=== PATIENT | female | born 1940 | race Caucasian/White ===

== ENCOUNTER → 2019-06-12 11:42 | Outpatient (BNVA) | payer MEDICARE, OTHER, SELFPAY | PROVIDERS: Family Provider Family Medicine; PCP Family Medicine; Visit Provider Nurse Practitioner Family | DX: E11.42 Type 2 diabetes mellitus with diabetic polyneuropathy (principal); R53.83 Other fatigue; I48.91 Unspecified atrial fibrillation; Z76.89 Persons encountering health services in other specified circumstances | CPT/HCPCS: 80053; 83036; 84443 ==

== ENCOUNTER 2019-10-26 10:53 | Emergency (ER) | payer MEDICARE, OTHER, SELFPAY ==
--- NOTE | 2019-10-26 11:20 | CT_ITS ---
WS: [id number] CT HEAD TECHNIQUE: Noncontrast CT of the head obtained from the skullbase to the vertex. CLINICAL INFORMATION: POSS CVA. DIZZINESS AND SLURRED SPEECH COMPARISON: None. DLP: [id number] scans at [facility] use at least one of these dose optimization techniques: automat ed exposure control; mA and/or kV adjustment per patient size (includes targeted exams where dose is matched to clinical indication); or iterative reconstruction. FINDINGS: No evidence of intracranial hemorrhage or mass effect. Ventricular system and basal cisterns are ahmadi nt. Mild small vessel changes with moderate parenchymal volume loss. Chronic lacunar infarct left master lamus. No extra-axial fluid collections. No evidence of mass or mass effect. Normal wesley-white differ entiation. Intracranial vascular calcification. Paranasal sinuses and mastoid air cells are well aerated. .Normal visualized soft tissues. CT/CT head wo con* [id number] IMPRESSION: 1. No evidence of intracranial hemorrhage or mass effect. 2. Mild small vessel changes. Moderate parenchymal volume loss. 3. Chronic lacunar infarct left thalamus. 4. No acute intracranial findings.
[2019-10-26 11:23] VITALS: BP 202/86; PULSE 74; RESP 18; TEMP 36.6; O2SAT 98; BMI 27.0
--- NOTE | 2019-10-26 11:28 | CT_ITS ---
WS: [id number] CTA HEAD AND NECK TECHNIQUE: Contrast enhanced CTA of the head and neck with coronal and sagittal reformatted images an d maximum intensity projection (MIP) images. NASCET criteria utilized. CLINICAL INFORMATION: POSS CVA. DIZZINESS AND SLURRED SPEECH COMPARISON: None. DLP: [id number] scans at [facility] use at least one of these dose optimization techniques: automat ed exposure control; mA and/or kV adjustment per patient size (includes targeted exams where dose is matched to clinical indication); or iterative reconstruction. FINDINGS: RIGHT: Right common carotid artery is patent. Calcified atheromatous disease right proximal ICA with stenosis measuring 70% LEFT: Left common carotid artery is patent. Calcified atheromatous disease left carotid bulb extendin g into the ICA with ICA stenosis measuring 39% INTRACRANIAL CTA: Left dominant vertebral artery. Hypoplastic right vertebral artery. Proximal basilar artery is patent . Normal vascularity to the [employer] TUM[employer]PER[employer] territory bilaterally. Both ICAs are patent at the skull base. Dense cavernous carotid calcification with mild to moderate s egmental cavernous carotid narrowing bilaterally. Cavernous carotid arteries remain patent. Hypoplast ic left A1. Normal vascularity to the PITER and MCA territories bilaterally. No evidence of high-grade proximal stenosis or aneurysm. Mastoid air cells are well aerated. Paranasal sinuses are well aerated. Lung apices are well aerated. Normal visualized soft tissues. CT/CT angio headneck* [id number] IMPRESSION: 1. Intracranial w[place] of Francis is unremarkable 2. Left dominant vertebral artery. Basilar artery is patent. 3. Normal vascularity to the PITER and MCA territories bilaterally. 4. Dense cavernous carotid calcification with no flow-limiting stenosis 5. Right ICA stenosis measures 70% 6. Left ICA stenosis measures 39%
[2019-10-26] MEDS: iodixanol 320 mg/mL 100mL Btl IV (11:33)
--- NOTE | 2019-10-26 11:40 | PC.NURSE ---
EKG done at 1130 and shown to ER doctor
--- NOTE | 2019-10-26 11:42 | W.ED.NEUROSD ---
HPI - Neuro Symptoms/Deficit General: Chief Complaint: Neuro Symptoms/Deficit Stated Complaint: STROKE SYMPTOMS Time Seen by Provider: 10/26/19 11:00 History of Present Illness: HPI Narrative: 79-year-old female with a history of hypertension and stroke presents to the emergency department with concerns of ataxia and dizziness and feeling off balance. The patient did initially have some concerns of some diplopia as well. The patient reports this is all unusual for her. She denies any motor or sensory weakness. The patient has any facial droop or dysphagia. The symptoms onset around 07 100 this morning. She was well when she went to bed she has been taking her medications as directed. Associated symptoms: Reports headache(s) and vertigo; Deny chest pain Review of Systems General: Reports: 10 or more systems reviewed and unremarkable except in HPI and below Const: Denies: fever(s) or chills Eyes: Reports: change in vision and blurry vision; Denies: blind spots, eye discomfort or eye redness ENMT: Denies: throat pain, bleeding gums or change in hearing Card: Denies: chest pain or palpitations Resp: Denies: dyspnea Musc: Denies: neck pain, back pain or muscle weakness Neuro: Reports: headache(s), lack of coordination, difficulty walking, dizziness and vertigo; Denies: numbness in extremities, weakness in extremities, sensory changes, frequent falls, confusion, behavioral changes, Slurred speech present, difficulty communicating thoughts, seizure-like activity, involuntary movements or restless legs [facility] ED PFSH: Medical History (Updated 10/26/19 @ 14:07 by Sonu Johnson DO) Atrial fibrillation Breast cancer Encapsulated in milk duct, excised by Dr. Montilla CAD (coronary artery disease) CVA (cerebral vascular accident) 2018 Diabetes mellitus, type II Diabetic peripheral neuropathy associated with type 2 diabetes mellitus Peripheral Vascular Disease Status post left heart catheterization Urinary, incontinence, stress female Surgical History H/O bladder repair surgery S/P dilatation and curettage S/P hysterectomy S/P lumpectomy of breast S/P right heart catheterization S/P wrist surgery Stented coronary artery Social History Smoking and tobacco status: former smoker Second hand smoke exposure: No Smoking risk assessment/counseling performed?: No Alcohol intake: never Desire information about alcohol rehabilitation?: No Counseling given: No Desire information about substance/drug rehabilitation?: No Counseling given: No NIH stroke score NIHSS: Level Of Consciousness - 1a: 0 Level Of Consciousness Questions - 1b: Both Correct Level Of Consciousness Commands - 1c: Both Correct Best Gaze - 2: Normal Visual Garcia - 3: No Visual Loss Facial Palsy - 4: Normal Motor Arm Right - 5: No Drift Motor Arm Left - 5: No Drift Motor Leg Right - 6: No Drift Motor Leg Left - 6: No Drift Limb Ataxia - 7: Absent Sensory - 8: Normal Best Language - 9: No Aphasia Dysarthia - 10: Normal Extinction And Inattention - 11: 0 Score: Total Score: 0 Physical Exam Const: COMMON NORMALS: no acute distress, patient oriented x3, alert and well nourished HENMT: COMMON NORMALS: normocephalic HEAD & SCALP: normocephalic Eye: COMMON NORMALS: Equal, round and reactive pupils present, EOMs intact bilaterally and conjunctivae normal CONJUNCTIVA: Yes conjunctivae normal PUPIL: Yes Equal, round and reactive pupils present Neck/C-Spine: COMMON NORMALS: full ROM, no lymphadenopathy, supple, no meningeal signs, no JVD and Thyroid normal THYROID: Thyroid normal Chest: COMMONS NORMALS: normal inspection of the chest and normal palpation of entire chest wall Resp: COMMON NORMALS: normal respiratory effort, No retractions, No use of accessory muscles, clear to auscultation bilaterally and percussion normal AUSCULTATION: clear to auscultation bilaterally PERCUSSION: percussion normal Cardio: COMMON NORMALS: no JVD GI: COMMON NORMALS: Normal to inspection, nondistended, normoactive bowel sounds present, Soft to palpation, non-tender, No hepatosplenomegaly present, no masses and no bruits PALPATION: Yes Soft to palpation and Yes No hepatosplenomegaly present : COMMON NORMALS: Yes no CVA tenderness BLADDER/KIDNEY EXAM: Yes no CVA tenderness Back/Pelvis: COMMON NORMALS: no CVA tenderness Extremity: COMMON NORMALS: normal to inspection, full ROM, capillary refill normal, no joint enlargement, no clubbing, cyanosis or edema, no calf tenderness and no pedal edema Neuro: COMMON NORMALS: patient oriented x3 SENSORIUM/ORIENTATION: Yes alert MENINGEAL SIGNS: Yes no meningeal signs Skin: COMMON NORMALS: no rashes or lesions noted, turgor normal and no jaundice GENERAL SKIN EXAM: no rashes or lesions noted and turgor normal Course ED course: 79-year-old female with a history of stroke and hypertension as well as atrial fibrillation presents with strokelike symptoms. Stroke alert was called Dr. Michelle presented to the emergency department and evaluated the patient found to have low NIH sent for CT and CTA. Ultimately due to her mild symptoms as well as the fact that she is on Eliquis as she is not a TPA candidate. 13:45 Patient reports all symptoms have resolved. Her CT and CTA were unremarkable. Blood pressures a little bit elevated her blood sugars been a little bit elevated as well. Will talk with Dr. Michelle neurology about disposition. This patient symptoms resolved and I think it's reasonable to discharge her Dr. Michelle concurs the patient really like to go home and not be admitted to the hospital. We discussed return precautions initiation of aspirin she hasn't tolerated statins in the past and so these will be contraindicated based on her past history. Vital Signs: Vital signs: Vital Signs Temperature 97.9 F 10/26/19 11:23 Pulse Rate 70 10/26/19 13:00 Respiratory Rate 16 10/26/19 13:00 Blood Pressure 171/83 10/26/19 13:00 Pulse Oximetry 96 10/26/19 13:00 MDM - Neuro Symptoms/Deficit Lab Data: Labs: Lab Results 10/26/19 10/26/19 10/26/19 Range/Units 11:09 11:09 11:09 WBC 5.2 (4.0-10.0) 10^3/ uL RBC 4.66 (4.1-5.3) 10^6/u L Hgb 13.9 (11.5-15.3) g/dL Hct 42.7 (37.0-47.0) % MCV 91.6 (81-99) fL MCH 29.8 (28.0-34.0) pg MCHC 32.6 (30.0-36.0) g/dL RDW 12.8 (12.1-15.1) % Plt Count 317 (130-400) 10^3/c mm MPV 10.0 (7.4-10.4) fL Neut % (Auto) 70.0 % Lymph % (Auto) 22.9 % Gladwin % (Auto) 5.3 % Eos % (Auto) 1.0 % Baso % (Auto) 0.4 % Neut # (Auto) 3.67 (1.8-7.7) 10^3/u L Lymph # (Auto) 1.2 (0.8-4.8) 10^3/u L Gladwin # (Auto) 0.3 (0.2-0.9) 10^3/u L Eos # (Auto) 0.1 (0.0-0.8) 10^3/u L Baso # (Auto) 0.0 (0.0-0.1) 10^3/u L Nucleated RBC % (a uto) 0 % Nucleated RBCs # 0.0 /100WBC PT 13.60 H (10.5-13.3) SECO NDS INR 1.00 (0.8-1.2) APTT 27.3 (23.9-36.7) SECO NDS Sodium 128 L (136-145) mmol/L Potassium 4.4 (3.5-5.1) mmol/L Chloride 90 L (98-107) mmol/L Carbon Dioxide 23 (22-29) mmol/L Anion Gap 19.4 H (5-19) BUN 12 (8-23) mg/dL Creatinine 0.8 (0.5-0.9) mg/dL Glucose 313 H (65-115) mg/dL Calculated Osmolal ity 274 L (285-295) mOsm/k g Calcium 11.7 H (8.5-10.5) mg/dL Total Bilirubin 0.4 (0.15-1.2) mg/dL AST 17 (0-32) U/L ALT 17 (0-33) U/L Alkaline Phosphata se 71 (35-105) IU/L Total Protein 8.6 (6.6-8.7) g/dL Albumin 4.8 (3.5-5.2) g/dL Globulin 3.8 (1.3-4.6) g/dL Urine Color (Yellow) Urine Appearance (CLEAR) Urine pH (5-7) Ur Specific Gravit y (1.005-1.030) Urine Protein (Negative) Urine Glucose (UA) (Normal) Urine Ketones (Negative) Urine Blood (Negative) Urine Nitrate (Negative) Urine Bilirubin (NEGATIVE) Urine Urobilinogen (Negative) mg/dL Ur Leukocyte Josephine ase (Negative) Urine RBC (0-2) /hpf Urine WBC (0-5) /hpf Ur Squamous Epith Cells (0-5) Amorphous Sediment Urine Bacteria (NONE) 10/26/19 Range/Units 12:56 WBC (4.0-10.0) 10^3/ uL RBC (4.1-5.3) 10^6/u L Hgb (11.5-15.3) g/dL Hct (37.0-47.0) % MCV (81-99) fL MCH (28.0-34.0) pg MCHC (30.0-36.0) g/dL RDW (12.1-15.1) % Plt Count (130-400) 10^3/c mm MPV (7.4-10.4) fL Neut % (Auto) % Lymph % (Auto) % Gladwin % (Auto) % Eos % (Auto) % Baso % (Auto) % Neut # (Auto) (1.8-7.7) 10^3/u L Lymph # (Auto) (0.8-4.8) 10^3/u L Gladwin # (Auto) (0.2-0.9) 10^3/u L Eos # (Auto) (0.0-0.8) 10^3/u L Baso # (Auto) (0.0-0.1) 10^3/u L Nucleated RBC % (a uto) % Nucleated RBCs # /100WBC PT (10.5-13.3) SECO NDS INR (0.8-1.2) APTT (23.9-36.7) SECO NDS Sodium (136-145) mmol/L Potassium (3.5-5.1) mmol/L Chloride (98-107) mmol/L Carbon Dioxide (22-29) mmol/L Anion Gap (5-19) BUN (8-23) mg/dL Creatinine (0.5-0.9) mg/dL Glucose (65-115) mg/dL Calculated Osmolal ity (285-295) mOsm/k g Calcium (8.5-10.5) mg/dL Total Bilirubin (0.15-1.2) mg/dL AST (0-32) U/L ALT (0-33) U/L Alkaline Phosphata se (35-105) IU/L Total Protein (6.6-8.7) g/dL Albumin (3.5-5.2) g/dL Globulin (1.3-4.6) g/dL Urine Color Yellow (Yellow) Urine Appearance Sl hazy (CLEAR) Urine pH 5.0 (5-7) Ur Specific Gravit y 1.015 (1.005-1.030) Urine Protein Neg (Negative) Urine Glucose (UA) 2+ (Normal) Urine Ketones Negative (Negative) Urine Blood Neg (Negative) Urine Nitrate Negative (Negative) Urine Bilirubin Neg (NEGATIVE) Urine Urobilinogen Norm (Negative) mg/dL Ur Leukocyte Josephine ase 1+ H (Negative) Urine RBC 5-10 H (0-2) /hpf Urine WBC 15-25 H (0-5) /hpf Ur Squamous Epith Cells 0-4 H (0-5) Amorphous Sediment Not Reportable Urine Bacteria 2+ H (NONE) Discharge Plan Discharge Patient Disposition: Home, Self-Care Clinical Impression: Transient cerebral ischemia Condition: Stable Prescriptions: No Action docusate sodium [Dulcolax Stool Softener (dss)] 100 mg capsule 100 mg PO DAILY RF: 0 cholecalciferol (vitamin D3) 25,000 unit capsule 2,000 unit PO DAILY RF: 0 Complete Multivitamin Tablet 1 tab PO DAILY RF: 0 oxybutynin chloride 5 mg tablet 5 mg PO BID 90 Days Qty: 180 RF: 3 pioglitazone 45 mg tablet 45 mg PO DAILY 90 Days Qty: 90 RF: 3 apixaban 5 mg tablet 5 mg PO BID 90 Days Qty: 180 RF: 3 carvedilol 6.25 mg tablet 6.25 mg PO BID RF: 0 gabapentin 100 mg capsule See Rx Instructions .ROUTE .COMPLEX RF: 0 lisinopril 20 mg tablet 10 mg PO DAILY RF: 0 methenamine hippurate 1 gram tablet 1 gm PO DAILY PRN (Reason: PRN) RF: 0 polyethylene glycol 3350 [Miralax] 17 gram powder in packet 17 gm PO DAILY PRN (Reason: Constipation) RF: 0 ranolazine 500 mg tablet extended release 12 hr 500 mg PO BID 90 Days Qty: 180 RF: 3 cetirizine 10 mg Tablet 10 mg PO BID RF: 0 Trulicity 1.5 mg/0.5 mL pen injector 1.5 mg SUBCUT Q7D RF: 0 Discharge Orders: Discharge Order (Routine); Ordered 10/26/19 Ordered By: Sonu Johnson Referrals: JUANA Booth FNP [Primary Care Provider] - Caterina Mccauley DO [Family Provider] - Discharge Diet: Low Salt and Low Cholesterol Discharge Activity: Limit activity as instructed Coding Level of Care Code ED Toe Former Stitchdowns for Chg Fwd Exam Comprehensive
--- NOTE | 2019-10-26 11:59 | PC.NURSE ---
Patient stated that she was still having light dizziness , nurse has been informed.
--- NOTE | 2019-10-26 12:00 | PC.NURSE ---
Patient is stating that she is still feeling light dizziness
[2019-10-26 12:04] VITALS: BP 169/74; PULSE 70; RESP 18; O2SAT 96
--- NOTE | 2019-10-26 12:42 | ECG_ITS ---
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 Measurements Intervals [place] Rate: 74 P: 62 WV: 190 QRS: 80 QRSD: 151 T: 46 QT: 414 QTc: 460 Interpretive Statements SINUS RHYTHM WITH SINUS ARRHYTHMIA RIGHT BUNDLE BRANCH BLOCK [120+ ms QRS DURATION, UPRIGHT V1, 40+ ms S IN I/aVL/V4/V5/V6] Compared to ECG 03/19/2017 01:32:44 Right bundle-branch block now present Electronically Signed On 10-27-2019 1:21:11 CDT by Nick Vogel M.D. [email or web address]
[2019-10-26 13:00] VITALS: BP 171/83; PULSE 70; RESP 16; O2SAT 96; O2SAT 98
[2019-10-26 13:02] LABS: Basophils % 0.4 %; Eosinophils # 0.1 10^3/uL (0.0-0.8); Hematocrit 42.7 % (37.0-47.0); Hemoglobin 13.9 g/dL (11.5-15.3); Lymphocytes # 1.2 10^3/uL (0.8-4.8); Lymphocytes % 22.9 %; Mean Corpuscular HGB Conc 32.6 g/dL (30.0-36.0); Mean Corpuscular Hemoglobin 29.8 pg (28.0-34.0); Mean Corpuscular Volume 91.6 fL (81-99); Monocytes # 0.3 10^3/uL (0.2-0.9); Monocytes % 5.3 %; Neutrophils # 3.67 10^3/uL (1.8-7.7); Nucleated Red Blood Cells % 0 %; Platelet Count 317 10^3/cmm (130-400); Red Blood Count 4.66 10^6/uL (4.1-5.3); Red Cell Distribution Width 12.8 % (12.1-15.1); White Blood Count 5.2 10^3/uL (4.0-10.0)
[2019-10-26 13:10] LABS: Partial Thromboplastin Time 27.3 SECONDS (23.9-36.7)
[2019-10-26 13:41] LABS: Alanine Aminotransferase 17 U/L (0-33); Albumin Level 4.8 g/dL (3.5-5.2); Alkaline Phosphatase 71 IU/L (35-105); Aspartate Amino Transferase 17 U/L (0-32); Blood Urea Nitrogen 12 mg/dL (8-23); Calcium 11.7 mg/dL (8.5-10.5); Carbon Dioxide 23 mmol/L (22-29); Chloride 90 mmol/L (98-107); Globulin 3.8 g/dL (1.3-4.6); Glucose 313 mg/dL (65-115); Osmolality Calculated 274 mOsm/kg (285-295); Sodium 128 mmol/L (136-145); Total Bilirubin 0.4 mg/dL (0.15-1.2); Total Protein 8.6 g/dL (6.6-8.7)
[2019-10-26 14:00] VITALS: BP 188/75; PULSE 62; RESP 19; O2SAT 98
[2019-10-26 14:00] LABS: Anion Gap 19.4 (5-19); Potassium 4.4 mmol/L (3.5-5.1)
[2019-10-26 14:02] LABS: Urine Appearance SL Hazy (CLEAR); Urine Color Yellow (Yellow)
[2019-10-26 14:03] LABS: Add Urine Culture? Yes; Add Urine Microscopic? YES; Bacteria Urine 2+; Bilirubin Urine Neg (NEGATIVE); Blood Urine Neg (Negative); Glucose Urine UA 2+ (Normal); Ketones Urine Negative (Negative); Leukocyte Esterase Urine 1+ (Negative); Nitrate Urine Negative (Negative); Protein Urine Neg (Negative); Specific Gravity, Urine 1.015 (1.005-1.030); Squamous Epithelial Cell Urine 0-4 (0-5); Urobilinogen Urine Norm (Negative); WBC Urine 15-25 /hpf (0-5)
[2019-10-26 14:33] VITALS: BP 177/87; PULSE 63; RESP 18; O2SAT 97
--- NOTE | 2019-10-26 15:24 | PM.SAN ---
Stroke Alert Activation ED Arrival Date: 10/26/19 ED Arrival Time: 11:00 ED Physican at Bedside: 11:30 Last Known Normal/at Baseline: 3-4 hours ago Other Last Known Well Infomation: I was called stat for stroke team at 11 AM. I called and spoke with the administrative support clerk, who informed me that the patient had arrived in triage and was staggering to the left. She had been referred from a clinic. I came directly to CAT scan where I managed to examine the patient just as she was transferring to the CAT scan table and I determined that she did not have nystagmus and she was moving all 4 extremities but her speech was slurred. She was wide awake and alert. CT scan of the head showed an old left thalamic infarct. I returned to the CAT scan suite and performed an NIH stroke scale. The time by then was 1107. On completion of the stroke scale I took more time to piece together her history. She reported that she got out of bed at 730 this morning and she was fine. She walked to the kitchen and started getting her breakfast ready and at around 8:00 she suddenly developed dizziness to the point that she could not stand up from her chair. Her daughter assisted her back down and she was experiencing spinning vertigo and her speech was slurred. She called the [place] [facility] a where she believes that she spoke with the nurse practitioner and was advised to come on to the clinic. When she got there, they examined her and send her on to [facility] where she arrived by private vehicle. I then discovered that she is on Eliquis and therefore not a candidate for TPA. Because she had vertigo at the start and gait dysfunction I asked the electronic lab technician to go ahead with CT angiogram. That did not show signs of vertebrobasilar stenosis or any significant disease. I looked at the images on the monitor and follow the patient back to the emergency department and confirmed her exam. I spoke with Dr. Short, who was planning to see the patient in the ER and I asked him to check the radiology report on her CTA. That physician later called me and reviewed all findings and reported that the patient had return to baseline. I agreed to work her into the neurology clinic within a few weeks. She should stay on Eliquis. Stroke Alert Activated by: Triage Stroke Alert Activation Time: 11:00 Stroke MD @ Bedside Time: 11:05 NIH Stroke Scale Time: 11:07 NIH stroke score NIHSS: Level Of Consciousness - 1a: 0 Level Of Consciousness Questions - 1b: Both Correct Level Of Consciousness Commands - 1c: Both Correct Best Gaze - 2: Normal Visual Garcia - 3: No Visual Loss Facial Palsy - 4: Minor Paralysis Motor Arm Right - 5: No Drift Motor Arm Left - 5: No Drift Motor Leg Right - 6: No Drift Motor Leg Left - 6: No Drift Limb Ataxia - 7: Absent Sensory - 8: Normal Best Language - 9: No Aphasia Dysarthia - 10: Mild/Moderate Dysarthia Extinction And Inattention - 11: 0 Score: Total Score: 2 Stroke Alert Data/Treatment Time to CT of Head: 11:00 CT Results Time: 11:07 CT Impression: Old left thalamic infarct Stroke Risk Factors: atrial fibrillation and hypertension tPA Contraindication: tPA Contraindication: Treatment not indcated tPA Admin Prior to Arrival: No Patient & Family Educated on: Cause of Stroke, Treament Plan and tPA Risks/Benefits Other Information: CT angiogram performed immediately on completion of CT because the patient was not a candidate for peripheral TPA and her symptoms suggested posterior circulation ischemia. Critical Care Time Critical Care Time: 30 - 74 mins Coding Level of Care Code Acute Printing Bindery Assistant 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
== END 2019-10-26 14:40 | disposition home or self-care (01) ==
PROVIDERS: Emergency Provider Family Medicine; Family Provider Family Medicine; PCP Nurse Practitioner Family
DX: G45.9 Transient cerebral ischemic attack, unspecified (principal); I48.91 Unspecified atrial fibrillation; Z85.3 Personal history of malignant neoplasm of breast; I25.10 Atherosclerotic heart disease of native coronary artery without angina pectoris; Z86.73 Personal history of transient ischemic attack (TIA), and cerebral infarction without residual deficits; E11.42 Type 2 diabetes mellitus with diabetic polyneuropathy; Z87.891 Personal history of nicotine dependence; Z79.899 Other long term (current) drug therapy
CPT/HCPCS: 12345; 70450; 70496; 70498; 80053; 81001; 81003; 85025; 85610; 85730; 87077; 87086; 87186; 93005; 99284; Q9967

== ENCOUNTER → 2019-12-11 10:02 | Outpatient (BNVA) | payer MEDICARE, OTHER, SELFPAY | PROVIDERS: Family Provider Family Medicine; PCP Nurse Practitioner Family; Referring Provider Nurse Practitioner Family; Visit Provider Nurse Practitioner | DX: Z86.73 Personal history of transient ischemic attack (TIA), and cerebral infarction without residual deficits (principal); Z87.891 Personal history of nicotine dependence | CPT/HCPCS: 99204 ==

== ENCOUNTER → 2019-12-13 10:29 | Outpatient (BNVA) | payer MEDICARE, OTHER, SELFPAY | PROVIDERS: Family Provider Family Medicine; PCP Nurse Practitioner Family; Visit Provider Nurse Practitioner Family | DX: M51.36 Other intervertebral disc degeneration, lumbar region (principal); E11.42 Type 2 diabetes mellitus with diabetic polyneuropathy; E78.2 Mixed hyperlipidemia; I10 Essential (primary) hypertension; F41.8 Other specified anxiety disorders; N39.0 Urinary tract infection, site not specified | CPT/HCPCS: 80053; 80061; 81003; 83036; 84443; 87077; 87086; 87186 ==

== ENCOUNTER 2019-12-26 12:55 | Outpatient (CLI) | payer MEDICARE, OTHER, SELFPAY ==
--- NOTE | 2019-12-26 13:33 | MM_ITS ---
WS: [id number] DIAGNOSTIC BILATERAL DIGITAL MAMMOGRAM WITH CAD HISTORY: HX OF BREAST CANCER COMPARISON: 11/14/2018, 10/12/2017 TECHNIQUE: Bilateral craniocaudad, mediolateral oblique, and mediolateral views are submitted. Comput er aided detection utilized. Breast composition: The breasts are heterogeneously dense, which may obscure small masses. Benign dys trophic calcification at 12:00 LEFT breast. Postsurgical changes and distortion in the posterior LEFT breast. MM/[place] [id number] IMPRESSION: BI-RADS: 2-Benign FOLLOW UP: 1 Year Follow-up
--- NOTE | 2019-12-26 14:20 | XR_ITS ---
WS: [id number] LUMBAR SPINE TECHNIQUE: 7 views of the lumbar spine CLINICAL INFORMATION: Lumbar back pain COMPARISON: None. FINDINGS: Five [id number] lumbar vertebral bodies. The lumbar curve convex left. Osteopenia. Vascular calc ification. Mild disc space narrowing L4-L5 and L5-S1. Slight retrolisthesis L4 on L5. No instability on flexion-extension. No acute appearing compression fractures. Mild chronic appearing compression superior endplate T11. A ortic calcification. XR/XR lumbar spine 6V w f/e [id number] IMPRESSION: 1. Mild lumbar curve convex left. Osteopenia. 2. Disc space narrowing worse at L4-L5 and L5-S1. 3. No instability on flexion-extension 4. Moderate facet arthropathy L4-L5 and L5-S1. 5. No acute appearing compression fractures.
--- NOTE | 2019-12-26 14:20 | MR_ITS ---
WS: [id number] MRI LUMBAR SPINE NONCONTRAST TECHNIQUE: Sagittal T1, T2 and STIR imaging. Axial T1 and T2 imaging. CLINICAL INFORMATION: M51.36 Other intervertebral disc degeneration, lumbar region COMPARISON: MRI FINDINGS: Mild lumbar curve. No acute compression. No high-grade central canal stenosis. Disc osteophyte comple x L4-5. L1-L2: Normal L2-L3: Mild annular bulging with slight narrowing of the subarticular recess bilaterally left greater than right. Spinal canal is patent. Mild facet arthropathy. L3-L4: Mild annular bulging. Slight narrowing of the left subarticular recess. Spinal canal and page en are patent. Mild facet arthropathy. L4-L5: Disc osteophyte complex with endplate ridging. Moderate central stenosis with impingement nara ersing L5 nerve roots bilaterally. Mild right and no significant left foraminal narrowing. Moderate f acet arthropathy. Ligamentum flavum hypertrophy. Disc protrusion L4-5 has ossified and involuted compared to the prior examination 2009. L5-S1: Mild disc bulging with osteophytic ridging. Mild right and no significant left foraminal narro wing. Slight effacement of ventral thecal sac. Slight encroachment traversing right S1 nerve root. Mi ld facet arthropathy. Normal caliber visualized lower abdominal aorta. Small renal cysts. MR/MR lumbar spine wo con* [id number] IMPRESSION: 1. Mild lumbar curve. No acute compression. 2. Disc osteophyte complex L4-5 with central disc osteophyte protrusion. Impin gement traversing L5 nerve roots bilaterally. Moderate central canal stenosis. Mild right L4-5 foraminal narrowing. Disc protrusion at this level has ossified and involuted compared to the prior examination 2009 3. Mild disc osteophyte ridging L5-S1 with mild right foraminal narrowing. Sli ght narrowing of the right subarticular recess. 4. Mild bulging L2-3 with slight narrowing of the subarticular recess. 5. Mild facet arthropathy L3-L5.
== END 2019-12-26 12:56 | disposition home or self-care (01) ==
LOC: RADSHAW 12:59
PROVIDERS: PCP Nurse Practitioner Family; Visit Provider Nurse Practitioner Family
DX: C50.919 Malignant neoplasm of unspecified site of unspecified female breast (principal); M51.36 Other intervertebral disc degeneration, lumbar region; M54.5 Low back pain; Z85.3 Personal history of malignant neoplasm of breast; M25.78 Osteophyte, vertebrae; M48.061 Spinal stenosis, lumbar region without neurogenic claudication; M51.86 Other intervertebral disc disorders, lumbar region; M47.896 Other spondylosis, lumbar region
CPT/HCPCS: 72114; 72148; 77066

== ENCOUNTER 2020-01-04 13:36 | Outpatient (CLI) | payer MEDICARE, OTHER, SELFPAY ==
--- NOTE | 2020-01-04 13:45 | MR_ITS ---
WS: [id number] MRI HEAD WITH CONTRAST TECHNIQUE: Sagittal T1, T2 axial, T2 axial FLAIR, axial susceptibility weighted imaging, axial diffus ion weighted images, and coronal T2 images were obtained. Pre and post-T1 axial and post T1 coronal i mages. ADC and FSPGR images. CLINICAL INFORMATION: SEE DX COMPARISON: MRI . CT October 26, 2019 FINDINGS: No evidence of restricted diffusion to suggest acute ischemia. Ventricular system and basal cisterns are patent. Moderate small vessel changes. Moderate parenchymal volume loss. Incidental cavum septum pellucidum. Chronic lacunar infarct left thalamus. Small vessel changes in the yuliana. Chronic lacunar infarcts in the left cerebellum. Mild mucosal thickening in the mastoid air cells. Normal vascular fl ow voids at the skull base. Mild mucosal thickening in the ethmoid air cells. No hemosiderin and on the susceptibly weighted images. Normal optic chiasm and pituitary infundibulum . Moderate symmetric atrophy involving the temporal lobes and hippocampal formations. No abnormal marco a olinium enhancement. Normal visualized dural venous sinuses. MR/MR head wo/w con [id number] IMPRESSION: 1. No evidence of restricted diffusion to suggest acute ischemia. 2. Moderate small vessel changes with moderate parenchymal volume loss. Small vessel changes in the yuliana. 3. Chronic lacunar infarct in the left thalamus. 4. No abnormal gadolinium enhancement. Moderate symmetric atrophy involving th e temporal lobes and hippocampal formations. 5. Mild mucosal thickening in the mastoid air cells bilaterally.
== END 2020-01-04 13:37 | disposition home or self-care (01) ==
LOC: RADSHAW 13:41
PROVIDERS: PCP Nurse Practitioner Family; Visit Provider Nurse Practitioner
DX: I63.9 Cerebral infarction, unspecified (principal); G31.9 Degenerative disease of nervous system, unspecified
CPT/HCPCS: 70553; A9579

== ENCOUNTER 2020-07-19 14:00 | Outpatient (CLI) | payer MEDICARE, OTHER, SELFPAY ==
--- NOTE | 2020-07-19 15:00 | USCV_ITS ---
Rosado Danitza Age: 79 Gender: F : 1940 Exam Date: 07/19/2020 14:54 Ordering Phys: Martinez Retana MD (Andy) ([email or web address] [place]) Technologist: Trini Perez Exam Location: [facility] [place] Indication: STENOSIS Risk Factors: Previous Vascular Surgery: Right Brachial BP: / Left Brachial BP: / Right Left Velocity (cm/s) Spectral Plaque Velocity (cm/s) Spectral Plaque Syst/Diast Broadening Syst/Diast Broadening 73.90/ 7.70 Prox CCA 73.50 / 7.70 56.20/ 14.30 Mid CCA 83.70 / 15.40 94.80/ 14.30 Distal CCA 72.60 / 10.30 108.10/22.10 Prox ICA 44.40 / 12.90 79.40/ 27.60 Mid ICA 65.40 / 25.70 144.50/32.60 Distal ICA 73.70 / 22.20 83.80 ECA 66.00 2.57 ICA/CCA 0.88 Antegrade Vertebral Antegrade 40.10/ 6.40 cm/s 25.60/ 4.90 cm/s Tri Subclavian Tri 312.5 95.00 0 FINDINGS Moderate heterogeneous plaque to the right bifurcation and proximal internal carotid artery Mild to moderate plaques of the left bifurcation Antegrade flow in the vertebral arteries bilaterally Normal flow velocities in the external carotid arteries bilaterally Elevated velocity in the right subclavian artery-312 cm/s CONCLUSIONS Moderate heterogeneous plaque to the right bifurcation and proximal internal carotid artery with velocity elevation, consistent with less than 50% stenosis Mild to moderate plaques of the left bifurcation, consistent with a less than 50% stenosis Elevated velocity in subclavian artery on the right side, may suggest hemodynamically significant stenosis Compared to the study from 10/14/2018, the Doppler velocity and plaque burden at the bifurcations are much less Elevated velocity in the right subclavian artery also appears to be new Dr Nick Vogel MD FAC (Electronically Signed) Final Date: 19 July 2020 15:46 S
== END 2020-07-19 14:01 | disposition home or self-care (01) ==
LOC: RAD 14:05
PROVIDERS: PCP Nurse Practitioner Family; Visit Provider Thoracic Surgery (Cardiothoracic Vascular Surgery)
DX: I65.23 Occlusion and stenosis of bilateral carotid arteries (principal)
CPT/HCPCS: 93880

== ENCOUNTER → 2020-08-13 09:26 | Outpatient (BNVA) | payer MEDICARE, OTHER, SELFPAY | PROVIDERS: PCP Nurse Practitioner Family; Visit Provider Nurse Practitioner Family | DX: E11.42 Type 2 diabetes mellitus with diabetic polyneuropathy (principal); E78.2 Mixed hyperlipidemia; D64.9 Anemia, unspecified; I10 Essential (primary) hypertension; E55.9 Vitamin D deficiency, unspecified; M51.36 Other intervertebral disc degeneration, lumbar region | CPT/HCPCS: 80053; 80061; 81003; 82306; 82607; 83036; 83550; 83735; 83921; 84443; 85025 ==

== ENCOUNTER 2020-08-14 11:40 | Outpatient (CLI) | payer MEDICARE, OTHER, SELFPAY ==
--- NOTE | 2020-08-14 11:54 | XR_ITS ---
WS: [id number] Lumbar spine, AP, L5-S1 spot, both obliques, lateral with flexion, extension and neutral position, 08/14/2020 Clinical Data: M51.36 - Other intervertebral disc degeneration, lumbar r... Comparison: Lumbar spine, 12/26/2019. Findings: No compression fractures or subluxation is seen. There is disc space narrowing at L4-L5 and L5-S1.. T he transverse processes and SI joints are normal. The oblique films show no spondylolysis or spondylo listhesis. There is degenerative spurring at L4 and L5. No subluxation or limitation of motion on flexion or extension occurs. There is diffuse osteoporosis. There is calcification in the wall of the abdominal aorta but no aneurysm is seen. XR/XR lumbar spine 6V w f/e [id number] Impression: 1. Osteoporosis and osteoarthritis. 2. Degenerative disc narrowing at L4-L5 and L5-S1. 3. Negative for spondylolysis. 4. Negative for limitation of motion or subluxation on flexion or extension.
== END 2020-08-14 11:41 | disposition home or self-care (01) ==
LOC: RAD 11:48
PROVIDERS: PCP Nurse Practitioner Family; Visit Provider Nurse Practitioner Family
DX: M51.36 Other intervertebral disc degeneration, lumbar region (principal); M81.0 Age-related osteoporosis without current pathological fracture; M47.816 Spondylosis without myelopathy or radiculopathy, lumbar region
CPT/HCPCS: 72114

== ENCOUNTER 2020-10-01 06:00 | Outpatient (RCR) | payer MEDICARE, OTHER, SELFPAY | END 2020-10-09 23:59 | disposition home or self-care (01) | LOC: WPT 06:00 | PROVIDERS: PCP Nurse Practitioner Family; Referring Provider Nurse Practitioner Family; Visit Provider Nurse Practitioner Family | DX: M54.9 Dorsalgia, unspecified (principal) | CPT/HCPCS: 97110; 97163 ==

== ENCOUNTER 2020-10-10 06:00 | Outpatient (RCR) | payer MEDICARE, OTHER, SELFPAY | END 2020-11-09 23:59 | disposition home or self-care (01) | LOC: WPT 06:00 | PROVIDERS: PCP Nurse Practitioner Family; Referring Provider Nurse Practitioner Family; Visit Provider Nurse Practitioner Family | DX: M54.5 Low back pain (principal) | CPT/HCPCS: 97110; 97112; 97530 ==

== ENCOUNTER 2020-11-10 06:00 | Outpatient (RCR) | payer MEDICARE, OTHER, SELFPAY | END 2020-12-10 23:59 | disposition home or self-care (01) | LOC: WPT 06:00 | PROVIDERS: PCP Nurse Practitioner Family; Referring Provider Nurse Practitioner Family; Visit Provider Nurse Practitioner Family | DX: M54.9 Dorsalgia, unspecified (principal) | CPT/HCPCS: 97110; 97112; 97530 ==

== ENCOUNTER → 2020-11-28 14:49 | Outpatient (BNVA) | payer MEDICARE, OTHER, SELFPAY | PROVIDERS: PCP Nurse Practitioner Family; Visit Provider Internal Medicine | DX: E11.42 Type 2 diabetes mellitus with diabetic polyneuropathy (principal); R31.0 Gross hematuria | CPT/HCPCS: 81003; 82607; 83036; 87077; 87086; 87184 ==

== ENCOUNTER 2021-01-08 10:01 | Outpatient (CLI) | payer MEDICARE, OTHER, SELFPAY ==
--- NOTE | 2021-01-08 10:00 | MM_ITS ---
WS: [id number] BILATERAL DIGITAL DIAGNOSTIC MAMMOGRAM MAMMOGRAPHY WITH CAD CLINICAL INFORMATION: C50.919 - Malignant neoplasm of unspecified site of unspe... COMPARISON: December 26, 2019 TECHNIQUE: Bilateral CC, MLO, and ML views. FINDINGS: The breasts are composed of heterogeneous fibroglandular density, which can limit the detection of sm all underlying mass lesions. Postoperative changes with parenchymal fibrosis and distortion in the po sterior left breast. Stable dystrophic calcifications 12:00 left breast. Stable dystrophic calcificat ions upper outer right breast. Biopsy clip right breast. Stable clustered calcifications left breast. No suspicious focal mass, asymmetry, calcifications, or architectural distortion. No evidence of jackie gnancy. MM/[place] [id number] IMPRESSION: BI-RADS: 2-Benign FOLLOW UP: 1 Year Follow-up Recommend return to annual diagnostic mammography.
== END 2021-01-08 10:02 | disposition home or self-care (01) ==
LOC: RADSHAW 10:05
PROVIDERS: PCP Nurse Practitioner Family; Visit Provider Nurse Practitioner Family
DX: C50.919 Malignant neoplasm of unspecified site of unspecified female breast (principal)
CPT/HCPCS: 77066

== ENCOUNTER → 2021-02-18 10:24 | Outpatient (BNVA) | payer MEDICARE, OTHER, SELFPAY | PROVIDERS: PCP Nurse Practitioner Family; Visit Provider Internal Medicine | DX: E11.42 Type 2 diabetes mellitus with diabetic polyneuropathy (principal); I25.10 Atherosclerotic heart disease of native coronary artery without angina pectoris; G45.9 Transient cerebral ischemic attack, unspecified; Z79.84 Long term (current) use of oral hypoglycemic drugs; I10 Essential (primary) hypertension | CPT/HCPCS: 99214 ==

== ENCOUNTER 2021-02-26 07:43 | Outpatient (CLI) | payer MEDICARE, OTHER, SELFPAY ==
--- NOTE | 2021-02-26 09:30 | USCV_ITS ---
Danitza Rosado Age: 80 Gender: F : 1940 Exam Date: 02/26/2021 07:59 Ordering Phys: Martinez Retana MD (Andy) [email or web address] [place] Technologist: MARTI Exam Location: [facility] [place] Indication: OCCLUSION AND STENOSIS OF CAROTIDS Risk Factors: Previous Vascular Surgery: Right Brachial BP: / Left Brachial BP: / Right Left Velocity (cm/s) Spectral Plaque Velocity (cm/s) Spectral Plaque Syst/Diast Broadening Syst/Diast Broadening 95.90/ 13.20 Prox CCA 86.20 / 10.10 66.70/ 13.70 Mid CCA 73.80 / 10.10 56.40/ 12.80 Distal CCA 64.50 / 17.10 126.80/29.80 Prox ICA 102.50/ 27.20 161.00/39.70 Mid ICA 84.70 / 24.80 140.00/34.20 Distal ICA 75.30 / 26.30 104.20 ECA 84.70 2.42 ICA/CCA 1.15 Antegrade Vertebral Antegrade 42.70/ 7.20 cm/s 81.50/ 19.30 cm/s Tri Subclavian Bi 220.6 219.5 0 0 CONCLUSIONS Right ICA stenosis 50-69%. Moderate atheromatous plaque right carotid bulb/ICA. Left ICA stenosis <50%. Mild atheromatous plaque left carotid bulb/ICA. Normal antegrade Doppler flow noted in the right vertebral artery. Normal antegrade Doppler flow noted in the left vertebral artery. Erickson Muir MD (Electronically Signed) Final Date: 26 February 2021 08:59 S
== END 2021-02-26 07:44 | disposition home or self-care (01) ==
LOC: US 07:45
PROVIDERS: PCP Nurse Practitioner Family; Visit Provider Thoracic Surgery (Cardiothoracic Vascular Surgery)
DX: I65.23 Occlusion and stenosis of bilateral carotid arteries (principal)
CPT/HCPCS: 93880

== ENCOUNTER → 2021-06-02 09:20 | Outpatient (BNVA) | payer MEDICARE, OTHER, SELFPAY | PROVIDERS: PCP Nurse Practitioner Family; Visit Provider Internal Medicine | DX: E11.42 Type 2 diabetes mellitus with diabetic polyneuropathy (principal) | CPT/HCPCS: 83036 ==

== ENCOUNTER → 2021-07-23 10:15 | Outpatient (BNVA) | payer MEDICARE, OTHER, SELFPAY | PROVIDERS: PCP Nurse Practitioner Family; Visit Provider Family Medicine | DX: N39.0 Urinary tract infection, site not specified (principal); A49.9 Bacterial infection, unspecified; E11.21 Type 2 diabetes mellitus with diabetic nephropathy; M20.42 Other hammer toe(s) (acquired), left foot; M20.41 Other hammer toe(s) (acquired), right foot; M21.621 Bunionette of right foot; M21.622 Bunionette of left foot; E11.8 Type 2 diabetes mellitus with unspecified complications | CPT/HCPCS: 81000 ==

== ENCOUNTER 2021-08-25 10:27 | Outpatient (CLI) | payer MEDICARE, OTHER, SELFPAY ==
--- NOTE | 2021-08-25 11:00 | USCV_ITS ---
Rosado Danitza Age: 80 Gender: F : 1940 Exam Date: 08/25/2021 10:39 Ordering Phys: Martinez Retana MD (Andy) [email or web address] [place] Technologist: Exam Location: [facility] [place] Indication: cca disease Risk Factors: None Previous Vascular Surgery: Right Brachial BP: / Left Brachial BP: / Right Left Velocity (cm/s) Spectral Plaque Velocity (cm/s) Spectral Plaque Syst/Diast Broadening Syst/Diast Broadening 63.90/ 11.00 Prox CCA 60.70 / 10.30 57.30/ 7.70 Mid CCA 55.50 / 12.80 73.50/ 12.00 Hetro Distal CCA 59.80 / 12.00 Hetro 145.90/31.60 Hetro Prox ICA 76.00 / 17.10 Hetro 149.90/43.40 Hetro Mid ICA 117.00/ 25.00 Hetro 106.50/21.00 Distal ICA 94.70 / 17.10 69.20 ECA 76.90 2.04 ICA/CCA 1.93 Antegrade Vertebral Antegrade 60.00/ 10.00 cm/s 113.1/ 26.30 cm/s 0 Tri Subclavian Tri 194.2 163.7 0 0 CONCLUSIONS Right ICA stenosis 50-69%. Moderate atheromatous plaque right carotid bulb/ICA. Left ICA stenosis <50%. Mild atheromatous plaque left carotid bulb/ICA. Normal antegrade Doppler flow noted in the right vertebral artery. Normal antegrade Doppler flow noted in the left vertebral artery. Erickson Muir MD (Electronically Signed) Final Date: 25 Aug 2021 12:45 S
== END 2021-08-25 10:28 | disposition home or self-care (01) ==
PROVIDERS: PCP Nurse Practitioner Family; Visit Provider Thoracic Surgery (Cardiothoracic Vascular Surgery)
DX: I65.23 Occlusion and stenosis of bilateral carotid arteries (principal)
CPT/HCPCS: 93880

== ENCOUNTER 2021-10-11 15:59 | Inpatient (IN) | payer MEDICARE, OTHER, SELFPAY ==
--- NOTE | 2021-10-11 16:03 | ED_ITS ---
HPI - Extremity Injury (Lower) General: Chief Complaint: Fall Stated Complaint: RIGHT ANKLE PAIN S/P FALL Time Seen by Provider: 10/11/21 16:03 History of Present Illness: Ms. Rosado is an 81-year-old lady on [facility] who presents to the emergency department due to fall with leg injury. Fall occurred yesterday afternoon. She reports that there is a elevation change between her concrete driveway and the gravel road and she fell near the. Denies preceding lightheadedness, dizziness, shortness of breath, chest pain. She landed primarily landing on her right side and immediately had pain in her right lower extremity. She required significant assistance to get up. She expected improvement in symptoms however pain is worsened. Intensity is severe and worse with any palpation. Symptoms improved with EMS administered analgesia however still significant with palpation. Additionally she has scattered abrasions. Unsure of last Tdap. Denies other recent changes in health. No other specific changes in health, exacerbating, or alleviating factors identified. Onset (ago): hour(s) Place: home Exacerbating factors: weight bearing, movement and palpation Treatments prior to arrival: other Review of Systems General: Reports: 10 or more systems reviewed and unremarkable except in HPI and below PFSH ED PFSH: Medical History Anemia Atrial fibrillation Back pain with radiation Bacterial UTI Breast cancer Encapsulated in milk duct, excised by Dr. Montilla CAD (coronary artery disease) Chronic idiopathic constipation Chronic idiopathic constipation CVA (cerebral vascular accident) 2018 DDD (degenerative disc disease), lumbar DDD (degenerative disc disease), lumbar Diabetes mellitus, type II Diabetic peripheral neuropathy associated with type 2 diabetes mellitus Essential hypertension Gross hematuria Mixed hyperlipidemia Peripheral Vascular Disease Recurrent UTI Sinusitis Status post left heart catheterization Test anxiety Urinary tract infection Urinary, incontinence, stress female Vitamin D deficiency Surgical History H/O bladder repair surgery S/P dilatation and curettage S/P hysterectomy S/P lumpectomy of breast S/P right heart catheterization S/P wrist surgery Stented coronary artery Family History Other Cancer Diabetes Social History Smoking and tobacco status: former smoker Alcohol intake: unknown Adopted: No Caregiver/support person: No Lives independently: Yes Marital status: / Current occupational status: retired History of recent travel: No Physical Exam Const: COMMON NORMALS: alert GENERAL APPEARANCE: cooperative and well developed HENMT: COMMON NORMALS: normocephalic and atraumatic HEAD & SCALP: no rmocephalic and atraumatic OTHER: No carter signs or raccoon eyes. No hemotympanum. No otorrhea or rhinorrhea. Jaw alignment normal. Dentition baseline. No obvious bony step-offs. No septal hematoma. No evidence of ocular entrapment. Eye: COMMON NORMALS: conjunctivae normal CONJUNCTIVA: Yes conjunctivae normal SCLERA: sclerae normal Neck/C-Spine: COMMON NORMALS: supple GENERAL: Yes trachea midline Resp: COMMON NORMALS: normal respiratory effort EFFORT & INSPECTION: Yes able to speak in complete sentences Cardio: COMMON NORMALS: regular rate and regular rhythm RATE: regular rate RHYTHM: regular rhythm GI: COMMON NORMALS: Soft to palpation PALPATION: Yes Soft to palpation and No Tenderness to palpation present (GI) PERCUSSION: normal to percussion Extremity: NARRATIVE EXTREMITY EXAM: Right ankle lateral aspect soft tissue swelling. Distal CMS intact. Pain with range of motion and palpation. GENERAL: Yes normal exam except as noted and No edema Neuro: COMMON NORMALS: moves all extremities SENSORIUM/ORIENTATION: Yes alert and No Orientation impaired Psych: COMMON NORMALS: mental status grossly normal and Normal thought process present THOUGHT PROCESS: Normal thought process present Course ED course: - Patient was seen and evaluated by me at bedside - Patient placed on cardiac monitors, IV access obtained - Initial evaluation notable for exam as above.. EKG notable for sinus rhythm with nonspecific ST segment abnormalities. No STEMI. - Given history of fall with anticoagulation use imaging felt to be warranted. Head and neck CT negative for acute traumatic injury however noted on CT neck is the lung apices which appears abnormal and further imaging is recommended. Ankle x-ray notable for fractures of the distal fibula/lateral malleolus. CT chest notable for moderate right pleural effusion and small left pleural effusion with compressive atelectasis or pneumonia. Somewhat unexpected findings however patient had persistent oxygen requirement which I initially believed was secondary to analgesia administration however persisted outside of expected time range concerning for additional medical problem in addition to fall - Labs notable for no significant hematologic abnormality. Metabolic panel with hyponatremia and hypochloremia. Troponin elevated with negative delta and BNP is elevated. - Upon serial reexamination after treatment the patient was improved with evita atment however still requiring oxygen with evidence of NSTEMI of uncertain etiology and volume overload - Based on patient history, evaluation, and testing as interpreted the most likely cause of the patient's condition is acute on chronic heart failure, hypoxia, NSTEMI, follow-up with distal fibula fracture - The results of ED evaluation were discussed with the patient including plan for admission due to requirement for level of care not available if discharged to prevent significant worsening/deterioration. - Admitting service was contacted and Dr Armstrong with the hospitalist service agreed to admit the patient - Patient was admitted without further deterioration or significant events. Note: Click bubbles or prepopulated peck in note writing are used for assistance with data collection and billing and are inherently more limited than narrative and other text portions of this note. Please use narrative for additional clinical history and defer to narrative/free test for any case of contradictory information. If information appears in only free text or click bubble it shoul d be considered present or absent as reported. Please contact note policy writer typist for clarifications of clinical information or contradictory information. MDM is a brief summary, contradictory or erroneous seeming information should be clarified and full note should be reviewed. Vital Signs: Vital signs: Vital Signs Temperature 98.1 F 10/16/21 15:31 Pulse Rate 68 10/16/21 15:31 Respiratory Rate 15 10/16/21 15:31 Blood Pressure 105/63 10/16/21 15:31 Pulse Oximetry 92 10/16/21 15:31 MDM - Extremity Injury (Lower) Medical Decision Making 81-year-old lady which prompted further evaluation. Patient admitted for CHF exacerbation, NSTEMI, new oxygen requirement. Medical Records I reviewed the patient's medical records. Lab Data I reviewed the patient's lab results. : 10/16/21 04:08 10/16/21 04:08 Radiology Impressions Ankle X-Ray 10/11/21 16:15 IMPRESSION: There are ill-defined nondisplaced fractures of the distal fibula/lateral malleolus. Cervical Spine CT 10/11/21 16:15 IMPRESSION: 1. Patchy consolidation at the lung apices and partially visualized right pleural effusion. Recommend CT scan of the thorax for further evaluation. 2. There are degenerative changes as described above. No evidence for acute fracture. Head CT 10/11/21 16:15 IMPRESSION: There are senescent changes of the brain as described above. No evidence for large acute ischemic infarction or acute intracranial injury. Knee X-Ray 10/11/21 16:15 IMPRESSION: There is edema and/or hematoma in the subcutaneous soft tissues along the lateral aspect of the knee. Tibia/Fibula X-Ray 10/11/21 16:15 IMPRESSION: There is contour abnormality at the lateral aspect of the distal fibula consistent with nondisplaced fracture. Chest CT 10/11/21 17:17 IMPRESSION: 1. Moderate right pleural effusion and small left pleural effusion with adjacent compressive atelectasis or pneumonia. 2. There are patchy infiltrates at the lung apices. 3. Multifocal bilateral pulmonary ground-glass opacities. This can be seen with pulmonary edema, pneumonia, and/or pneumonitis. 4. Multivessel atherosclerotic disease which involves the coronary arteries. Chest X-Ray 10/14/21 06:00 IMPRESSION: 1. Low lung volumes are present, accentuating cardiac size and pulmonary markings. 2. Stable bilateral pleuroparenchymal disease. Laboratory Results WBC 8.8 10^3/uL (4.0-10.0) 10/11/21 19:53 RBC 4.31 10^6/uL (4.1-5.3) 10/11/21 19:53 Hgb 13.5 g/dL (11.5-15.3) 10/11/21 19:53 Hct 40.0 % (37.0-47.0) 10/11/21 19:53 MCV 92.8 fl (81-99) 10/11/21 19:53 MCH 31.3 pg (28.0-34.0) 10/11/21 19:53 MCHC 33.8 g/dL (30.0-36.0) 10/11/21 19:53 RDW 12.6 % (12.1-15.1) 10/11/21 19:53 Plt Count 280 10^3/cmm (130-400) 10/11/21 19:53 MPV 9.1 fL (7.4-10.4) 10/11/21 19:53 Neut % (Auto) 78.3 % 10/11/21 19:53 Lymph % (Auto) 15.2 % 10/11/21 19:53 [place] % (Auto) 5.5 % 10/11/21 19:53 Eos % (Auto) 0.5 % 10/11/21 19:53 Baso % (Auto) 0.2 % 10/11/21 19:53 Neut # (Auto) 6.88 10^3/uL (1.8-7.7) 10/11/21 19:53 Lymph # (Auto) 1.3 10^3/uL (0.8-4.8) 10/11/21 19:53 [place] # (Auto) 0.5 10^3/uL (0.2-0.9) 10/11/21 19:53 Eos # (Auto) 0.0 10^3/uL (0.0-0.8) 10/11/21 19:53 Baso # (Auto) 0.0 10^3/uL (0.0-0.1) 10/11/21 19:53 Nucleated RBC % (auto) 0 % 10/11/21 19:53 Nucleated RBCs # 0.0 /100WBC 10/11/21 19:53 Sodium 130 mmol/L (136-145) L 10/11/21 19:53 Potassium 4.2 mmol/L (3.5-5.1) 10/11/21 19:53 Chloride 94 mmol/L (98-107) L 10/11/21 19:53 Carbon Dioxide 24 mmol/L (22-29) 10/11/21 19:53 Anion Gap 16.2 (5-19) 10/11/21 19:53 BUN 14 mg/dL (8-23) 10/11/21 19:53 Creatinine 0.7 mg/dL (0.5-0.9) 10/11/21 19:53 GFR Calculation Not Reportable 10/11/21 19:53 Glucose 164 mg/dL (65-115) H 10/11/21 19:53 Calculated Osmolality 274 mOsm/kg (285-295) L 10/11/21 19:53 Calcium 10.5 mg/dL (8.5-10.5) 10/11/21 19:53 Total Bilirubin 0.5 mg/dL (0.15-1.2) 10/11/21 19:53 AST 56 U/L (0-32) H 10/11/21 19:53 ALT 19 U/L (0-33) 10/11/21 19:53 Alkaline Phosphatase 70 IU/L (35-105) 10/11/21 19:53 Troponin T Baseline 548 ng/L (0-10) H* 10/11/21 19:53 NT-Pro-B Natriuret Pep 6933 pg/mL (0-450) H 10/11/21 19:53 Total Protein 7.3 g/dL (6.6-8.7) 10/11/21 19:53 Albumin 4.1 g/dL (3.5-5.2) 10/11/21 19:53 Globulin 3.2 g/dL (1.3-4.6) 10/11/21 19:53 Discharge Plan Discharge Patient Disposition: Admitted As Inpatient Admit Provider: Sandra Armstrong Clinical Impression: Acute exacerbation of CHF (congestive heart failure), Hypoxia, Non-ST elevation PA (NSTEMI) Condition: Stable Discharge Diet: Cardiac Discharge Activity: Resume usual activity Coding Level of Care Code ED Target Setter for Sarahyg Jenniffer
[2021-10-11 16:07] VITALS: BP 120/103; PULSE 80; RESP 18; TEMP 36.7; O2SAT 93
--- NOTE | 2021-10-11 16:15 | CTR_ITS ---
PROCEDURE INFORMATION: Exam: CT Head Without Contrast Exam date and time: 10/11/2021 4:47 PM Age: 81 years old Clinical indication: Injury or trauma; Fall; Blunt trauma (contusions or hematomas); Additional info: Fall on eliquis TECHNIQUE: Imaging protocol: Computed tomography of the head without contrast. Radiation optimization: All CT scans at this facility use at least one of these dose optimization techniques: automated exposure control; mA and/or kV adjustment per patient size (includes targeted exams where dose is matched to clinical indication); or iterative reconstruction. COMPARISON: MR head wo/w con [id number] 01/04/2020 2:15 PM RADIATION DOSE METRICS: Total DLP (mGy-cm): 793.23 FINDINGS: Brain: Calcified plaque is present within the intracranial vasculature. There is diffuse cerebral atrophy present, consistent with this patient's age. Periventricular and subcortical white matter low densities are present which at this age likely represent microvascular ischemic change. There is a chronic lacunar infarct in the left thalamus. No evidence for large acute ischemic infarction. Please note acute ischemia can be occult by head CT. Benign globus pallidus calcifications are present. Cerebral ventricles: No ventriculomegaly. Paranasal sinuses: Visualized sinuses are unremarkable. No fluid levels. Mastoid air cells: Visualized mastoid air cells are well aerated. Bones/joints: Unremarkable. No acute fracture. Soft tissues: Unremarkable. CT/CT head wo con* [id number] IMPRESSION: There are senescent changes of the brain as described above. No evidence for large acute ischemic infarction or acute intracranial injury.
--- NOTE | 2021-10-11 16:15 | CTR_ITS ---
PROCEDURE INFORMATION: Exam: CT Cervical Spine Without Contrast Exam date and time: 10/11/2021 4:50 PM Age: 81 years old Clinical indication: Injury or trauma; Fall; Blunt trauma; Additional info: Fall on eliquis TECHNIQUE: Imaging protocol: Computed tomography of the cervical spine without contrast. Radiation optimization: All CT scans at this facility use at least one of these dose optimization techniques: automated exposure control; mA and/or kV adjustment per patient size (includes targeted exams where dose is matched to clinical indication); or iterative reconstruction. COMPARISON: CT angio headneck* [id number] 10/26/2019 11:12 AM RADIATION DOSE METRICS: Total DLP (mGy-cm): 642.6 FINDINGS: Bones/joints: There are degenerative changes across the temporomandibular joints, right greater than left. Discs/Spinal canal/Neural foramina: There are degenerative changes throughout the visualized spine including marginal osteophyte formations, endplate degenerative changes, and facet arthropathy. Multilevel disc space narrowing. There are multilevel broad-based disc osteophyte complexes which indent the anterior thecal sac and result in varying degrees of bilateral neuroforamina narrowing. Lungs: There is patchy consolidation at the lung apices. Right pleural effusion partially visualized. Soft tissues: There are benign-appearing soft tissue calcifications. CT/CT cervical spin wo con* [id number] IMPRESSION: 1. Patchy consolidation at the lung apices and partially visualized right pleural effusion. Recommend CT scan of the thorax for further evaluation. 2. There are degenerative changes as described above. No evidence for acute fracture.
--- NOTE | 2021-10-11 16:15 | XRR_ITS ---
PROCEDURE INFORMATION: Exam: XR Right Ankle Exam date and time: 10/11/2021 4:29 PM Age: 81 years old Clinical indication: Injury or trauma; Fall; Blunt trauma; Ankle; Right; Additional info: Fall, ankle pain lateral TECHNIQUE: Imaging protocol: Radiologic exam of the Right ankle. Views: 3 or more views. COMPARISON: CR (LOW EXM, ) 10/11/2021 4:28 PM FINDINGS: Bones/joints: There are ill-defined nondisplaced fractures of the distal fibula/lateral malleolus. Soft tissues: There is edema in the soft tissues. XR/XR ankle RT min 3V* [id number] IMPRESSION: There are ill-defined nondisplaced fractures of the distal fibula/lateral malleolus.
--- NOTE | 2021-10-11 16:15 | XRR_ITS ---
PROCEDURE INFORMATION: Exam: XR Right Knee Exam date and time: 10/11/2021 4:22 PM Age: 81 years old Clinical indication: Injury or trauma; Fall; Blunt trauma; Knee; Right; Additional info: Fall, pain lateral TECHNIQUE: Imaging protocol: Radiologic exam of the Right knee. Views: 3 views. COMPARISON: No relevant prior studies available. FINDINGS: Bones/joints: There is an enthesophyte off the superior pole of the patella. Soft tissues: There is edema and/or hematoma in the subcutaneous soft tissues along the lateral aspect of the knee. Vasculature: There are peripheral vascular calcifications. XR/XR knee RT 3V* [id number] IMPRESSION: There is edema and/or hematoma in the subcutaneous soft tissues along the lateral aspect of the knee.
--- NOTE | 2021-10-11 16:15 | XRR_ITS ---
PROCEDURE INFORMATION: Exam: XR Right Tibia and Fibula Exam date and time: 10/11/2021 4:28 PM Age: 81 years old Clinical indication: Injury or trauma; Fall; Blunt trauma; Lower leg; Right; Additional info: Fall, pain lateral upper and lower TECHNIQUE: Imaging protocol: Radiologic exam of the Right tibia and fibula. Views: 2 views. COMPARISON: CR (LOW EXM, ) 10/11/2021 4:22 PM FINDINGS: Bones/joints: There is contour abnormality at the lateral aspect of the distal fibula consistent with nondisplaced fracture. Soft tissues: There is edema in the soft tissues. XR/XR tibia fibula RT 2V [id number] IMPRESSION: There is contour abnormality at the lateral aspect of the distal fibula consistent with nondisplaced fracture.
--- NOTE | 2021-10-11 17:17 | CTR_ITS ---
PROCEDURE INFORMATION: Exam: CT Chest Without Contrast; Diagnostic Exam date and time: 10/11/2021 6:16 PM Age: 81 years old Clinical indication: Dyspnea; Additional info: Abnormal CT cervical spine TECHNIQUE: Imaging protocol: Diagnostic computed tomography of the chest without contrast. Radiation optimization: All CT scans at this facility use at least one of these dose optimization techniques: automated exposure control; mA and/or kV adjustment per patient size (includes targeted exams where dose is matched to clinical indication); or iterative reconstruction. COMPARISON: CTA Chest w Abd/Pel w* 03/18/2017 10:14 PM RADIATION DOSE METRICS: Total DLP (mGy-cm): 678.25 FINDINGS: Lungs: See Pleural spaces finding. Pleural spaces: Moderate right pleural effusion and small left pleural effusion with adjacent compressive atelectasis or pneumonia. There are patchy infiltrates at the lung apices. Multifocal bilateral pulmonary ground-glass opacities. Heart: Multivessel atherosclerotic disease which involves the coronary arteries. Lymph nodes: Unremarkable. No enlarged lymph nodes. Vasculature: Unremarkable. No aortic aneurysm. Bones/joints: There are moderate degenerative changes in the visualized spine. Soft tissues: Unremarkable. CT/CT chest wo con [id number] IMPRESSION: 1. Moderate right pleural effusion and small left pleural effusion with adjacent compressive atelectasis or pneumonia. 2. There are patchy infiltrates at the lung apices. 3. Multifocal bilateral pulmonary ground-glass opacities. This can be seen with pulmonary edema, pneumonia, and/or pneumonitis. 4. Multivessel atherosclerotic disease which involves the coronary arteries.
[2021-10-11] MEDS: tetanus-dipt-pertussis 0.5 mL SDV IM (18:33)
[2021-10-11 18:35] VITALS: RESP 16
[2021-10-11] MEDS: morphine 4 mg/mL SDV 1 mL IVP ×2 (18:35→20:17)
--- NOTE | 2021-10-11 18:53 | ECG_ITS ---
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 Measurements Intervals [place] Rate: 70 P: 49 [place]: 173 QRS: 60 QRSD: 93 T: 253 QT: 446 QTc: 481 Interpretive Statements SINUS RHYTHM WITH MARKED SINUS ARRHYTHMIA MODERATE T-WAVE ABNORMALITY, CONSIDER LATERAL ISCHEMIA [-0.1+ mV T-WAVE IN I/aVL/V5/V6] MODERATE T-WAVE ABNORMALITY, CONSIDER INFERIOR ISCHEMIA [-0.1+ mV T-WAVE IN II/aVF] Compared to ECG 10/26/2019 11:40:12 T-wave abnormality now present Possible ischemia now present Right bundle-branch block no longer present Electronically Signed On 10-12-2021 8:37:13 CDT by Angel Hammer M.D. [id number]
[2021-10-11 20:04] LABS: Basophils % 0.2 %; Eosinophils % 0.5 %; Hemoglobin 13.5 g/dL (11.5-15.3); Lymphocytes # 1.3 10^3/uL (0.8-4.8); Lymphocytes % 15.2 %; Mean Corpuscular HGB Conc 33.8 g/dL (30.0-36.0); Mean Corpuscular Hemoglobin 31.3 pg (28.0-34.0); Mean Corpuscular Volume 92.8 fl (81-99); Mean Platelet Volume 9.1 fL (7.4-10.4); Monocytes # 0.5 10^3/uL (0.2-0.9); Monocytes % 5.5 %; Neutrophils # 6.88 10^3/uL (1.8-7.7); Neutrophils % 78.3 %; Nucleated Red Blood Cells % 0 %; Platelet Count 280 10^3/cmm (130-400); Red Blood Count 4.31 10^6/uL (4.1-5.3); Red Cell Distribution Width 12.6 % (12.1-15.1); White Blood Count 8.8 10^3/uL (4.0-10.0)
[2021-10-11 20:11] VITALS: BP 141/80; PULSE 64; RESP 97; O2SAT 97
[2021-10-11 20:17] VITALS: RESP 18; O2SAT 95
[2021-10-11 20:36] LABS: Alanine Aminotransferase 19 U/L (0-33); Albumin Level 4.1 g/dL (3.5-5.2); Alkaline Phosphatase 70 IU/L (35-105); Anion Gap 16.2 (5-19); Aspartate Amino Transferase 56 U/L (0-32); Blood Urea Nitrogen 14 mg/dL (8-23); Calcium 10.5 mg/dL (8.5-10.5); Carbon Dioxide 24 mmol/L (22-29); Chloride 94 mmol/L (98-107); Globulin 3.2 g/dL (1.3-4.6); Glucose 164 mg/dL (65-115); NT Pro B Type Natriuretic Pept 6933 pg/mL (0-450); Osmolality Calculated 274 mOsm/kg (285-295); Potassium 4.2 mmol/L (3.5-5.1); Sodium 130 mmol/L (136-145); Total Bilirubin 0.5 mg/dL (0.15-1.2); Total Protein 7.3 g/dL (6.6-8.7)
[2021-10-11 20:38] LABS: Troponin(5th) Baseline 548 ng/L (0-10)
--- NOTE | 2021-10-11 20:53 | ECG_ITS ---
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 Measurements Intervals [place] Rate: 69 P: 55 [place]: 172 QRS: 55 QRSD: 88 T: 251 QT: 423 QTc: 454 Interpretive Statements SINUS RHYTHM WITH MARKED SINUS ARRHYTHMIA MODERATE T-WAVE ABNORMALITY, CONSIDER ANTEROLATERAL ISCHEMIA [-0.1+ mV T-WAVE IN V3-V6] MODERATE T-WAVE ABNORMALITY, CONSIDER INFERIOR ISCHEMIA [-0.1+ mV T-WAVE IN II/aVF] Compared to ECG 10/11/2021 19:17:14 No significant changes Electronically Signed On 10-12-2021 8:38:56 CDT by Angel Hammer M.D. [id number]
[2021-10-11] MEDS: FUROsemide 10 mg/mL SDV 4mL 40 MG IVP (21:19)
[2021-10-11 21:52] VITALS: BP 162/73; RESP 18; O2SAT 95
[2021-10-11 22:40] LABS: Influenza A by IFA Negative (Negative); Influenza B by IFA Negative (Negative); SARS Covid-2 Antigen Negative (Negative)
[2021-10-11 22:42] LABS: Troponin 5 2HR 505.1 ng/L (0-10)
[2021-10-11 23:00] VITALS: BP 119/52; PULSE 93; RESP 18; TEMP 36.4; O2SAT 92
[2021-10-12] VITALS (20 sets, daily range): BP systolic 118–166; BP diastolic 55–109; PULSE 73–105; RESP 14–23; TEMP 36.4–37.5; O2SAT 90–100
--- NOTE | 2021-10-12 00:53 | ECG_ITS ---
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 Measurements Intervals [place] Rate: 106 P: [place]: QRS: 94 QRSD: 93 T: 263 QT: 353 QTc: 470 Interpretive Statements ATRIAL FIBRILLATION WITH RAPID VENTRICULAR RESPONSE WITH ABERRANT CONDUCTION BORDERLINE RIGHT AXIS DEVIATION [QRS AXIS > 90] ST DEVIATION AND MODERATE T-WAVE ABNORMALITY, CONSIDER ANTEROLATERAL ISCHEMIA [-0.1+ mV T WAVE IN V3-V6] ST DEVIATION AND MODERATE T-WAVE ABNORMALITY, CONSIDER INFERIOR ISCHEMIA [-0.1+ mV T WAVE IN II/aVF] Compared to ECG 10/11/2021 21:06:45 Aberrant conduction of supraventricular beat(s) now present Sinus rhythm no longer present Sinus arrhythmia no longer present T-wave abnormality still present Possible ischemia still present Electronically Signed On 10-12-2021 8:39:53 CDT by Angel Hammer M.D. [id number]
[2021-10-12 01:11] LABS: Troponin 5 6HR 431.3 ng/L (0-10)
--- NOTE | 2021-10-12 01:36 | PM.HP ---
Providers/Chief Complaint Admitting Physician: Sandra Armstrong MD Primary Care Provider: Cruz Guy Chief Complaint: RIGHT ANKLE PAIN S/P FALL History of Present Illness Danitza Rosado is a 81 year old female with PmH a fib, CAD, CVA, DM, HTN, peripheral vascular disease presented with c/o mechanical fall at home yesterday. Initially thought she has sprained her ankle but then presented to ER when pain continued to get worse. Denies any syncope or loss of consciousness, denies chest pain, dyspnea, palpitation preceding the events. X ray showed non displaced fracture of fibula which has been splinted in the ER. She was noted to have a new oxygen requirement of 3lpm, CT chest showed B/L infiltrates concerning for pulmonary edema, B/L pleural effusions, and elevated troponins. She denies any chest pain at this time. Denies any fever or URI symptoms. Review of Systems General: Reports: 10 or more systems reviewed and unremarkable except in HPI and below Const: Denies: fever(s), chills or body aches Eyes: Denies: change in vision, blurry vision or photophobia ENMT: Reports: hoarseness; Denies: throat pain, enlarged tonsils, odynophagia or nasal congestion Card: Denies: chest pain, palpitations, irregular heart rhythm, edema, swelling of feet/ankles, lightheadedness, pre-syncope, dyspnea on exertion or orthopnea Resp: Denies: dyspnea, productive cough, non-productive cough, wheezing, stridor, pain on inspiration, change in phlegm color, hemoptysis or chest congestion GI: Denies: abdominal pain, nausea, vomiting, hematemesis, coffee ground emesis, dysphagia, heartburn, diarrhea, constipation, GI cramping, change in stool character, hematochezia or melena : Denies: flank pain, difficulty voiding, dysuria, urinary frequency, urinary urgency, urinary hesitancy or hematuria Musc: Denies: neck pain, back pain, extremity pain, joint swelling, joint warmth or deformity Neuro: Denies: headache(s), numbness in extremities, weakness in extremities, sensory changes, difficulty walking, frequent falls, dizziness, vertigo, behavioral changes, Slurred speech present or seizure-like activity Psych: Denies: anxiety, depression, suicidal ideation or homicidal ideation Endo: Denies: polyuria, polydipsia, tired all the time, cold intolerance or hot flashes Aftab/Lymph: Denies: easy bruising or easy bleeding Medications/Allergies Home Medications Medication Instructions Recorded Confirmed Last Taken Type multivitamin,py-vnfs-vrtckmbv 1 tab PO DAILY 06/12/19 10/11/21 10/11/21 09:00 History (Complete Multivitamin) aspirin 81 mg tablet,delayed 81 mg PO DAILY 04/25/20 10/11/21 10/11/21 09:00 History release (Adult Low Dose Aspirin) dulaglutide 1.5 mg/0.5 mL 1.5 mg (0.5 mL) SUBCUT .q7days 11/27/20 10/11/21 10/10/21 09:00 Rx subcutaneous pen injector #7.5 ml (Trulicity) carvedilol 12.5 mg tablet 12.5 mg PO BID #180 tab 05/20/21 10/11/21 10/11/21 09:00 Rx ezetimibe 10 mg tablet (Zetia) 10 mg PO DAILY #90 tab 05/20/21 10/11/21 10/11/21 09:00 Rx ranolazine 1,000 mg 1,000 mg PO BID #180 tab 05/20/21 10/12/21 10/11/21 09:00 Rx tablet,extended release,12 hr (Ranexa) ergocalciferol (vitamin D2) 1,250 See Rx Instructions .ROUTE 06/10/21 10/11/21 10/10/21 09:00 Rx mcg (50,000 unit) capsule .COMPLEX #13 cap Diabetic shoes with 3 pairs of #1 ea 07/23/21 10/12/21 Unknown Rx inserts apixaban 5 mg tablet 5 mg PO BID #60 tab 09/22/21 10/12/21 10/11/21 09:00 Rx docusate sodium 100 mg capsule 100 mg PO DAILY PRN 09/25/21 10/11/21 Unknown History (Dulcolax Stool Softener (docusate)) gabapentin 100 mg capsule 300 mg PO BEDTIME cap 09/25/21 10/11/21 10/10/21 21:00 History lisinopril 10 mg tablet 25 mg PO DIRECTED tab 09/25/21 10/11/21 10/11/21 09:00 History glipizide 5 mg tablet 5 mg PO DAILY 10/11/21 10/11/21 10/11/21 09:00 History linaclotide 145 mcg capsule 145 mcg PO BEDTIME 10/11/21 10/11/21 10/10/21 21:00 History (Linzess) oxybutynin chloride 5 mg tablet 5 mg PO BID 10/11/21 10/11/21 10/11/21 09:00 History pioglitazone 45 mg tablet 45 mg PO DAILY 10/11/21 10/11/21 10/11/21 09:00 History Allergies Allergy/AdvReac Type Severity Reaction Status Date / Time cimetidine [From [facility]] Allergy Intermediate rash Verified 10/11/21 16:11 pravastatin Allergy Unknown Unknown Verified 10/11/21 16:11 PFSH Acute PFSH: Medical History Anemia Atrial fibrillation Back pain with radiation Bacterial UTI Breast cancer Encapsulated in milk duct, excised by Dr. Montilla CAD (coronary artery disease) Chronic idiopathic constipation Chronic idiopathic constipation CVA (cerebral vascular accident) 2018 DDD (degenerative disc disease), lumbar DDD (degenerative disc disease), lumbar Diabetes mellitus, type II Diabetic peripheral neuropathy associated with type 2 diabetes mellitus Essential hypertension Gross hematuria Mixed hyperlipidemia Peripheral Vascular Disease Recurrent UTI Sinusitis Status post left heart catheterization Test anxiety Urinary tract infection Urinary, incontinence, stress female Vitamin D deficiency Surgical History H/O bladder repair surgery S/P dilatation and curettage S/P hysterectomy S/P lumpectomy of breast S/P right heart catheterization S/P wrist surgery Stented coronary artery Family History Other Cancer Diabetes Social History Smoking and tobacco status: former smoker Alcohol intake: unknown Adopted: No Caregiver/support person: No Lives independently: Yes Marital status: / Current occupational status: retired History of recent travel: No Vitals/I&O/Wt Last Vital Signs Temp 98.6 F 10/12/21 00:00 Pulse 76 10/12/21 00:00 Resp 18 10/12/21 00:00 BP 147/80 10/12/21 00:00 Pulse Ox 94 10/12/21 00:00 Weight last 48 hrs Weight 83.915 kg Physical Exam Narrative: GEN: Awake, alert and oriented, no acute distress CVS: S1S2 N RS: B/L scattered crackles all areas Abd: Soft, nt/nd , bs+ 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 Cervical Spine CT 10/11/21 16:15 IMPRESSION: 1. Patchy consolidation at the lung apices and partially visualized right pleural effusion. Recommend CT scan of the thorax for further evaluation. 2. There are degenerative changes as described above. No evidence for acute fracture. Head CT 10/11/21 16:15 IMPRESSION: There are senescent changes of the brain as described above. No evidence for large acute ischemic infarction or acute intracranial injury. Knee X-Ray 10/11/21 16:15 IMPRESSION: There is edema and/or hematoma in the subcutaneous soft tissues along the lateral aspect of the knee. Tibia/Fibula X-Ray 10/11/21 16:15 IMPRESSION: There is contour abnormality at the lateral aspect of the distal fibula consistent with nondisplaced fracture. Chest CT 10/11/21 17:17 IMPRESSION: 1. Moderate right pleural effusion and small left pleural effusion with adjacent compressive atelectasis or pneumonia. 2. There are patchy infiltrates at the lung apices. 3. Multifocal bilateral pulmonary ground-glass opacities. This can be seen with pulmonary edema, pneumonia, and/or pneumonitis. 4. Multivessel atherosclerotic disease which involves the coronary arteries. Laboratory Results WBC 8.8 10^3/uL (4.0-10.0) 10/11/21 19:53 RBC 4.31 10^6/uL (4.1-5.3) 10/11/21 19:53 Hgb 13.5 g/dL (11.5-15.3) 10/11/21 19:53 Hct 40.0 % (37.0-47.0) 10/11/21 19:53 MCV 92.8 fl (81-99) 10/11/21 19:53 MCH 31.3 pg (28.0-34.0) 10/11/21 19:53 MCHC 33.8 g/dL (30.0-36.0) 10/11/21 19:53 RDW 12.6 % (12.1-15.1) 10/11/21 19:53 Plt Count 280 10^3/cmm (130-400) 10/11/21 19:53 MPV 9.1 fL (7.4-10.4) 10/11/21 19:53 Neut % (Auto) 78.3 % 10/11/21 19:53 Lymph % (Auto) 15.2 % 10/11/21 19:53 [place] % (Auto) 5.5 % 10/11/21 19:53 Eos % (Auto) 0.5 % 10/11/21 19:53 Baso % (Auto) 0.2 % 10/11/21 19:53 Neut # (Auto) 6.88 10^3/uL (1.8-7.7) 10/11/21 19:53 Lymph # (Auto) 1.3 10^3/uL (0.8-4.8) 10/11/21 19:53 [place] # (Auto) 0.5 10^3/uL (0.2-0.9) 10/11/21 19:53 Eos # (Auto) 0.0 10^3/uL (0.0-0.8) 10/11/21 19:53 Baso # (Auto) 0.0 10^3/uL (0.0-0.1) 10/11/21 19:53 Nucleated RBC % (auto) 0 % 10/11/21 19:53 Nucleated RBCs # 0.0 /100WBC 10/11/21 19:53 Sodium 130 mmol/L (136-145) L 10/11/21 19:53 Potassium 4.2 mmol/L (3.5-5.1) 10/11/21 19:53 Chloride 94 mmol/L (98-107) L 10/11/21 19:53 Carbon Dioxide 24 mmol/L (22-29) 10/11/21 19:53 Anion Gap 16.2 (5-19) 10/11/21 19:53 BUN 14 mg/dL (8-23) 10/11/21 19:53 Creatinine 0.7 mg/dL (0.5-0.9) 10/11/21 19:53 GFR Calculation Not Reportable 10/11/21 19:53 Glucose 164 mg/dL (65-115) H 10/11/21 19:53 Calculated Osmolality 274 mOsm/kg (285-295) L 10/11/21 19:53 Calcium 10.5 mg/dL (8.5-10.5) 10/11/21 19:53 Total Bilirubin 0.5 mg/dL (0.15-1.2) 10/11/21 19:53 AST 56 U/L (0-32) H 10/11/21 19:53 ALT 19 U/L (0-33) 10/11/21 19:53 Alkaline Phosphatase 70 IU/L (35-105) 10/11/21 19:53 Troponin T Baseline 548 ng/L (0-10) H* 10/11/21 19:53 Troponin T 120 Minute 505.1 ng/L (0-10) H 10/11/21 22:00 Delta Troponin T -42.9 ABS# (0-10) L 10/11/21 22:00 Troponin T Hi Sens 6Hr 431.3 ng/L (0-10) H 10/12/21 00:30 Troponin T Hi Sens 6Hr Delta -116.7 ng/L (0-12) L 10/12/21 00:30 NT-Pro-B Natriuret Pep 6933 pg/mL (0-450) H 10/11/21 19:53 Total Protein 7.3 g/dL (6.6-8.7) 10/11/21 19:53 Albumin 4.1 g/dL (3.5-5.2) 10/11/21 19:53 Globulin 3.2 g/dL (1.3-4.6) 10/11/21 19:53 Influenza Type A Ag Negative (Negative) 10/11/21 22:00 Influenza Type B Ag Negative (Negative) 10/11/21 22:00 SARS-CoV-2 Ag (Rapid) Negative (Negative) 10/11/21 22:00 A&P Assessment and plan (1) Acute exacerbation of CHF (congestive heart failure): As evidenced by B/L infiltrates on CT chest suggestive of pulmonary edema, elevated BNP, new 02 requirement Lasix 40mg iv q12h monitor I/O closely, daily weight Echocardiogram dates back to 2014 which showed LVEF 65%, gr 1 diastolic dysfunction, will check today to monitor for any serial worsening. Status: Acute (2) Hypoxia: related to CHF exacerbation Unlikely PE given patient is on Eliquis Less likely pneumonia given lack of fever, cough, expectoration supplemental l02 to keep sat >92% Negative Flu and Covid Ag Status: Acute (3) Elevated troponin: likely related to CHF excaerbation Elevated trop ~500 but trending down at 2 hrs and [address]- T wave changes on EKG and lack of chest pain make ACS less likely Check Echo Status: Acute (4) Fibula fracture: Limb Spinted in [facility] ER Pain control with OXycocdone/APAP 5/325 q6h prn Status: Acute Attestations Medical Necessity Statement*: >2midnight admission for management of CHF exacerbation with iv diuretics, close monitoring I/O Coding Level of Care Code Acute Supervisor Wall Mirror Department for g 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
[2021-10-12] MEDS: oxyCODONE-APAP 5-325 mg Tablet 1 TAB PO ×5 (02:19→21:14)
[2021-10-12] MEDS: FUROsemide 10 mg/mL SDV 4mL 40 MG IVP ×2 (02:21→12:46)
[2021-10-12] MEDS: morphine 4 mg/mL SDV 1 mL 2 MG IVP ×2 (03:38→07:46)
[2021-10-12 07:42] LABS: Glucose Point of Care 200 mg/dL (70-110)
[2021-10-12] MEDS: insulin lispro 100 unit/1 mL SUBCUT ×4 (08:31→21:14)
[2021-10-12 08:33] LABS: Glucose Point of Care 202 mg/dL (70-110)
[2021-10-12] MEDS: oxybutynin 5 mg Tablet PO ×2 (08:34→18:27)
[2021-10-12] MEDS: ezetimibe 10 mg Tablet PO (08:34)
[2021-10-12] MEDS: ranolazine (12HR) 500 mg Tablet 1000 MG PO ×2 (08:34→18:27)
[2021-10-12] MEDS: lisinopril 10 mg Tablet 15 MG PO (08:34)
[2021-10-12] MEDS: carvedilol 12.5 mg Tablet PO ×2 (08:35→18:27)
[2021-10-12] MEDS: apixaban 5 mg Tablet PO ×2 (08:35→18:27)
[2021-10-12] MEDS: pantoprazole DR 40 mg Tablet PO (08:35)
--- NOTE | 2021-10-12 08:41 | USCV_ITS ---
Alonzo Danitza Age: 81 Gender: F : 1940 Exam Date: 10/12/2021 09:56 Ordering Phys: Osei Perkins MD Technologist: Shai Peterson Exam Location: [facility] [place] Indication: syncope BP: 148 / 65 HR: 79 Rhythm: Sinus Technical Quality: Suboptimal MEASUREMENTS (Male / Female) Normal Values 2D ECHO LV Diastolic Diameter PLAX 4.5 cm 4.2 - 5.9 / 3.9 - 5.3 cm LV Systolic Diameter PLAX 3.2 cm IVS Diastolic Thickness 0.9 cm 0.6 - 1.0 / 0.6 - 0.9 cm IVS Systolic Thickness 1.4 cm LVPW Diastolic Thickness 1.0 cm 0.6 - 1.0 / 0.6 - 0.9 cm LVPW Systolic Thickness 1.6 cm LVOT Diameter 2.0 cm LV Ejection Fraction 2D Teich 55.4 % LV Ejection Fraction MOD 2C 65.8 % LV Ejection Fraction 2C AL 65.8 % LA Diameter 3.5 cm Aorta at Sinotubular Diameter 2.2 cm IVC Diameter 1.8 cm M-MODE Aortic Annulus Diameter 3.5 cm LA Ao Ratio MM 1.2 MV E Point Septal Separation 1.2 cm DOPPLER AV Peak Velocity 158.0 cm/s LVOT Peak Velocity 78.0 cm/s AV Area Cont Eq vti 1.6 cm squared AV Area Cont Eq pk 1.6 cm squared MV Area PHT 5.0 cm squared Mitral E to A Ratio 0.7 MV E' Velocity 43.5 cm/s Mitral E to MV E' Ratio 11.9 Mitral E to LV E' Lateral Ratio 9.9 Mitral E to LV E' Septal Ratio 15.1 TR Peak Velocity 241.0 cm/s TR Peak Gradient 23.2 mmHg TV Peak E Velocity 111.0 cm/s Right Atrial Pressure 3.0 mmHg Pulmonary Artery Systolic Pressu 26.2 mmHg PV Peak Velocity 108.0 cm/s FINDINGS Left Ventricle Normal left ventricular cavity size. Normal left ventricular wall thickness. Mildly decreased left ventricular systolic function. The apex is akinetic. Otherwise, the left ventricular function is normal. The overall ejection fraction is 55%. Grade 1 diastolic dysfunction. Right Ventricle Normal right ventricular size and systolic function. Normal right ventricular systolic pressure. Right Atrium The right atrium is normal in size. Left Atrium The left atrium is normal in size. Mitral Valve Structurally normal mitral valve without significant stenosis or prolapse. There is no mitral regurgitation. Aortic Valve Structurally normal aortic valve without significant sclerosis or stenosis. There is no aortic regurgitation. Tricuspid Valve Structurally normal tricuspid valve. Trace tricuspid valve regurgitation. Pulmonic Valve Pulmonic valve not well visualized. Pericardium Normal pericardium without effusion. Aorta Normal ascending aorta dimension. IVC Inferior vena cava not visualized. CONCLUSIONS Normal left ventricular cavity size. Normal left ventricular wall thickness. Mildly decreased left ventricular systolic function. The apex is akinetic. Otherwise, the left ventricular function is normal. The overall ejection fraction is 55%. Grade [address] Angel Hammer MD (Electronically Signed) Final Date: 13 October 2021 08:15 S
[2021-10-12 09:27] LABS: C Reactive Protein 21.6 mg/L (0.0-4.9)
[2021-10-12 09:34] LABS: Procalcitonin 0.06 ng/mL (0-0.5)
[2021-10-12] MEDS: metOLazone 5 MG Tablet PO (09:36)
[2021-10-12 11:19] LABS: Glucose Point of Care 160 mg/dL (70-110)
--- NOTE | 2021-10-12 14:42 | P.PN_ITS ---
Subjective Subjective: Patient was seen this morning, currently on 2 L, pain, but well controlled, does report she twisted her leg at the end of the driveway, resulting in fall, no chest pain, no palpitations does report some degree of shortness of breath recently Vitals/I&O/Wt Last Vital Signs Temp 98.5 F 10/12/21 07:55 Pulse 98 10/12/21 14:00 Resp 18 10/12/21 12:45 BP 166/109 10/12/21 11:21 Pulse Ox 90 10/12/21 11:21 10/11/21 10/12/21 10/12/21 22:59 06:59 14:59 Intake Total 500 / 500 540 / 540 Output Total 2450 / 2450 350 / 350 Balance -1950 / -1950 190 / 190 Weight last 48 hrs Weight 83.915 kg Physical Exam Const: COMMON NORMALS: no acute distress and patient oriented x3 Resp: COMMON NORMALS: normal respiratory effort, No retractions, No use of accessory muscles and clear to auscultation bilaterally AUSCULTATION: clear to auscultation bilaterally Cardio: COMMON NORMALS: regular rate, regular rhythm, S1 normal heart sound present and S2 normal heart sound present RATE: regular rate RHYTHM: regular rhythm HEART SOUNDS: S1 normal heart sound present and S2 normal heart sound present GI: COMMON NORMALS: Normal to inspection, nondistended, normoactive bowel sounds present, Soft to palpation and non-tender PALPATION: Yes Soft to palpation Extremity: COMMON NORMALS: no pedal edema Neuro: COMMON NORMALS: patient oriented x3 Psych: COMMON NORMALS: mental status grossly normal Urinary Catheter Management: Healy: Cath Placed During This Visit: yes Reason for Continuing Indwelling Catheter: Required Immobilization for Trauma or Surgery or Anesthesia Urinary Catheter Date of Insertion: 10/11/21 Urinary Catheter Time of Insertion: 21:49 Data : 10/11/21 19:53 10/11/21 19:53 A&P Assessment and plan (1) Acute exacerbation of CHF (congestive heart failure): As evidenced by B/L infiltrates on CT chest suggestive of pulmonary edema, elevated BNP, new 02 requirement Lasix 40mg iv q12h monitor I/O closely, daily weight Echocardiogram dates back to 2014 which showed LVEF 65%, gr 1 diastolic dysfunction, will check today to monitor for any serial worsening. Status: Acute (2) Hypoxia: related to CHF exacerbation Unlikely PE given patient is on Eliquis Less likely pneumonia given lack of fever, cough, expectoration supplemental l02 to keep sat >92% Negative Flu and Covid Ag Status: Acute (3) Elevated troponin: likely related to CHF excaerbation Elevated trop ~500 but trending down at 2 hrs and [address]- T wave changes on EKG and lack of chest pain make ACS less likely Check Echo Continue aspirin, Coreg, Eliquis Serial EKGs, serial troponin Telemetry monitoring Status: Acute (4) Fibula fracture: Limb Spinted in the emergency room Pain control with OXycocdone/APAP 5/325 q6h prn Status: Acute Attestations Medical Necessity Statement*: Patient requires hospitalization for fluid overload, NSTEMI, inpatient, greater than 2 midnights Coding Level of Care Code Acute Hearing Aid Consultant for [facility] 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
[2021-10-12 17:35] LABS: Glucose Point of Care 169 mg/dL (70-110)
[2021-10-12] MEDS: aspirin 81 mg EC Tablet PO (18:27)
[2021-10-12] MEDS: lisinopril 10 mg Tablet PO (18:27)
[2021-10-12] MEDS: gabapentin 300 mg Capsule PO (20:39)
[2021-10-12 21:16] LABS: Glucose Point of Care 185 mg/dL (70-110)
[2021-10-13] VITALS (12 sets, daily range): BP systolic 80–135; BP diastolic 41–72; PULSE 73–97; RESP 13–18; TEMP 36.6–37.2; O2SAT 83–99
[2021-10-13] MEDS: oxyCODONE-APAP 5-325 mg Tablet 1 TAB PO ×2 (01:21→05:58)
[2021-10-13] MEDS: FUROsemide 10 mg/mL SDV 4mL 40 MG IVP (01:22)
[2021-10-13 04:46] LABS: Basophils % 0.1 %; Eosinophils # 0.1 10^3/uL (0.0-0.8); Hematocrit 33.1 % (37.0-47.0); Hemoglobin 11.4 g/dL (11.5-15.3); Lymphocytes # 1.6 10^3/uL (0.8-4.8); Lymphocytes % 21.9 %; Mean Corpuscular HGB Conc 34.4 g/dL (30.0-36.0); Mean Corpuscular Hemoglobin 31.3 pg (28.0-34.0); Mean Corpuscular Volume 90.9 fl (81-99); Mean Platelet Volume 9.7 fL (7.4-10.4); Monocytes # 0.7 10^3/uL (0.2-0.9); Monocytes % 9.1 %; Neutrophils # 4.86 10^3/uL (1.8-7.7); Neutrophils % 67.6 %; Nucleated Red Blood Cells % 0 %; Platelet Count 243 10^3/cmm (130-400); Red Blood Count 3.64 10^6/uL (4.1-5.3); Red Cell Distribution Width 12.3 % (12.1-15.1); White Blood Count 7.2 10^3/uL (4.0-10.0)
[2021-10-13 05:29] LABS: Alanine Aminotransferase 13 U/L (0-33); Albumin Level 3.3 g/dL (3.5-5.2); Alkaline Phosphatase 56 IU/L (35-105); Anion Gap 15.3 (5-19); Aspartate Amino Transferase 30 U/L (0-32); Blood Urea Nitrogen 18 mg/dL (8-23); Calcium 9.8 mg/dL (8.5-10.5); Carbon Dioxide 26 mmol/L (22-29); Chloride 86 mmol/L (98-107); Globulin 2.9 g/dL (1.3-4.6); Glucose 177 mg/dL (65-115); Magnesium 1.4 mg/dL (1.7-2.3); NT Pro B Type Natriuretic Pept 9520 pg/mL (0-450); Osmolality Calculated 264 mOsm/kg (285-295); Phosphorus 3.2 mg/dL (2.5-4.5); Potassium 3.3 mmol/L (3.5-5.1); Sodium 124 mmol/L (136-145); Total Bilirubin 0.6 mg/dL (0.15-1.2); Total Protein 6.2 g/dL (6.6-8.7)
[2021-10-13 05:33] LABS: Troponin T (5th) Once 429 ng/L (0-10)
[2021-10-13] MEDS: potassium chloride ER 20 mEq Tablet 40 MEQ PO (06:26)
[2021-10-13 06:34] LABS: Glucose Point of Care 150 mg/dL (70-110)
[2021-10-13] MEDS: insulin lispro 100 unit/1 mL SUBCUT ×4 (08:38→21:35)
[2021-10-13] MEDS: pantoprazole DR 40 mg Tablet PO (08:39)
[2021-10-13] MEDS: carvedilol 12.5 mg Tablet PO (08:40)
[2021-10-13] MEDS: lisinopril 10 mg Tablet 15 MG PO (08:40)
[2021-10-13] MEDS: aspirin 81 mg EC Tablet PO (08:41)
[2021-10-13] MEDS: oxybutynin 5 mg Tablet PO (08:41)
[2021-10-13] MEDS: ezetimibe 10 mg Tablet PO (08:41)
[2021-10-13] MEDS: apixaban 5 mg Tablet PO ×2 (08:41→17:31)
[2021-10-13] MEDS: ranolazine (12HR) 500 mg Tablet 1000 MG PO (08:41)
[2021-10-13 11:03] LABS: Glucose Point of Care 406 mg/dL (70-110)
--- NOTE | 2021-10-13 11:10 | PM.PN ---
Subjective Subjective: Patient was seen this morning, she worked with physical therapy, received oxycodone, she is a bit drowsy, denies any chest pain, no shortness of breath, is on 2 L, no nausea, no vomiting, headache, blurry vision Vitals/I&O/Wt Last Vital Signs Temp 97.8 F 10/13/21 07:37 Pulse 88 10/13/21 09:10 Resp 16 10/13/21 07:37 BP 115/41 10/13/21 07:37 Pulse Ox 97 10/13/21 09:10 10/12/21 10/13/21 10/13/21 22:59 06:59 14:59 Intake Total 490 / 1030 200 / 1230 292 / 292 Output Total 1250 / 1600 400 / 2000 Balance -760 / -570 -200 / -770 292 / 292 Weight last 48 hrs Weight 83.915 kg Physical Exam Const: COMMON NORMALS: no acute distress and patient oriented x3 Resp: COMMON NORMALS: normal respiratory effort, No retractions, No use of accessory muscles and clear to auscultation bilaterally AUSCULTATION: clear to auscultation bilaterally Cardio: COMMON NORMALS: regular rate, regular rhythm, S1 normal heart sound present and S2 normal heart sound present RATE: regular rate RHYTHM: regular rhythm HEART SOUNDS: S1 normal heart sound present and S2 normal heart sound present GI: COMMON NORMALS: Normal to inspection, nondistended, normoactive bowel sounds present, Soft to palpation and non-tender PALPATION: Yes Soft to palpation Extremity: COMMON NORMALS: no pedal edema Neuro: COMMON NORMALS: patient oriented x3 Psych: COMMON NORMALS: mental status grossly normal Urinary Catheter Management: Healy: Cath Placed During This Visit: yes Reason for Continuing Indwelling Catheter: Required Immobilization for Trauma or Surgery or Anesthesia Urinary Catheter Date of Insertion: 10/11/21 Urinary Catheter Time of Insertion: 21:49 Data : 10/13/21 03:32 10/13/21 03:32 A&P Assessment and plan (1) Acute exacerbation of CHF (congestive heart failure): As evidenced by B/L infiltrates on CT chest suggestive of pulmonary edema, elevated BNP, new 02 requirement Serum sodium 124, BNP over 9000, on exam no crackles, on 2 L Hold Lasix 40mg iv q12h monitor I/O closely, daily weight Status: Acute (2) Hypoxia: related to CHF exacerbation Unlikely PE given patient is on Eliquis Less likely pneumonia given lack of fever, cough, expectoration supplemental l02 to keep sat >92% Negative Flu and Covid Ag Status: Acute (3) Elevated troponin: likely related to CHF excaerbation Elevated trop ~500 but trending down at 2 hrs and [address]- T wave changes on EKG and lack of chest pain make ACS less likely Cardiac echo shows Normal left ventricular cavity size. Normal left ventricular ?wall thickness. Mildly decreased left ventricular systolic ?function.? The apex is akinetic.? Otherwise, the left ?ventricular function is normal.? The overall ejection fraction ?is 55%.? Grade 1 diastolic dysfunction. Continue aspirin, Coreg, Eliquis Telemetry monitoring N.p.o. 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
[2021-10-13 13:54] LABS: Alanine Aminotransferase 13 U/L (0-33); Albumin Level 3.3 g/dL (3.5-5.2); Alkaline Phosphatase 53 IU/L (35-105); Aspartate Amino Transferase 25 U/L (0-32); Blood Urea Nitrogen 22 mg/dL (8-23); Calcium 9.9 mg/dL (8.5-10.5); Carbon Dioxide 25 mmol/L (22-29); Chloride 85 mmol/L (98-107); Globulin 2.9 g/dL (1.3-4.6); Glucose 227 mg/dL (65-115); Osmolality Calculated 266 mOsm/kg (285-295); Sodium 123 mmol/L (136-145); Total Bilirubin 0.5 mg/dL (0.15-1.2); Total Protein 6.2 g/dL (6.6-8.7)
--- NOTE | 2021-10-13 14:58 | PC.NURSE ---
PHI Asked the pt that his son Rigo is calling and would like an update but his son is not in the chart or PHI. Pt stated, he should be the first person on the list of contact. verified to pt if it is okay to give him an update and pt agreed. Son Rigo is updated on his hospital course and treatment plans and orders and discharge disposition. He wants us to call his cell# in case of emergency : [phone].
--- NOTE | 2021-10-13 15:00 | PC.NURSE ---
Physician notified 1500 she's still lethargic, falls back to sleep when talk. checked BP now it is 75/51(59-map) automatic, I check it manually it is 80/45, blood sugar is 161. spo2 is 95% on 2 L. she just complains of sleepy and tired. she had received Ranexa 1000 mg, coreg 12.5 mg and Lisinopril 15 mg all this morning. she will have these meds again at [address] what he wants me to do if we give fluids or hold meds? received order via Vo[employer] messaging to hold Ranexa, Lisinopril and Coreg, give 500 fluid bolus once and get an ABG. RT Kuo notified of the ABG stat.
[2021-10-13 15:31] LABS: Glucose Point of Care 161 mg/dL (70-110)
[2021-10-13] MEDS: sodium chloride 0.9% 500 ML 999 ML IV ×2 (15:43→16:33)
[2021-10-13 15:49] LABS: ABG PCO2 42.9 mmHg (35-45); ABG PH Result 7.45 (7.35-7.45); Alveolar-Arterial Oxygen Gradi 9.2 mmHg (5-10); Base Excess ABG 4.9 mmol/L (-2.0-2.0); Blood Gas Allen Test Pos; Blood Gas Operator Identificat glc; Blood Gas Sample Site Radial, right; Blood Gas Sample Type Arterial; Carboxyhemoglobin 0.3 %THgb (0.4-20.1); HCO3 ABG 29.5 mmol/L (22-26); HGB O2 Sat 94.1 % (95-100); Ionized Calcium Level - ABG 1.4 mmol/L (1.1-1.4); Methemoglobin 0.8 % (0.4-1.5); Oxygen Device NC; Oxygen Saturation ABG 95.2; PO2 ABG 75.5 mmHg (80.0-100.0); Total Hemoglobin 12.1 g/dL (12-16)
--- NOTE | 2021-10-13 16:27 | PC.NURSE ---
Physician notified Post one time 500 cc fluid bolus BP is 89/48 (map-61). pt is laying in bed, easliy arousable when woken up. Received telephone order to give another 500 cc fluid bolus now.
[2021-10-13 17:06] LABS: Glucose Point of Care 184 mg/dL (70-110)
[2021-10-13] MEDS: sodium chloride 1 gm Tablet PO (17:31)
--- NOTE | 2021-10-13 17:35 | PC.NURSE ---
post ivf bolus total 1000 cc, BP increased to 100/51 (68). Dr Perkins notified of pt's better BP after 2nd 500 cc ivf bolus.
[2021-10-13] MEDS: gabapentin 300 mg Capsule PO (20:55)
[2021-10-14] VITALS (14 sets, daily range): BP systolic 105–151; BP diastolic 56–91; PULSE 72–96; RESP 16–22; TEMP 36.4–36.8; O2SAT 95–98
[2021-10-14] MEDS: oxyCODONE-APAP 5-325 mg Tablet 1 TAB PO ×3 (00:52→14:01)
[2021-10-14 02:57] LABS: Basophils % 0.3 %; Eosinophils % 0.6 %; Hematocrit 30.2 % (37.0-47.0); Hemoglobin 10.8 g/dL (11.5-15.3); Lymphocytes % 14.2 %; Mean Corpuscular HGB Conc 35.8 g/dL (30.0-36.0); Mean Corpuscular Volume 89.3 fl (81-99); Mean Platelet Volume 9.5 fL (7.4-10.4); Monocytes # 0.7 10^3/uL (0.2-0.9); Monocytes % 10.2 %; Neutrophils # 5.34 10^3/uL (1.8-7.7); Neutrophils % 74.3 %; Nucleated Red Blood Cells % 0 %; Platelet Count 216 10^3/cmm (130-400); Red Blood Count 3.38 10^6/uL (4.1-5.3); Red Cell Distribution Width 12.1 % (12.1-15.1); White Blood Count 7.2 10^3/uL (4.0-10.0)
[2021-10-14 03:32] LABS: Alanine Aminotransferase 12 U/L (0-33); Albumin Level 3.2 g/dL (3.5-5.2); Alkaline Phosphatase 49 IU/L (35-105); Anion Gap 16.5 (5-19); Aspartate Amino Transferase 24 U/L (0-32); Blood Urea Nitrogen 27 mg/dL (8-23); Calcium 10.3 mg/dL (8.5-10.5); Carbon Dioxide 23 mmol/L (22-29); Chloride 90 mmol/L (98-107); Globulin 2.9 g/dL (1.3-4.6); Glucose 173 mg/dL (65-115); Magnesium 1.8 mg/dL (1.7-2.3); NT Pro B Type Natriuretic Pept 4269 pg/mL (0-450); Osmolality Calculated 269 mOsm/kg (285-295); Phosphorus 2.9 mg/dL (2.5-4.5); Potassium 4.5 mmol/L (3.5-5.1); Sodium 125 mmol/L (136-145); Total Bilirubin 0.5 mg/dL (0.15-1.2); Total Protein 6.1 g/dL (6.6-8.7)
[2021-10-14] MEDS: sodium chloride 1 gm Tablet PO ×2 (04:42→17:39)
[2021-10-14] MEDS: ondansetron 2 mg/ML SDV 2 mL 4 MG IVP (05:04)
--- NOTE | 2021-10-14 06:00 | XRR_ITS ---
PROCEDURE INFORMATION: Exam: XR Chest Exam date and time: 10/14/2021 5:31 AM Age: 81 years old Clinical indication: Condition or disease; Lung condition and disease; Pleural effusion; Other: Not specified; Additional info: Pleural effusions TECHNIQUE: Imaging protocol: Radiologic exam of the chest. Views: 1 view. Total images: 1420 COMPARISON: CT chest wo con [id number] 10/11/2021 6:16 PM FINDINGS: Lungs: Stable bilateral pleuroparenchymal disease. Pleural spaces: No pneumothorax. Heart/Mediastinum: Low lung volumes are present, accentuating cardiac size and pulmonary markings. Upper normal heart size noted. Bones/joints: Osseous structures are unchanged from the prior exam. XR/XR chest 1V portable [id number] IMPRESSION: 1. Low lung volumes are present, accentuating cardiac size and pulmonary markings. 2. Stable bilateral pleuroparenchymal disease.
--- NOTE | 2021-10-14 07:33 | PC.NURSE ---
reviewed poc, pt resting comfortably in bed. assumed care of patient
[2021-10-14] MEDS: aspirin 81 mg EC Tablet PO (08:06)
[2021-10-14] MEDS: apixaban 5 mg Tablet PO ×2 (08:06→17:39)
[2021-10-14] MEDS: ezetimibe 10 mg Tablet PO (08:06)
[2021-10-14] MEDS: pantoprazole DR 40 mg Tablet PO (08:06)
[2021-10-14 08:18] LABS: Glucose Point of Care 183 mg/dL (70-110)
--- NOTE | 2021-10-14 08:44 | ECG_ITS ---
[facility] Test Date: 2021-10-14 Pat Name: Danitza Rosado Department: Room: 276 Gender: Female Pleating Supervisor: Gabriela Elias : 1940 Requested By: Osei Perkins Order Number: [id number] Kenisha MD: Jona Negro M.D. Interpretive Statements NAME OF STUDY: LEXISCAN SESTAMIBI STRESS TEST INDICATION: [nstemi, ] Procedure: At the baseline, the blood pressure was 122/60 mmHg with a heart rate of 75 bpm. The electrocardiogram showed atrial fibrillation, frequent PVCs the Lexiscan was infused over a period of 20 seconds. A total of 0.4 mg of Lexiscan was infused. The stress phase was continued for a total of 5 minutes. Heart rate was at the end of stress phase was 84 bpm and a blood pressure of 104/57 mmHg. The EKG at the peak infusion revealed atrial fibrillation with no significant ST-T wave changes. Sestamibi was injected 20 seconds after the Lexiscan infusion. Blood pressure at the end of recovery phase was 110/57 mmHg with a heart rate of 74 bpm. Conclusion: 1. Normal EKG response to Lexiscan infusion 2. No Lexiscan induced chest pain or cardiac arrhythmia. 3. Normal blood pressure and heart rate response. 4. Sestamibi/sestamibi perfusion scan pending; see separate report. Electronically Signed On 11-01-2021 12:05:53 CDT by Jona Negro M.D. [id number]
--- NOTE | 2021-10-14 08:51 | NMCV_ITS ---
NM travis perf SPECT r/s* [id number] Danitza Rosado Age: 81 Gender: F : 1940 Exam Date: 10/14/2021 11:57 Ordering Phys: Osei Perkins MD Technologist: ALAN Wall Exam Location: [facility] Indications: CHEST PAIN STRESS TEST Please [facility] for [facility] IMAGE PROTOCOL Rest/Stress 1 Lexiscan Day Radiopharmaceutical Dose (mCi) Administration Site Administered by Rest: Tc-99m 10.5 IV ALAN Wall Sestamibi Stress:Tc-99m 32.4 IV ALAN Dickinson Sestamibi Rest: 14-Oct-2021 60 Discovery 630 Stress: 14-Oct-2021 30 Discovery 630 0.4mg Lexiscan. Supine position only as patient was unable to lay prone. SPECT RESULTS Technical Quality: Excellent Raw Data Analysis: Normal Image Corrections: No attenuation or motion correction applied Summed Stress Score: 21 Summed Rest Score: 23 Summed Difference Score: 1 PERFUSION FINDINGS There is a large sized, fixed perfusion defect in the apical, apical anterior, inferolateral and inferior canchola. This is consistent with large sized, fixed perfusion defect in the LAD, LCx and RCA. No evidence of ischemia is seen FUNCTIONAL RESULTS (calculated via Gated SPECT) Stress Image LV EF (%): 39 Stress EDV (mL):140 TID: 1.09 Stress ESV (mL):86 FUNCTIONAL FINDINGS: LV systolic fucntion is moderately reduced with EF of 39%. Moderate global hypokinesis is seen IMPRESSIONS 1. Abnormal myocardial perfusion imaging with large sized infarct seen in multivessel territory including LAD, LCx and RCA. No evidence of ischemia is seen 2. LV systolic fucntion is moderately reduced with EF of 39%. Moderate global hypokinesis is seen Jona Negro MD (Electronically Signed) Final Date: 14 October 2021 16:54 S
[2021-10-14 11:29] LABS: Glucose Point of Care 160 mg/dL (70-110)
[2021-10-14] MEDS: morphine 4 mg/mL SDV 1 mL 2 MG IVP (11:50)
--- NOTE | 2021-10-14 11:54 | PC.SOCIAL ---
IMM Update pg 2 of IMM updated and reviewed w/ patient. Copy provided and copy placed in chart.
[2021-10-14] MEDS: regadenoson 0.4 Mg/5 ml Syringe IVP (12:28)
--- NOTE | 2021-10-14 12:54 | PM.PN ---
Subjective Subjective: Patient was seen this morning, she denies any chest pain, no shortness of breath, yesterday afternoon, she had low blood pressures, she had received her blood pressure medications, and her pain medications, and according to nursing staff she was lethargic, she is on 2 L, she was given fluid boluses with her blood pressure medications held and her blood pressure is improved -This morning she is alert oriented x3, answers all questions appropriate, follows all commands, is normotensive -She denies any chest pain -Her serum sodium levels are improving -Her friend is at bedside -She continues to complain of pain, distal fibula Vitals/I&O/Wt Last Vital Signs Temp 98.2 F 10/14/21 11:05 Pulse 85 10/14/21 12:47 Resp 16 10/14/21 11:05 BP 110/57 10/14/21 12:47 Pulse Ox 97 10/14/21 11:05 10/13/21 10/14/21 10/14/21 22:59 06:59 14:59 Intake Total 1360 / 1892 Output Total 650 / 650 400 / 1050 Balance 710 / 1242 -400 / 842 Physical Exam Const: COMMON NORMALS: no acute distress and patient oriented x3 Resp: COMMON NORMALS: normal respiratory effort, No retractions, No use of accessory muscles and clear to auscultation bilaterally AUSCULTATION: clear to auscultation bilaterally Cardio: COMMON NORMALS: regular rate, regular rhythm, S1 normal heart sound present and S2 normal heart sound present RATE: regular rate RHYTHM: regular rhythm HEART SOUNDS: S1 normal heart sound present and S2 normal heart sound present GI: COMMON NORMALS: Normal to inspection, nondistended, normoactive bowel sounds present, Soft to palpation and non-tender PALPATION: Yes Soft to palpation Extremity: COMMON NORMALS: no pedal edema Neuro: COMMON NORMALS: patient oriented x3 Psych: COMMON NORMALS: mental status grossly normal Urinary Catheter Management: Healy: Cath Placed During This Visit: yes Reason for Continuing Indwelling Catheter: Other Urinary Catheter Date of Insertion: 10/11/21 Urinary Catheter Time of Insertion: 21:49 Data : 10/14/21 02:37 10/14/21 02:37 A&P Assessment and plan (1) Acute exacerbation of CHF (congestive heart failure): As evidenced by B/L infiltrates on CT chest suggestive of pulmonary edema, elevated BNP, new 02 requirement Serum sodium 125, serum BNP over 4000, on 2 L, no crackles on exam Hold Lasix 40mg iv q12h monitor I/O closely, daily weight Status: Acute (2) Hypoxia: related to CHF exacerbation Unlikely PE given patient is on Eliquis Less likely pneumonia given lack of fever, cough, expectoration supplemental l02 to keep sat >92% Negative Flu and Covid Ag Status: Acute (3) Elevated troponin: likely related to CHF excaerbation Elevated trop ~500 but trending down at 2 hrs and [address]- T wave changes on EKG and lack of chest pain make ACS less likely Cardiac echo shows Normal left ventricular cavity size. Normal left ventricular ?wall thickness. Mildly decreased left ventricular systolic ?function.? The apex is akinetic.? Otherwise, the left ?ventricular function is normal.? The overall ejection fraction ?is 55%.? Grade 1 diastolic dysfunction. Continue aspirin, Coreg, Eliquis Telemetry monitoring Undergoing cardiac stress testing Status: Acute (4) Fibula fracture: Limb Spinted in the emergency room Pain control with OXycocdone/APAP 5/325 q6h prn Will discuss with orthopedic service Status: Acute Plan Hyponatremia, likely secondary to diuresis, hold Lasix Ankle fracture, nondisplaced fracture, will likely require placement Acute encephalopathy, likely secondary to polypharmacy, pain medications, blood pressure medications Hypotension, likely secondary to pain medications, blood pressure medications, diuresis, diuresis has been held, has received fluid boluses Attestations Medical Necessity Statement*: Patient requires hospitalization for elevated troponins, fibular fracture, hypoxia, CHF exacerbation, Coding Level of Care Code 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
--- NOTE | 2021-10-14 12:55 | PC.CHAP ---
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 [] Patient/Family/Request visit [] Outpatient visit [] Follow-up visit [] Physician referral [] Code/Alert [x] Routine visit [] Staff referral [] Actively dying [] Patient sleeping [] Family support [] [] Out of room [] Palliative care [] [] Receiving care in room [] Pre-surgical visit [] Trauma [] Long length of stay [] ICU visit [] Other: Relational/Emotional Strength [x] Patient feels connected with others/family/visitors/staff [] Distress [] Loneliness/isolation [] Abandonment Spirituality of Patient [x] Person of Noelle [] Attends Uatsdin of their Noelle [x] Believes in Prayer [] Reads Bible or Yazidi materials [] There are Spiritual issues to be addressed Patternator Interventions [x] Prayer [x] Active listening [x] Non-anxious presence [] Spiritual/emotional support [] Crisis/trauma care [x] Spiritual counseling [] Bereavement support [] Provided bereavement packet [] Provided Bible/devotional materials [] Provided toy/stuffed animal, coloring book to patient or family member [] Provided Communion [] Anointing/Harrah [] Salvation [x] Completed spiritual assessment [] Other: Impact on Illness or Injury [] Angry [] Fearful [] Anxious [] Often cries [] Exhaustion [] Unable to work [] Unable to attend tenriism [] Unable to walk/stand [] Unable to read [] Unable to drive [] Unable to eat/drink [] Unable to sleep [] Unable to be with family [] Patient intubated [] Other: Summary Time spent with patient 10 min
--- NOTE | 2021-10-14 16:01 | P.CONIM_ITS ---
Providers/Reason For Consult Consulting Physician/Specialty*: Brain Newell MD; orthopedic Reason for Consult*: Right lateral malleolar fracture Attending Physician: Osei Perkins MD Primary Care Provider: rCuz Guy History of Present Illness History of Present Illness Danitza Rosado is a 81 year old female who fell when she lost her footing on the cement sidewalk in front of her house the evening of 10/10/2021. She apparently went to [facility] to the medicine service for an exacerbation of congestive heart failure. I have been asked to see the patient today to make recommendations regarding initiating treatment of the lateral mall fracture and perhaps beginning mobilization Medications/Allergies Home Medications Medication Instructions Recorded Confirmed Last Taken Type multivitamin,cq-cars-tuvycvwo 1 tab PO DAILY 06/12/19 10/11/21 10/11/21 09:00 History (Complete Multivitamin) aspirin 81 mg tablet,delayed 81 mg PO DAILY 04/25/20 10/11/21 10/11/21 09:00 History release (Adult Low Dose Aspirin) dulaglutide 1.5 mg/0.5 mL 1.5 mg (0.5 mL) SUBCUT .q7days 11/27/20 10/11/21 09:00 Rx subcutaneous pen injector #7.5 ml (Trulicity) carvedilol 12.5 mg tablet 12.5 mg PO BID #180 tab 05/20/21 10/11/21 10/11/21 09:00 Rx ezetimibe 10 mg tablet (Zetia) 10 mg PO DAILY #90 tab 05/20/21 10/11/21 10/11/21 09:00 Rx ranolazine 1,000 mg 1,000 mg PO BID #180 tab 05/20/21 10/12/21 10/11/21 09:00 Rx tablet,extended release,12 hr (Ranexa) ergocalciferol (vitamin D2) 1,250 See Rx Instructions .ROUTE 06/10/21 10/11/21 10/10/21 09:00 Rx mcg (50,000 unit) capsule .COMPLEX #13 cap Diabetic shoes with 3 pairs of #1 ea 07/23/21 10/12/21 Unknown Rx inserts apixaban 5 mg tablet 5 mg PO BID #60 tab 09/22/21 10/12/21 10/11/21 09:00 Rx docusate sodium 100 mg capsule 100 mg PO DAILY PRN 09/25/21 10/11/21 Unknown History (Dulcolax Stool Softener (docusate)) gabapentin 100 mg capsule 300 mg PO BEDTIME cap 09/25/21 10/11/21 10/10/21 21:00 History lisinopril 10 mg tablet 25 mg PO DIRECTED tab 09/25/21 10/11/21 10/11/21 09:00 History glipizide 5 mg tablet 5 mg PO DAILY 10/11/21 10/11/21 10/11/21 09:00 History linaclotide 145 mcg capsule 145 mcg PO BEDTIME 10/11/21 10/11/21 10/10/21 21:00 History (Linzess) oxybutynin chloride 5 mg tablet 5 mg PO BID 10/11/21 10/11/21 10/11/21 09:00 History pioglitazone 45 mg tablet 45 mg PO DAILY 10/11/21 10/11/21 10/11/21 09:00 History Allergies Allergy/AdvReac Type Severity Reaction Status Date / Time cimetidine [From [facility]] Allergy Intermediate rash Verified 10/11/21 16:11 pravastatin Allergy Unknown Unknown Verified 10/11/21 16:11 Current Medications Generic Name Dose Route Start Last Admin Trade Name Mert PRN Reason Stop Dose Admin Apixaban 5 mg 10/12/21 09:00 10/14/21 08:06 Apixaban 5 Mg Tablet PO 5 mg BID IVAN Administration Aspirin 81 mg 10/12/21 09:00 10/14/21 08:06 Aspirin 81 Mg Ec Tablet PO 81 mg DAILY IVAN Administration Carvedilol 12.5 mg 10/12/21 09:00 10/13/21 08:40 Carvedilol 12.5 Mg Tablet PO 12.5 mg BID IVAN Administration Ezetimibe 10 mg 10/12/21 09:00 10/14/21 08:06 Ezetimibe 10 Mg Tablet PO 10 mg DAILY IVAN Administration Gabapentin 300 mg 10/12/21 21:00 10/13/21 20:55 Gabapentin 300 Mg Capsule PO 300 mg BEDTIME IVAN Administration Insulin Human Lispro 0 unit 10/12/21 08:00 10/14/21 11:37 Insulin Lispro 100 Unit/1 Ml SUBCUT Not Given WM&BEDTIME IVAN Protocol Lisinopril 15 mg 10/12/21 09:00 10/13/21 08:40 Lisinopril 10 Mg Tablet PO 15 mg DAILY IVAN Administration Lisinopril 10 mg 10/12/21 18:00 10/12/21 18:27 Lisinopril 10 Mg Tablet PO 10 mg QPM IVAN Administration Morphine Sulfate 2 mg 10/12/21 01:06 10/14/21 11:50 Morphine 4 Mg/Ml Sdv 1 Ml IVP 2 mg Q4H PRN Administration SEVERE PAIN Ondansetron HCl 4 mg 10/12/21 01:06 10/14/21 05:04 Ondansetron 2 Mg/Ml Sdv 2 Ml IVP 4 mg Q8H PRN Administration vomiting, or N/V if npo Oxybutynin Chloride 5 mg 10/12/21 09:00 10/13/21 16:10 Oxybutynin 5 Mg Tablet PO Not Given BID IVAN Oxycodone/Acetaminophen 1 tab 10/12/21 11:04 10/14/21 14:01 Oxycodone-Apap 5-325 Mg Tablet PO 1 tab Q4H PRN Administration MODERATE PAIN Pantoprazole Sodium 40 mg 10/12/21 09:00 10/14/21 08:[address] 40 Mg Tablet PO 40 mg DAILY IVAN Administration Ranolazine 1,000 mg 10/12/21 09:00 10/13/21 08:41 Ranolazine (12hr) 500 Mg Tablet PO 1,000 mg BID IVAN Administration Sodium Chloride 1 gm 10/13/21 17:00 10/14/21 04:42 Sodium Chloride 1 Gm Tablet PO 1 gm Q12H IVAN Administration PFSH Acute PFSH: Medical History Anemia Atrial fibrillation Back pain with radiation Bacterial UTI Breast cancer Encapsulated in milk duct, excised by Dr. Montilla CAD (coronary artery disease) Chronic idiopathic constipation Chronic idiopathic constipation CVA (cerebral vascular accident) 2018 DDD (degenerative disc disease), lumbar DDD (degenerative disc disease), lumbar Diabetes mellitus, type II Diabetic peripheral neuropathy associated with type 2 diabetes mellitus Essential hypertension Gross hematuria Mixed hyperlipidemia Peripheral Vascular Disease Recurrent UTI Sinusitis Status post left heart catheterization Test anxiety Urinary tract infection Urinary, incontinence, stress female Vitamin D deficiency Surgical History H/O bladder repair surgery S/P dilatation and curettage S/P hysterectomy S/P lumpectomy of breast S/P right heart catheterization S/P wrist surgery Stented coronary artery Family History Other Cancer Diabetes Social History Smoking and tobacco status: former smoker Alcohol intake: unknown Adopted: No Caregiver/support person: No Lives independently: Yes Marital status: / Current occupational status: retired History of recent travel: No Vitals/I&O/Wt Last Vital Signs Temp 97.5 F L 10/14/21 15:14 Pulse 75 10/14/21 15:48 Resp 16 10/14/21 15:14 BP 105/64 10/14/21 15:14 Pulse Ox 95 10/14/21 15:48 10/14/21 10/14/21 10/14/21 06:59 14:59 22:59 Output Total 400 / 1050 Balance -400 / 842 Physical Exam Narrative: Danitza's right lower extremity splint has been removed. She has mild swelling over the lateral malleolus and really none over the medial ankle. She has tenderness over the lateral malleolus but none medially. She can dorsiflex ankle neutral and plantar flex 20 degrees. She can flex extend her toes without obvious motor deficits She has diminished sensation in the right foot consistent with neuropathy She has a palpable dorsalis pedis pulse Urinary Catheter Management: Healy: Cath Placed During This Visit: yes Reason for Continuing Indwelling Catheter: Other Urinary Catheter Date of Insertion: 10/11/21 Urinary Catheter Time of Insertion: 21:49 Data : 10/14/21 02:37 10/14/21 02:37 Other Xray: My impression: 3 views of the right ankle are personally interpreted from 10/11/2021. The patient has a a nondisplaced fracture of the lateral malleolus medial fractures are identified. The talus appears to be congruent with in the tibial plafond A&P Assessment and plan (1) Fracture of right ankle, lateral malleolus: Danitza has a nondisplaced lateral malleolus fracture. There is no evidence of medial injury and this would appear to be a stable injury. I will have her placed in a postop boot. She can bear weight as tolerated. She can begin to be mobilized with therapy. I need to see her back in clinic in 1 week with repeat radiographs. 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
[2021-10-14 16:47] LABS: Glucose Point of Care 242 mg/dL (70-110)
[2021-10-14] MEDS: insulin lispro 100 unit/1 mL SUBCUT (17:39)
[2021-10-14] MEDS: gabapentin 300 mg Capsule PO (21:41)
[2021-10-15] VITALS (15 sets, daily range): BP systolic 97–168; BP diastolic 49–95; PULSE 72–113; RESP 10–23; TEMP 36.3–36.8; O2SAT 91–98
[2021-10-15 03:07] LABS: Basophils % 0.4 %; Eosinophils # 0.1 10^3/uL (0.0-0.8); Eosinophils % 0.8 %; Hematocrit 32.2 % (37.0-47.0); Hemoglobin 11.4 g/dL (11.5-15.3); Lymphocytes # 0.9 10^3/uL (0.8-4.8); Lymphocytes % 11.3 %; Mean Corpuscular HGB Conc 35.4 g/dL (30.0-36.0); Mean Corpuscular Hemoglobin 31.8 pg (28.0-34.0); Mean Corpuscular Volume 89.7 fl (81-99); Mean Platelet Volume 9.5 fL (7.4-10.4); Monocytes # 0.6 10^3/uL (0.2-0.9); Monocytes % 7.3 %; Neutrophils # 6.21 10^3/uL (1.8-7.7); Neutrophils % 79.8 %; Nucleated Red Blood Cells % 0 %; Platelet Count 261 10^3/cmm (130-400); Red Blood Count 3.59 10^6/uL (4.1-5.3); White Blood Count 7.8 10^3/uL (4.0-10.0)
[2021-10-15 03:43] LABS: Alanine Aminotransferase 16 U/L (0-33); Albumin Level 3.4 g/dL (3.5-5.2); Alkaline Phosphatase 54 IU/L (35-105); Anion Gap 18.8 (5-19); Aspartate Amino Transferase 30 U/L (0-32); Blood Urea Nitrogen 25 mg/dL (8-23); Calcium 10.4 mg/dL (8.5-10.5); Carbon Dioxide 22 mmol/L (22-29); Chloride 87 mmol/L (98-107); Glucose 223 mg/dL (65-115); Magnesium 1.6 mg/dL (1.7-2.3); NT Pro B Type Natriuretic Pept 6233 pg/mL (0-450); Osmolality Calculated 267 mOsm/kg (285-295); Phosphorus 2.4 mg/dL (2.5-4.5); Potassium 4.8 mmol/L (3.5-5.1); Sodium 123 mmol/L (136-145); Total Bilirubin 0.5 mg/dL (0.15-1.2); Total Protein 6.4 g/dL (6.6-8.7)
[2021-10-15] MEDS: oxyCODONE-APAP 5-325 mg Tablet 1 TAB PO (04:58)
[2021-10-15] MEDS: sodium chloride 1 gm Tablet PO (04:59)
[2021-10-15 07:14] LABS: Glucose Point of Care 243 mg/dL (70-110)
[2021-10-15 07:14] LABS: Glucose Point of Care 158 mg/dL (70-110)
[2021-10-15] MEDS: apixaban 5 mg Tablet PO ×2 (09:05→17:28)
[2021-10-15] MEDS: carvedilol 12.5 mg Tablet PO ×2 (09:05→17:28)
[2021-10-15] MEDS: ranolazine (12HR) 500 mg Tablet 1000 MG PO ×2 (09:05→17:28)
[2021-10-15] MEDS: ezetimibe 10 mg Tablet PO (09:05)
[2021-10-15] MEDS: docusate sodium 100 mg Capsule PO (09:05)
[2021-10-15] MEDS: aspirin 81 mg EC Tablet PO (09:05)
[2021-10-15] MEDS: pantoprazole DR 40 mg Tablet PO (09:05)
[2021-10-15] MEDS: insulin lispro 100 unit/1 mL SUBCUT ×4 (09:06→21:47)
--- NOTE | 2021-10-15 09:31 | P.CONIM_ITS ---
Providers/Reason For Consult Consulting Physician/Specialty*: JOSUE Vogel MD/cardiology Reason for Consult*: Patient is admitted to the hospital with some features of congestive heart failure. Elevated troponin T. Abnormal Myocardial perfusion imaging. Requesting Physician: Dr. Perkins Attending Physician: Osei Perkins MD Primary Care Provider: Crzu Guy History of Present Illness History of Present Illness Danitza Rosado is a 81 year old female, is admitted to the hospital with diagnosis of nondisplaced fracture of the distal fibula, hypoxia, congestive heart failure and possible lung infiltrate. He was treated with diuretics and other symptomatic measures. She had a Myocardial perfusion imaging today which was found to be abnormal. Cardiology consult is requested for further cardiac evaluation recommendations. This patient is known to have atherosclerotic heart disease and had a PCI many years ago. She also is known to have peripheral artery disease, chronic atrial fibrillation, high blood pressure, dyslipidemia and type 2 diabetes. She generally has been doing okay up until the fall that she had 2 days prior to the hospital admission. She was having some progressive shortness of breath. Her troponin I was in the 500 range, at the time of admission. The troponin levels are trending downwards at this time. She never had any chest pain. No palpitation, dizziness or syncopal episodes. Her shortness of breath is improving. Denies any fever or chills. No cough. She had an echocardiogram which revealed akinetic LV apex. The overall ejection fraction was 55%. The Myocardial perfusion imaging revealed areas of fixed defects with no significant reversible defects. Medications/Allergies Home Medications Medication Instructions Recorded Confirmed Last Taken Type multivitamin,[id number] 1 tab PO DAILY 06/12/19 10/11/21 10/11/21 09:00 History (Complete Multivitamin) aspirin 81 mg tablet,delayed 81 mg PO DAILY 04/25/20 10/11/21 10/11/21 09:00 History release (Adult Low Dose Aspirin) dulaglutide 1.5 mg/0.5 mL 1.5 mg (0.5 mL) SUBCUT .q7days 11/27/20 10/11/21 10/10/21 09:00 Rx subcutaneous pen injector #7.5 ml (Trulicity) carvedilol 12.5 mg tablet 12.5 mg PO BID #180 tab 05/20/21 10/11/21 10/11/21 09:00 Rx ezetimibe 10 mg tablet (Zetia) 10 mg PO DAILY #90 tab 05/20/21 10/11/21 10/11/21 09:00 Rx ranolazine 1,000 mg 1,000 mg PO BID #180 tab 05/20/21 10/12/21 10/11/21 09:00 Rx tablet,extended release,12 hr (Ranexa) ergocalciferol (vitamin D2) 1,250 See Rx Instructions .ROUTE 06/10/21 10/11/21 10/10/21 09:00 Rx mcg (50,000 unit) capsule .COMPLEX #13 cap Diabetic shoes with 3 pairs of #1 ea 07/23/21 10/12/21 Unknown Rx inserts apixaban 5 mg tablet 5 mg PO BID #60 tab 09/22/21 10/12/21 10/11/21 09:00 Rx docusate sodium 100 mg capsule 100 mg PO DAILY PRN 09/25/21 10/11/21 Unknown History (Dulcolax Stool Softener (docusate)) gabapentin 100 mg capsule 300 mg PO BEDTIME cap 09/25/21 10/11/21 10/10/21 21:00 History lisinopril 10 mg tablet 25 mg PO DIRECTED tab 09/25/21 10/11/21 10/11/21 09:00 History glipizide 5 mg tablet 5 mg PO DAILY 10/11/21 10/11/21 10/11/21 09:00 History linaclotide 145 mcg capsule 145 mcg PO BEDTIME 10/11/21 10/11/21 10/10/21 21:00 History (Linzess) oxybutynin chloride 5 mg tablet 5 mg PO BID 10/11/21 10/11/21 10/11/21 09:00 History pioglitazone 45 mg tablet 45 mg PO DAILY 10/11/21 10/11/21 10/11/21 09:00 History Allergies Allergy/AdvReac Type Severity Reaction Status Date / Time [facility] Allergy Intermediate rash Verified 10/11/21 16:11 pravastatin Allergy Unknown Unknown Verified 10/11/21 16:11 Current Medications Generic Name Dose Route Start Last Admin Trade Name Freq PRN Reason Stop Dose Admin Apixaban 5 mg 10/12/21 09:00 10/15/21 09:05 Apixaban 5 Mg Tablet PO 5 mg BID IVAN Administration Aspirin 81 mg 10/12/21 09:00 10/15/21 09:05 Aspirin 81 Mg Ec Tablet PO 81 mg DAILY IVAN Administration Carvedilol 12.5 mg 10/12/21 09:00 10/15/21 09:05 Carvedilol 12.5 Mg Tablet PO 12.5 mg BID IVAN Administration Docusate Sodium 100 mg 10/12/21 01:09 10/15/21 09:05 Docusate Sodium 100 Mg Capsule PO 100 mg DAILY PRN Administration Constipation Ezetimibe 10 mg 10/12/21 09:00 10/15/21 09:05 Ezetimibe 10 Mg Tablet PO 10 mg DAILY IVAN Administration Gabapentin 300 mg 10/12/21 21:00 10/14/21 21:41 Gabapentin 300 Mg Capsule PO 300 mg BEDTIME IVAN Administration Insulin Human Lispro 0 unit 10/12/21 08:00 10/15/21 09:06 Insulin Lispro 100 Unit/1 Ml SUBCUT 6 unit WM&BEDTIME IVAN Administration Protocol Lisinopril 15 mg 10/12/21 09:00 10/13/21 08:40 Lisinopril 10 Mg Tablet PO 15 mg DAILY IVAN Administration Lisinopril 10 mg 10/12/21 18:00 10/12/21 18:27 Lisinopril 10 Mg Tablet PO 10 mg QPM IVAN Administration Morphine Sulfate 2 mg 10/12/21 01:06 10/14/21 11:50 Morphine 4 Mg/Ml Sdv 1 Ml IVP 2 mg Q4H PRN Administration SEVERE PAIN Ondansetron HCl 4 mg 10/12/21 01:06 10/14/21 05:04 Ondansetron 2 Mg/Ml Sdv 2 Ml IVP 4 mg Q8H PRN Administration vomiting, or N/V if npo Oxybutynin Chloride 5 mg 10/12/21 09:00 10/13/21 16:10 Oxybutynin 5 Mg Tablet PO Not Given BID IAVN Oxycodone/Acetaminophen 1 tab 10/12/21 11:04 10/15/21 04:58 Oxycodone-Apap 5-325 Mg Tablet PO 1 tab Q4H PRN Administration MODERATE PAIN Pantoprazole Sodium 40 mg 10/12/21 09:00 10/15/21 09:[address] 40 Mg Tablet PO 40 mg DAILY IVAN Administration Ranolazine 1,000 mg 10/12/21 09:00 10/15/21 09:05 Ranolazine (12hr) 500 Mg Tablet PO 1,000 mg BID IVAN Administration Sodium Chloride 1 gm 10/13/21 17:00 10/15/21 04:59 Sodium Chloride 1 Gm Tablet PO 1 gm Q12H IVAN Administration PFSH Acute PFSH: Medical History Anemia Atrial fibrillation Back pain with radiation Bacterial UTI Breast cancer Encapsulated in milk duct, excised by Dr. Montilla CAD (coronary artery disease) Chronic idiopathic constipation Chronic idiopathic constipation CVA (cerebral vascular accident) 2018 DDD (degenerative disc disease), lumbar DDD (degenerative disc disease), lumbar Diabetes mellitus, type II Diabetic peripheral neuropathy associated with type 2 diabetes mellitus Essential hypertension Gross hematuria Mixed hyperlipidemia Peripheral Vascular Disease Recurrent UTI Sinusitis Status post left heart catheterization Test anxiety Urinary tract infection Urinary, incontinence, stress female Vitamin D deficiency Surgical History H/O bladder repair surgery S/P dilatation and curettage S/P hysterectomy S/P lumpectomy of breast S/P right heart catheterization S/P wrist surgery Stented coronary artery Family History Other Cancer Diabetes Social History Smoking and tobacco status: former smoker Alcohol intake: unknown Adopted: No Caregiver/support person: No Lives independently: Yes Marital status: / Current occupational status: retired History of recent travel: No Vitals/I&O/Wt Last Vital Signs Temp 97.5 F L 10/15/21 07:34 Pulse 92 10/15/21 07:34 Resp 23 H 10/15/21 07:34 BP 141/79 10/15/21 07:34 Pulse Ox 93 10/15/21 07:34 10/14/21 10/15/21 10/15/21 22:59 06:59 14:59 Intake Total 165 / 165 50 / 215 Output Total 700 / 700 Balance -535 / -535 50 / -485 Physical Exam Narrative: GENERAL: The patient is alert and oriented times three. Not in any acute distress. HEENT: No significant pallor, icterus or lymphadenopathy. The pupils are reactant to light. Oral cavity: There are no mucous membrane lesions. Funduscopic examination: The fundus is not visualized NECK: Trachea appears to be central. No masses noted. No JVD or thyromegaly appreciated. No carotid bruit. RESPIRATORY: Chest is symmetrical. No intercostals muscle retraction or any accessory muscle activation. There is no chest wall tenderness. Breath sounds ar e heard bilaterally. No rales or rhonchi heard. No evidence of any consolidation. BREASTS: Deferred. HEART: The PMI could not be palpated. No other palpable precordial events. The first heart sound is variable. Second heart sound is normal.. No S3 or S4 heard. No pericardial rub or any click heard. ABDOMEN: No vessel pulsations or distention. No tenderness. No organomegaly appreciated. No abdominal bruit. Bowel sounds are normally heard. : Deferred. RECTAL: Deferred. LYMPHATIC: No lymphadenopathy noted in the neck or groin. EXTREMITIES: No severe edema or cyanosis. The right leg has a brace. MUSCULOSKELETAL: Right leg has a brace SKIN: There are no significant scars or skin rash noted. NEUROPSYCHIATRIC: The patient is alert and oriented x3. Appears to be in a good mood. The higher functions are grossly within normal limits. No tremors or rigidity noted. Urinary Catheter Management: Healy: Cath Placed During This Visit: yes Reason for Continuing Indwelling Catheter: Accurate Measurement of Urinary Output in Critically Ill Patients Urinary Catheter Date of Insertion: 10/11/21 Urinary Catheter Time of Insertion: 21:49 Data : 10/15/21 02:47 10/15/21 13:13 Other Labs: Laboratory Last Values WBC 7.8 10^3/uL (4.0-10.0) 10/15/21 02:47 RBC 3.59 10^6/uL (4.1-5.3) L 10/15/21 02:47 Hgb 11.4 g/dL (11.5-15.3) L 10/15/21 02:47 Hct 32.2 % (37.0-47.0) L 10/15/21 02:47 MCV 89.7 fl (81-99) 10/15/21 02:47 MCH 31.8 pg (28.0-34.0) 10/15/21 02:47 MCHC 35.4 g/dL (30.0-36.0) 10/15/21 02:47 RDW 12.0 % (12.1-15.1) L 10/15/21 02:47 Plt Count 261 10^3/cmm (130-400) 10/15/21 02:47 MPV 9.5 fL (7.4-10.4) 10/15/21 02:47 Neut % (Auto) 79.8 % 10/15/21 02:47 Lymph % (Auto) 11.3 % 10/15/21 02:47 [place] % (Auto) 7.3 % 10/15/21 02:47 Eos % (Auto) 0.8 % 10/15/21 02:47 Baso % (Auto) 0.4 % 10/15/21 02:47 Neut # (Auto) 6.21 10^3/uL (1.8-7.7) 10/15/21 02:47 Lymph # (Auto) 0.9 10^3/uL (0.8-4.8) 10/15/21 02:47 [place] # (Auto) 0.6 10^3/uL (0.2-0.9) 10/15/21 02:47 Eos # (Auto) 0.1 10^3/uL (0.0-0.8) 10/15/21 02:47 Baso # (Auto) 0.0 10^3/uL (0.0-0.1) 10/15/21 02:47 Nucleated RBC % (auto) 0 % 10/15/21 02:47 Nucleated RBCs # 0.0 /100WBC 10/15/21 02:47 Specimen Type Arterial 10/13/21 15:40 Sample Site Radial, right 10/13/21 15:40 ABG pH 7.45 (7.35-7.45) 10/13/21 15:40 ABG pCO2 42.9 mmHg (35-45) 10/13/21 15:40 ABG pO2 75.5 mmHg (80.0-100.0) L 10/13/21 15:40 ABG HCO3 29.5 mmol/L (22-26) H 10/13/21 15:40 ABG O2 Saturation 95.2 10/13/21 15:40 ABG Base Excess 4.9 mmol/L (-2.0-2.0) H 10/13/21 15:40 Dhaval Test Pos 10/13/21 15:40 A-a O2 Gradient 9.2 mmHg (5-10) 10/13/21 15:40 Hematocrit 37.0 % (37-47) 10/13/21 15:40 Hgb O2 Saturation 94.1 % (95-100) L 10/13/21 15:40 Carboxyhemoglobin 0.3 %THgb (0.4-20.1) L 10/13/21 15:40 Methemoglobin 0.8 % (0.4-1.5) 10/13/21 15:40 Total Hemoglobin 12.1 g/dL (12-16) 10/13/21 15:40 Sodium 125.0 mmol/L (131-143) L 10/13/21 15:40 Potassium 4.0 mmol/L (3.5-5.0) 10/13/21 15:40 Glucose 151.0 mg/dL (70-115) H 10/13/21 15:40 Ionized Calcium 1.4 mmol/L (1.1-1.4) 10/13/21 15:40 O2 Delivery Device Nc 10/13/21 15:40 O2 Liters/Min 2.0 % 10/13/21 15:40 FiO2 28.0 % 10/13/21 15:40 Pediatric Licensed Practical Nurse ID glc 10/13/21 15:40 Sodium 123 mmol/L (136-145) L 10/15/21 02:47 Potassium 4.8 mmol/L (3.5-5.1) 10/15/21 02:47 Chloride 87 mmol/L (98-107) L 10/15/21 02:47 Carbon Dioxide 22 mmol/L (22-29) 10/15/21 02:47 Anion Gap 18.8 (5-19) 10/15/21 02:47 BUN 25 mg/dL (8-23) H 10/15/21 02:47 Creatinine 0.8 mg/dL (0.5-0.9) 10/15/21 02:47 GFR Calculation Not Reportable 10/15/21 02:47 Glucose 223 mg/dL (65-115) H 10/15/21 02:47 POC Glucose 243 mg/dL (70-110) H 10/15/21 06:40 Calculated Osmolality 267 mOsm/kg (285-295) L 10/15/21 02:47 Calcium 10.4 mg/dL (8.5-10.5) 10/15/21 02:47 Phosphorus 2.4 mg/dL (2.5-4.5) L 10/15/21 02:47 Magnesium 1.6 mg/dL (1.7-2.3) L 10/15/21 02:47 Total Bilirubin 0.5 mg/dL (0.15-1.2) 10/15/21 02:47 AST 30 U/L (0-32) 10/15/21 02:47 ALT 16 U/L (0-33) 10/15/21 02:47 Alkaline Phosphatase 54 IU/L (35-105) 10/15/21 02:47 Troponin T Gen 5 ng/L 429 ng/L (0-10) H* 10/13/21 03:32 Troponin T Baseline 548 ng/L (0-10) H* 10/11/21 19:53 Troponin T 120 Minute 505.1 ng/L (0-10) H 10/11/21 22:00 Delta Troponin T -42.9 ABS# (0-10) L 10/11/21 22:00 Troponin T Hi Sens 6Hr 431.3 ng/L (0-10) H 10/12/21 00:30 Troponin T Hi Sens 6Hr Delta -116.7 ng/L (0-12) L 10/12/21 00:30 C-Reactive Protein 21.6 mg/L (0.0-4.9) H 10/12/21 00:40 NT-Pro-B Natriuret Pep 6233 pg/mL (0-450) H 10/15/21 02:47 Total Protein 6.4 g/dL (6.6-8.7) L 10/15/21 02:47 Albumin 3.4 g/dL (3.5-5.2) L 10/15/21 02:47 Globulin 3.0 g/dL (1.3-4.6) 10/15/21 02:47 Procalcitonin 0.06 ng/mL (0-0.5) 10/12/21 00:40 Influenza Type A Ag Negative (Negative) 10/11/21 22:00 Influenza Type B Ag Negative (Negative) 10/11/21 22:00 SARS-CoV-2 Ag (Rapid) Negative (Negative) 10/11/21 22:00 EKG 1: My Interpretation: Atrial fibrillation with rapid ventricular rate of [address]-T changes. EKG computer-generated impression: The Myocardial perfusion imaging revealed ?1. Abnormal myocardial perfusion imaging with large sized infarct seen in ?multivessel territory including LAD, LCx and RCA. No evidence of ischemia is ?seen ?2. LV systolic fucntion is moderately reduced with EF of 39%. Moderate global ?hypokinesis is seen Chest CT 10/11/21 17:17 IMPRESSION: 1. Moderate right pleural effusion and small left pleural effusion with adjacent compressive atelectasis or pneumonia. 2. There are patchy infiltrates at the lung apices. 3. Multifocal bilateral pulmonary ground-glass opacities. This can be seen with pulmonary edema, pneumonia, and/or pneumonitis. 4. Multivessel atherosclerotic disease which involves the coronary arteries. Chest X-Ray 10/14/21 06:00 IMPRESSION: 1. Low lung volumes are present, accentuating cardiac size and pulmonary markings. 2. Stable bilateral pleuroparenchymal disease. Echocardiogram done on 10/12/2021 revealed Normal left ventricular cavity size. Normal left ventricular ?wall thickness. Mildly decreased left ventricular systolic ?function.? The apex is akinetic.? Otherwise, the left ?ventricular function is normal.? The overall ejection fraction ?is 55%.? Grade 1 diastolic dysfunction. The EKG done on 10/12/2021 revealed Atrial fibrillation with rapid ventricular rate of 106 bpm. Diffuse nonspecific T wave changes. Date of Service: 07/19/20 Procedure(s): CV carotid duplex BI* [id number] ?CONCLUSIONS ?Moderate heterogeneous plaque to the right bifurcation and ?proximal internal carotid artery with velocity elevation, ?consistent with less than 50% stenosis ?Mild to moderate plaques of the left bifurcation, consistent with a less than 50% stenosis ?Elevated velocity in subclavian artery on the right side, may ?suggest hemodynamically significant stenosis ?Compared to the study from 10/14/2018, the Doppler velocity and ?plaque burden at the bifurcations are much less ?Elevated velocity in the right subclavian artery also appears to be new ?Dr Nick Vogel MD [facility] ? (Electronically Signed) CTA ?10/2019 1.? Intracranial craig of Francis is unremarkable 2.? Left dominant vertebral artery. Basilar artery is patent. 3.? Normal vascularity to the PITER and MCA territories bilaterally. 4.? Dense cavernous carotid calcification with no flow-limiting stenosis 5.? Right ICA stenosis measures 70% 6.? Left ICA stenosis measures 39% 10/03/18 Request for Service [facility] Conclusions ? Peripheral Procedure DescriptionSevere claudication of both legs and feetmore in right than left? foot? despite of optimization of medicaltherapySevere claudication ( [place] grade II, category 4:[place] stage III. )Procedure SummaryLeft Profunda femoral artery was used to performedperipheral angiogram, Abdominal aortic angiogram was performed which showedluminal irregularity.? Right renal artery was not visualized. Left renalartery has luminal irregularity. Left and right common iliac artery hasluminal irregularity, right and left internal and external? iliac artery hasluminal irregularities. Left and right profunda femoral artery has luminal irregularities. Right SFA has mild tandem stenosis , left SFA has luminalirregularities. Left and right popliteal arteries have luminal irregularities.Right and left tibioperoneal trunk has luminal irregularities. Right anterior tibial artery is occluded in the distal segment which reconstitute throughcollaterals from peroneal. Right peroneal artery has luminal irregularities.Right posterior tibial artery is chronically occluded.? Left anterior tibial, peroneal? and posterior tibial artery is chronically occluded. Faintcollaterals have seen in the distal leg. Ankle X-Ray 10/11/21 16:15 IMPRESSION: There are ill-defined nondisplaced fractures of the distal fibula/lateral malleolus. Cervical Spine CT 10/11/21 16:15 IMPRESSION: 1. Patchy consolidation at the lung apices and partially visualized right pleural effusion. Recommend CT scan of the thorax for further evaluation. 2. There are degenerative changes as described above. No evidence for acute fracture. Head CT 10/11/21 16:15 IMPRESSION: There are senescent changes of the brain as described above. No evidence for large acute ischemic infarction or acute intracranial injury. Knee X-Ray 10/11/21 16:15 IMPRESSION: There is edema and/or hematoma in the subcutaneous soft tissues along the lateral aspect of the knee. Tibia/Fibula X-Ray 10/11/21 16:15 IMPRESSION: There is contour abnormality at the lateral aspect of the distal fibula consistent with nondisplaced fracture. A&P Assessment and plan (1) Abnormal nuclear cardiac imaging test: Patient seems to have a fixed defect with no significant reversible defect. Since the patient has no chest pain or significant objective evidence of ischemia, based on the perfusion scan, it may be appropriate to hold off on any further investigation at this time. May continue on the medical treatment. Status: Acute (2) Acute exacerbation of CHF (congestive heart failure): Optimizing medical treatment would be appropriate at this time. I may do a limited 2D echocardiogram to reevaluate LV ejection fraction Status: Acute (3) Non-ST elevation CO (NSTEMI): It may be started on Plavix and discontinue the aspirin, in view of the recent myocardial infarction. May continue on the current medications as these Status: Acute (4) Carotid artery disease: Make continue on the current management. Status: Acute (5) Chronic atrial fibrillation: Continue on the oral anticoagulant. Status: Acute (6) Peripheral Vascular Disease: Since the patient has no specific symptoms, may continue on the current management. Status: Acute Plan Based on the clinical progress, further recommendations will be made. Thank you for the opportunity to evaluate this patient make these recommendations Consult Attestations Medical Necessity Statement: Disposition as per the primary Coding Level of Care Code Acute Document Controller 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 History Detailed Exam Detailed Medical Decision Making Moderate Complexity Diagnoses Abnormal nuclear cardiac imaging test R93.1 Acute exacerbation of CHF (congestive heart failure) I50.9 Non-ST elevation CO (NSTEMI) I21.4 Carotid artery disease I77.9 Chronic atrial fibrillation I48.20 Peripheral Vascular Disease I73.9
--- NOTE | 2021-10-15 09:40 | P.CONIM_ITS ---
Providers/Reason For Consult Consulting Physician/Specialty*: Nephro Reason for Consult*: hypoNA Attending Physician: Osei Perkins MD Primary Care Provider: Cruz Guy History of Present Illness History of Present Illness Thank for consultation, today had the pleasure reviewing Ms. Rosado in the presence of her brother who is at bedside. She presented to our facility on 10/12/2021 after sustaining a fall. She describes a mechanical fall, she was on some loose gravel, her ankle rolled and she subsequently fell to the floor. On arrival she was found to have a nondisplaced lateral malleolus fracture, is now seen by orthopedics, who has recommended a postop boot. On admission she was also found to have evidence of pulmonary edema, with a admission chest CT with moderate right pleural effusion and small left pleural effusion with multifocal bilateral pulmonary groundglass opacities. It was also noted that she had multivessel atherosclerotic disease involving the coronary arteries. She has now undergone a myocardial perfusion scan which is demonstrated a moderately reduced ejection fraction with global hypokinesis, of note there is a large sized, fixed perfusion defect in the apical, apical anterior and inferolateral and inferior canchola, consistent with a large sized fixed perfusion defect in the distribution of LAD, LCx and RCA. She does have a history of atrial fibrillation and had a stent placed roughly 10 years ago, however, has not had any issues with her heart that she knows about since. She does take chronic anticoagulation therapy. On arrival she was also found to have a low sodium of 130, drifting down to 123 today, although this is closer to 125 after correction for low glucose. She denies any knowledge of prior low sodium, however, I do see a slightly low sodium back in October and December 2019. She does drink a robust amount, roughly 4-5 bottles of water per day, a few cups of coffee. She denies any beer, wine or other alcohol intake. She eats a reasonable amount for lunch although it does not sound like she eats much at oth er times during the day. No exposure to thiazide diuretics or antidepressant medication. No known history of thyroid disease, no recent exposure to steroids. Following hospitalization vital signs have been relatively robust but fluctuant with a low of 80/45 but high of 166/109. Medications/Allergies Home Medications Medication Instructions Recorded Confirmed Last Taken Type multivitamin,cv-[id number] 1 tab PO DAILY 06/12/19 10/11/21 10/11/21 09:00 History (Complete Multivitamin) aspirin 81 mg tablet,delayed 81 mg PO DAILY 04/25/20 10/11/21 10/11/21 09:00 History release (Adult Low Dose Aspirin) dulaglutide 1.5 mg/0.5 mL 1.5 mg (0.5 mL) SUBCUT .q7days 11/27/20 10/11/21 10/10/21 09:00 Rx subcutaneous pen injector #7.5 ml (Trulicity) carvedilol 12.5 mg tablet 12.5 mg PO BID #180 tab 05/20/21 10/11/21 10/11/21 09:00 Rx ezetimibe 10 mg tablet (Zetia) 10 mg PO DAILY #90 tab 05/20/21 10/11/21 10/11/21 09:00 Rx ranolazine 1,000 mg 1,000 mg PO BID #180 tab 05/20/21 10/12/21 10/11/21 09:00 Rx tablet,extended release,12 hr (Ranexa) ergocalciferol (vitamin D2) 1,250 See Rx Instructions .ROUTE 06/10/21 10/11/21 10/10/21 09:00 Rx mcg (50,000 unit) capsule .COMPLEX #13 cap Diabetic shoes with 3 pairs of #1 ea 07/23/21 10/12/21 Unknown Rx inserts apixaban 5 mg tablet 5 mg PO BID #60 tab 09/22/21 10/12/21 10/11/21 09:00 Rx docusate sodium 100 mg capsule 100 mg PO DAILY PRN 09/25/21 10/11/21 Unknown History (Dulcolax Stool Softener (docusate)) gabapentin 100 mg capsule 300 mg PO BEDTIME cap 09/25/21 10/11/21 10/10/21 21:00 History lisinopril 10 mg tablet 25 mg PO DIRECTED tab 09/25/21 10/11/21 10/11/21 09:00 History glipizide 5 mg tablet 5 mg PO DAILY 10/11/21 10/11/21 10/11/21 09:00 History linaclotide 145 mcg capsule 145 mcg PO BEDTIME 10/11/21 10/11/21 10/10/21 21:00 History (Linzess) oxybutynin chloride 5 mg tablet 5 mg PO BID 10/11/21 10/11/21 10/11/21 09:00 History pioglitazone 45 mg tablet 45 mg PO DAILY 10/11/21 10/11/21 10/11/21 09:00 History Allergies Allergy/AdvReac Type Severity Reaction Status Date / Time cimetidine [From [facility]] Allergy Intermediate rash Verified 10/11/21 16:11 pravastatin Allergy Unknown Unknown Verified 10/11/21 16:11 Current Medications Generic Name Dose Route Start Last Admin Trade Name Freq PRN Reason Stop Dose Admin Apixaban 5 mg 10/12/21 09:00 10/15/21 09:05 Apixaban 5 Mg Tablet PO 5 mg BID IVAN Administration Aspirin 81 mg 10/12/21 09:00 10/15/21 09:05 Aspirin 81 Mg Ec Tablet PO 81 mg DAILY IVAN Administration Carvedilol 12.5 mg 10/12/21 09:00 10/15/21 09:05 Carvedilol 12.5 Mg Tablet PO 12.5 mg BID IVAN Administration Docusate Sodium 100 mg 10/12/21 01:09 10/15/21 09:05 Docusate Sodium 100 Mg Capsule PO 100 mg DAILY PRN Administration Constipation Ezetimibe 10 mg 10/12/21 09:00 10/15/21 09:05 Ezetimibe 10 Mg Tablet PO 10 mg DAILY IVAN Administration Gabapentin 300 mg 10/12/21 21:00 10/14/21 21:41 Gabapentin 300 Mg Capsule PO 300 mg BEDTIME IVAN Administration Insulin Human Lispro 0 unit 10/12/21 08:00 10/15/21 09:06 Insulin Lispro 100 Unit/1 Ml SUBCUT 6 unit WM&BEDTIME IVAN Administration Protocol Lisinopril 15 mg 10/12/21 09:00 10/13/21 08:40 Lisinopril 10 Mg Tablet PO 15 mg DAILY IVAN Administration Lisinopril 10 mg 10/12/21 18:00 10/12/21 18:27 Lisinopril 10 Mg Tablet PO 10 mg QPM IVAN Administration Morphine Sulfate 2 mg 10/12/21 01:06 10/14/21 11:50 Morphine 4 Mg/Ml Sdv 1 Ml IVP 2 mg Q4H PRN Administration SEVERE PAIN Ondansetron HCl 4 mg 10/12/21 01:06 10/14/21 05:04 Ondansetron 2 Mg/Ml Sdv 2 Ml IVP 4 mg Q8H PRN Administration vomiting, or N/V if npo Oxybutynin Chloride 5 mg 10/12/21 09:00 10/13/21 16:10 Oxybutynin 5 Mg Tablet PO Not Given BID IVAN Oxycodone/Acetaminophen 1 tab 10/12/21 11:04 10/15/21 04:58 Oxycodone-Apap 5-325 Mg Tablet PO 1 tab Q4H PRN Administration MODERATE PAIN Pantoprazole Sodium 40 mg 10/12/21 09:00 10/15/21 09:[address] 40 Mg Tablet PO 40 mg DAILY IVAN Administration Ranolazine 1,000 mg 10/12/21 09:00 10/15/21 09:05 Ranolazine (12hr) 500 Mg Tablet PO 1,000 mg BID IVAN Administration Sodium Chloride 1 gm 10/13/21 17:00 10/15/21 04:59 Sodium Chloride 1 Gm Tablet PO 1 gm Q12H IVAN Administration PFSH Acute PFSH: Medical History Anemia Atrial fibrillation Back pain with radiation Bacterial UTI Breast cancer Encapsulated in milk duct, excised by Dr. Montilla CAD (coronary artery disease) Chronic idiopathic constipation Chronic idiopathic constipation CVA (cerebral vascular accident) 2018 DDD (degenerative disc disease), lumbar DDD (degenerative disc disease), lumbar Diabetes mellitus, type II Diabetic peripheral neuropathy associated with type 2 diabetes mellitus Essential hypertension Gross hematuria Mixed hyperlipidemia Peripheral Vascular Disease Recurrent UTI Sinusitis Status post left heart catheterization Test anxiety Urinary tract infection Urinary, incontinence, stress female Vitamin D deficiency Surgical History H/O bladder repair surgery S/P dilatation and curettage S/P hysterectomy S/P lumpectomy of breast S/P right heart catheterization S/P wrist surgery Stented coronary artery Family History Other Cancer Diabetes Social History Smoking and tobacco status: former smoker Alcohol intake: unknown Adopted: No Caregiver/support person: No Lives independently: Yes Marital status: / Current occupational status: retired History of recent travel: No Vitals/I&O/Wt Last Vital Signs Temp 97.5 F L 10/15/21 07:34 Pulse 92 10/15/21 07:34 Resp 23 H 10/15/21 07:34 BP 141/79 10/15/21 07:34 Pulse Ox 93 10/15/21 07:34 10/14/21 10/15/21 10/15/21 22:59 06:59 14:59 Intake Total 165 / 165 50 / 215 Output Total 700 / 700 Balance -535 / -535 50 / -485 Physical Exam Narrative: Constitutional: Awake, comfortable HEENT: Wet mucosa, no jvp, non icteric Lungs: Bilaterally clear without discernible wheeze or rales in all lung zones CVS: S1 S2, no murmurs Abdo: Soft, BS ok Ext 4: Minimal edema, peripheral perfusion with no cyanosis Neurological: Grossly non-focal Urinary Catheter Management: Healy: Cath Placed During This Visit: yes Reason for Continuing Indwelling Catheter: Accurate Measurement of Urinary Output in Critically Ill Patients Urinary Catheter Date of Insertion: 10/11/21 Urinary Catheter Time of Insertion: 21:49 Data : 10/15/21 02:47 10/15/21 02:47 A&P Assessment and plan (1) Hyponatremia: Status: Acute Plan 1. Euvolemic/hypervolemic hyponatremia Most obvious etiology in the setting is a reduced ejection fraction as seen on the nuclear stress test, with evidence of hypervolemia on chest CT of the chest with evidence of bilateral pleural effusion and pulmonary edema. She also has a BNP of 6233. No other neoplastic pathology was identified on the CT of the chest. Would recommend reducing salt intake i.e. will DC salt tablets, fluid restrict to less than 1500 mL, give Lasix 40 mg p.o. twice daily. Complete work-up to include urinalysis, urine sodium, creatinine, will get formal urine protein quantification with UPCR, TSH. No reason to suspect adrenal insufficiency. Will check sodium levels every 8 hours. Goal increase will be 6-8/day Optimize cardiac output Will need periodic following of her sodium levels on discharge. 2. Bilateral pleural effusions She is relatively asymptomatic from this, will give diuretics initially, consider thoracentesis 3. Heart disease Management per Dr Perkins. Decreased ejection fraction seen on stress test but no evidence of reversibility. 4. Diabetes Would consider switching Actos for SGLT2 inhibitor long-term. mgmt per Dr Perkins 5. Non-displaced lat malleolus fracture Ortho input appreciate. PT/OT Analgesics. Postop boot Thank you for consultation, it is a pleasure to follow these cases with you Exam and interview performed with aid of bedside RN using telemedicine Time spent 20 min inc > 50% of time in face to face counseling Marcel Conklin MD [facility] [phone] Coding Level of Care Code Acute Whip Operator for Chg Fwd Diagnoses Hyponatremia E87.1
[2021-10-15 10:23] LABS: Thyroid Stimulating Hormone 2.35 uIU/mL (0.27-4.20)
[2021-10-15] MEDS: FUROsemide 40 mg Tablet PO ×2 (11:07→17:28)
[2021-10-15 11:43] LABS: Blood Urine 2+ (Negative); Glucose Urine UA Norm (Normal); Ketones Urine 1+ (Negative); Protein Urine Trace (Negative); Urine Appearance Clear (CLEAR); Urine Color Yellow (Yellow); pH Urine 5 (5-7)
[2021-10-15 11:44] LABS: Add Urine Microscopic? YES; Bacteria Urine 2+ /hpf; Bilirubin Urine Neg (Negative); Leukocyte Esterase Urine Negative (Negative); Nitrate Urine Negative (Negative); Squamous Epithelial Cell Urine 0-4 /hpf (0-5); Urobilinogen Urine Norm (Negative)
[2021-10-15 11:45] LABS: Add Urine Culture? Yes; Hyaline Casts Urine 15-25 /lpf
[2021-10-15 11:52] LABS: Urine Random Sodium 21 mmol/L
--- NOTE | 2021-10-15 13:13 | P.PN_ITS ---
Subjective Subjective: Patient was seen this morning, she sitting up beside her bed, she is on 2 L, denies any chest pain, no shortness of breath, no wheezing, no lightheadedness, dizziness, she is a bit frustrated about being here in the hospital she is now in a boot, she tells me she feels a lot better with the boot, she feels that the oxycodone is a bit too strong and she would like to try something that makes her less drowsy Vitals/I&O/Wt Last Vital Signs Temp 97.5 F L 10/15/21 07:34 Pulse 92 10/15/21 07:34 Resp 23 H 10/15/21 07:34 BP 141/79 10/15/21 07:34 Pulse Ox 93 10/15/21 07:34 10/14/21 10/15/21 10/15/21 22:59 06:59 14:59 Intake Total 165 / 165 50 / 215 Output Total 700 / 700 Balance -535 / -535 50 / -485 Physical Exam Const: COMMON NORMALS: no acute distress and patient oriented x3 Resp: COMMON NORMALS: normal respiratory effort, No retractions, No use of accessory muscles and clear to auscultation bilaterally AUSCULTATION: clear to auscultation bilaterally Cardio: COMMON NORMALS: regular rate, regular rhythm, S1 normal heart sound present and S2 normal heart sound present RATE: regular rate RHYTHM: regular rhythm HEART SOUNDS: S1 normal heart sound present and S2 normal heart sound present GI: COMMON NORMALS: Normal to inspection, nondistended, normoactive bowel s ounds present, Soft to palpation and non-tender PALPATION: Yes Soft to pa lpation Extremity: COMMON NORMALS: no pedal edema Neuro: COMMON NORMALS: patient oriented x3 Psych: COMMON NORMALS: mental status grossly normal Urinary Catheter Management: Healy: Cath Placed During This Visit: yes Reason for Continuing Indwelling Catheter: Accurate Measurement of Urinary Output in Critically Ill Patients Urinary Catheter Date of Insertion: 10/11/21 Urinary Catheter Time of Insertion: 21:49 Data : 10/15/21 02:47 10/15/21 02:47 A&P Assessment and plan (1) Acute exacerbation of CHF (congestive heart failure): As evidenced by B/L infiltrates on CT chest suggestive of pulmonary edema, elevated BNP, new 02 requirement Serum sodium 123, elevated BNP, Lasix has been restarted 40 twice daily Can be discharged once serum sodium is greater than 128 monitor I/O closely, daily weight Status: Acute (2) Hypoxia: related to CHF exacerbation Unlikely PE given patient is on Eliquis Less likely pneumonia given lack of fever, cough, expectoration supplemental l02 to keep sat >92% Negative Flu and Covid Ag Status: Acute (3) Elevated troponin: likely related to CHF excaerbation Elevated trop ~500 but trending down at 2 hrs and [address]- T wave changes on EKG and lack of chest pain make ACS less likely Cardiac echo shows Normal left ventricular cavity size. Normal left ventricular ?wall thickness. Mildly decreased left ventricular systolic ?function.? The apex is akinetic.? Otherwise, the left ?ventricular function is normal.? The overall ejection fraction ?is 55%.? Grade 1 diastolic dysfunction. Continue aspirin, Coreg, Eliquis Telemetry monitoring Stress test shows ?1. Abnormal myocardial perfusion imaging with large sized infarct seen in ?multivessel territory including LAD, LCx and RCA. No evidence of ischemia is ?seen ?2. LV systolic fucntion is moderately reduced with EF of 39%. Moderate global ?hypokinesis is seen Consult cardiology Status: Acute (4) Fibula fracture: Limb Spinted in the emergency room Pain control with OXycocdone/APAP 5/325 q6h prn Will discuss with orthopedic service Status: Acute Plan Hyponatremia, likely secondary to CHF, nephrology consulted, receiving diuresis Ankle fracture, changed to a boot Acute encephalopathy, pain medications, stop oxycodone switch to hydrocodone Hypotension, resolved Attestations Medical Necessity Statement*: Patient requires hospitalization for hyponatremia Coding Level of Care Code Acute Hardware Designer for [facility] 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
[2021-10-15 13:39] LABS: Sodium 122 mmol/L (136-145)
[2021-10-15 17:31] LABS: Glucose Point of Care 228 mg/dL (70-110)
[2021-10-15 21:29] LABS: Glucose Point of Care 244 mg/dL (70-110)
[2021-10-15] MEDS: gabapentin 300 mg Capsule PO (21:46)
[2021-10-15] MEDS: insulin glargine 100 units/1 mL 5 UNIT SUBCUT (21:47)
[2021-10-16] VITALS (8 sets, daily range): BP systolic 105–138; BP diastolic 52–80; PULSE 64–78; RESP 15–19; TEMP 36.4–36.7; O2SAT 91–99
[2021-10-16 04:26] LABS: Basophils % 0.4 %; Eosinophils # 0.1 10^3/uL (0.0-0.8); Eosinophils % 1.4 %; Hematocrit 29.7 % (37.0-47.0); Hemoglobin 10.4 g/dL (11.5-15.3); Lymphocytes # 0.9 10^3/uL (0.8-4.8); Lymphocytes % 16.3 %; Mean Corpuscular Hemoglobin 31.2 pg (28.0-34.0); Mean Corpuscular Volume 89.2 fl (81-99); Mean Platelet Volume 9.6 fL (7.4-10.4); Monocytes # 0.6 10^3/uL (0.2-0.9); Monocytes % 10.4 %; Neutrophils # 3.97 10^3/uL (1.8-7.7); Neutrophils % 71.3 %; Nucleated Red Blood Cells % 0 %; Platelet Count 250 10^3/cmm (130-400); Red Blood Count 3.33 10^6/uL (4.1-5.3); Red Cell Distribution Width 11.8 % (12.1-15.1); White Blood Count 5.6 10^3/uL (4.0-10.0)
[2021-10-16 04:47] LABS: Alanine Aminotransferase 17 U/L (0-33); Albumin Level 3.1 g/dL (3.5-5.2); Alkaline Phosphatase 53 IU/L (35-105); Anion Gap 14.6 (5-19); Aspartate Amino Transferase 31 U/L (0-32); Blood Urea Nitrogen 34 mg/dL (8-23); Calcium 10.2 mg/dL (8.5-10.5); Carbon Dioxide 27 mmol/L (22-29); Chloride 91 mmol/L (98-107); Glucose 181 mg/dL (65-115); Osmolality Calculated 280 mOsm/kg (285-295); Potassium 3.6 mmol/L (3.5-5.1); Sodium 129 mmol/L (136-145); Total Bilirubin 0.5 mg/dL (0.15-1.2); Total Protein 6.1 g/dL (6.6-8.7)
[2021-10-16 06:30] LABS: Glucose Point of Care 167 mg/dL (70-110)
--- NOTE | 2021-10-16 09:03 | P.PN_ITS ---
Subjective Subjective: Ms. Rosado is doing well today with no specific complaints. She remains on nasal cannula oxygen, typically she is not on home oxygen. Polyuric from Lasix. Minimal extremity edema. No other acute issues at this time. Like feels comfortable as well. Input from cardiology is appreciated. Vitals/I&O/Wt Last Vital Signs Temp 97.6 F 10/16/21 04:00 Pulse 78 10/16/21 06:00 Resp 17 10/16/21 04:00 BP 120/52 10/16/21 04:00 Pulse Ox 93 10/16/21 04:00 10/15/21 10/16/21 10/16/21 22:59 06:59 14:59 Intake Total 480 / 720 Output Total 120 / 120 Balance 360 / 600 Physical Exam Narrative: Constitutional: Awake, comfortable HEENT: Wet mucosa, no jvp, non icteric Lungs: Bilaterally clear without discernible wheeze or rales in all lung zones CVS: S1 S2, no murmurs Abdo: Soft, BS ok Ext 4: Minimal edema, peripheral perfusion with no cyanosis Neurological: Grossly non-focal Urinary Catheter Management: Healy: Cath Placed During This Visit: yes, but has since been removed by the nurse Reason for Continuing Indwelling Catheter: Decision to DC Catheter Urinary Catheter Date of Insertion: 10/11/21 Urinary Catheter Time of Insertion: 21:49 Date Urinary Catheter Removed: 10/15/21 Time Urinary Catheter Discontinued: 12:00 Data : 10/16/21 04:08 10/16/21 04:08 Micro: Microbiology 10/15/21 11:10 Urine Culture - Preliminary Urine,Clean Catch A&P Assessment and plan (1) Hyponatremia: Status: Acute Plan 1. Euvolemic/hypervolemic hyponatremia Sodium levels increasing nicely Most obvious etiology in the setting is a reduced ejection fraction as seen on the nuclear stress test, with evidence of hypervolemia on chest CT of the chest with evidence of bilateral pleural effusion and pulmonary edema. She also has a BNP of 6233. No other neoplastic pathology was identified on the CT of the chest. Cont fluid restrict to less than 1500 mL, give Lasix 40 mg p.o. twice daily. increase protein intake Optimize cardiac output Will need periodic following of her sodium levels on discharge. 2. Bilateral pleural effusions She is relatively asymptomatic from this, will give diuretics initially, consider thoracentesis if she is unable to come off nasal cannula O2 3. Heart disease Management per Dr Perkins and Dr Vogel is appreciated. Decreased ejection fraction seen on stress test but no evidence of reversibility. B-alicia, ARB, ok for SGLT2-inhib 4. Diabetes Would consider switching Actos for SGLT2 inhibitor long-term. mgmt per Dr Perkins 5. Non-displaced lat malleolus fracture Ortho input appreciate. PT/OT Analgesics. Postop boot - ok for DC from my perspective. Thank you for consultation, it is a pleasure to follow these cases with you Exam and interview performed with aid of bedside RN using telemedicine Time spent 20 min inc > 50% of time in face to face counseling Marcel Conklin MD [facility] [phone] Attestations Medical Necessity Statement*: Eval for ESRD Coding Level of Care Code Acute Physician Support Coordinator for [facility] Fwd Diagnoses Hyponatremia E87.1
[2021-10-16] MEDS: clopidogrel 75 mg Tablet PO (09:20)
[2021-10-16] MEDS: insulin lispro 100 unit/1 mL SUBCUT ×2 (09:20→12:29)
[2021-10-16] MEDS: carvedilol 12.5 mg Tablet PO (09:21)
[2021-10-16] MEDS: FUROsemide 40 mg Tablet PO (09:21)
[2021-10-16] MEDS: aspirin 81 mg EC Tablet PO (09:21)
[2021-10-16] MEDS: pantoprazole DR 40 mg Tablet PO (09:21)
[2021-10-16] MEDS: ranolazine (12HR) 500 mg Tablet 1000 MG PO (09:21)
[2021-10-16] MEDS: ezetimibe 10 mg Tablet PO (09:21)
--- NOTE | 2021-10-16 11:22 | PM.DCS ---
Discharge Providers Date of Admission: 10/11/21 20:41 Date of Discharge: October 16, 2021 Attending Provider at Admission: Sandra Armstrong MD Attending Provider at Discharge: Osei Perkins MD Primary Care Provider: Cruz Guy Diagnoses at Discharge Discharge Diagnosis (1) Hyponatremia: Status: Acute Reason for Visit Reason for Visit: RIGHT ANKLE PAIN S/P FALL Hospital Course Hospital Course Danitza Rosado is a 81 year old female with PmH a fib, CAD, CVA, DM, HTN, peripheral vascular disease presented with c/o mechanical fall at home yesterday. On admission patient was found to have fibula fracture, initially splinted in the emergency room, transitioned to a boot, discharged to local [facility], with close follow-up with Dr. Newell, adryanodone for pain control On admission patient was found to have acute exacerbation of CHF (congestive heart failure): As evidenced by B/L infiltrates on CT chest suggestive of pulmonary edema, elevated BNP, new 02 requirement Received Lasix therapy, overall clinically improved, on 1 to 2 L, discharged on Lasix therapy with potassium replacement close follow-up with cardiology as outpatient On admission she was found to have elevated troponin Elevated trop ~500 but trending down at 2 hrs and [address]- T wave changes on EKG and lack of chest pain make ACS less likely Cardiac echo shows Normal left ventricular cavity size. Normal left ventricular ?wall thickness. Mildly decreased left ventricular systolic ?function.? The apex is akinetic.? Otherwise, the left ?ventricular function is normal.? The overall ejection fraction ?is 55%.? Grade 1 diastolic dysfunction. Continue aspirin, Coreg, Eliquis Telemetry monitoring Stress test shows ?1. Abnormal myocardial perfusion imaging with large sized infarct seen in ?multivessel territory including LAD, LCx and RCA. No evidence of ischemia is ?seen ?2. LV systolic fucntion is moderately reduced with EF of 39%. Moderate global ?hypokinesis is seen Cardiology consulted, recommended continue medical management, Coreg, Eliquis, switch to Plavix, follow-up with cardiology outpatient Patient's hospitalization was prolonged due to persistent hyponatremia, likely secondary to heart failure, improved with diuresis,'s serum sodium on discharge was 129, recheck serum sodium in 1 week Ankle fracture, changed to a boot Acute encephalopathy, pain medications, doing well on hydrocodone Hypotension, resolved Physical Exam Const: COMMON NORMALS: no acute distress and patient oriented x3 Resp: COMMON NORMALS: normal respiratory effort, No retractions, No use of accessory muscles and clear to auscultation bilaterally AUSCULTATION: clear to auscultation bilaterally Cardio: COMMON NORMALS: regular rate, regular rhythm, S1 normal heart sound present and S2 normal heart sound present RATE: regular rate RHYTHM: regular rhythm HEART SOUNDS: S1 normal heart sound present and S2 normal heart sound present GI: COMMON NORMALS: Normal to inspection, nondistended, normoactive bowel sounds present, Soft to palpation and non-tender PALPATION: Yes Soft to palpation Extremity: COMMON NORMALS: no pedal edema Neuro: COMMON NORMALS: patient oriented x3 Psych: COMMON NORMALS: mental status grossly normal Urinary Catheter Management: Healy: Cath Placed During This Visit: yes, but has since been removed by the nurse Reason for Continuing Indwelling Catheter: Decision to DC Catheter Urinary Catheter Date of Insertion: 10/11/21 Urinary Catheter Time of Insertion: 21:49 Date Urinary Catheter Removed: 10/15/21 Time Urinary Catheter Discontinued: 12:00 Discharge Data Studies Completed and Pending Completed Studies During Hospitalization Category Date Time Status CT cervical spin wo con* [id number] Urgent Cat Scan 10/11/21 16:[address] chest wo con [id number] Urgent Cat Scan 10/11/21 17:[address] head wo con* [id number] Urgent Cat Scan 10/11/21 16:15 Completed Sestamibi Stress Test Request Routine Exams 10/14/21 08:44 Draft XR ankle RT min 3V* [id number] Urgent Exams 10/11/21 16:15 Completed XR chest 1V portable [id number] Routine Exams 10/14/21 06:00 Completed XR knee RT 3V* [id number] Urgent Exams 10/11/21 16:15 Completed XR tibia fibula RT 2V [id number] Urgent Exams 10/11/21 16:15 Completed NM travis perf SPECT r/s* [id number] Routine Nuc Med 10/14/21 08:51 Completed CV. echo complete* [id number] Routine Ultrasound 10/12/21 08:41 Completed Pending at discharge Category Date Time Status Sestamibi Stress Test Request Routine Exams 10/13/21 08:51 Stop Req Osmolality Serum Stat Lab 10/15/21 13:13 Received Osmolality Urine Stat Lab 10/15/21 11:10 Received Urine Culture Stat Lab 10/15/21 11:10 Results Radiology Impressions Ankle X-Ray 10/11/21 16:15 IMPRESSION: There are ill-defined nondisplaced fractures of the distal fibula/lateral malleolus. Cervical Spine CT 10/11/21 16:15 IMPRESSION: 1. Patchy consolidation at the lung apices and partially visualized right pleural effusion. Recommend CT scan of the thorax for further evaluation. 2. There are degenerative changes as described above. No evidence for acute fracture. Head CT 10/11/21 16:15 IMPRESSION: There are senescent changes of the brain as described above. No evidence for large acute ischemic infarction or acute intracranial injury. Knee X-Ray 10/11/21 16:15 IMPRESSION: There is edema and/or hematoma in the subcutaneous soft tissues along the lateral aspect of the knee. Tibia/Fibula X-Ray 10/11/21 16:15 IMPRESSION: There is contour abnormality at the lateral aspect of the distal fibula consistent with nondisplaced fracture. Chest CT 10/11/21 17:17 IMPRESSION: 1. Moderate right pleural effusion and small left pleural effusion with adjacent compressive atelectasis or pneumonia. 2. There are patchy infiltrates at the lung apices. 3. Multifocal bilateral pulmonary ground-glass opacities. This can be seen with pulmonary edema, pneumonia, and/or pneumonitis. 4. Multivessel atherosclerotic disease which involves the coronary arteries. Chest X-Ray 10/14/21 06:00 IMPRESSION: 1. Low lung volumes are present, accentuating cardiac size and pulmonary markings. 2. Stable bilateral pleuroparenchymal disease. Laboratory Results WBC 5.6 10^3/uL (4.0-10.0) 10/16/21 04:08 RBC 3.33 10^6/uL (4.1-5.3) L 10/16/21 04:08 Hgb 10.4 g/dL (11.5-15.3) L 10/16/21 04:08 Hct 29.7 % (37.0-47.0) L 10/16/21 04:08 MCV 89.2 fl (81-99) 10/16/21 04:08 MCH 31.2 pg (28.0-34.0) 10/16/21 04:08 MCHC 35.0 g/dL (30.0-36.0) 10/16/21 04:08 RDW 11.8 % (12.1-15.1) L 10/16/21 04:08 Plt Count 250 10^3/cmm (130-400) 10/16/21 04:08 MPV 9.6 fL (7.4-10.4) 10/16/21 04:08 Neut % (Auto) 71.3 % 10/16/21 04:08 Lymph % (Auto) 16.3 % 10/16/21 04:08 [place] % (Auto) 10.4 % 10/16/21 04:08 Eos % (Auto) 1.4 % 10/16/21 04:08 Baso % (Auto) 0.4 % 10/16/21 04:08 Neut # (Auto) 3.97 10^3/uL (1.8-7.7) 10/16/21 04:08 Lymph # (Auto) 0.9 10^3/uL (0.8-4.8) 10/16/21 04:08 [place] # (Auto) 0.6 10^3/uL (0.2-0.9) 10/16/21 04:08 Eos # (Auto) 0.1 10^3/uL (0.0-0.8) 10/16/21 04:08 Baso # (Auto) 0.0 10^3/uL (0.0-0.1) 10/16/21 04:08 Nucleated RBC % (auto) 0 % 10/16/21 04:08 Nucleated RBCs # 0.0 /100WBC 10/16/21 04:08 Specimen Type Arterial 10/13/21 15:40 Sample Site Radial, right 10/13/21 15:40 ABG pH 7.45 (7.35-7.45) 10/13/21 15:40 ABG pCO2 42.9 mmHg (35-45) 10/13/21 15:40 ABG pO2 75.5 mmHg (80.0-100.0) L 10/13/21 15:40 ABG HCO3 29.5 mmol/L (22-26) H 10/13/21 15:40 ABG O2 Saturation 95.2 10/13/21 15:40 ABG Base Excess 4.9 mmol/L (-2.0-2.0) H 10/13/21 15:40 Dhaval Test Pos 10/13/21 15:40 A-a O2 Gradient 9.2 mmHg (5-10) 10/13/21 15:40 Hematocrit 37.0 % (37-47) 10/13/21 15:40 Hgb O2 Saturation 94.1 % (95-100) L 10/13/21 15:40 Carboxyhemoglobin 0.3 %THgb (0.4-20.1) L 10/13/21 15:40 Methemoglobin 0.8 % (0.4-1.5) 10/13/21 15:40 Total Hemoglobin 12.1 g/dL (12-16) 10/13/21 15:40 Sodium 125.0 mmol/L (131-143) L 10/13/21 15:40 Potassium 4.0 mmol/L (3.5-5.0) 10/13/21 15:40 Glucose 151.0 mg/dL (70-115) H 10/13/21 15:40 Ionized Calcium 1.4 mmol/L (1.1-1.4) 10/13/21 15:40 O2 Delivery Device Nc 10/13/21 15:40 O2 Liters/Min 2.0 % 10/13/21 15:40 FiO2 28.0 % 10/13/21 15:40 Reservoir Caretaker ID glc 10/13/21 15:40 Sodium 129 mmol/L (136-145) L 10/16/21 04:08 Potassium 3.6 mmol/L (3.5-5.1) 10/16/21 04:08 Chloride 91 mmol/L (98-107) L 10/16/21 04:08 Carbon Dioxide 27 mmol/L (22-29) 10/16/21 04:08 Anion Gap 14.6 (5-19) 10/16/21 04:08 BUN 34 mg/dL (8-23) H 10/16/21 04:08 Creatinine 0.9 mg/dL (0.5-0.9) 10/16/21 04:08 GFR Calculation Not Reportable 10/16/21 04:08 Glucose 181 mg/dL (65-115) H 10/16/21 04:08 POC Glucose 167 mg/dL (70-110) H 10/16/21 06:24 Calculated Osmolality 280 mOsm/kg (285-295) L 10/16/21 04:08 Calcium 10.2 mg/dL (8.5-10.5) 10/16/21 04:08 Phosphorus 2.4 mg/dL (2.5-4.5) L 10/15/21 02:47 Magnesium 1.6 mg/dL (1.7-2.3) L 10/15/21 02:47 Total Bilirubin 0.5 mg/dL (0.15-1.2) 10/16/21 04:08 AST 31 U/L (0-32) 10/16/21 04:08 ALT 17 U/L (0-33) 10/16/21 04:08 Alkaline Phosphatase 53 IU/L (35-105) 10/16/21 04:08 Troponin T Gen 5 ng/L 429 ng/L (0-10) H* 10/13/21 03:32 Troponin T Baseline 548 ng/L (0-10) H* 10/11/21 19:53 Troponin T 120 Minute 505.1 ng/L (0-10) H 10/11/21 22:00 Delta Troponin T -42.9 ABS# (0-10) L 10/11/21 22:00 Troponin T Hi Sens 6Hr 431.3 ng/L (0-10) H 10/12/21 00:30 Troponin T Hi Sens 6Hr Delta -116.7 ng/L (0-12) L 10/12/21 00:30 C-Reactive Protein 21.6 mg/L (0.0-4.9) H 10/12/21 00:40 NT-Pro-B Natriuret Pep 6233 pg/mL (0-450) H 10/15/21 02:47 Total Protein 6.1 g/dL (6.6-8.7) L 10/16/21 04:08 Albumin 3.1 g/dL (3.5-5.2) L 10/16/21 04:08 Globulin 3.0 g/dL (1.3-4.6) 10/16/21 04:08 Procalcitonin 0.06 ng/mL (0-0.5) 10/12/21 00:40 TSH 2.35 uIU/mL (0.27-4.20) 10/15/21 02:47 Urine Color Yellow (Yellow) 10/15/21 11:10 Urine Appearance Clear (CLEAR) 10/15/21 11:10 Urine pH 5 (5-7) 10/15/21 11:10 Ur Specific [place] 1.020 (1.005-1.030) 10/15/21 11:10 Urine Protein Trace (Negative) 10/15/21 11:10 Urine Glucose (UA) Norm (Normal) 10/15/21 11:10 Urine Ketones 1+ (Negative) H 10/15/21 11:10 Urine Blood 2+ (Negative) H 10/15/21 11:10 Urine Nitrate Negative (Negative) 10/15/21 11:10 Urine Bilirubin Neg (Negative) 10/15/21 11:10 Urine Urobilinogen Norm mg/dL (Negative) 10/15/21 11:10 Ur Leukocyte Esterase Negative (Negative) 10/15/21 11:10 Urine RBC 5-10 /hpf (0-2) H 10/15/21 11:10 Urine WBC 5-10 /hpf (0-5) H 10/15/21 11:10 Ur Squamous Epith Cells 0-4 /hpf (0-5) H 10/15/21 11:10 Amorphous Sediment Not Reportable 10/15/21 11:10 Urine Bacteria 2+ /hpf (NONE) H 10/15/21 11:10 Hyaline Casts 15-25 /lpf H 10/15/21 11:10 Ur Random Sodium 21 mmol/L 10/15/21 11:10 Influenza Type A Ag Negative (Negative) 10/11/21 22:00 Influenza Type B Ag Negative (Negative) 10/11/21 22:00 SARS-CoV-2 Ag (Rapid) Negative (Negative) 10/11/21 22:00 Vitals Last Vital Signs Temp 97.8 F 10/16/21 08:00 Pulse 69 10/16/21 08:00 Resp 19 H 10/16/21 08:00 BP 122/54 10/16/21 08:00 Pulse Ox 99 10/16/21 08:00 Discharge Plan Discharge Patient Disposition: Home Condition: Stable Prescriptions: New hydrocodone-acetaminophen 5-325 mg Tablet 1 tab PO Q6H PRN (Reason: Moderate Pain) 5 Days Qty: 20 0RF pantoprazole 40 mg Tablet,Delayed Release (Dr/Ec) 40 mg PO DAILY 30 Days Qty: 30 0RF furosemide 40 mg Tablet 40 mg PO BID@08,16 30 Days Qty: 30 0RF clopidogrel 75 mg Tablet 75 mg PO DAILY 30 Days Qty: 30 0RF insulin aspart U-100 [Novolog Flexpen U-100 Insulin] 100 unit/mL (3 mL) insulin pen See Rx Instructions .ROUTE .COMPLEX Qty: 15 0RF Rx Instructions: Inject, subcu, 3 times daily, after meals, based on sliding scale Continued docusate sodium [Dulcolax Stool Softener (dss)] 100 mg capsule 100 mg PO DAILY PRN (Reason: Constipation) 0RF Complete Multivitamin Tablet 1 tab PO DAILY 0RF gabapentin 100 mg capsule 300 mg PO BEDTIME 0RF Rx Instructions: 300 mg .q hs; carvedilol 12.5 mg tablet 12.5 mg PO BID Qty: 180 4RF ezetimibe [Zetia] 10 mg tablet 10 mg PO DAILY Qty: 90 4RF Rx Instructions: Take one tablet by mouth daily. ranolazine [Ranexa] 1,000 mg tablet extended release 12 hr 1,000 mg PO BID Qty: 180 4RF (DME) Diabetic shoes with 3 pairs of inserts See Rx Instructions .Route .MEDSUPPLY Qty: 1 0RF Rx Instructions: As directed J P & O ergocalciferol (vitamin D2) 1,250 mcg (50,000 unit) capsule See Rx Instructions .ROUTE .COMPLEX Qty: 13 2RF Dose Instruction: TAKE 1 CAPSULE WEEKLY Rx Instructions: TAKE 1 CAPSULE WEEKLY apixaban 5 mg tablet 5 mg PO BID Qty: 60 0RF oxybutynin chloride 5 mg tablet 5 mg PO BID 0RF Rx Instructions: TAKE 1 TABLET TWICE A DAY Linzess 145 mcg capsule 145 mcg PO BEDTIME 0RF Rx Instructions: TAKE 1 CAPSULE DAILY Changed lisinopril 10 mg tablet 10 mg PO DAILY Qty: 0 0RF Rx Instructions: Take 15mg (1.5 tabs) in AM and 10mg (1 tab) in PM Discontinued aspirin [Adult Low Dose Aspirin] 81 mg tablet,delayed release (DR/EC) 81 mg PO DAILY 0RF pioglitazone 45 mg tablet 45 mg PO DAILY 0RF Rx Instructions: TAKE 1 TABLET DAILY glipizide 5 mg tablet 5 mg PO DAILY 0RF Rx Instructions: TAKE 1 TABLET DAILY No Action Trulicity 1.5 mg/0.5 mL pen injector 1.5 mg SUBCUT .q7days Qty: 7.5 3RF Referrals: JUANA Booth FNP [Referring] - Patient Instructions: Opioid Safety Discharge Attestations Time Spent in Discharge Care*: less than 30 min Quality Metrics Clinical Quality Measures [ No reported AMI, CVA or VTE this stay] Coding Level of Care Code Acute Chg FW DC note Diagnoses Hyponatremia E87.1
[2021-10-16] MEDS: apixaban 5 mg Tablet PO (11:48)
[2021-10-16 12:22] LABS: Glucose Point of Care 286 mg/dL (70-110)
[2021-10-16 12:24] LABS: SARS Covid-2 Antigen Negative (Negative)
--- NOTE | 2021-10-16 12:32 | PC.NURSE ---
IMM IMM updated with copy of page 2 provided to patient. Patient verbalized understanding. Copy in chart timed, dated and initialed.
[2021-10-16 15:58] LABS: Osmolality Serum 276 mOsm/kg (278-305)
[2021-10-16 15:58] LABS: Osmolality Urine 455 mOsm/kg (50-1200)
--- NOTE | 2021-10-16 17:41 | P.PN_ITS ---
Subjective Subjective: The patient feeling okay with no chest pain or palpitations. No dizziness or syncopal episodes. Still is mainly complaining of pain in the right leg. Tolerated the medication so far well. Medications: Medication Review Details: Current Medications Acetaminophen (Acetaminophen 325 Mg Tablet) 650 mg PO Q6H PRN PRN Reason: Mild/Mod Pain Or Temp >/= 101 Hydrocodone Bitart/Acetaminophen (Hydrocodone-Acetaminophen 5-325 Mg Tablet) 1 tab PO Q4H PRN PRN Reason: MODERATE PAIN Apixaban (Apixaban 5 Mg Tablet) 5 mg PO Q12H [facility] Last Admin: 10/16/21 11:48 Dose: 5 mg Documented by: Aspirin (Aspirin 81 Mg Ec Tablet) 81 mg PO DAILY [facility] Last Admin: 10/16/21 09:21 Dose: 81 mg Documented by: Carvedilol (Carvedilol 12.5 Mg Tablet) 12.5 mg PO BID [facility] Last Admin: 10/16/21 09:21 Dose: 12.5 mg Documented by: Clopidogrel Bisulfate (Clopidogrel 75 Mg Tablet) 75 mg PO DAILY [facility] Last Admin: 10/16/21 09:20 Dose: 75 mg Documented by: Dextrose (Dextrose 50% Syringe 50 Ml) 25 ml IVP ONCE PRN; Protocol PRN Reason: hypoglycemia protocol Dextrose (Dextrose 50% Syringe 50 Ml) 50 ml IVP PRN PRN; Protocol PRN Reason: hypoglycemia protocol Docusate Sodium (Docusate Sodium 100 Mg Capsule) 100 mg PO DAILY PRN PRN Reason: Constipation Last Admin: 10/15/21 09:05 Dose: 100 mg Documented by: Ezetimibe (Ezetimibe 10 Mg Tablet) 10 mg PO DAILY [facility] Last Admin: 10/16/21 09:21 Dose: 10 mg Documented by: Furosemide (Furosemide 40 Mg Tablet) 40 mg PO BID@08,16 [facility] Last Admin: 10/16/21 09:21 Dose: 40 mg Documented by: Gabapentin (Gabapentin 300 Mg Capsule) 300 mg PO BEDTIME [facility] Last Admin: 10/15/21 21:46 Dose: 300 mg Documented by: Glucagon (Glucagon 1 Mg/Ml Inj 1 Ml) 1 mg IM ONCE PRN; Protocol PRN Reason: Adult Acute Hypoglycemia Prot. Dextrose (D5w) 500 mls @ 100 mls/hr IV ONCE PRN; Protocol PRN Reason: Adult Acute Hypoglycemia Prot Insulin Glargine (Insulin Glargine 100 Units/1 Ml) 5 unit SUBCUT BEDTIME [facility] Last Admin: 10/15/21 21:47 Dose: 5 unit Documented by: Insulin Human Lispro (Insulin Lispro 100 Unit/1 Ml) 0 unit SUBCUT WM&BEDTIME [facility]; Protocol Last Admin: 10/16/21 12:29 Dose: 8 unit Documented by: Lisinopril (Lisinopril 10 Mg Tablet) 15 mg PO DAILY [facility] Last Admin: 10/13/21 08:40 Dose: 15 mg Documented by: Lisinopril (Lisinopril 10 Mg Tablet) 10 mg PO QPM [facility] Last Admin: 10/12/21 18:27 Dose: 10 mg Documented by: Ondansetron HCl (Ondansetron 2 Mg/Ml Sdv 2 Ml) 4 mg IVP Q8H PRN PRN Reason: vomiting, or N/V if npo Last Admin: 10/14/21 05:04 Dose: 4 mg Documented by: Ondansetron HCl (Ondansetron 2 Mg/Ml Sdv 2 Ml) 4 mg IVP Q2M PRN PRN Reason: NAUSEA Oxybutynin Chloride (Oxybutynin 5 Mg Tablet) 5 mg PO BID [facility] Last Admin: 10/13/21 16:10 Dose: Not Given Documented by: Pantoprazole Sodium (Pantoprazole Dr 40 Mg Tablet) 40 mg PO DAILY [facility] Last Admin: 10/16/21 09:21 Dose: 40 mg Documented by: Ranolazine (Ranolazine (12hr) 500 Mg Tablet) 1,000 mg PO BID [facility] Last Admin: 10/16/21 09:21 Dose: 1,000 mg Documented by: Vitals/I&O/Wt Last Vital Signs Temp 98.1 F 10/16/21 15:31 Pulse 68 10/16/21 15:31 Resp 15 10/16/21 15:31 BP 105/63 10/16/21 15:31 Pulse Ox 92 10/16/21 15:31 10/16/21 10/16/21 10/16/21 06:59 14:59 22:59 Intake Total 340 / 340 Balance 340 / 340 Physical Exam Narrative: GENERAL: The patient is alert and oriented times three. Not in any acute distress. HEENT: No significant pallor, icterus or lymphadenopathy.Oral cavity: There are no mucous membrane lesions. NECK: Trachea appears to be central. No masses noted. No JVD or thyromegaly appreciated. RESPIRATORY: Chest is symmetrical. No intercostals muscle retraction or any accessory muscle activation. There is no chest wall tenderness. Breath sounds are heard bilaterally. No rales or rhonchi heard. No evidence of any consolidation. BREASTS: Deferred. HEART: The heart sounds are normal. No S3 or S4. No significant murmurs. No pericardial rub ABDOMEN: No vessel pulsations or distention. No tenderness. No organomegaly appreciated. Bowel sounds are normally heard. : Deferred. RECTAL: Deferred. LYMPHATIC: No lymphadenopathy noted in the neck. EXTREMITIES: No edema or cyanosis. No clubbing. MUSCULOSKELETAL: No acute joint deformities.has minimal swelling in the right ankle SKIN: There are no significant rashes or ecchymosis NEUROPSYCHIATRIC: The patient is alert and oriented x3. Appears to be in a good mood. No tremors or rigidity noted. Urinary Catheter Management: Healy: Cath Placed During This Visit: yes, but has since been removed by the nurse Reason for Continuing Indwelling Catheter: Decision to DC Catheter Urinary Catheter Date of Insertion: 10/11/21 Urinary Catheter Time of Insertion: 21:49 Date Urinary Catheter Removed: 10/15/21 Time Urinary Catheter Discontinued: 12:00 Data : 10/16/21 04:08 10/16/21 04:08 Other Labs: Laboratory Last Values WBC 5.6 10^3/uL (4.0-10.0) 10/16/21 04:08 RBC 3.33 10^6/uL (4.1-5.3) L 10/16/21 04:08 Hgb 10.4 g/dL (11.5-15.3) L 10/16/21 04:08 Hct 29.7 % (37.0-47.0) L 10/16/21 04:08 MCV 89.2 fl (81-99) 10/16/21 04:08 MCH 31.2 pg (28.0-34.0) 10/16/21 04:08 MCHC 35.0 g/dL (30.0-36.0) 10/16/21 04:08 RDW 11.8 % (12.1-15.1) L 10/16/21 04:08 Plt Count 250 10^3/cmm (130-400) 10/16/21 04:08 MPV 9.6 fL (7.4-10.4) 10/16/21 04:08 Neut % (Auto) 71.3 % 10/16/21 04:08 Lymph % (Auto) 16.3 % 10/16/21 04:08 Cloud % (Auto) 10.4 % 10/16/21 04:08 Eos % (Auto) 1.4 % 10/16/21 04:08 Baso % (Auto) 0.4 % 10/16/21 04:08 Neut # (Auto) 3.97 10^3/uL (1.8-7.7) 10/16/21 04:08 Lymph # (Auto) 0.9 10^3/uL (0.8-4.8) 10/16/21 04:08 Cloud # (Auto) 0.6 10^3/uL (0.2-0.9) 10/16/21 04:08 Eos # (Auto) 0.1 10^3/uL (0.0-0.8) 10/16/21 04:08 Baso # (Auto) 0.0 10^3/uL (0.0-0.1) 10/16/21 04:08 Nucleated RBC % (auto) 0 % 10/16/21 04:08 Nucleated RBCs # 0.0 /100WBC 10/16/21 04:08 Specimen Type Arterial 10/13/21 15:40 Sample Site Radial, right 10/13/21 15:40 ABG pH 7.45 (7.35-7.45) 10/13/21 15:40 ABG pCO2 42.9 mmHg (35-45) 10/13/21 15:40 ABG pO2 75.5 mmHg (80.0-100.0) L 10/13/21 15:40 ABG HCO3 29.5 mmol/L (22-26) H 10/13/21 15:40 ABG O2 Saturation 95.2 10/13/21 15:40 ABG Base Excess 4.9 mmol/L (-2.0-2.0) H 10/13/21 15:40 Dhaval Test Pos 10/13/21 15:40 A-a O2 Gradient 9.2 mmHg (5-10) 10/13/21 15:40 Hematocrit 37.0 % (37-47) 10/13/21 15:40 Hgb O2 Saturation 94.1 % (95-100) L 10/13/21 15:40 Carboxyhemoglobin 0.3 %THgb (0.4-20.1) L 10/13/21 15:40 Methemoglobin 0.8 % (0.4-1.5) 10/13/21 15:40 Total Hemoglobin 12.1 g/dL (12-16) 10/13/21 15:40 Sodium 125.0 mmol/L (131-143) L 10/13/21 15:40 Potassium 4.0 mmol/L (3.5-5.0) 10/13/21 15:40 Glucose 151.0 mg/dL (70-115) H 10/13/21 15:40 Ionized Calcium 1.4 mmol/L (1.1-1.4) 10/13/21 15:40 O2 Delivery Device Nc 10/13/21 15:40 O2 Liters/Min 2.0 % 10/13/21 15:40 FiO2 28.0 % 10/13/21 15:40 Inspector [employer] ID glc 10/13/21 15:40 Sodium 129 mmol/L (136-145) L 10/16/21 04:08 Potassium 3.6 mmol/L (3.5-5.1) 10/16/21 04:08 Chloride 91 mmol/L (98-107) L 10/16/21 04:08 Carbon Dioxide 27 mmol/L (22-29) 10/16/21 04:08 Anion Gap 14.6 (5-19) 10/16/21 04:08 BUN 34 mg/dL (8-23) H 10/16/21 04:08 Creatinine 0.9 mg/dL (0.5-0.9) 10/16/21 04:08 GFR Calculation Not Reportable 10/16/21 04:08 Glucose 181 mg/dL (65-115) H 10/16/21 04:08 POC Glucose 286 mg/dL (70-110) H 10/16/21 11:22 Serum Osmolality 276 mOsm/kg (278-305) L 10/15/21 13:13 Calculated Osmolality 280 mOsm/kg (285-295) L 10/16/21 04:08 Calcium 10.2 mg/dL (8.5-10.5) 10/16/21 04:08 Phosphorus 2.4 mg/dL (2.5-4.5) L 10/15/21 02:47 Magnesium 1.6 mg/dL (1.7-2.3) L 10/15/21 02:47 Total Bilirubin 0.5 mg/dL (0.15-1.2) 10/16/21 04:08 AST 31 U/L (0-32) 10/16/21 04:08 ALT 17 U/L (0-33) 10/16/21 04:08 Alkaline Phosphatase 53 IU/L (35-105) 10/16/21 04:08 Troponin T Gen 5 ng/L 429 ng/L (0-10) H* 10/13/21 03:32 Troponin T Baseline 548 ng/L (0-10) H* 10/11/21 19:53 Troponin T 120 Minute 505.1 ng/L (0-10) H 10/11/21 22:00 Delta Troponin T -42.9 ABS# (0-10) L 10/11/21 22:00 Troponin T Hi Sens 6Hr 431.3 ng/L (0-10) H 10/12/21 00:30 Troponin T Hi Sens 6Hr Delta -116.7 ng/L (0-12) L 10/12/21 00:30 C-Reactive Protein 21.6 mg/L (0.0-4.9) H 10/12/21 00:40 NT-Pro-B Natriuret Pep 6233 pg/mL (0-450) H 10/15/21 02:47 Total Protein 6.1 g/dL (6.6-8.7) L 10/16/21 04:08 Albumin 3.1 g/dL (3.5-5.2) L 10/16/21 04:08 Globulin 3.0 g/dL (1.3-4.6) 10/16/21 04:08 Procalcitonin 0.06 ng/mL (0-0.5) 10/12/21 00:40 TSH 2.35 uIU/mL (0.27-4.20) 10/15/21 02:47 Urine Color Yellow (Yellow) 10/15/21 11:10 Urine Appearance Clear (CLEAR) 10/15/21 11:10 Urine pH 5 (5-7) 10/15/21 11:10 Ur Specific Micro 1.020 (1.005-1.030) 10/15/21 11:10 Urine Protein Trace (Negative) 10/15/21 11:10 Urine Glucose (UA) Norm (Normal) 10/15/21 11:10 Urine Ketones 1+ (Negative) H 10/15/21 11:10 Urine Blood 2+ (Negative) H 10/15/21 11:10 Urine Nitrate Negative (Negative) 10/15/21 11:10 Urine Bilirubin Neg (Negative) 10/15/21 11:10 Urine Urobilinogen Norm mg/dL (Negative) 10/15/21 11:10 Ur Leukocyte Esterase Negative (Negative) 10/15/21 11:10 Urine RBC 5-10 /hpf (0-2) H 10/15/21 11:10 Urine WBC 5-10 /hpf (0-5) H 10/15/21 11:10 Ur Squamous Epith Cells 0-4 /hpf (0-5) H 10/15/21 11:10 Amorphous Sediment Not Reportable 10/15/21 11:10 Urine Bacteria 2+ /hpf (NONE) H 10/15/21 11:10 Hyaline Casts 15-25 /lpf H 10/15/21 11:10 Urine Osmolality 455 mOsm/kg (50-1200) 10/15/21 11:10 Ur Random Sodium 21 mmol/L 10/15/21 11:10 Influenza Type A Ag Negative (Negative) 10/11/21 22:00 Influenza Type B Ag Negative (Negative) 10/11/21 22:00 SARS-CoV-2 Ag (Rapid) Negative (Negative) 10/16/21 11:45 Micro: Microbiology 10/15/21 11:10 Urine Culture - Preliminary Urine,Clean Catch A&P Assessment and plan (1) Abnormal nuclear cardiac imaging test: Patient seems to have a fixed defect with no significant reversible defect. Si nce the patient has no chest pain or significant objective evidence of ischemia, based on the perfusion scan, it may be appropriate to hold off on any further investigation at this time. May continue on the medical treatment. Status: Acute (2) Acute exacerbation of CHF (congestive heart failure): Optimizing medical treatment would be appropriate at this time. May continue on the current treatment measures. Status: Acute (3) Non-ST elevation WI (NSTEMI): Patient seems to be tolerating the Plavix so far well. Continue the other medications as it is. Status: Acute (4) Carotid artery disease: Make continue on the current management. Status: Acute (5) Chronic atrial fibrillation: Continue on the oral anticoagulant. Status: Acute (6) Peripheral Vascular Disease: Since the patient has no specific symptoms, may continue on the current management. Status: Acute Plan Disposition as per the primary. Please make an appointment to be seen by Dr. Hall 3 weeks Attestations Medical Necessity Statement*: Possible discharge to shelter today. Coding Level of Care Code Acute Decorative [employer] Apprentice for Reji Fwd History Expanded Problem Focused Exam Detailed Medical Decision Making Moderate Complexity Diagnoses Abnormal nuclear cardiac imaging test R93.1 Acute exacerbation of CHF (congestive heart failure) I50.9 Non-ST elevation WI (NSTEMI) I21.4 Carotid artery disease I77.9 Chronic atrial fibrillation I48.20 Peripheral Vascular Disease I73.9
--- NOTE | 2021-10-16 18:38 | PC.NURSE ---
1400: Report called to [facility] at [facility].
== END 2021-10-16 17:15 | disposition skilled nursing facility (03) | DRG 280 ==
LOC: ER 20:40 → MEDSURG 21:17
PROVIDERS: Internal Medicine Nephrology; Admitting Provider Student in an Organized Health Care Education/Training Program; Emergency Provider Emergency Medicine; PCP Nurse Practitioner Family; Visit Provider Family Medicine
DX: I11.0 Hypertensive heart disease with heart failure (principal); I21.4 Non-ST elevation (NSTEMI) myocardial infarction; G92.8 Other toxic encephalopathy; I50.21 Acute systolic (congestive) heart failure; I48.20 Chronic atrial fibrillation, unspecified; E87.1 Hypo-osmolality and hyponatremia; S82.64XA Nondisplaced fracture of lateral malleolus of right fibula, initial encounter for closed fracture; W01.0XXA Fall on same level from slipping, tripping and stumbling without subsequent striking against object, initial encounter; D64.9 Anemia, unspecified; Z87.440 Personal history of urinary (tract) infections; Z85.3 Personal history of malignant neoplasm of breast; I25.10 Atherosclerotic heart disease of native coronary artery without angina pectoris; K59.04 Chronic idiopathic constipation; Z86.73 Personal history of transient ischemic attack (TIA), and cerebral infarction without residual deficits; M51.36 Other intervertebral disc degeneration, lumbar region; E11.42 Type 2 diabetes mellitus with diabetic polyneuropathy; E11.51 Type 2 diabetes mellitus with diabetic peripheral angiopathy without gangrene; E78.2 Mixed hyperlipidemia; E55.9 Vitamin D deficiency, unspecified; Z87.891 Personal history of nicotine dependence; T50.915A Adverse effect of multiple unspecified drugs, medicaments and biological substances, initial encounter
CPT/HCPCS: 36415; 36416; 36600; 51702; 70450; 71045; 71250; 72125; 73562; 73590; 73610; 78452; 80051; 80053; 81001; 82330; 82805; 82962; 83735; 83880; 83930; 83935; 84100; 84145; 84295; 84300; 84443; 84484; 85025; 86140; 87077; 87086; 87186; 87426; 87804; 90471; 90715; 93005; 93017; 93306; 96372; 96374; 96375; 96376; 97110; 97161; 97165; 97530; 97535; 97760; 99285; A9500; J1815; J1940; J2270; J2405; J2785; J3475; J7040; L4361

== ENCOUNTER → 2021-10-28 08:07 | Outpatient (BNVA) | payer MEDICARE, OTHER, SELFPAY | PROVIDERS: PCP Nurse Practitioner Family; Visit Provider Orthopaedic Surgery | DX: Z98.890 Other specified postprocedural states (principal) | CPT/HCPCS: 73590; 73610; 99024 ==

== ENCOUNTER → 2021-11-18 09:13 | Outpatient (BNVA) | payer MEDICARE, OTHER, SELFPAY | PROVIDERS: PCP Nurse Practitioner Family; Visit Provider Orthopaedic Surgery | DX: S82.64XD Nondisplaced fracture of lateral malleolus of right fibula, subsequent encounter for closed fracture with routine healing (principal); X58.XXXD Exposure to other specified factors, subsequent encounter; I51.89 Other ill-defined heart diseases; Z87.891 Personal history of nicotine dependence | CPT/HCPCS: 36415; 73610; 80048; 83880; 99024; 99213; 99214 ==

== ENCOUNTER → 2021-12-10 13:45 | Outpatient (BNVA) | payer MEDICARE, OTHER, SELFPAY | PROVIDERS: PCP Nurse Practitioner Family; Visit Provider Thoracic Surgery (Cardiothoracic Vascular Surgery) | DX: I96 Gangrene, not elsewhere classified (principal); L97.312 Non-pressure chronic ulcer of right ankle with fat layer exposed | CPT/HCPCS: 97597; 99203; 99213 ==

== ENCOUNTER → 2021-12-17 14:04 | Outpatient (BNVA) | payer MEDICARE, OTHER, SELFPAY | PROVIDERS: PCP Nurse Practitioner Family; Visit Provider Thoracic Surgery (Cardiothoracic Vascular Surgery) | DX: I73.9 Peripheral vascular disease, unspecified (principal); L97.312 Non-pressure chronic ulcer of right ankle with fat layer exposed | CPT/HCPCS: 97597 ==

== ENCOUNTER → 2021-12-18 13:41 | Outpatient (BNVA) | payer MEDICARE, OTHER, SELFPAY | PROVIDERS: PCP Nurse Practitioner Family; Visit Provider Nurse Practitioner Family | DX: I11.9 Hypertensive heart disease without heart failure (principal); I48.20 Chronic atrial fibrillation, unspecified; Z79.01 Long term (current) use of anticoagulants; I73.9 Peripheral vascular disease, unspecified; Z87.891 Personal history of nicotine dependence | CPT/HCPCS: 99214 ==

== ENCOUNTER → 2021-12-24 14:57 | Outpatient (BNVA) | payer MEDICARE, OTHER, SELFPAY | PROVIDERS: PCP Nurse Practitioner Family; Visit Provider Nurse Practitioner Family | DX: I73.9 Peripheral vascular disease, unspecified (principal); L97.312 Non-pressure chronic ulcer of right ankle with fat layer exposed | CPT/HCPCS: 11042 ==

== ENCOUNTER → 2021-12-31 14:55 | Outpatient (BNVA) | payer MEDICARE, OTHER, SELFPAY | PROVIDERS: PCP Nurse Practitioner Family; Visit Provider Thoracic Surgery (Cardiothoracic Vascular Surgery) | DX: I73.9 Peripheral vascular disease, unspecified (principal); L97.312 Non-pressure chronic ulcer of right ankle with fat layer exposed | CPT/HCPCS: 11042; A6021 ==

== ENCOUNTER → 2022-01-07 14:22 | Outpatient (BNVA) | payer MEDICARE, OTHER, SELFPAY | PROVIDERS: PCP Nurse Practitioner Family; Visit Provider Thoracic Surgery (Cardiothoracic Vascular Surgery) | DX: I73.9 Peripheral vascular disease, unspecified (principal); L97.312 Non-pressure chronic ulcer of right ankle with fat layer exposed | CPT/HCPCS: 11042 ==

== ENCOUNTER → 2022-01-14 14:41 | Outpatient (BNVA) | payer MEDICARE, OTHER, SELFPAY | PROVIDERS: PCP Nurse Practitioner Family; Visit Provider Thoracic Surgery (Cardiothoracic Vascular Surgery) | DX: I73.9 Peripheral vascular disease, unspecified (principal); L97.312 Non-pressure chronic ulcer of right ankle with fat layer exposed | CPT/HCPCS: 99213; A6212 ==

== ENCOUNTER → 2022-01-19 13:41 | Outpatient (BNVA) | payer MEDICARE, OTHER, SELFPAY | PROVIDERS: PCP Nurse Practitioner Family; Visit Provider Thoracic Surgery (Cardiothoracic Vascular Surgery) | DX: I73.9 Peripheral vascular disease, unspecified (principal); L97.312 Non-pressure chronic ulcer of right ankle with fat layer exposed | CPT/HCPCS: 99213 ==

== ENCOUNTER 2022-01-23 09:26 | Outpatient (CLI) | payer MEDICARE, OTHER, SELFPAY ==
--- NOTE | 2022-01-23 10:00 | CT_ITS ---
WS: [id number] CT ANGIOGRAPHY OF THE ABDOMINAL AORTA WITH RUNOFF TO THE ANKLES HISTORY: abnormal FRANCESCA, non healing wound TECHNIQUE: Arterial injection is performed during imaging to evaluate the aorta and runoff vessels to the ankles. MIP and volume rendering imaging has also been performed. All images are reviewed. All C T scans at [facility] use at least one of these dose optimization techniques: automated exposu re control; mA and/or kV adjustment per patient size (includes targeted exams where dose is matched t o clinical indication); or iterative reconstruction. Contrast: Omnipaque 350; 95 mL IV. DLP: 1024.10 mGy.cm COMPARISON: 09/07/2018 Abdominal aorta: Extensive atherosclerotic plaque throughout the abdominal aorta. No high-grade steno sis and no aneurysm. Mild progression of atherosclerotic disease since the prior study. Calcified ashley que origin of the celiac axis 60% stenosis estimated. Plaque at the SMA. 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 Additional scattered areas of plaque in the distal SMA. Mild atherosclerosis origin of the renal arteries but the renal arteries are patent. CAROLE is patent. RIGHT lower extremity arterial system: Calcified plaque through the RIGHT common, internal and outsoles channel opener al iliac arteries. Moderate stenosis internal iliac artery. No stenosis greater than 50% of the exter nal iliac artery. Calcified plaque continues in the femoral artery. Deep profunda moderate disease. M ultifocal areas of stenosis in the SFA. High-grade stenosis of 80% proximal SFA. There is heavy calci fied plaque obscuring the lumen. Additional 60% stenosis mid SFA. Multifocal areas of stenosis or ashley que throughout the SFA. Very high-grade stenosis origin Kain's canal. Multifocal areas of stenosis to Kain's canal into the popliteal artery. Very small runoff to the ankle. The anterior tibial dilan rachna supplying the most robust contrast to the ankle. Only intermittently visualized peroneal artery. Posterior tibial artery may be completely occluded. LEFT lower extremity arterial system: Heavy calcified plaque with 50% stenosis common iliac artery. H eavily calcified disease in the internal iliac artery. External iliac arteries patent to the femoral artery. At the bifurcation increasing stenosis and plaque in the deep profunda and SFA. 80% stenosis proximal LEFT SFA. Additional multi focal areas of stenosis throughout the SFA. 80% stenosis mid SFA. High-grade stenosis distal Kain's canal to the popliteal artery. Heavy calcified plaque obscuring the lumen of the lower extremity. Very limited runoff to the ankle. Most robust may be through the pe roneal artery. No abnormality at the lung bases. Liver, gallbladder, spleen, pancreas and adrenal glands are negativ e on this early phase enhancement. No renal mass identified. No GI tract obstruction. No adenopathy o r free fluid. Sigmoid diverticulosis without acute diverticulitis. CT/CT angio abd aorta runof [id number] IMPRESSION: 1. Extensive progression of multifocal stenoses within the lower extremity art eries since 09/07/2018. 2. Atherosclerosis aorta with no aneurysm. 3. 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 4. Calcified plaque scattered throughout the SMA. 5. 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 6. Multifocal areas of significant stenosis scattered throughout the RIGHT and LEFT superficial femoral arteries. Stenoses approaching 80%. High-grade stenos es to Kain's canal and the popliteal arteries bilaterally. 7. Poor runoff to the ankles bilaterally. Arterial lumens are being obscured b y calcified plaque. Very little runoff to the LEFT ankle. Runoff to the ankles has significantly deteriorated since the prior study from 2019.
[2022-01-23] MEDS: iohexol 350 mg/mL 100 mL Btl IV (10:38)
== END 2022-01-23 09:27 | disposition home or self-care (01) ==
LOC: RAD 09:26
PROVIDERS: PCP Nurse Practitioner Family; Visit Provider Nurse Practitioner Family
DX: I73.9 Peripheral vascular disease, unspecified (principal); I70.0 Atherosclerosis of aorta; I77.1 Stricture of artery; I70.8 Atherosclerosis of other arteries
CPT/HCPCS: 75635; 99214

== ENCOUNTER → 2022-01-28 13:34 | Outpatient (BNVA) | payer MEDICARE, OTHER, SELFPAY | PROVIDERS: PCP Nurse Practitioner Family; Visit Provider Thoracic Surgery (Cardiothoracic Vascular Surgery) | DX: I73.9 Peripheral vascular disease, unspecified (principal); L97.312 Non-pressure chronic ulcer of right ankle with fat layer exposed | CPT/HCPCS: 11042; A6212 ==

== ENCOUNTER → 2022-02-04 13:37 | Outpatient (BNVA) | payer MEDICARE, OTHER, SELFPAY | PROVIDERS: PCP Nurse Practitioner Family; Visit Provider Thoracic Surgery (Cardiothoracic Vascular Surgery) | DX: L97.312 Non-pressure chronic ulcer of right ankle with fat layer exposed (principal); I73.9 Peripheral vascular disease, unspecified | CPT/HCPCS: 11042; A6212 ==

== ENCOUNTER → 2022-02-09 14:12 | Outpatient (BNVA) | payer MEDICARE, OTHER, SELFPAY | PROVIDERS: PCP Nurse Practitioner Family; Visit Provider Thoracic Surgery (Cardiothoracic Vascular Surgery) | DX: L97.312 Non-pressure chronic ulcer of right ankle with fat layer exposed (principal); I73.9 Peripheral vascular disease, unspecified | CPT/HCPCS: 11042 ==

== ENCOUNTER → 2022-02-18 13:37 | Outpatient (BNVA) | payer MEDICARE, OTHER, SELFPAY | PROVIDERS: PCP Nurse Practitioner Family; Visit Provider Thoracic Surgery (Cardiothoracic Vascular Surgery) | DX: I73.9 Peripheral vascular disease, unspecified (principal); L97.312 Non-pressure chronic ulcer of right ankle with fat layer exposed | CPT/HCPCS: 11042; A6021; A6213 ==

== ENCOUNTER → 2022-02-24 10:59 | Outpatient (BNVA) | payer MEDICARE, OTHER, SELFPAY | PROVIDERS: PCP Nurse Practitioner Family; Visit Provider Family Medicine | DX: E11.9 Type 2 diabetes mellitus without complications (principal); E11.42 Type 2 diabetes mellitus with diabetic polyneuropathy; S82.63XA Displaced fracture of lateral malleolus of unspecified fibula, initial encounter for closed fracture; L89.510 Pressure ulcer of right ankle, unstageable | CPT/HCPCS: 80053; 83036 ==

== ENCOUNTER → 2022-02-25 13:30 | Outpatient (BNVA) | payer MEDICARE, OTHER, SELFPAY | PROVIDERS: PCP Nurse Practitioner Family; Visit Provider Nurse Practitioner Family | DX: I73.9 Peripheral vascular disease, unspecified (principal); L97.312 Non-pressure chronic ulcer of right ankle with fat layer exposed | CPT/HCPCS: 11042 ==

== ENCOUNTER → 2022-03-04 13:03 | Outpatient (BNVA) | payer MEDICARE, OTHER, SELFPAY | PROVIDERS: PCP Nurse Practitioner Family; Visit Provider Nurse Practitioner Family | DX: I73.9 Peripheral vascular disease, unspecified (principal); L97.312 Non-pressure chronic ulcer of right ankle with fat layer exposed | CPT/HCPCS: 11042; A6212 ==

== ENCOUNTER 2022-03-06 21:10 | Emergency (ER) | payer MEDICARE, OTHER, SELFPAY ==
[2022-03-06 21:13] VITALS: BP 235/107; PULSE 87; RESP 22; TEMP 36.6; O2SAT 97
--- NOTE | 2022-03-06 21:20 | XRR_ITS ---
PROCEDURE INFORMATION: Exam: XR Chest Exam date and time: 03/06/2022 11:37 PM Age: 81 years old Clinical indication: Cough; Additional info: Dyspnea/cough TECHNIQUE: Imaging protocol: Radiologic exam of the chest. Views: 1 view. COMPARISON: CR XR chest 1V portable [id number] 10/14/2021 5:31 AM FINDINGS: Lungs: Unremarkable. No consolidation. Pleural spaces: Unremarkable. No pleural effusion. No pneumothorax. Heart/Mediastinum: Unremarkable. No cardiomegaly. Bones/joints: Unremarkable. XR/XR chest 1V portable [id number] IMPRESSION: No acute findings.
--- NOTE | 2022-03-06 21:20 | CTR_ITS ---
PROCEDURE INFORMATION: Exam: CT Head Without Contrast Exam date and time: 03/06/2022 10:42 PM Age: 81 years old Clinical indication: Other: Sleepy; Additional info: AMS TECHNIQUE: Imaging protocol: Computed tomography of the head without contrast. Radiation optimization: All CT scans at this facility use at least one of these dose optimization techniques: automated exposure control; mA and/or kV adjustment per patient size (includes targeted exams where dose is matched to clinical indication); or iterative reconstruction. COMPARISON: CT head wo con* [id number] 10/11/2021 4:47 PM RADIATION DOSE METRICS: Total DLP (mGy-cm): 1196.18 FINDINGS: Brain: Mild diffuse white matter disease likely reflecting chronic microvascular ischemic changes. Cerebral ventricles: No ventriculomegaly. Paranasal sinuses: Visualized sinuses are unremarkable. No fluid levels. Mastoid air cells: Visualized mastoid air cells are well aerated. Bones/joints: Unremarkable. No acute fracture. Soft tissues: Unremarkable. CT/CT head wo con* [id number] IMPRESSION: Negative for intracranial hemorrhage or mass effect
--- NOTE | 2022-03-06 21:32 | ECG_ITS ---
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 Measurements Intervals [place] Rate: 75 P: -28 IA: 163 QRS: 64 QRSD: 96 T: 73 QT: 419 QTc: 470 Interpretive Statements SINUS RHYTHM WITH OCCASIONAL VENTRICULAR PREMATURE COMPLEXES WITH OCCASIONAL SUPRAVENTRICULAR PREMATURE COMPLEXES INCOMPLETE RIGHT BUNDLE BRANCH BLOCK [90+ ms QRS DURATION, TERMINAL R IN V1/V2, 40+ ms S IN I/aVL/V4/V5/V6] MODERATE ST DEPRESSION [0.05+ mV ST DEPRESSION] Compared to ECG 10/12/2021 01:32:13 Ventricular premature complex(es) now present Incomplete right bundle-branch block now present ST (T wave) deviation now present Atrial fibrillation no longer present Aberrant conduction of supraventricular beat(s) no longer present T-wave abnormality no longer present Possible ischemia no longer present Electronically Signed On 03-07-2022 11:05:15 RACE STARTER by Jona Negro M.D. [id number]
[2022-03-06 21:46] VITALS: BP 210/90; PULSE 76; RESP 20; O2SAT 98
[2022-03-06 21:51] VITALS: BP 215/109; PULSE 79; RESP 20; O2SAT 99
--- NOTE | 2022-03-06 21:59 | W.ED.GENADLT ---
Documented by User: Bobby Velez DO 03/07/22 06:23 HPI - General Adult General: Chief complaint: General Medical Stated complaint: SLEEPY Time Seen by Provider: 03/06/22 21:12 Source: patient Mode of arrival: ambulatory History of Present Illness: 81-year-old female presents to the emergency room with complaints of not feeling well. She states she hurts everywhere. She fell asleep and is difficult to arouse. Evidently she fallen asleep they could not get her to arouse like normal. When EMS arrived they report she reacted normally. She is complaining of right ankle pain due to a diabetic foot ulcer. She denies any trauma denies any falls. No specific pain anywhere about the right ankle. She denies chest pain or shortness of breath. Onset (ago): minute(s) Severity: moderate Quality: aching Pain Consistency: constant Relieving factors: none Exacerbating factors: none Associated symptoms: Deny chest pain, confusion, cough, diaphoresis, decreased appetite, dyspnea, fevers/chills, headache(s), malaise, nausea, rash, palpitations, seizures, short of breath, syncope, vomiting or weakness Treatments prior to arrival: none Review of Systems Const: Denies: fever(s), chills, fatigue, malaise or diaphoresis ENMT: Denies: throat pain, ear or mastoid pain, nasal discharge or nasal congestion Card: Denies: chest pain, palpitations or syncope Resp: Denies: dyspnea, productive cough or non-productive cough GI: Denies: abdominal pain, nausea or vomiting : Denies: flank pain, difficulty voiding, dysuria, urinary frequency or urinary urgency Musc: Reports: extremity pain and joint pain Skin/Breast: Denies: rash or pruritus Neuro: Denies: headache(s) or confusion PFSH ED PFSH: Medical History Anemia Atrial fibrillation Back pain with radiation Bacterial UTI Breast cancer Encapsulated in milk duct, excised by Dr. Montilla CAD (coronary artery disease) Chronic idiopathic constipation Chronic idiopathic constipation CVA (cerebral vascular accident) 2018 DDD (degenerative disc disease), lumbar DDD (degenerative disc disease), lumbar Diabetes mellitus, type II Diabetic peripheral neuropathy associated with type 2 diabetes mellitus Essential hypertension Fracture of lateral malleolus of fibula Gross hematuria Mixed hyperlipidemia Peripheral Vascular Disease Recurrent UTI Sinusitis Status post left heart catheterization Test anxiety Urinary tract infection Urinary, incontinence, stress female Vitamin D deficiency Surgical History H/O bladder repair surgery S/P dilatation and curettage S/P hysterectomy S/P lumpectomy of breast S/P right heart catheterization S/P wrist surgery Stented coronary artery Family History Other Cancer Diabetes Social History Smoking and tobacco status: former smoker Alcohol intake: unknown Adopted: No Caregiver/support person: No Lives independently: Yes Marital status: / Current occupational status: retired History of recent travel: No Physical Exam Const: GENERAL APPEARANCE: cooperative and comfortable ORIENTATION/CONSCIOUSNESS: Yes awake, Yes oriented to person, Yes oriented to place and Yes oriented to time HENMT: COMMON NORMALS: normocephalic, atraumatic and hearing grossly normal bilaterally HEAD & SCALP: normocephalic and atraumatic Resp: COMMON NORMALS: normal respiratory effort, No retractions, No use of accessory muscles and clear to auscultation bilaterally AUSCULTATION: clear to auscultation bilaterally Cardio: COMMON NORMALS: regular rate, regular rhythm and No murmurs present (Cardio) RATE: regular rate RHYTHM: regular rhythm GI: COMMON NORMALS: Soft to palpation and No hepatosplenomegaly present AUSCULTATION: Yes normoactive bowel sounds PALPATION: Yes Soft to palpation, No Tenderness to palpation present (GI), No Guarding due to palpation present (GI) and Yes No hepatosplenomegaly present Extremity: COMMON NORMALS: normal to inspection, capillary refill normal, no clubbing, cyanosis or edema, no calf tenderness and no pedal edema Neuro: SENSORIUM/ORIENTATION: Yes oriented to person, Yes oriented to place and Yes oriented to time Skin: COMMON NORMALS: no rashes or lesions noted GENERAL SKIN EXAM: no rashes or lesions noted Course Vital Signs: Vital signs: Vital Signs Temperature 97.9 F 03/06/22 21:13 Pulse Rate 74 03/06/22 23:45 Respiratory Rate 18 03/06/22 23:45 Blood Pressure 135/64 03/07/22 02:16 Pulse Oximetry 99 03/06/22 23:45 Oxygen Delivery Me thod 03/06/22 21:13 MDM - General Adult Medical Decision Making Labs pending. Care signed out to Dr. Barajas at change of shift. See final notes for diagnosis and disposition. I took patient over from Dr. Jolly patient presented here has they are having a hard time arousing her she is now awake and alert patient's blood work is all normal she was hypertensive her blood pressure is improved she stable for discharge back to correction. Medical Records I reviewed the patient's medical records. Lab Data I reviewed the patient's lab results. 03/06/22 23:52 03/06/22 23:52 Radiology Impressions Chest X-Ray 03/06/22 21:20 IMPRESSION: No acute findings. Head CT 03/06/22 21:20 IMPRESSION: Negative for intracranial hemorrhage or mass effect Laboratory Results WBC 8.1 10^3/uL (4.0-10.0) 03/06/22 23:52 RBC 4.37 10^6/uL (4.1-5.3) 03/06/22 23:52 Hgb 13.9 g/dL (11.5-15.3) 03/06/22 23:52 Hct 42.0 % (37.0-47.0) 03/06/22 23:52 MCV 96.1 fl (81-99) 03/06/22 23:52 MCH 31.8 pg (28.0-34.0) 03/06/22 23:52 MCHC 33.1 g/dL (30.0-36.0) 03/06/22 23:52 RDW 12.9 % (12.1-15.1) 03/06/22 23:52 Plt Count 324 10^3/cmm (130-400) 03/06/22 23:52 MPV 9.1 fL (7.4-10.4) 03/06/22 23:52 Neut % (Auto) 63.9 % 03/06/22 23:52 Lymph % (Auto) 24.9 % 03/06/22 23:52 Potter % (Auto) 8.9 % 03/06/22 23:52 Eos % (Auto) 1.2 % 03/06/22 23:52 Baso % (Auto) 0.5 % 03/06/22 23:52 Neut # (Auto) 5.17 10^3/uL (1.8-7.7) 03/06/22 23:52 Lymph # (Auto) 2.0 10^3/uL (0.8-4.8) 03/06/22 23:52 Potter # (Auto) 0.7 10^3/uL (0.2-0.9) 03/06/22 23:52 Eos # (Auto) 0.1 10^3/uL (0.0-0.8) 03/06/22 23:52 Baso # (Auto) 0.0 10^3/uL (0.0-0.1) 03/06/22 23:52 Nucleated RBC % (auto) 0 % 03/06/22 23:52 Nucleated RBCs # 0.0 /100WBC 03/06/22 23:52 Sodium 135 mmol/L (136-145) L 03/06/22 23:52 Potassium 4.0 mmol/L (3.5-5.1) 03/06/22 23:52 Chloride 100 mmol/L (98-107) 03/06/22 23:52 Carbon Dioxide 21 mmol/L (22-29) L 03/06/22 23:52 Anion Gap 18.0 (5-19) 03/06/22 23:52 BUN 16 mg/dL (8-23) 03/06/22 23:52 Creatinine 0.8 mg/dL (0.5-0.9) 03/06/22 23:52 GFR Calculation Not Reportable 03/06/22 23:52 Glucose 150 mg/dL (65-115) H 03/06/22 23:52 Calculated Osmolality 284 mOsm/kg (285-295) L 03/06/22 23:52 Calcium 11.0 mg/dL (8.5-10.5) H 03/06/22 23:52 Total Bilirubin 0.7 mg/dL (0.15-1.2) 03/06/22 23:52 AST 19 U/L (0-32) 03/06/22 23:52 ALT 15 U/L (0-33) 03/06/22 23:52 Alkaline Phosphatase 64 U/L (35-105) 03/06/22 23:52 Creatine Kinase 39 U/L (26-192) 03/06/22 23:52 Troponin T Baseline 33 ng/L (0-10) H 03/06/22 23:52 Total Protein 7.4 g/dL (6.6-8.7) 03/06/22 23:52 Albumin 4.0 g/dL (3.5-5.2) 03/06/22 23:52 Globulin 3.4 g/dL (1.3-4.6) 03/06/22 23:52 Urine Color Yellow (Yellow) 03/06/22 22:37 Urine Appearance Clear (CLEAR) 03/06/22 22:37 Urine pH 8 (5-7) H 03/06/22 22:37 Ur Specific [place] 1.010 (1.005-1.030) 03/06/22 22:37 Urine Protein Neg (Negative) 03/06/22 22:37 Urine Glucose (UA) Norm (Normal) 03/06/22 22:37 Urine Ketones Negative (Negative) 03/06/22 22:37 Urine Blood Neg (Negative) 03/06/22 22:37 Urine Nitrate Negative (Negative) 03/06/22 22:37 Urine Bilirubin Neg (Negative) 03/06/22 22:37 Prot Sulfosalicylic Acd Negative (Negative) 03/06/22 22:37 Urine Urobilinogen Neg mg/dL (Negative) 03/06/22 22:37 Ur Leukocyte Esterase Negative (Negative) 03/06/22 22:37 Discharge Plan Discharge Patient Disposition: Home Clinical Impression: Hypertension, Chronic foot pain Condition: Stable Prescriptions: No Action docusate sodium [Dulcolax Stool Softener (dss)] 100 mg capsule 100 mg PO DAILY PRN (Reason: Constipation) Complete Multivitamin Tablet 1 tab PO DAILY gabapentin 100 mg capsule 300 mg PO BEDTIME Rx Instructions: 300 mg .q hs; carvedilol 12.5 mg tablet 12.5 mg PO BID Qty: 180 4RF ezetimibe [Zetia] 10 mg tablet 10 mg PO DAILY Qty: 90 4RF Rx Instructions: Take one tablet by mouth daily. ranolazine [Ranexa] 1,000 mg tablet extended release 12 hr 1,000 mg PO BID Qty: 180 4RF furosemide 40 mg tablet 40 mg PO DAILY Qty: 90 2RF potassium chloride [Klor-Con M10] 10 mEq tablet,ER particles/crystals 10 meq PO DAILY Qty: 90 2RF (DME) Diabetic shoes with 3 pairs of inserts See Rx Instructions .Route .MEDSUPPLY Qty: 1 0RF Rx Instructions: As directed J P & O pentoxifylline 400 mg tablet extended release 400 mg PO TID Qty: 90 0RF Rx Instructions: must administer with a meal/food ergocalciferol (vitamin D2) 1,250 mcg (50,000 unit) capsule See Rx Instructions .ROUTE .COMPLEX Qty: 13 2RF Dose Instruction: TAKE 1 CAPSULE WEEKLY Rx Instructions: TAKE 1 CAPSULE WEEKLY apixaban 5 mg tablet 5 mg PO BID Qty: 60 0RF Trulicity 1.5 mg/0.5 mL pen injector 1.5 mg SUBCUT .q7days Qty: 7.5 3RF glipizide 5 mg tablet See Rx Instructions .ROUTE .COMPLEX Qty: 90 1RF Dose Instruction: TAKE 1 TABLET DAILY Rx Instructions: TAKE 1 TABLET DAILY esomeprazole magnesium 40 mg capsule,delayed release(DR/EC) See Rx Instructions .ROUTE .COMPLEX Qty: 90 1RF Dose Instruction: TAKE 1 CAPSULE DAILY Rx Instructions: TAKE 1 CAPSULE DAILY sodium chloride [Sterile Saline] 0.9 % solution 1 irrig irrigation DAILY Qty: 500 2RF hydrocodone-acetaminophen 5-325 mg tablet 1 tab PO Q8H PRN (Reason: pain) 30 Days Qty: 60 0RF oxybutynin chloride 5 mg tablet 5 mg PO BID Rx Instructions: TAKE 1 TABLET TWICE A DAY Linzess 145 mcg capsule 145 mcg PO BEDTIME Rx Instructions: TAKE 1 CAPSULE DAILY Novolog Flexpen U-100 Insulin 100 unit/mL (3 mL) insulin pen See Rx Instructions .ROUTE .COMPLEX Qty: 15 0RF Rx Instructions: Inject, subcu, 3 times daily, after meals, based on sliding scale lisinopril 10 mg tablet 10 mg PO DAILY Qty: 0 0RF Discharge Orders: Discharge ED (Routine); Ordered 03/07/22 Ordered By: Roxie Barajas Referrals: Cruz Guy FNP [Primary Care Provider] - Discharge Diet: Advance as tolerated Discharge Activity: Resume usual activity Patient Instructions: Hypertension (ED) Coding Level of Care Code ED Mine Motor Operator for Chg Fwd Exam Detailed Documented by User: Roxie Barajas MD 03/07/22 02:52 HPI - General Adult General: Chief complaint: General Medical Stated complaint: SLEEPY Time Seen by Provider: 03/06/22 21:12 PFSH ED PFSH: Medical History Anemia Atrial fibrillation Back pain with radiation Bacterial UTI Breast cancer Encapsulated in milk duct, excised by Dr. Montilla CAD (coronary artery disease) Chronic idiopathic constipation Chronic idiopathic constipation CVA (cerebral vascular accident) 2017 DDD (degenerative disc disease), lumbar DDD (degenerative disc disease), lumbar Diabetes mellitus, type II Diabetic peripheral neuropathy associated with type 2 diabetes mellitus Essential hypertension Fracture of lateral malleolus of fibula Gross hematuria Mixed hyperlipidemia Peripheral Vascular Disease Recurrent UTI Sinusitis Status post left heart catheterization Test anxiety Urinary tract infection Urinary, incontinence, stress female Vitamin D deficiency Surgical History H/O bladder repair surgery S/P dilatation and curettage S/P hysterectomy S/P lumpectomy of breast S/P right heart catheterization S/P wrist surgery Stented coronary artery Family History Other Cancer Diabetes Social History Smoking and tobacco status: former smoker Alcohol intake: unknown Adopted: No Caregiver/support person: No Lives independently: Yes Marital status: / Current occupational status: retired History of recent travel: No Course Vital Signs: Vital signs: Vital Signs Temperature 97.9 F 03/06/22 21:13 Pulse Rate 74 03/06/22 23:45 Respiratory Rate 18 03/06/22 23:45 Blood Pressure 135/64 03/07/22 02:16 Pulse Oximetry 99 03/06/22 23:45 Oxygen Delivery Me thod 03/06/22 21:13 MDM - General Adult Medical Decision Making I took patient over from Dr. Jolly patient presented here has they are having a hard time arousing her she is now awake and alert patient's blood work is all normal she was hypertensive her blood pressure is improved she stable for discharge back to correction. Lab Data 03/06/22 23:52 03/06/22 23:52 Radiology Impressions Chest X-Ray 03/06/22 21:20 IMPRESSION: No acute findings. Head CT 03/06/22 21:20 IMPRESSION: Negative for intracranial hemorrhage or mass effect Laboratory Results WBC 8.1 10^3/uL (4.0-10.0) 03/06/22 23:52 RBC 4.37 10^6/uL (4.1-5.3) 03/06/22 23:52 Hgb 13.9 g/dL (11.5-15.3) 03/06/22 23:52 Hct 42.0 % (37.0-47.0) 03/06/22 23:52 MCV 96.1 fl (81-99) 03/06/22 23:52 MCH 31.8 pg (28.0-34.0) 03/06/22 23:52 MCHC 33.1 g/dL (30.0-36.0) 03/06/22 23:52 RDW 12.9 % (12.1-15.1) 03/06/22 23:52 Plt Count 324 10^3/cmm (130-400) 03/06/22 23:52 MPV 9.1 fL (7.4-10.4) 03/06/22 23:52 Neut % (Auto) 63.9 % 03/06/22 23:52 Lymph % (Auto) 24.9 % 03/06/22 23:52 Potter % (Auto) 8.9 % 03/06/22 23:52 Eos % (Auto) 1.2 % 03/06/22 23:52 Baso % (Auto) 0.5 % 03/06/22 23:52 Neut # (Auto) 5.17 10^3/uL (1.8-7.7) 03/06/22 23:52 Lymph # (Auto) 2.0 10^3/uL (0.8-4.8) 03/06/22 23:52 Potter # (Auto) 0.7 10^3/uL (0.2-0.9) 03/06/22 23:52 Eos # (Auto) 0.1 10^3/uL (0.0-0.8) 03/06/22 23:52 Baso # (Auto) 0.0 10^3/uL (0.0-0.1) 03/06/22 23:52 Nucleated RBC % (auto) 0 % 03/06/22 23:52 Nucleated RBCs # 0.0 /100WBC 03/06/22 23:52 Sodium 135 mmol/L (136-145) L 03/06/22 23:52 Potassium 4.0 mmol/L (3.5-5.1) 03/06/22 23:52 Chloride 100 mmol/L (98-107) 03/06/22 23:52 Carbon Dioxide 21 mmol/L (22-29) L 03/06/22 23:52 Anion Gap 18.0 (5-19) 03/06/22 23:52 BUN 16 mg/dL (8-23) 03/06/22 23:52 Creatinine 0.8 mg/dL (0.5-0.9) 03/06/22 23:52 GFR Calculation Not Reportable 03/06/22 23:52 Glucose 150 mg/dL (65-115) H 03/06/22 23:52 Calculated Osmolality 284 mOsm/kg (285-295) L 03/06/22 23:52 Calcium 11.0 mg/dL (8.5-10.5) H 03/06/22 23:52 Total Bilirubin 0.7 mg/dL (0.15-1.2) 03/06/22 23:52 AST 19 U/L (0-32) 03/06/22 23:52 ALT 15 U/L (0-33) 03/06/22 23:52 Alkaline Phosphatase 64 U/L (35-105) 03/06/22 23:52 Creatine Kinase 39 U/L (26-192) 03/06/22 23:52 Troponin T Baseline 33 ng/L (0-10) H 03/06/22 23:52 Total Protein 7.4 g/dL (6.6-8.7) 03/06/22 23:52 Albumin 4.0 g/dL (3.5-5.2) 03/06/22 23:52 Globulin 3.4 g/dL (1.3-4.6) 03/06/22 23:52 Urine Color Yellow (Yellow) 03/06/22 22:37 Urine Appearance Clear (CLEAR) 03/06/22 22:37 Urine pH 8 (5-7) H 03/06/22 22:37 Ur Specific [place] 1.010 (1.005-1.030) 03/06/22 22:37 Urine Protein Neg (Negative) 03/06/22 22:37 Urine Glucose (UA) Norm (Normal) 03/06/22 22:37 Urine Ketones Negative (Negative) 03/06/22 22:37 Urine Blood Neg (Negative) 03/06/22 22:37 Urine Nitrate Negative (Negative) 03/06/22 22:37 Urine Bilirubin Neg (Negative) 03/06/22 22:37 Prot Sulfosalicylic Acd Negative (Negative) 03/06/22 22:37 Urine Urobilinogen Neg mg/dL (Negative) 03/06/22 22:37 Ur Leukocyte Esterase Negative (Negative) 03/06/22 22:37 Discharge Plan Discharge Patient Disposition: Home Clinical Impression: Hypertension, Chronic foot pain Condition: Stable Prescriptions: No Action docusate sodium [Dulcolax Stool Softener (dss)] 100 mg capsule 100 mg PO DAILY PRN (Reason: Constipation) Complete Multivitamin Tablet 1 tab PO DAILY gabapentin 100 mg capsule 300 mg PO BEDTIME Rx Instructions: 300 mg .q hs; carvedilol 12.5 mg tablet 12.5 mg PO BID Qty: 180 4RF ezetimibe [Zetia] 10 mg tablet 10 mg PO DAILY Qty: 90 4RF Rx Instructions: Take one tablet by mouth daily. ranolazine [Ranexa] 1,000 mg tablet extended release 12 hr 1,000 mg PO BID Qty: 180 4RF furosemide 40 mg tablet 40 mg PO DAILY Qty: 90 2RF potassium chloride [Klor-Con M10] 10 mEq tablet,ER particles/crystals 10 meq PO DAILY Qty: 90 2RF (DME) Diabetic shoes with 3 pairs of inserts See Rx Instructions .Route .MEDSUPPLY Qty: 1 0RF Rx Instructions: As directed J P & O pentoxifylline 400 mg tablet extended release 400 mg PO TID Qty: 90 0RF Rx Instructions: must administer with a meal/food ergocalciferol (vitamin D2) 1,250 mcg (50,000 unit) capsule See Rx Instructions .ROUTE .COMPLEX Qty: 13 2RF Dose Instruction: TAKE 1 CAPSULE WEEKLY Rx Instructions: TAKE 1 CAPSULE WEEKLY apixaban 5 mg tablet 5 mg PO BID Qty: 60 0RF Trulicity 1.5 mg/0.5 mL pen injector 1.5 mg SUBCUT .q7days Qty: 7.5 3RF glipizide 5 mg tablet See Rx Instructions .ROUTE .COMPLEX Qty: 90 1RF Dose Instruction: TAKE 1 TABLET DAILY Rx Instructions: TAKE 1 TABLET DAILY esomeprazole magnesium 40 mg capsule,delayed release(DR/EC) See Rx Instructions .ROUTE .COMPLEX Qty: 90 1RF Dose Instruction: TAKE 1 CAPSULE DAILY Rx Instructions: TAKE 1 CAPSULE DAILY sodium chloride [Sterile Saline] 0.9 % solution 1 irrig irrigation DAILY Qty: 500 2RF hydrocodone-acetaminophen 5-325 mg tablet 1 tab PO Q8H PRN (Reason: pain) 30 Days Qty: 60 0RF oxybutynin chloride 5 mg tablet 5 mg PO BID Rx Instructions: TAKE 1 TABLET TWICE A DAY Linzess 145 mcg capsule 145 mcg PO BEDTIME Rx Instructions: TAKE 1 CAPSULE DAILY Novolog Flexpen U-100 Insulin 100 unit/mL (3 mL) insulin pen See Rx Instructions .ROUTE .COMPLEX Qty: 15 0RF Rx Instructions: Inject, subcu, 3 times daily, after meals, based on sliding scale lisinopril 10 mg tablet 10 mg PO DAILY Qty: 0 0RF Discharge Orders: Discharge ED (Routine); Ordered 03/07/22 Ordered By: Roxie Barajas Referrals: Cruz Guy, TOMAS [Primary Care Provider] - Discharge Diet: Advance as tolerated Discharge Activity: Resume usual activity Patient Instructions: Hypertension (ED) Coding Level of Care Code ED Mine Motor Operator 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 Exam Detailed
[2022-03-06 22:46] LABS: Add Urine Microscopic? NO; Charge for UA Resulting for Rev
[2022-03-06 22:52] VITALS: BP 209/101; PULSE 77; RESP 18
[2022-03-06 22:59] LABS: Bilirubin Urine Neg (Negative); Blood Urine Neg (Negative); Glucose Urine UA Norm (Normal); Ketones Urine Negative (Negative); Leukocyte Esterase Urine Negative (Negative); Nitrate Urine Negative (Negative); Protein Urine Neg (Negative); Sulfosalicylic Acid Urine Negative (Negative); Urine Appearance Clear (CLEAR); Urine Color Yellow (Yellow); Urobilinogen Urine Neg (Negative); pH Urine 8 (5-7)
--- NOTE | 2022-03-06 23:20 | ECG_ITS ---
[facility] Test Date: 2022-03-06 Pat Name: Danitza Rosado Department: Room: Gender: Female School Custodian: : 1940 Requested By: Bobby Berry Order Number: [id number] Kenisha MD: Jona Negro M.D. Measurements Intervals [place] Rate: 71 P: 68 NM: 174 QRS: 73 QRSD: 101 T: 74 QT: 429 QTc: 469 Interpretive Statements SINUS RHYTHM WITH OCCASIONAL VENTRICULAR PREMATURE COMPLEXES INCOMPLETE RIGHT BUNDLE BRANCH BLOCK [90+ ms QRS DURATION, TERMINAL R IN V1/V2, 40+ ms S IN I/aVL/V4/V5/V6] MODERATE ST DEPRESSION [0.05+ mV ST DEPRESSION] Compared to ECG 03/06/2022 21:32:26 No significant changes Electronically Signed On 03-07-2022 11:08:31 BEAUTY DIRECTOR by Jona Negro M.D. [id number]
[2022-03-06 23:45] VITALS: BP 227/108; PULSE 74; RESP 18; O2SAT 99
[2022-03-06] MEDS: amlodipine 10 mg Tablet PO (23:51)
[2022-03-06] MEDS: labetalol 5 mg/mL SDV 20mL 10 MG IVP (23:51)
[2022-03-06] MEDS: hyDRALAzine 20 mg/mL INJ 1 mL 10 MG IVP (23:51)
[2022-03-07] VITALS (9 sets, daily range): BP systolic 69–156; BP diastolic 48–84
[2022-03-07 00:15] LABS: Basophils % 0.5 %; Eosinophils # 0.1 10^3/uL (0.0-0.8); Eosinophils % 1.2 %; Hemoglobin 13.9 g/dL (11.5-15.3); Lymphocytes % 24.9 %; Mean Corpuscular HGB Conc 33.1 g/dL (30.0-36.0); Mean Corpuscular Hemoglobin 31.8 pg (28.0-34.0); Mean Corpuscular Volume 96.1 fl (81-99); Mean Platelet Volume 9.1 fL (7.4-10.4); Monocytes # 0.7 10^3/uL (0.2-0.9); Monocytes % 8.9 %; Neutrophils # 5.17 10^3/uL (1.8-7.7); Neutrophils % 63.9 %; Nucleated Red Blood Cells % 0 %; Platelet Count 324 10^3/cmm (130-400); Red Blood Count 4.37 10^6/uL (4.1-5.3); Red Cell Distribution Width 12.9 % (12.1-15.1); White Blood Count 8.1 10^3/uL (4.0-10.0)
[2022-03-07 00:27] LABS: Alanine Aminotransferase 15 U/L (0-33); Alkaline Phosphatase 64 U/L (35-105); Aspartate Amino Transferase 19 U/L (0-32); Blood Urea Nitrogen 16 mg/dL (8-23); Carbon Dioxide 21 mmol/L (22-29); Chloride 100 mmol/L (98-107); Creatine Phosphokinase 39 U/L (26-192); Globulin 3.4 g/dL (1.3-4.6); Glucose 150 mg/dL (65-115); Osmolality Calculated 284 mOsm/kg (285-295); Sodium 135 mmol/L (136-145); Total Bilirubin 0.7 mg/dL (0.15-1.2); Total Protein 7.4 g/dL (6.6-8.7)
[2022-03-07 00:51] LABS: Troponin(5th) Baseline 33 ng/L (0-10)
== END 2022-03-07 02:09 | disposition home or self-care (01) ==
PROVIDERS: Family Medicine; Emergency Provider Emergency Medicine; PCP Nurse Practitioner Family
DX: G89.29 Other chronic pain (principal); M25.571 Pain in right ankle and joints of right foot; I10 Essential (primary) hypertension; Z79.85 Long-term (current) use of injectable non-insulin antidiabetic drugs; Z79.84 Long term (current) use of oral hypoglycemic drugs; Z79.4 Long term (current) use of insulin; Z87.891 Personal history of nicotine dependence; I25.10 Atherosclerotic heart disease of native coronary artery without angina pectoris; Z85.3 Personal history of malignant neoplasm of breast; Z86.73 Personal history of transient ischemic attack (TIA), and cerebral infarction without residual deficits; E11.9 Type 2 diabetes mellitus without complications; E78.2 Mixed hyperlipidemia
CPT/HCPCS: 36415; 70450; 71045; 80053; 81003; 82550; 84484; 85025; 87040; 93005; 96374; 96375; 99285; J0360; J3490

== ENCOUNTER → 2022-03-25 13:41 | Outpatient (BNVA) | payer MEDICARE, OTHER, SELFPAY | PROVIDERS: PCP Nurse Practitioner Family; Visit Provider Thoracic Surgery (Cardiothoracic Vascular Surgery) | DX: I73.9 Peripheral vascular disease, unspecified (principal); L97.312 Non-pressure chronic ulcer of right ankle with fat layer exposed | CPT/HCPCS: 11042; A6212 ==

== ENCOUNTER 2022-04-01 14:05 | Outpatient (CLI) | payer MEDICARE, OTHER, SELFPAY ==
--- NOTE | 2022-04-01 15:00 | USCV_ITS ---
Danitza Rosado Age: 81 Gender: F : 1940 Exam Date: 04/01/2022 14:33 Ordering Phys: Martinez Retana MD (Andy[email or web address] [place] Technologist: GAY [place] Location[place] [facility] [place] Indication: Stenosis Risk Factors: Previous Vascular Surgery: Right Brachial BP: / Left Brachial BP: / Right Left Velocity (cm/s) Spectral Plaque Velocity (cm/s) Spectral Plaque Syst/Diast Broadening Syst/Diast Broadening 76.10/ 9.30 Prox CCA 102.50/ 15.40 69.10/ 13.20 Mid CCA 92.60 / 13.20 64.50/ 12.40 Distal CCA 101.40/ 19.80 118.00/36.40 Prox ICA 59.00 / 18.60 195.80/59.00 Mid ICA 91.60 / 31.10 192.60/24.90 Distal ICA 100.30/ 38.60 70.70 ECA 81.60 2.57 ICA/CCA 0.98 Vertebral 124.6/ 12.10 cm/s 80.50/ 22.10 cm/s 0 Subclavian 175.0 186.4 0 0 FINDINGS Comparison:. 08/25/21. Diffuse bilateral calcified plaque and intimal thickening throughout the common carotid arteries and extending through the bifurcation. Mild progression since the prior exam. Mild increase in right ICA velocity and ratio since the prior exam, but less than 70% stenosis. No change left ICA stenosis. Antegrade vertebral arteries. CONCLUSIONS Right ICA stenosis 50-69%. Mild progression of stenosis since the prior exam. Left ICA stenosis < 50%. Dr. Joann Muse DO (Electronically Signed) Final Date: 02 April 2022 07:34 S
== END 2022-04-01 14:06 | disposition home or self-care (01) ==
LOC: RAD 14:05
PROVIDERS: PCP Nurse Practitioner Family; Visit Provider Thoracic Surgery (Cardiothoracic Vascular Surgery)
DX: I65.23 Occlusion and stenosis of bilateral carotid arteries (principal); G45.9 Transient cerebral ischemic attack, unspecified; I73.9 Peripheral vascular disease, unspecified; L97.312 Non-pressure chronic ulcer of right ankle with fat layer exposed
CPT/HCPCS: 11042; 93880; A6021

== ENCOUNTER → 2022-04-17 13:01 | Outpatient (BNVA) | payer MEDICARE, OTHER, SELFPAY | PROVIDERS: PCP Nurse Practitioner Family; Visit Provider Thoracic Surgery (Cardiothoracic Vascular Surgery) | DX: I73.9 Peripheral vascular disease, unspecified (principal); L97.312 Non-pressure chronic ulcer of right ankle with fat layer exposed | CPT/HCPCS: 11042; A6021; A6212 ×2 ==

== ENCOUNTER 2022-04-24 01:00 | Outpatient (CLI) | payer MEDICARE, OTHER, SELFPAY | END 2022-04-24 23:00 | disposition home or self-care (01) | LOC: RAD 05-12 20:59 | PROVIDERS: PCP Nurse Practitioner Family; Visit Provider Thoracic Surgery (Cardiothoracic Vascular Surgery) | DX: I73.9 Peripheral vascular disease, unspecified (principal); L97.312 Non-pressure chronic ulcer of right ankle with fat layer exposed | CPT/HCPCS: 11042; A6212 ==

== ENCOUNTER 2022-04-27 19:19 | Emergency (ER) | payer MEDICARE, OTHER, SELFPAY ==
[2022-04-27 19:34] VITALS: BMI 25.8
[2022-04-27 19:38] VITALS: BP 162/102; PULSE 61; RESP 19; O2SAT 97
--- NOTE | 2022-04-27 19:55 | CTR_ITS ---
PROCEDURE INFORMATION: Exam: CT Head Without Contrast Exam date and time: 04/27/2022 8:48 PM Age: 81 years old Clinical indication: Pain; Altered mental status/memory loss; Patient HX: Per son, patient had an episode of word salad while on the phone with him. Patient C/O headache. History of TIA. ; Additional info: AMS TECHNIQUE: Imaging protocol: Computed tomography of the head without contrast. Radiation optimization: All CT scans at this facility use at least one of these dose optimization techniques: automated exposure control; mA and/or kV adjustment per patient size (includes targeted exams where dose is matched to clinical indication); or iterative reconstruction. COMPARISON: CT head wo con* [id number] 03/06/2022 10:42 PM RADIATION DOSE METRICS: Total DLP (mGy-cm): 1035.38 FINDINGS: Brain: No hemorrhage. No edema. Moderate diffuse cerebral atrophy and mild sequela of chronic small vessel ischemic disease. Old lacunar infarct in the left thalamus. No mass effect. Cerebral ventricles: No ventriculomegaly. Paranasal sinuses: Visualized sinuses are unremarkable. No fluid levels. Mastoid air cells: Visualized mastoid air cells are well aerated. Bones/joints: Unremarkable. No acute fracture. Soft tissues: Unremarkable. CT/CT head wo con* [id number] IMPRESSION: 1. No acute intracranial abnormality. 2. Moderate diffuse cerebral atrophy and mild sequela of chronic small vessel ischemic disease. Old infarct in the left thalamus.
--- NOTE | 2022-04-27 19:55 | ECG_ITS ---
[facility] Test Date: 2022-04-27 Pat Name: Danitza Rosado Department: Room: Gender: Female Process Chemist: : 1940 Requested By: Roxie Barajas Order Number: [id number] Kenisha MD: Jona Negro M.D. Measurements Intervals [place] Rate: 71 P: 0 OH: 0 QRS: 116 QRSD: 89 T: 111 QT: 443 QTc: 483 Interpretive Statements ATRIAL FIBRILLATION POSSIBLE RIGHT VENTRICULAR HYPERTROPHY [SOME/ALL OF: PROMINENT R IN V1, LATE TRANSITION, RAD, JET, SSS] MODERATE ST DEPRESSION [0.05+ mV ST DEPRESSION] Compared to ECG 03/06/2022 23:33:02 Sinus rhythm no longer present Ventricular premature complex(es) no longer present Incomplete right bundle-branch block no longer present ST (T wave) deviation still present Electronically Signed On 04-28-2022 14:45:44 PATTERN GRADER by Jona Negro M.D. [id number]
--- NOTE | 2022-04-27 19:55 | XRR_ITS ---
PROCEDURE INFORMATION: Exam: XR Chest Exam date and time: 04/27/2022 8:01 PM Age: 81 years old Clinical indication: Cough; Additional info: AMS S/P questionable seizure episode TECHNIQUE: Imaging protocol: Radiologic exam of the chest. Views: 1 view. COMPARISON: CR XR chest 1V portable [id number] 03/06/2022 11:37 PM FINDINGS: Lungs: Small ill-defined opacity along the periphery of the left lung base. Pleural spaces: No pleural effusion. No pneumothorax. Heart/Mediastinum: No cardiomegaly. Bones/joints: Visualized osseous structures are intact. XR/XR chest 1V portable [id number] IMPRESSION: Small ill-defined opacities along the periphery of the left lung base, potential infiltrate.
--- NOTE | 2022-04-27 20:05 | ED_ITS ---
HPI - General Adult General: Chief complaint: General Medical Stated complaint: POST HEADACHE/ POST FATIGUE/ HYPERTENSTION Time Seen by Provider: 04/27/22 19:37 Source: patient, family and EMS Mode of arrival: EMS Limitations: no limitations History of Present Illness: 81-year-old female states that little over 2 hours ago she was on the phone with her son states she had a slight headache and then states that she felt some confusion and felt like her voice is getting soft she had some generalized weakness to her son and felt like she maybe had some slurred speech daughter came over and called EMS states she feels completely normal currently she has no speech deficits she has no weakness she states she feels back to her baseline denies any headache currently. Has had 2 strokes in the past. Associated symptoms: Reports confusion and headache(s); Deny chest pain, dyspnea, nausea, rash or vomiting Review of Systems Const: Denies: fever(s), chills, body aches or change in appetite Eyes: Denies: blurry vision or eye discomfort ENMT: Denies: throat pain or dental pain Card: Denies: chest pain Resp: Denies: dyspnea GI: Denies: abdominal pain, nausea, vomiting or diarrhea : Denies: dysuria Musc: Denies: neck pain or back pain Skin/Breast: Denies: rash Neuro: Reports: headache(s) and confusion Psych: Denies: depression Aftab/Lymph: Denies: easy bruising All/Imm: Denies: urticaria PFS ED PFSH: Medical History Anemia Atrial fibrillation Back pain with radiation Bacterial UTI Breast cancer Encapsulated in milk duct, excised by Dr. Montilla CAD (coronary artery disease) Chronic idiopathic constipation Chronic idiopathic constipation CVA (cerebral vascular accident) 2018 DDD (degenerative disc disease), lumbar DDD (degenerative disc disease), lumbar Diabetes mellitus, type II Diabetic peripheral neuropathy associated with type 2 diabetes mellitus Essential hypertension Fracture of lateral malleolus of fibula Gross hematuria Mixed hyperlipidemia Peripheral Vascular Disease Recurrent UTI Sinusitis Status post left heart catheterization Test anxiety Urinary tract infection Urinary, incontinence, stress female Vitamin D deficiency Surgical History H/O bladder repair surgery S/P dilatation and curettage S/P hysterectomy S/P lumpectomy of breast S/P right heart catheterization S/P wrist surgery Stented coronary artery Family History Other Cancer Diabetes Social History Smoking and tobacco status: former smoker Alcohol intake: unknown Adopted: No Caregiver/support person: No Lives independently: Yes Marital status: / Current occupational status: retired History of recent travel: No Physical Exam Const: COMMON NORMALS: no acute distress, patient oriented x3 and healthy appearing HENMT: COMMON NORMALS: normocephalic and atraumatic HEAD & SCALP: normocephalic and atraumatic Eye: COMMON NORMALS: Equal, round and reactive pupils present and EOMs intact bilaterally PUPIL: Yes Equal, round and reactive pupils present Neck/C-Spine: COMMON NORMALS: full ROM and supple Chest: COMMONS NORMALS: normal inspection of the chest and normal palpation of entire chest wall Resp: COMMON NORMALS: normal respiratory effort, No retractions, No use of accessory muscles and clear to auscultation bilaterally AUSCULTATION: clear to auscultation bilaterally Cardio: COMMON NORMALS: regular rate, regular rhythm and No murmurs present (Cardio) RATE: regular rate RHYTHM: regular rhythm GI: COMMON NORMALS: Normal to inspection, nondistended, normoactive bowel sounds present, Soft to palpation, non-tender and no masses PALPATION: Yes Soft to palpation Extremity: COMMON NORMALS: normal to inspection and full ROM Neuro: COMMON NORMALS: patient oriented x3, moves all extremities and no focal motor deficits CRANIAL NERVES: Yes CN normal except as noted SPEECH: speech normal MOTOR EXAM: 5/5 motor strength present throughout Psych: COMMON NORMALS: mental status grossly normal, Normal thought process present and cooperative THOUGHT PROCESS: Normal thought process present Skin: COMMON NORMALS: no rashes or lesions noted and no wounds GENERAL SKIN EXAM: no rashes or lesions noted Course Vital Signs: Vital signs: Vital Signs Pulse Rate 61 04/27/22 21:07 Respiratory Rate 18 04/27/22 21:07 Blood Pressure 209/77 04/27/22 21:07 Pulse Oximetry 93 04/27/22 21:07 Oxygen Delivery Me thod 04/27/22 21:07 MDM - General Adult Medical Decision Making Patient presents with likely TIA she had a period of confusion and possible slurred speech that lasted a few minutes she has been at her baseline here she feels much improved she is wanting to go home I feel she is stable for discharge she is on a blood thinner she is to follow-up with PCP and return if worsening she understands agrees to plan. Lab Data 04/27/22 20:39 04/27/22 20:39 Radiology Impressions Chest X-Ray 04/27/22 19:55 IMPRESSION: Small ill-defined opacities along the periphery of the left lung base, potential infiltrate. Head CT 04/27/22 19:55 IMPRESSION: 1. No acute intracranial abnormality. 2. Moderate diffuse cerebral atrophy and mild sequela of chronic small vessel ischemic disease. Old infarct in the left thalamus. Laboratory Results WBC 5.0 10^3/uL (4.0-10.0) 04/27/22 20:39 RBC 4.01 10^6/uL (4.1-5.3) L 04/27/22 20:39 Hgb 12.5 g/dL (11.5-15.3) 04/27/22 20:39 Hct 37.7 % (37.0-47.0) 04/27/22 20:39 MCV 94.0 fl (81-99) 04/27/22 20:39 MCH 31.2 pg (28.0-34.0) 04/27/22 20:39 MCHC 33.2 g/dL (30.0-36.0) 04/27/22 20:39 RDW 12.0 % (12.1-15.1) L 04/27/22 20:39 Plt Count 275 10^3/cmm (130-400) 04/27/22 20:39 MPV 8.9 fL (7.4-10.4) 04/27/22 20:39 Neut % (Auto) 66.6 % 04/27/22 20:39 Lymph % (Auto) 20.8 % 04/27/22 20:39 Lipscomb % (Auto) 9.8 % 04/27/22 20:39 Eos % (Auto) 1.8 % 04/27/22 20:39 Baso % (Auto) 0.4 % 04/27/22 20:39 Neut # (Auto) 3.34 10^3/uL (1.8-7.7) 04/27/22 20:39 Lymph # (Auto) 1.0 10^3/uL (0.8-4.8) 04/27/22 20:39 Lipscomb # (Auto) 0.5 10^3/uL (0.2-0.9) 04/27/22 20:39 Eos # (Auto) 0.1 10^3/uL (0.0-0.8) 04/27/22 20:39 Baso # (Auto) 0.0 10^3/uL (0.0-0.1) 04/27/22 20:39 Nucleated RBC % (auto) 0 % 04/27/22 20:39 Nucleated RBCs # 0.0 /100WBC 04/27/22 20:39 PT 14.80 SECONDS (12.1-14.9) 04/27/22 20:39 INR 1.12 (0.8-1.2) 04/27/22 20:39 Sodium 131 mmol/L (136-145) L 04/27/22 20:39 Potassium 4.4 mmol/L (3.5-5.1) 04/27/22 20:39 Chloride 97 mmol/L (98-107) L 04/27/22 20:39 Carbon Dioxide 27 mmol/L (22-29) 04/27/22 20:39 Anion Gap 11.4 (5-19) 04/27/22 20:39 BUN 9 mg/dL (8-23) 04/27/22 20:39 Creatinine 0.7 mg/dL (0.5-0.9) 04/27/22 20:39 GFR Calculation Not Reportable 04/27/22 20:39 Glucose 225 mg/dL (65-115) H 04/27/22 20:39 Calculated Osmolality 278 mOsm/kg (285-295) L 04/27/22 20:39 Calcium 10.6 mg/dL (8.5-10.5) H 04/27/22 20:39 Total Bilirubin 0.4 mg/dL (0.15-1.2) 04/27/22 20:39 AST 15 U/L (0-32) 04/27/22 20:39 ALT 14 U/L (0-33) 04/27/22 20:39 Alkaline Phosphatase 68 U/L (35-105) 04/27/22 20:39 Total Protein 7.0 g/dL (6.6-8.7) 04/27/22 20:39 Albumin 3.8 g/dL (3.5-5.2) 04/27/22 20:39 Globulin 3.2 g/dL (1.3-4.6) 04/27/22 20:39 EKG Data EKG 1: I personally reviewed and interpreted this EKG as follows: EKG interpretation date: 04/27/22 EKG interpretation time: 20:16 Interpretation: afib hr [address] or t wave abnormalities qrs 89 qtc 465 Computer generated interpretation: Chest X-Ray 04/27/22 19:55 IMPRESSION: Small ill-defined opacities along the periphery of the left lung base, potential infiltrate. Head CT 04/27/22 19:55 IMPRESSION: 1. No acute intracranial abnormality. 2. Moderate diffuse cerebral atrophy and mild sequela of chronic small vessel ischemic disease. Old infarct in the left thalamus. Discharge Plan Discharge Patient Disposition: Home Clinical Impression: Brain TIA Condition: Stable Prescriptions: No Action docusate sodium [Dulcolax Stool Softener (dss)] 100 mg capsule 100 mg PO DAILY PRN (Reason: Constipation) Complete Multivitamin Tablet 1 tab PO DAILY gabapentin 100 mg capsule 300 mg PO BEDTIME Rx Instructions: 300 mg .q hs; carvedilol 12.5 mg tablet 12.5 mg PO BID Qty: 180 4RF ezetimibe [Zetia] 10 mg tablet 10 mg PO DAILY Qty: 90 4RF Rx Instructions: Take one tablet by mouth daily. furosemide 40 mg tablet 40 mg PO DAILY Qty: 90 2RF potassium chloride [Klor-Con M10] 10 mEq tablet,ER particles/crystals 10 meq PO DAILY Qty: 90 2RF (DME) Diabetic shoes with 3 pairs of inserts See Rx Instructions .Route .MEDSUPPLY Qty: 1 0RF Rx Instructions: As directed J P & O pentoxifylline 400 mg tablet extended release 400 mg PO TID Qty: 90 0RF Rx Instructions: must administer with a meal/food ergocalciferol (vitamin D2) 1,250 mcg (50,000 unit) capsule See Rx Instructions .ROUTE .COMPLEX Qty: 13 2RF Dose Instruction: TAKE 1 CAPSULE WEEKLY Rx Instructions: TAKE 1 CAPSULE WEEKLY apixaban 5 mg tablet 5 mg PO BID Qty: 60 0RF Trulicity 1.5 mg/0.5 mL pen injector 1.5 mg SUBCUT .q7days Qty: 7.5 3RF glipizide 5 mg tablet See Rx Instructions .ROUTE .COMPLEX Qty: 90 1RF Dose Instruction: TAKE 1 TABLET DAILY Rx Instructions: TAKE 1 TABLET DAILY esomeprazole magnesium 40 mg capsule,delayed release(DR/EC) See Rx Instructions .ROUTE .COMPLEX Qty: 90 1RF Dose Instruction: TAKE 1 CAPSULE DAILY Rx Instructions: TAKE 1 CAPSULE DAILY sodium chloride [Sterile Saline] 0.9 % solution 1 irrig irrigation DAILY Qty: 500 2RF hydrocodone-acetaminophen 10-325 mg tablet 1 tab PO BID PRN (Reason: pain) 15 Days Qty: 30 0RF sodium chloride 0.9 % solution 1 irrig irrigation DAILY 30 Days Qty: 500 2RF ranolazine [Ranexa] 1,000 mg tablet extended release 12 hr 1,000 mg PO BID Qty: 180 3RF oxybutynin chloride 5 mg tablet 5 mg PO BID Rx Instructions: TAKE 1 TABLET TWICE A DAY Linzess 145 mcg capsule 145 mcg PO BEDTIME Rx Instructions: TAKE 1 CAPSULE DAILY Novolog Flexpen U-100 Insulin 100 unit/mL (3 mL) insulin pen See Rx Instructions .ROUTE .COMPLEX Qty: 15 0RF Rx Instructions: Inject, subcu, 3 times daily, after meals, based on sliding scale lisinopril 10 mg tablet 10 mg PO DAILY Qty: 0 0RF Discharge Orders: Discharge ED (Routine); Ordered 04/27/22 Ordered By: Roxie Barajas Referrals: Cruz Guy FNP [Primary Care Provider] - Discharge Diet: Advance as tolerated Discharge Activity: Resume usual activity Patient Instructions: Transient Ischemic Attack (ED) Coding Level of Care Code ED Supervisor Counseling And Guidance 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 Exam Comprehensive NIH stroke score NIHSS Level Of Consciousness - 1a: 0 Level Of Consciousness Questions - 1b: Both Correct Level Of Consciousness Commands - 1c: Both Correct Best Gaze - 2: Normal Visual Garcia - 3: No Visual Loss Facial Palsy - 4: Normal Motor Arm Right - 5: No Drift Motor Arm Left - 5: No Drift Motor Leg Right - 6: No Drift Motor Leg Left - 6: No Drift Limb Ataxia - 7: Absent Sensory - 8: Normal Best Language - 9: No Aphasia Dysarthia - 10: Normal Extinction And Inattention - 11: 0 Score Total Score: 0
[2022-04-27 20:57] LABS: Basophils % 0.4 %; Eosinophils # 0.1 10^3/uL (0.0-0.8); Eosinophils % 1.8 %; Hematocrit 37.7 % (37.0-47.0); Hemoglobin 12.5 g/dL (11.5-15.3); Lymphocytes % 20.8 %; Mean Corpuscular HGB Conc 33.2 g/dL (30.0-36.0); Mean Corpuscular Hemoglobin 31.2 pg (28.0-34.0); Mean Platelet Volume 8.9 fL (7.4-10.4); Monocytes # 0.5 10^3/uL (0.2-0.9); Monocytes % 9.8 %; Neutrophils # 3.34 10^3/uL (1.8-7.7); Neutrophils % 66.6 %; Nucleated Red Blood Cells % 0 %; Platelet Count 275 10^3/cmm (130-400); Red Blood Count 4.01 10^6/uL (4.1-5.3)
[2022-04-27 21:07] VITALS: BP 209/77; PULSE 61; RESP 18; O2SAT 93
[2022-04-27] MEDS: hyDRALAzine 20 mg/mL INJ 1 mL 10 MG IVP (21:13)
[2022-04-27 21:20] LABS: INR 1.12 (0.8-1.2)
[2022-04-27 21:28] LABS: Alanine Aminotransferase 14 U/L (0-33); Albumin Level 3.8 g/dL (3.5-5.2); Alkaline Phosphatase 68 U/L (35-105); Anion Gap 11.4 (5-19); Aspartate Amino Transferase 15 U/L (0-32); Blood Urea Nitrogen 9 mg/dL (8-23); Calcium 10.6 mg/dL (8.5-10.5); Carbon Dioxide 27 mmol/L (22-29); Chloride 97 mmol/L (98-107); Globulin 3.2 g/dL (1.3-4.6); Glucose 225 mg/dL (65-115); Osmolality Calculated 278 mOsm/kg (285-295); Potassium 4.4 mmol/L (3.5-5.1); Sodium 131 mmol/L (136-145); Total Bilirubin 0.4 mg/dL (0.15-1.2)
[2022-04-27 21:30] VITALS: BP 150/59; PULSE 67; RESP 16; O2SAT 98
[2022-04-27 22:10] VITALS: BP 178/88; PULSE 72; RESP 20; O2SAT 98
== END 2022-04-27 22:14 | disposition home or self-care (01) ==
PROVIDERS: Emergency Provider Emergency Medicine; PCP Nurse Practitioner Family
DX: G45.9 Transient cerebral ischemic attack, unspecified (principal); Z79.85 Long-term (current) use of injectable non-insulin antidiabetic drugs; Z79.4 Long term (current) use of insulin; Z87.891 Personal history of nicotine dependence; Z85.3 Personal history of malignant neoplasm of breast; I25.10 Atherosclerotic heart disease of native coronary artery without angina pectoris; Z86.73 Personal history of transient ischemic attack (TIA), and cerebral infarction without residual deficits; E11.9 Type 2 diabetes mellitus without complications; I10 Essential (primary) hypertension; E78.2 Mixed hyperlipidemia
CPT/HCPCS: 70450; 71045; 80053; 85025; 85610; 93005; 96374; 99285; J0360

== ENCOUNTER → 2022-04-29 11:31 | Outpatient (BNVA) | payer MEDICARE, OTHER, SELFPAY | PROVIDERS: PCP Nurse Practitioner Family; Visit Provider Thoracic Surgery (Cardiothoracic Vascular Surgery) | DX: I73.9 Peripheral vascular disease, unspecified (principal); L97.312 Non-pressure chronic ulcer of right ankle with fat layer exposed | CPT/HCPCS: 11042; A6212 ==

== ENCOUNTER → 2022-05-20 13:14 | Outpatient (BNVA) | payer MEDICARE, OTHER, SELFPAY | PROVIDERS: PCP Nurse Practitioner Family; Visit Provider Thoracic Surgery (Cardiothoracic Vascular Surgery) | DX: I73.9 Peripheral vascular disease, unspecified (principal); L97.312 Non-pressure chronic ulcer of right ankle with fat layer exposed | CPT/HCPCS: 97597; A6212 ==

== ENCOUNTER → 2022-05-27 13:28 | Outpatient (BNVA) | payer MEDICARE, OTHER, SELFPAY | PROVIDERS: PCP Nurse Practitioner Family; Visit Provider Thoracic Surgery (Cardiothoracic Vascular Surgery) | DX: I73.9 Peripheral vascular disease, unspecified (principal); L97.312 Non-pressure chronic ulcer of right ankle with fat layer exposed | CPT/HCPCS: 97597; A6212 ==

== ENCOUNTER → 2022-06-03 12:56 | Outpatient (BNVA) | payer MEDICARE, OTHER, SELFPAY | PROVIDERS: PCP Nurse Practitioner Family; Visit Provider Thoracic Surgery (Cardiothoracic Vascular Surgery) | DX: I73.9 Peripheral vascular disease, unspecified (principal); L97.312 Non-pressure chronic ulcer of right ankle with fat layer exposed | CPT/HCPCS: 97597; A6021; A6212 ==

== ENCOUNTER → 2022-06-10 11:43 | Outpatient (BNVA) | payer MEDICARE, OTHER, SELFPAY | PROVIDERS: PCP Nurse Practitioner Family; Visit Provider Thoracic Surgery (Cardiothoracic Vascular Surgery) | DX: I73.9 Peripheral vascular disease, unspecified (principal); L97.312 Non-pressure chronic ulcer of right ankle with fat layer exposed | CPT/HCPCS: 97597; A6212 ==

== ENCOUNTER → 2022-06-15 16:16 | Outpatient (BNVA) | payer MEDICARE, OTHER, SELFPAY | PROVIDERS: PCP Nurse Practitioner Family; Visit Provider Thoracic Surgery (Cardiothoracic Vascular Surgery) | DX: I73.9 Peripheral vascular disease, unspecified (principal); L97.312 Non-pressure chronic ulcer of right ankle with fat layer exposed | CPT/HCPCS: 97597; A6021; A6212 ==

== ENCOUNTER → 2022-07-01 11:59 | Outpatient (BNVA) | payer MEDICARE, OTHER, SELFPAY | PROVIDERS: PCP Nurse Practitioner Family; Visit Provider Nurse Practitioner Family | DX: I73.9 Peripheral vascular disease, unspecified (principal); L97.312 Non-pressure chronic ulcer of right ankle with fat layer exposed | CPT/HCPCS: 97597; A6212 ==

== ENCOUNTER → 2022-07-08 10:20 | Outpatient (BNVA) | payer MEDICARE, OTHER, SELFPAY | PROVIDERS: PCP Nurse Practitioner Family; Visit Provider Thoracic Surgery (Cardiothoracic Vascular Surgery) | DX: Z09 Encounter for follow-up examination after completed treatment for conditions other than malignant neoplasm (principal) | CPT/HCPCS: 99212 ==

== ENCOUNTER → 2022-07-23 09:59 | Outpatient (BNVA) | payer MEDICARE, OTHER, SELFPAY | PROVIDERS: PCP Nurse Practitioner Family; Visit Provider Family Medicine | DX: E55.9 Vitamin D deficiency, unspecified (principal); E78.2 Mixed hyperlipidemia; E11.9 Type 2 diabetes mellitus without complications; I25.10 Atherosclerotic heart disease of native coronary artery without angina pectoris; E11.42 Type 2 diabetes mellitus with diabetic polyneuropathy; I48.20 Chronic atrial fibrillation, unspecified | CPT/HCPCS: 80053; 80061; 83036; 85025 ==

== ENCOUNTER 2022-08-27 22:51 | Inpatient (IN) | payer MEDICARE, OTHER, SELFPAY ==
[2022-08-27 22:51] VITALS: BP 158/65; PULSE 77; RESP 16; TEMP 36.1; O2SAT 100; BMI 22.8
[2022-08-27 23:00] VITALS: BP 152/55; PULSE 77; RESP 18; O2SAT 99
--- NOTE | 2022-08-27 23:04 | ECG_ITS ---
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 Measurements Intervals [place] Rate: 90 P: 0 NM: 0 QRS: 60 QRSD: 92 T: 68 QT: 368 QTc: 451 Interpretive Statements ATRIAL FIBRILLATION MODERATE ST DEPRESSION [0.05+ mV ST DEPRESSION] Compared to ECG 08/28/2022 00:55:28 No significant changes Electronically Signed On 08-28-2022 12:34:52 CDT by Lanny Hall M.D. [id number]
--- NOTE | 2022-08-27 23:04 | XRR_ITS ---
PROCEDURE INFORMATION: Exam: XR Chest Exam date and time: 08/27/2022 11:08 PM Age: 81 years old Clinical indication: Prior surgery; Surgery date: 6+ months; Surgery type: Lumpectomy. Coronary stent; Patient HX: General weakness. History of breast cancer. TECHNIQUE: Imaging protocol: Radiologic exam of the chest. Views: 1 view. COMPARISON: CR (CHEST, ) 04/27/2022 8:01 PM FINDINGS: Lungs: Left lower lobe atelectasis versus minimal infiltrate. Emphysematous changes. Pleural spaces: Biapical pleuroparenchymal fibrosis suspected. Heart/Mediastinum: Unremarkable. No cardiomegaly. Bones/joints: Unremarkable. XR/XR chest 1V portable [id number] IMPRESSION: 1. Left lower lobe atelectasis versus minimal infiltrate. 2. Emphysematous changes. 3. Biapical pleuroparenchymal fibrosis suspected.
--- NOTE | 2022-08-27 23:08 | CTR_ITS ---
PROCEDURE INFORMATION: Exam: CT Head Without Contrast Exam date and time: 08/27/2022 11:22 PM Age: 81 years old Clinical indication: Other: General weakness TECHNIQUE: Imaging protocol: Computed tomography of the head without contrast. Radiation optimization: All CT scans at this facility use at least one of these dose optimization techniques: automated exposure control; mA and/or kV adjustment per patient size (includes targeted exams where dose is matched to clinical indication); or iterative reconstruction. REPORTING DATA: Count of CT and Cardiac NM exams in prior 12 months: This patient has received 7 known CTs and 0 known cardiac nuclear medicine studies in the 12 months prior to the current study. COMPARISON: CT head wo con* [id number] 04/27/2022 8:48 PM RADIATION DOSE METRICS: Total DLP (mGy-cm): 1886.18 FINDINGS: Brain: Moderate diffuse white matter disease likely reflecting chronic microvascular ischemic changes. Cerebral ventricles: No ventriculomegaly. Paranasal sinuses: Paranasal sinus opacifications Mastoid air cells: Visualized mastoid air cells are well aerated. Bones/joints: Unremarkable. No acute fracture. Soft tissues: Unremarkable. CT/CT head wo con* [id number] IMPRESSION: Negative for intracranial hemorrhage or mass effect.
--- NOTE | 2022-08-27 23:11 | W.ED.WEAKNES ---
HPI - Weakness General: Chief complaint: Weakness Stated complaint: WEAKNESS Time Seen by Provider: 08/27/22 23:05 Source: patient and EMS Mode of arrival: EMS Limitations: no limitations History of Present Illness: 81-year-old female states she has had weakness over the last 3 days. States she did have some diarrhea took Imodium and that is since stopped but still is severely weak states this evening she was not able to get out of bed or walk. She denies headache she states she feels like she is dehydrated denies any vomiting. She has a history of a TIA she does have right-sided facial droop but she states that is old no new focal deficits. Associated symptoms: Denies chest pain, chills, dysuria, fever(s), headache(s), nausea or vomiting Review of Systems Const: Reports: change in appetite, fatigue and malaise; Denies: fever(s) or chills Eyes: Denies: blurry vision or eye discomfort ENMT: Denies: throat pain or dental pain Card: Denies: chest pain Resp: Denies: dyspnea GI: Reports: diarrhea; Denies: abdominal pain, nausea or vomiting : Denies: dysuria Musc: Denies: neck pain or back pain Skin/Breast: Denies: rash Neuro: Reports: weakness in extremities; Denies: headache(s) PFSH ED PFSH: Medical History Anemia Atrial fibrillation Back pain with radiation Bacterial UTI Breast cancer Encapsulated in milk duct, excised by Dr. Montilla CAD (coronary artery disease) Chronic idiopathic constipation Chronic idiopathic constipation CVA (cerebral vascular accident) 2018 DDD (degenerative disc disease), lumbar DDD (degenerative disc disease), lumbar Diabetes mellitus, type II Diabetic peripheral neuropathy associated with type 2 diabetes mellitus Essential hypertension Fracture of lateral malleolus of fibula Gross hematuria Mixed hyperlipidemia Mixed incontinence Peripheral Vascular Disease Recurrent UTI Sinusitis Status post left heart catheterization Test anxiety Urinary tract infection Urinary, incontinence, stress female Vitamin D deficiency Surgical History H/O bladder repair surgery S/P dilatation and curettage S/P hysterectomy S/P lumpectomy of breast S/P right heart catheterization S/P wrist surgery Stented coronary artery Family History Other Cancer Diabetes Social History Smoking and tobacco status: former smoker Alcohol intake: unknown Substance/Drug Use: never Adopted: No Caregiver/support person: No Lives independently: Yes Marital status: / Current occupational status: retired Physical Exam Const: COMMON NORMALS: patient oriented x3 GENERAL APPEARANCE: ill appearing and frail appearing HENMT: COMMON NORMALS: normocephalic and atraumatic HEAD & SCALP: normocephalic and atraumatic Eye: COMMON NORMALS: Equal, round and reactive pupils present and EOMs intact bilaterally PUPIL: Yes Equal, round and reactive pupils present Neck/C-Spine: COMMON NORMALS: full ROM and supple Chest: COMMONS NORMALS: normal inspection of the chest and normal palpation of entire chest wall Resp: COMMON NORMALS: normal respiratory effort, No retractions, No use of accessory muscles and clear to auscultation bilaterally AUSCULTATION: clear to auscultation bilaterally Cardio: COMMON NORMALS: regular rate, regular rhythm and No murmurs present (Cardio) RATE: regular rate RHYTHM: regular rhythm GI: COMMON NORMALS: Normal to inspection, nondistended, normoactive bowel sounds present, Soft to palpation, non-tender and no masses PALPATION: Yes Soft to palpation Extremity: COMMON NORMALS: normal to inspection and full ROM Neuro: COMMON NORMALS: patient oriented x3, moves all extremities and no focal motor deficits SPEECH: speech normal OTHER: Very fatigued she able to lift her legs and arms no focal weakness not able to ambulate due to generalized weakness Psych: COMMON NORMALS: mental status grossly normal, Normal thought process present and cooperative THOUGHT PROCESS: Normal thought process present Skin: COMMON NORMALS: no rashes or lesions noted and no wounds GENERAL SKIN EXAM: no rashes or lesions noted Course Vital Signs: Vital signs: Vital Signs Temperature 97.0 F L 08/27/22 22:51 Pulse Rate 77 08/27/22 23:00 Respiratory Rate 18 08/27/22 23:00 Blood Pressure 184/84 08/28/22 00:24 Pulse Oximetry 100 08/28/22 00:24 Oxygen Delivery Me thod Room Air 08/27/22 23:00 MDM - Weakness Medical Decision Making Patient presents with weakness likely from urinary tract infection patient given IV fluids here along with IV antibiotics I spoke to the hospitalist will admit at this time. Medical Records I reviewed the patient's medical records. Lab Data 08/27/22 22:56 08/27/22 22:56 Radiology Impressions Chest X-Ray 08/27/22 23:04 IMPRESSION: 1. Left lower lobe atelectasis versus minimal infiltrate. 2. Emphysematous changes. 3. Biapical pleuroparenchymal fibrosis suspected. Head CT 08/27/22 23:08 IMPRESSION: Negative for intracranial hemorrhage or mass effect. Laboratory Results WBC 5.8 10^3/uL (4.0-10.0) 08/27/22 22:56 RBC 3.72 10^6/uL (4.1-5.3) L 08/27/22 22:56 Hgb 11.7 g/dL (11.5-15.3) 08/27/22 22:56 Hct 34.1 % (37.0-47.0) L 08/27/22 22:56 MCV 91.7 fl (81-99) 08/27/22 22:56 MCH 31.5 pg (28.0-34.0) 08/27/22 22:56 MCHC 34.3 g/dL (30.0-36.0) 08/27/22 22:56 RDW 12.1 % (12.1-15.1) 08/27/22 22:56 Plt Count 278 10^3/cmm (130-400) 08/27/22 22:56 MPV 9.8 fL (7.4-10.4) 08/27/22 22:56 Neut % (Auto) 73.4 % 08/27/22 22:56 Lymph % (Auto) 18.0 % 08/27/22 22:56 Henderson % (Auto) 8.0 % 08/27/22 22:56 Eos % (Auto) 0.0 % 08/27/22 22:56 Baso % (Auto) 0.3 % 08/27/22 22:56 Neut # (Auto) 4.24 10^3/uL (1.8-7.7) 08/27/22 22:56 Lymph # (Auto) 1.0 10^3/uL (0.8-4.8) 08/27/22 22:56 Henderson # (Auto) 0.5 10^3/uL (0.2-0.9) 08/27/22 22:56 Eos # (Auto) 0.0 10^3/uL (0.0-0.8) 08/27/22 22:56 Baso # (Auto) 0.0 10^3/uL (0.0-0.1) 08/27/22 22:56 Nucleated RBC % (auto) 0 % 08/27/22 22:56 Nucleated RBCs # 0.0 /100WBC 08/27/22 22:56 PT 18.10 SECONDS (12.1-14.9) H 08/27/22 23:40 INR 1.45 (0.8-1.2) H 08/27/22 23:40 Sodium 127 mmol/L (136-145) L 08/27/22 22:56 Potassium 5.1 mmol/L (3.5-5.1) 08/27/22 22:56 Chloride 91 mmol/L (98-107) L 08/27/22 22:56 Carbon Dioxide 24 mmol/L (22-29) 08/27/22 22:56 Anion Gap 17.1 (5-19) 08/27/22 22:56 BUN 17 mg/dL (8-23) 08/27/22 22:56 Creatinine 0.7 mg/dL (0.5-0.9) 08/27/22 22:56 GFR Calculation Not Reportable 08/27/22 22:56 Glucose 119 mg/dL (65-115) H 08/27/22 22:56 Calculated Osmolality 267 mOsm/kg (285-295) L 08/27/22 22:56 Calcium 10.7 mg/dL (8.5-10.5) H 08/27/22 22:56 Total Bilirubin 0.7 mg/dL (0.15-1.2) 08/27/22 22:56 AST 40 U/L (0-32) H 08/27/22 22:56 ALT 39 U/L (0-33) H 08/27/22 22:56 Alkaline Phosphatase 68 U/L (35-105) 08/27/22 22:56 Troponin T Baseline 35 ng/L (0-10) H 08/27/22 22:56 Total Protein 6.6 g/dL (6.6-8.7) 08/27/22 22:56 Albumin 3.9 g/dL (3.5-5.2) 08/27/22 22:56 Globulin 2.7 g/dL (1.3-4.6) 08/27/22 22:56 TSH 1.63 uIU/mL (0.27-4.20) 08/27/22 22:56 Urine Color Light yellow (Yellow) 08/27/22 23:57 Urine Appearance Hazy (CLEAR) A 08/27/22 23:57 Urine pH 6 (5-7) 08/27/22 23:57 Ur Specific [place] 1.015 (1.005-1.030) 08/27/22 23:57 Urine Protein 1+ (Negative) H 08/27/22 23:57 Urine Glucose (UA) Norm (Normal) 08/27/22 23:57 Urine Ketones Negative (Negative) 08/27/22 23:57 Urine Blood 3+ (Negative) H 08/27/22 23:57 Urine Nitrate Positive (Negative) H 08/27/22 23:57 Urine Bilirubin Neg (Negative) 08/27/22 23:57 Urine Urobilinogen Norm mg/dL (Negative) 08/27/22 23:57 Ur Leukocyte Esterase Negative (Negative) 08/27/22 23:57 Urine RBC 0-4 /hpf (0-2) H 08/27/22 23:57 Urine WBC None /hpf (0-5) 08/27/22 23:57 Ur Squamous Epith Cells None /hpf (0-5) 08/27/22 23:57 Amorphous Sediment Not Reportable 08/27/22 23:57 Urine Bacteria 3+ /hpf (NONE) H 08/27/22 23:57 Discharge Plan Discharge Patient Disposition: Admitted As Inpatient Clinical Impression: Essential hypertension, Acute cystitis, Weakness Condition: Stable Prescriptions: No Action docusate sodium [Dulcolax Stool Softener (dss)] 100 mg capsule 100 mg PO DAILY PRN (Reason: Constipation) Complete Multivitamin Tablet 1 tab PO DAILY potassium chloride [Klor-Con M10] 10 mEq tablet,ER particles/crystals 10 meq PO DAILY Qty: 90 2RF ergocalciferol (vitamin D2) 1,250 mcg (50,000 unit) capsule See Rx Instructions .ROUTE .COMPLEX Qty: 13 2RF Dose Instruction: TAKE 1 CAPSULE WEEKLY Rx Instructions: TAKE 1 CAPSULE WEEKLY hydrocodone-acetaminophen 10-325 mg tablet 1 tab PO BID PRN (Reason: pain) 30 Days Qty: 60 0RF (DME) Diabetic shoes with 3 pairs of inserts See Rx Instructions .Route .MEDSUPPLY Qty: 1 0RF Rx Instructions: As directed J P & O Trulicity 1.5 mg/0.5 mL pen injector 1.5 mg SUBCUT .q7days Qty: 7.5 3RF sodium chloride [Sterile Saline] 0.9 % solution 1 irrig irrigation DAILY Qty: 500 2RF sodium chloride 0.9 % solution 1 irrig irrigation DAILY 30 Days Qty: 500 2RF ranolazine [Ranexa] 1,000 mg tablet extended release 12 hr 1,000 mg PO BID Qty: 180 3RF (DME) True Metrix Glucose Test Strip Strip See Rx Instructions .Route Qty: 100 2RF Rx Instructions: USE ONE STRIP TO CHECK BLOOD SUGAR ONCE DAILY (DME) lancets [BD Ultra Fine Lancets] 33 gauge misc See Rx Instructions .Route Qty: 100 2RF Rx Instructions: USE ONE LANCET TO CHECK BLOOD SUGAR ONCE DAILY apixaban 5 mg tablet 5 mg PO BID Qty: 180 3RF oxybutynin chloride 5 mg tablet 5 mg PO BID 90 Days Qty: 180 3RF Rx Instructions: TAKE 1 TABLET TWICE A DAY gabapentin 400 mg capsule 400 mg PO DAILY Qty: 90 2RF glipizide 5 mg tablet 7.5 mg PO BID 90 Days Qty: 270 1RF lisinopril 10 mg tablet 10 mg PO DAILY Qty: 60 0RF ezetimibe [Zetia] 10 mg tablet 10 mg PO DAILY Qty: 30 0RF Rx Instructions: MUST have follow-up for further refills carvedilol 12.5 mg tablet 12.5 mg PO BID Qty: 60 0RF Rx Instructions: MUST have follow-up for further refills esomeprazole magnesium 40 mg capsule,delayed release(DR/EC) See Rx Instructions .ROUTE .COMPLEX Qty: 90 1RF Dose Instruction: TAKE 1 CAPSULE DAILY Rx Instructions: TAKE 1 CAPSULE DAILY Linzess 145 mcg capsule 145 mcg PO BEDTIME Rx Instructions: TAKE 1 CAPSULE DAILY Referrals: Riley Bassett [Primary Care Provider] - Coding Level of Care Code ED 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
[2022-08-27 23:21] LABS: Basophils % 0.3 %; Hematocrit 34.1 % (37.0-47.0); Hemoglobin 11.7 g/dL (11.5-15.3); Mean Corpuscular HGB Conc 34.3 g/dL (30.0-36.0); Mean Corpuscular Hemoglobin 31.5 pg (28.0-34.0); Mean Corpuscular Volume 91.7 fl (81-99); Mean Platelet Volume 9.8 fL (7.4-10.4); Monocytes # 0.5 10^3/uL (0.2-0.9); Neutrophils # 4.24 10^3/uL (1.8-7.7); Neutrophils % 73.4 %; Nucleated Red Blood Cells % 0 %; Platelet Count 278 10^3/cmm (130-400); Red Blood Count 3.72 10^6/uL (4.1-5.3); Red Cell Distribution Width 12.1 % (12.1-15.1); White Blood Count 5.8 10^3/uL (4.0-10.0)
[2022-08-27 23:32] LABS: Troponin(5th) Baseline 35 ng/L (0-10)
[2022-08-27] MEDS: sodium chloride 0.9% 1,000 ML 999 ML IV (23:38)
[2022-08-27 23:39] LABS: Alanine Aminotransferase 39 U/L (0-33); Albumin Level 3.9 g/dL (3.5-5.2); Alkaline Phosphatase 68 U/L (35-105); Anion Gap 17.1 (5-19); Aspartate Amino Transferase 40 U/L (0-32); Blood Urea Nitrogen 17 mg/dL (8-23); Calcium 10.7 mg/dL (8.5-10.5); Carbon Dioxide 24 mmol/L (22-29); Chloride 91 mmol/L (98-107); Globulin 2.7 g/dL (1.3-4.6); Glucose 119 mg/dL (65-115); Osmolality Calculated 267 mOsm/kg (285-295); Potassium 5.1 mmol/L (3.5-5.1); Sodium 127 mmol/L (136-145); Thyroid Stimulating Hormone 1.63 uIU/mL (0.27-4.20); Total Bilirubin 0.7 mg/dL (0.15-1.2); Total Protein 6.6 g/dL (6.6-8.7)
[2022-08-27 23:56] LABS: INR 1.45 (0.8-1.2)
[2022-08-28] VITALS (12 sets, daily range): BP systolic 101–203; BP diastolic 53–90; PULSE 62–93; RESP 15–20; TEMP 36.4–36.7; O2SAT 92–100
[2022-08-28 00:25] LABS: Bilirubin Urine Neg (Negative); Blood Urine 3+ (Negative); Glucose Urine UA Norm (Normal); Ketones Urine Negative (Negative); Nitrate Urine Positive (Negative); Protein Urine 1+ (Negative); Specific Gravity, Urine 1.015 (1.005-1.030); Urine Appearance Hazy (CLEAR); Urine Color Light yellow (Yellow); Urobilinogen Urine Norm (Negative); pH Urine 6 (5-7)
[2022-08-28 00:26] LABS: Add Urine Culture? Yes; Add Urine Microscopic? YES; Bacteria Urine 3+ /hpf; Leukocyte Esterase Urine Negative (Negative); RBC Urine 0-4 /hpf (0-2)
[2022-08-28] MEDS: cefTRIAXone 1,000 MG in sodium chloride 0.9% (plus) 50 ML 100 MG IV (00:38)
--- NOTE | 2022-08-28 00:55 | ECG_ITS ---
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 Measurements Intervals [place] Rate: 82 P: 0 MN: 0 QRS: 69 QRSD: 97 T: 88 QT: 356 QTc: 417 Interpretive Statements ATRIAL FIBRILLATION MODERATE ST DEPRESSION [0.05+ mV ST DEPRESSION] Compared to ECG 04/27/2022 20:16:43 Atrial abnormality no longer present ST (T wave) deviation still present Electronically Signed On 08-29-2022 6:50:26 CDT by Lanny Hall M.D. [id number]
[2022-08-28] MEDS: hyDRALAzine 20 mg/mL INJ 1 mL 10 MG IVP (01:03)
[2022-08-28 01:18] LABS: Troponin 5 2HR 27.96 ng/L (0-10)
[2022-08-28 01:19] LABS: Troponin 5 2HR Delta -7.04 ABS# (0-10)
[2022-08-28] MEDS: fixodent 39 gm Tube 1 APPLIC DENTAL (01:44)
--- NOTE | 2022-08-28 05:03 | ECG_ITS ---
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 Measurements Intervals [place] Rate: 101 P: 0 CT: 0 QRS: 60 QRSD: 92 T: 55 QT: 354 QTc: 461 Interpretive Statements ATRIAL FIBRILLATION WITH RAPID VENTRICULAR RESPONSE MODERATE ST DEPRESSION [0.05+ mV ST DEPRESSION] Compared to ECG 08/28/2022 02:23:14 No significant changes Electronically Signed On 08-29-2022 6:45:34 CDT by Lanny Hall M.D. [id number]
[2022-08-28 05:15] LABS: Troponin 5 6HR 37.08 ng/L (0-10)
[2022-08-28 05:16] LABS: Troponin 5 6HR Delta 2.08 ng/L (0-12)
[2022-08-28] MEDS: dilTIAZem 5 mg/mL SDV 5 mL 10 MG IVP (05:18)
--- NOTE | 2022-08-28 05:26 | PM.HP ---
Providers/Chief Complaint Admitting Physician: Sandra Armstrong MD Primary Care Provider: Riley Bassett CCP Chief Complaint: WEAKNESS History of Present Illness Danitza Rosado is a 81 year old female brought to the emergency room by her family today because of increasing generalized weakness. Family is not currently available to provide any history, patient is a poor historian therefore history is limited. Patient states that she has been feeling poorly over the last 4 to 5 days. She has had a fever of 99 Fahrenheit at home. She is mainly complaining of a lot of pain around her right hip and right ankle. Does not recall any recent trauma at the site. Denies any specific symptoms as to chest pain dyspnea palpitations or syncope. States that she is weak and has pain in her right hip. Review of Systems General: Reports: 10 or more systems reviewed and unremarkable except in HPI and below Const: Denies: fever(s), chills or body aches Eyes: Denies: change in vision, blurry vision or photophobia ENMT: Reports: hoarseness; Denies: throat pain, enlarged tonsils, odynophagia or nasal congestion Card: Denies: chest pain, palpitations, irregular heart rhythm, edema, swelling of feet/ankles, lightheadedness, pre-syncope, dyspnea on exertion or orthopnea Resp: Denies: dyspnea, productive cough, non-productive cough, wheezing, stridor, pain on inspiration, change in phlegm color, hemoptysis or chest congestion GI: Denies: abdominal pain, nausea, vomiting, hematemesis, coffee ground emesis, dysphagia, heartburn, diarrhea, constipation, GI cramping, change in stool character, hematochezia or melena : Denies: flank pain, difficulty voiding, dysuria, urinary frequency, urinary urgency, urinary hesitancy or hematuria Musc: Denies: neck pain, back pain, extremity pain, joint swelling, joint warmth or deformity Neuro: Denies: headache(s), numbness in extremities, weakness in extremities, sensory changes, difficulty walking, frequent falls, dizziness, vertigo, behavioral changes, Slurred speech present or seizure-like activity Psych: Denies: anxiety, depression, suicidal ideation or homicidal ideation Endo: Denies: polyuria, polydipsia, tired all the time, cold intolerance or hot flashes Aftab/Lymph: Denies: easy bruising or easy bleeding Medications/Allergies Home Medications Medication Instructions Recorded Confirmed Last Taken Type multivitamin,[id number] 1 tab PO DAILY 06/12/19 07/23/22 10/11/21 09:00 History (Complete Multivitamin tablet) Diabetic shoes with 3 pairs of #1 ea 07/23/21 07/23/22 Unknown Rx inserts docusate sodium 100 mg capsule 100 mg PO DAILY PRN Constipation 09/25/21 07/23/22 Unknown History (Dulcolax Stool Softener (docusate)) linaclotide 145 mcg capsule 145 mcg PO BEDTIME 10/11/21 07/23/22 10/10/21 21:00 History (Linzess) dulaglutide 1.5 mg/0.5 mL 1.5 mg (0.5 mL) SUBCUT .q7days 10/16/21 07/23/22 Unknown Rx subcutaneous pen injector #7.5 mL (Trulicity) potassium chloride 10 mEq 10 meq PO DAILY #90 tabs 11/18/21 07/23/22 Unknown Rx tablet,extended release(part/cryst) (Klor-Con M) sodium chloride 0.9 % irrigation 1 irrig irrigation DAILY wound 02/04/22 07/23/22 Unknown Rx solution (Sterile Saline) care #500 mL sodium chloride 0.9 % irrigation 1 irrig irrigation DAILY wound 30 04/24/22 07/23/22 Unknown Rx solution days #500 mL ranolazine 1,000 mg 1,000 mg PO BID #180 tabs 04/27/22 07/23/22 Unknown Rx tablet,extended release,12 hr (Ranexa) blood sugar diagnostic (True #100 ea 05/05/22 07/23/22 Unknown Rx Metrix Glucose Test Strip) lancets 33 gauge (BD Ultra Fine #100 ea 05/05/22 07/23/22 Unknown Rx Lancets) apixaban 5 mg tablet 5 mg PO BID #180 tabs 05/21/22 07/23/22 Unknown Rx gabapentin 400 mg capsule 400 mg PO DAILY #90 caps 05/28/22 07/23/22 Unknown Rx glipizide 5 mg tablet 7.5 mg PO BID 90 days #270 tabs 05/28/22 07/23/22 Unknown Rx oxybutynin chloride 5 mg tablet 5 mg PO BID 90 days #180 tabs 05/28/22 07/23/22 Unknown Rx lisinopril 10 mg tablet 10 mg PO DAILY #60 tabs 07/08/22 07/23/22 Unknown Rx carvedilol 12.5 mg tablet 12.5 mg PO BID #60 tabs 07/17/22 07/23/22 Unknown Rx ezetimibe 10 mg tablet (Zetia) 10 mg PO DAILY #30 tabs 07/17/22 07/23/22 Unknown Rx ergocalciferol (vitamin D2) 1,250 See Rx Instructions .Route 07/23/22 07/23/22 Unknown Rx mcg (50,000 unit) capsule .COMPLEX #13 caps hydrocodone 10 mg-acetaminophen 1 tab PO BID PRN pain 30 days #60 07/23/22 07/23/22 Unknown Rx 325 mg tablet tabs esomeprazole magnesium 40 mg See Rx Instructions .Route 08/24/22 Unknown Rx capsule,delayed release .COMPLEX #90 caps Allergies Allergy/AdvReac Type Severity Reaction Status Date / Time cimetidine [From [facility]] Allergy Intermediate rash Verified 07/23/22 09:16 pravastatin Allergy Unknown Unknown Verified 07/23/22 09:16 PFSH Acute PFSH: Medical History Anemia Atrial fibrillation Back pain with radiation Bacterial UTI Breast cancer Encapsulated in milk duct, excised by Dr. Montilla CAD (coronary artery disease) Chronic idiopathic constipation Chronic idiopathic constipation CVA (cerebral vascular accident) 2018 DDD (degenerative disc disease), lumbar DDD (degenerative disc disease), lumbar Diabetes mellitus, type II Diabetic peripheral neuropathy associated with type 2 diabetes mellitus Essential hypertension Fracture of lateral malleolus of fibula Gross hematuria Mixed hyperlipidemia Mixed incontinence Peripheral Vascular Disease Recurrent UTI Sinusitis Status post left heart catheterization Test anxiety Urinary tract infection Urinary, incontinence, stress female Vitamin D deficiency Surgical History H/O bladder repair surgery S/P dilatation and curettage S/P hysterectomy S/P lumpectomy of breast S/P right heart catheterization S/P wrist surgery Stented coronary artery Family History Other Cancer Diabetes Social History Smoking and tobacco status: former smoker Alcohol intake: unknown Substance/Drug Use: never Adopted: No Caregiver/support person: No Lives independently: Yes Marital status: / Current occupational status: retired Vitals/I&O/Wt Last Vital Signs Temp 97.0 F L 08/27/22 22:51 Pulse 93 08/28/22 05:13 Resp 18 08/28/22 05:13 BP 168/74 08/28/22 05:13 Pulse Ox 94 08/28/22 05:13 O2 Del Method Room Air 08/28/22 05:13 08/27/22 08/27/22 08/28/22 14:59 22:59 06:59 Intake Total 1050 / 1050 Balance 1050 / 1050 Weight last 48 hrs Weight 68.039 kg Physical Exam Narrative: General: No acute distress, AO x2-3, dehydrated with dry parched lips HEENT: PERRLA, pupils bilaterally equal and reactive, pallors not present Chest: Normal vesicular breath sounds, no added sounds, equal good air entry bilaterally CVS: S1-S2 regular, no murmurs, no tachycardia, no gallops, no rubs Abdomen: Soft, nontender, no organomegaly, bowel sounds present Neuro: No focal deficits, no facial deformity, AO x3, power 5/5 in all limbs Extremities: No edema clubbing or cyanosis, restricts movement at her right hip secondary to pain Data 08/27/22 22:56 08/27/22 22:56 Micro: Microbiology 08/27/22 23:53 Blood Culture - Preliminary Blood SPECIMEN COLLECTED 08/27/22 23:48 Blood Culture - Preliminary Blood SPECIMEN COLLECTED Other data: Radiology Impressions Chest X-Ray 08/27/22 23:04 IMPRESSION: 1. Left lower lobe atelectasis versus minimal infiltrate. 2. Emphysematous changes. 3. Biapical pleuroparenchymal fibrosis suspected. Head CT 08/27/22 23:08 IMPRESSION: Negative for intracranial hemorrhage or mass effect. Laboratory Results WBC 5.8 10^3/uL (4.0-10.0) 08/27/22 22:56 RBC 3.72 10^6/uL (4.1-5.3) L 08/27/22 22:56 Hgb 11.7 g/dL (11.5-15.3) 08/27/22 22:56 Hct 34.1 % (37.0-47.0) L 08/27/22 22:56 MCV 91.7 fl (81-99) 08/27/22 22:56 MCH 31.5 pg (28.0-34.0) 08/27/22 22:56 MCHC 34.3 g/dL (30.0-36.0) 08/27/22 22:56 RDW 12.1 % (12.1-15.1) 08/27/22 22:56 Plt Count 278 10^3/cmm (130-400) 08/27/22 22:56 MPV 9.8 fL (7.4-10.4) 08/27/22 22:56 Neut % (Auto) 73.4 % 08/27/22 22:56 Lymph % (Auto) 18.0 % 08/27/22 22:56 [place] % (Auto) 8.0 % 08/27/22 22:56 Eos % (Auto) 0.0 % 08/27/22 22:56 Baso % (Auto) 0.3 % 08/27/22 22:56 Neut # (Auto) 4.24 10^3/uL (1.8-7.7) 08/27/22 22:56 Lymph # (Auto) 1.0 10^3/uL (0.8-4.8) 08/27/22 22:56 [place] # (Auto) 0.5 10^3/uL (0.2-0.9) 08/27/22 22:56 Eos # (Auto) 0.0 10^3/uL (0.0-0.8) 08/27/22 22:56 Baso # (Auto) 0.0 10^3/uL (0.0-0.1) 08/27/22 22:56 Nucleated RBC % (auto) 0 % 08/27/22 22:56 Nucleated RBCs # 0.0 /100WBC 08/27/22 22:56 PT 18.10 SECONDS (12.1-14.9) H 08/27/22 23:40 INR 1.45 (0.8-1.2) H 08/27/22 23:40 Sodium 127 mmol/L (136-145) L 08/27/22 22:56 Potassium 5.1 mmol/L (3.5-5.1) 08/27/22 22:56 Chloride 91 mmol/L (98-107) L 08/27/22 22:56 Carbon Dioxide 24 mmol/L (22-29) 08/27/22 22:56 Anion Gap 17.1 (5-19) 08/27/22 22:56 BUN 17 mg/dL (8-23) 08/27/22 22:56 Creatinine 0.7 mg/dL (0.5-0.9) 08/27/22 22:56 GFR Calculation Not Reportable 08/27/22 22:56 Glucose 119 mg/dL (65-115) H 08/27/22 22:56 Calculated Osmolality 267 mOsm/kg (285-295) L 08/27/22 22:56 Calcium 10.7 mg/dL (8.5-10.5) H 08/27/22 22:56 Total Bilirubin 0.7 mg/dL (0.15-1.2) 08/27/22 22:56 AST 40 U/L (0-32) H 08/27/22 22:56 ALT 39 U/L (0-33) H 08/27/22 22:56 Alkaline Phosphatase 68 U/L (35-105) 08/27/22 22:56 Troponin T Baseline 35 ng/L (0-10) H 08/27/22 22:56 Troponin T 120 Minute 27.96 ng/L (0-10) H 08/28/22 00:44 Delta Troponin T -7.04 ABS# (0-10) L 08/28/22 00:44 Troponin T Hi Sens 6Hr 37.08 ng/L (0-10) H 08/28/22 04:51 Troponin T Hi Sens 6Hr Delta 2.08 ng/L (0-12) 08/28/22 04:51 Total Protein 6.6 g/dL (6.6-8.7) 08/27/22 22:56 Albumin 3.9 g/dL (3.5-5.2) 08/27/22 22:56 Globulin 2.7 g/dL (1.3-4.6) 08/27/22 22:56 TSH 1.63 uIU/mL (0.27-4.20) 08/27/22 22:56 Urine Color Light yellow (Yellow) 08/27/22 23:57 Urine Appearance Hazy (CLEAR) A 08/27/22 23:57 Urine pH 6 (5-7) 08/27/22 23:57 Ur Specific [place] 1.015 (1.005-1.030) 08/27/22 23:57 Urine Protein 1+ (Negative) H 08/27/22 23:57 Urine Glucose (UA) Norm (Normal) 08/27/22 23:57 Urine Ketones Negative (Negative) 08/27/22 23:57 Urine Blood 3+ (Negative) H 08/27/22 23:57 Urine Nitrate Positive (Negative) H 08/27/22 23:57 Urine Bilirubin Neg (Negative) 08/27/22 23: Urine Urobilinogen Norm mg/dL (Negative) 08/27/22 23:57 Ur Leukocyte Esterase Negative (Negative) 08/27/22 23:57 Urine RBC 0-4 /hpf (0-2) H 08/27/22 23:57 Urine WBC None /hpf (0-5) 08/27/22 23:57 Ur Squamous Epith Cells None /hpf (0-5) 08/27/22 23:57 Amorphous Sediment Not Reportable 08/27/22 23:57 Urine Bacteria 3+ /hpf (NONE) H 08/27/22 23:57 A&P Assessment and plan (1) Acute cystitis: Patient presenting with generalized weakness, does not offer any specific complaints apart from a right hip pain UA positive Obtain urine culture Blood culture taken prior to starting antibiotics Start ceftriaxone 1 g IV every 24 hours empirically for acute cystitis and follow cultures. (2) Weakness: Likely secondary to UTI, dehydration Patient is noted to have dry mucous membranes, dry parched lips, clinically appears to be dehydrated Start normal saline 75 cc an hour Monitor for development of hypervolemia. (3) Chronic atrial fibrillation: Patient had 1 episode of A-fib with RVR while in the emergency room, resolved after being given Cardizem 10 mg IV x1 This may be related to dehydration versus acute infection Started home dose of carvedilol now, continue at 12.5 mg p.o. twice daily Continue Eliquis Plan Complaining of right hip pain: Does not recall any recent trauma. Check x-ray of the right hip to evaluate for any fractures or dislocations. Attestations Medical Necessity Statement*: Anticipate greater than 2 midnight stay for management of acute cystitis, IV antibiotics, follow cultures, obtain imaging of the right hip as above Coding Level of Care Code Acute Code for Chg Fwd Diagnoses Acute cystitis N30.00 Weakness R53.1 Chronic atrial fibrillation I48.20
--- NOTE | 2022-08-28 05:51 | XR_ITS ---
WS: [id number] Right hip, 2 views, AP pelvis, 08/28/2022 Clinical Data: evalute for fracture/dislocation Comparison: None. Findings: No fractures or dislocations are seen. The right hip shows no erosion, sclerosis, narrowing, cyst for mation or fragmentation of the right femoral head. There is a right acetabular lip. The left hip is n ormal. The bladder is full. There are injection granulomas in the right buttock.. The soft tissues ar e not remarkable. The adjacent pelvis is normal. XR/XR hip RT 1V wo/w pel [id number] Impression: 1. Minimal osteoarthritis of the right hip. 2. Negative left hip and pelvis. Tonnis classification: grade 1: sclerosis of femoral head and acetabulum or sli ght joint space narrowing or slight lipping at joint margins of the right hip.
[2022-08-28] MEDS: sodium chloride 0.9% 1,000 ML 75 ML IV (06:10)
[2022-08-28] MEDS: carvedilol 12.5 mg Tablet PO ×3 (06:11→17:12)
[2022-08-28] MEDS: HYDROcodone-acetaminophen 10-325 mg Tablet 1 TAB PO ×2 (06:15→17:11)
--- NOTE | 2022-08-28 06:37 | PC.NURSE ---
Pt has had 4 bed changes since 0100 this morning.
[2022-08-28 07:46] LABS: Potassium, Radom Urine 30 mmol/L; Urine Random Chloride 24 mmol/L; Urine Random Sodium 21 mmol/L
[2022-08-28 08:38] LABS: Glucose Point of Care 145 mg/dL (70-110)
[2022-08-28] MEDS: insulin lispro 100 unit/1 mL SUBCUT ×3 (08:40→22:02)
[2022-08-28] MEDS: oxybutynin 5 mg Tablet PO ×2 (10:56→17:11)
[2022-08-28] MEDS: gabapentin 400 mg Capsule PO (10:56)
[2022-08-28] MEDS: pantoprazole DR 40 mg Tablet PO (10:57)
[2022-08-28] MEDS: lisinopril 10 mg Tablet PO (10:57)
[2022-08-28] MEDS: apixaban 5 mg Tablet PO ×2 (10:57→17:11)
[2022-08-28] MEDS: ezetimibe 10 mg Tablet PO (10:57)
[2022-08-28] MEDS: ranolazine (12HR) 500 mg Tablet 1000 MG PO ×2 (10:57→17:11)
[2022-08-28 11:33] LABS: Glucose Point of Care 140 mg/dL (70-110)
--- NOTE | 2022-08-28 13:45 | PM.MISC ---
Miscellaneous Note Note: Hip joint showing osteoarthritis No active pain at the time of my evaluation patient is awake and alert however fatigued and lethargic Nonfocal neuro exam Clinically looks dehydrated Awake and alert Currently on room air Abdomen soft S1, S2 Hypoactive delirium related to UTI and dehydration Continue IV fluids Continue antibiotics Chronic A-fib Continue Eliquis Likely discharge home tomorrow if clinically stable we will request physical therapy We will give her anti-inflammatory medication along opioids
[2022-08-28 16:51] LABS: Glucose Point of Care 306 mg/dL (70-110)
[2022-08-28 21:53] LABS: Glucose Point of Care 169 mg/dL (70-110)
[2022-08-29] VITALS: BP 122/61; PULSE 67; RESP 16; TEMP 36.5; O2SAT 97
[2022-08-29] MEDS: cefTRIAXone 1,000 MG in sodium chloride 0.9% (plus) 50 ML 100 MG IV
[2022-08-29 04:00] VITALS: BP 167/66; PULSE 62; RESP 17; TEMP 36.4; O2SAT 94
[2022-08-29 04:54] LABS: Basophils % 0.3 %; Eosinophils % 1.4 %; Hematocrit 28.5 % (37.0-47.0); Hemoglobin 9.4 g/dL (11.5-15.3); Lymphocytes % 33.8 %; Mean Corpuscular Hemoglobin 30.9 pg (28.0-34.0); Mean Corpuscular Volume 93.8 fl (81-99); Mean Platelet Volume 9.3 fL (7.4-10.4); Monocytes # 0.5 10^3/uL (0.2-0.9); Monocytes % 15.2 %; Neutrophils # 1.39 10^3/uL (1.8-7.7); Neutrophils % 46.9 %; Nucleated Red Blood Cells % 0 %; Platelet Count 241 10^3/cmm (130-400); Red Blood Count 3.04 10^6/uL (4.1-5.3); Red Cell Distribution Width 12.2 % (12.1-15.1)
[2022-08-29 05:19] LABS: Alanine Aminotransferase 34 U/L (0-33); Albumin Level 2.9 g/dL (3.5-5.2); Alkaline Phosphatase 49 U/L (35-105); Anion Gap 14.5 (5-19); Aspartate Amino Transferase 36 U/L (0-32); Blood Urea Nitrogen 21 mg/dL (8-23); Calcium 9.7 mg/dL (8.5-10.5); Carbon Dioxide 22 mmol/L (22-29); Chloride 97 mmol/L (98-107); Globulin 2.6 g/dL (1.3-4.6); Glucose 170 mg/dL (65-115); Osmolality Calculated 275 mOsm/kg (285-295); Potassium 4.5 mmol/L (3.5-5.1); Sodium 129 mmol/L (136-145); Total Bilirubin 0.4 mg/dL (0.15-1.2); Total Protein 5.5 g/dL (6.6-8.7)
[2022-08-29] MEDS: sodium chloride 0.9% 1,000 ML 75 ML IV ×2 (05:27→17:03)
--- NOTE | 2022-08-29 06:24 | PM.DCS ---
Discharge Providers Date of Admission: 08/28/22 00:36 Date of Discharge: August 29, 2022 Attending Provider at Admission: Sandra Armstrong MD Attending Provider at Discharge: Jeane Schumacher MD Primary Care Provider: Riley Bassett CCP Diagnoses at Discharge Discharge Diagnosis (1) Acute cystitis: Status: Acute (2) Weakness: Status: Acute (3) Chronic atrial fibrillation: Status: Acute Reason for Visit Reason for Visit: WEAKNESS Hospital Course Hospital Course 81-year-old female who presented with hypoactive delirium related to dehydration. There was concern for UTI however patient denied signs of UTI no significant pyuria noted other than nitrites in her urine, she was given IV fluids and antibiotics, physical therapy was requested. Patient would benefit from home health services/home exercise program. Patient tested positive for COVID, she did not require oxygen, she was afebrile, there was plan to discharge her home on 08/31 however she ended up leaving on 08/30 because she was worried about HER ride on Wednesday Physical Exam Narrative: Awake and alert GCS 15 Nonfocal neuro exam GCS 15 Currently on room air Pleasant and cooperative Fatigued and lethargic Discharge Data Studies Completed and Pending Completed Studies During Hospitalization Category Date Time Status CT head wo con* [id number] Stat Cat Scan 08/27/22 23:08 Completed XR chest 1V portable [id number] Stat Exams 08/27/22 23:04 Completed XR hip RT 1V wo/w pel [id number] Routine Exams 08/28/22 05:51 Completed Pending at discharge Category Date Time Status Blood Culture Stat Lab 08/27/22 23:53 Results C DIFF [Clostridioides Difficile PCR] Routine Lab 08/28/22 05:52 Uncollected Urine Culture Stat Lab 08/27/22 23:57 Received Radiology Impressions Chest X-Ray 08/27/22 23:04 IMPRESSION: 1. Left lower lobe atelectasis versus minimal infiltrate. 2. Emphysematous changes. 3. Biapical pleuroparenchymal fibrosis suspected. Head CT 08/27/22 23:08 IMPRESSION: Negative for intracranial hemorrhage or mass effect. Hip X-Ray 08/28/22 05:51 Impression: 1. Minimal osteoarthritis of the right hip. 2. Negative left hip and pelvis. Tonnis classification: grade 1: sclerosis of femoral head and acetabulum or slight joint space narrowing or slight lipping at joint margins of the right hip. Laboratory Results WBC 3.0 10^3/uL (4.0-10.0) L 08/29/22 04:29 RBC 3.04 10^6/uL (4.1-5.3) L 08/29/22 04:29 Hgb 9.4 g/dL (11.5-15.3) L 08/29/22 04:29 Hct 28.5 % (37.0-47.0) L 08/29/22 04:29 MCV 93.8 fl (81-99) 08/29/22 04:29 MCH 30.9 pg (28.0-34.0) 08/29/22 04: MCHC 33.0 g/dL (30.0-36.0) 08/29/22 04: RDW 12.2 % (12.1-15.1) 08/29/22 04:29 Plt Count 241 10^3/cmm (130-400) 08/29/22 04:29 MPV 9.3 fL (7.4-10.4) 08/29/22 04:29 Neut % (Auto) 46.9 % 08/29/22 04:29 Lymph % (Auto) 33.8 % 08/29/22 04:29 [place] % (Auto) 15.2 % 08/29/22 04:29 Eos % (Auto) 1.4 % 08/29/22 04:29 Baso % (Auto) 0.3 % 08/29/22 04:29 Neut # (Auto) 1.39 10^3/uL (1.8-7.7) L 08/29/22 04:29 Lymph # (Auto) 1.0 10^3/uL (0.8-4.8) 08/29/22 04:29 [place] # (Auto) 0.5 10^3/uL (0.2-0.9) 08/29/22 04:29 Eos # (Auto) 0.0 10^3/uL (0.0-0.8) 08/29/22 04:29 Baso # (Auto) 0.0 10^3/uL (0.0-0.1) 08/29/22 04:29 Nucleated RBC % (auto) 0 % 08/29/22 04:29 Nucleated RBCs # 0.0 /100WBC 08/29/22 04:29 PT 18.10 SECONDS (12.1-14.9) H 08/27/22 23:40 INR 1.45 (0.8-1.2) H 08/27/22 23:40 Sodium 129 mmol/L (136-145) L 08/29/22 04:29 Potassium 4.5 mmol/L (3.5-5.1) 08/29/22 04:29 Chloride 97 mmol/L (98-107) L 08/29/22 04:29 Carbon Dioxide 22 mmol/L (22-29) 08/29/22 04:29 Anion Gap 14.5 (5-19) 08/29/22 04:29 BUN 21 mg/dL (8-23) 08/29/22 04:29 Creatinine 0.7 mg/dL (0.5-0.9) 08/29/22 04:29 GFR Calculation Not Reportable 08/29/22 04:29 Glucose 170 mg/dL (65-115) H 08/29/22 04:29 POC Glucose 169 mg/dL (70-110) H 08/28/22 21:48 Calculated Osmolality 275 mOsm/kg (285-295) L 08/29/22 04:29 Calcium 9.7 mg/dL (8.5-10.5) 08/29/22 04:29 Total Bilirubin 0.4 mg/dL (0.15-1.2) 08/29/22 04:29 AST 36 U/L (0-32) H 08/29/22 04:29 ALT 34 U/L (0-33) H 08/29/22 04:29 Alkaline Phosphatase 49 U/L (35-105) 08/29/22 04:29 Troponin T Baseline 35 ng/L (0-10) H 08/27/22 22:56 Troponin T 120 Minute 27.96 ng/L (0-10) H 08/28/22 00:44 Delta Troponin T -7.04 ABS# (0-10) L 08/28/22 00:44 Troponin T Hi Sens 6Hr 37.08 ng/L (0-10) H 08/28/22 04:51 Troponin T Hi Sens 6Hr Delta 2.08 ng/L (0-12) 08/28/22 04:51 Total Protein 5.5 g/dL (6.6-8.7) L 08/29/22 04:29 Albumin 2.9 g/dL (3.5-5.2) L 08/29/22 04:29 Globulin 2.6 g/dL (1.3-4.6) 08/29/22 04:29 TSH 1.63 uIU/mL (0.27-4.20) 08/27/22 22:56 Urine Color Light yellow (Yellow) 08/27/22 23:57 Urine Appearance Hazy (CLEAR) A 08/27/22 23:57 Urine pH 6 (5-7) 08/27/22 23:57 Ur Specific [place] 1.015 (1.005-1.030) 08/27/22 23:57 Urine Protein 1+ (Negative) H 08/27/22 23:57 Urine Glucose (UA) Norm (Normal) 08/27/22 23:57 Urine Ketones Negative (Negative) 08/27/22 23:57 Urine Blood 3+ (Negative) H 08/27/22 23:57 Urine Nitrate Positive (Negative) H 08/27/22 23:57 Urine Bilirubin Neg (Negative) 08/27/22 23:57 Urine Urobilinogen Norm mg/dL (Negative) 08/27/22 23:57 Ur Leukocyte Esterase Negative (Negative) 08/27/22 23:57 Urine RBC 0-4 /hpf (0-2) H 08/27/22 23:57 Urine WBC None /hpf (0-5) 08/27/22 23:57 Ur Squamous Epith Cells None /hpf (0-5) 08/27/22 23:57 Amorphous Sediment Not Reportable 08/27/22 23:57 Urine Bacteria 3+ /hpf (NONE) H 08/27/22 23:57 Ur Random Sodium 21 mmol/L 08/27/22 23:57 Ur Random Potassium 30 mmol/L 08/27/22 23:57 Ur Random Chloride 24 mmol/L 08/27/22 23:57 Vitals Last Vital Signs Temp 97.5 F L 08/29/22 04:00 Pulse 62 08/29/22 04:00 Resp 17 08/29/22 04:00 BP 167/66 08/29/22 04:00 Pulse Ox 94 08/29/22 04:00 O2 Del Method Room Air 08/29/22 04:00 Discharge Plan Discharge Patient Disposition: Left Against Medical Advice Condition: Stable Prescriptions: No Action docusate sodium [Dulcolax Stool Softener (dss)] 100 mg capsule 100 mg PO DAILY PRN (Reason: Constipation) Complete Multivitamin Tablet 1 tab PO DAILY ergocalciferol (vitamin D2) 1,250 mcg (50,000 unit) capsule See Rx Instructions .ROUTE .COMPLEX Qty: 13 2RF Dose Instruction: TAKE 1 CAPSULE WEEKLY Rx Instructions: TAKE 1 CAPSULE WEEKLY ON FRIDAYS hydrocodone-acetaminophen 10-325 mg tablet 1 tab PO BID PRN (Reason: pain) 30 Days Qty: 60 0RF (DME) Diabetic shoes with 3 pairs of inserts See Rx Instructions .Route .MEDSUPPLY Qty: 1 0RF Rx Instructions: As directed J P [employer] O Trulicity 1.5 mg/0.5 mL pen injector 1.5 mg SUBCUT .q7days Qty: 7.5 3RF Rx Instructions: On Fridays ranolazine [Ranexa] 1,000 mg tablet extended release 12 hr 1,000 mg PO BID Qty: 180 3RF (DME) True Metrix Glucose Test Strip Strip See Rx Instructions .Route Qty: 100 2RF Rx Instructions: USE ONE STRIP TO CHECK BLOOD SUGAR ONCE DAILY (DME) lancets [BD Ultra Fine Lancets] 33 gauge misc See Rx Instructions .Route Qty: 100 2RF Rx Instructions: USE ONE LANCET TO CHECK BLOOD SUGAR ONCE DAILY apixaban 5 mg tablet 5 mg PO BID Qty: 180 3RF oxybutynin chloride 5 mg tablet 5 mg PO BID 90 Days Qty: 180 3RF Rx Instructions: TAKE 1 TABLET TWICE A DAY gabapentin 400 mg capsule 400 mg PO DAILY Qty: 90 2RF glipizide 5 mg tablet 7.5 mg PO BID 90 Days Qty: 270 1RF lisinopril 10 mg tablet 10 mg PO DAILY Qty: 60 0RF ezetimibe [Zetia] 10 mg tablet 10 mg PO DAILY Qty: 30 0RF Rx Instructions: MUST have follow-up for further refills carvedilol 12.5 mg tablet 12.5 mg PO BID Qty: 60 0RF Rx Instructions: MUST have follow-up for further refills esomeprazole magnesium 40 mg capsule,delayed release(DR/EC) See Rx Instructions .ROUTE .COMPLEX Qty: 90 1RF Dose Instruction: TAKE 1 CAPSULE DAILY Rx Instructions: TAKE 1 CAPSULE DAILY Referrals: Riley Bassett [Primary Care Provider] - Patient Instructions: Opioid Safety Discharge Attestations Time Spent in Discharge Care*: less than 30 min Quality Metrics Clinical Quality Measures [ No reported AMI, CVA or VTE this stay] Coding Level of Care Code Acute Code for Chg Fwd Diagnoses Acute cystitis N30.00 Weakness R53.1 Chronic atrial fibrillation I48.20
[2022-08-29 07:57] VITALS: BP 178/50; PULSE 69; RESP 16; TEMP 36.3; O2SAT 98
[2022-08-29 08:07] LABS: Glucose Point of Care 178 mg/dL (70-110)
[2022-08-29 08:51] LABS: Sodium 128 mmol/L (136-145)
[2022-08-29] MEDS: carvedilol 12.5 mg Tablet PO ×2 (09:04→17:02)
[2022-08-29] MEDS: gabapentin 400 mg Capsule PO (09:04)
[2022-08-29] MEDS: lisinopril 10 mg Tablet PO (09:04)
[2022-08-29] MEDS: pantoprazole DR 40 mg Tablet PO (09:04)
[2022-08-29] MEDS: insulin lispro 100 unit/1 mL SUBCUT ×4 (09:04→22:01)
[2022-08-29] MEDS: ezetimibe 10 mg Tablet PO (09:04)
[2022-08-29] MEDS: oxybutynin 5 mg Tablet PO ×2 (09:04→17:02)
[2022-08-29] MEDS: ranolazine (12HR) 500 mg Tablet 1000 MG PO ×2 (09:04→17:02)
[2022-08-29] MEDS: apixaban 5 mg Tablet PO ×2 (09:04→17:02)
--- NOTE | 2022-08-29 09:49 | PM.PN ---
Subjective Subjective: Sodium 129 which is sodium 129 Patient feeling better today Plan to discharge her tomorrow Vitals/I&O/Wt Last Vital Signs Temp 97.3 F L 08/29/22 07:57 Pulse 69 08/29/22 07:57 Resp 16 08/29/22 07:57 BP 178/50 08/29/22 07:57 Pulse Ox 98 08/29/22 07:57 O2 Del Method Room Air 08/29/22 04:00 08/28/22 08/29/22 08/29/22 22:59 06:59 14:59 Intake Total 236 / 471 815 / 1286 Balance 236 / 471 815 / 1286 Weight last 48 hrs Weight 68.039 kg Physical Exam Narrative: Awake and alert Abdomen soft dehydration improving Currently doing well on room air Eating breakfast Nonfocal neuro exam GCS 15 Data 08/29/22 04:29 08/29/22 08:24 Micro: Microbiology 08/27/22 23:53 Blood Culture - Preliminary Blood NEGATIVE TO DATE 08/27/22 23:48 Blood Culture - Preliminary Blood NEGATIVE TO DATE A&P Assessment and plan (1) Acute cystitis: (2) Weakness: (3) Diastolic dysfunction: (4) Chronic atrial fibrillation: (5) Chronic hyponatremia: Plan UTI: Continue antibiotics Chronic hyponatremia 129 Generalized weakness improving Eating breakfast Plan to discharge tomorrow appreciate PT recommendations Discharge home Continue normal saline at 75, per hour patient clinically is dry Attestations Medical Necessity Statement*: Discharge tomorrow Diagnoses Acute cystitis N30.00 Weakness R53.1 Diastolic dysfunction I51.89 Chronic atrial fibrillation I48.20 Chronic hyponatremia E87.1
[2022-08-29 11:31] LABS: Glucose Point of Care 251 mg/dL (70-110)
[2022-08-29 11:35] VITALS: BP 151/58; PULSE 72; RESP 17; TEMP 36.8; O2SAT 97
[2022-08-29 11:56] LABS: Adenovirus Not Detected (NOT DETECT); Chlamydia Pneumoniae Not Detected (NOT DETECT); Coronavirus 229E,HKU1,NL63,OC4 Not Detected (NOT DETECT); Human Metapneumovirus Not Detected (NOT DETECT); Human Rhinovirus/Enterovirus Not Detected (NOT DETECT); Influenza A Not Detected (NOT DETECT); Influenza A H1 Not Detected (NOT DETECT); Influenza A H1-2009 Not Detected (NOT DETECT); Influenza A H3 Not Detected (NOT DETECT); Influenza B Not Detected (NOT DETECT); Mycoplasma Pneumoniae Not Detected (NOT DETECT); Parainfluenza Virus Type 1 Not Detected (NOT DETECT); Parainfluenza Virus Type 2 Not Detected (NOT DETECT); Parainfluenza Virus Type 3 Not Detected (NOT DETECT); Parainfluenza Virus Type 4 Not Detected (NOT DETECT); Respiratory Syncytial Virus A Not Detected (NOT DETECT); Respiratory Syncytial Virus B Not Detected (NOT DETECT)
[2022-08-29 12:05] LABS: SARS-COV-2 Detected (NOT DETECT)
[2022-08-29 14:33] LABS: Sodium 128 mmol/L (136-145)
[2022-08-29 16:00] VITALS: BP 137/60; PULSE 73; RESP 17; TEMP 36.5; O2SAT 95
[2022-08-29 16:42] LABS: Glucose Point of Care 192 mg/dL (70-110)
[2022-08-29 20:00] VITALS: BP 168/78; PULSE 69; RESP 16; O2SAT 96
[2022-08-29 22:11] LABS: Glucose Point of Care 151 mg/dL (70-110)
[2022-08-30] VITALS: BP 174/72; BP 175/76; PULSE 63; RESP 16; TEMP 36.9; O2SAT 94
[2022-08-30] MEDS: cefTRIAXone 1,000 MG in sodium chloride 0.9% (plus) 50 ML 100 MG IV (00:17)
[2022-08-30] MEDS: acetaminophen 325 mg Tablet 650 MG PO ×2 (00:18→13:00)
[2022-08-30 04:00] VITALS: BP 175/69; PULSE 64; RESP 15; TEMP 36.8; O2SAT 96
--- NOTE | 2022-08-30 06:03 | P.PN_ITS ---
Subjective Subjective: COVID PCR positive She is not requiring oxygen Isolation for now I would recommend quarantine for 5 days from onset of symptoms Vitals/I&O/Wt Last Vital Signs Temp 98.2 F 08/30/22 04:00 Pulse 64 08/30/22 04:00 Resp 15 08/30/22 04:00 BP 175/69 08/30/22 04:00 Pulse Ox 96 08/30/22 04:00 O2 Del Method Room Air 08/30/22 04:00 08/29/22 08/29/22 08/30/22 14:59 22:59 06:59 Intake Total 600 / 600 1110 / 1710 50 / 1760 Balance 600 / 600 1110 / 1710 50 / 1760 Physical Exam Narrative: Signs of dehydration improving Poor appetite Awake and alert nonfocal neuro exam GCS 15 Currently on room air S1, S2 Abdomen soft Data 08/29/22 04:29 08/29/22 13:59 Micro: Microbiology 08/27/22 23:57 Urine Culture - Preliminary Urine,Clean Catch Gram Negative Rods A&P Assessment and plan (1) Chronic hyponatremia: (2) Weakness: (3) Mixed incontinence: (4) Chronic atrial fibrillation: (5) COVID: (6) Atrial fibrillation: Qualifiers: Atrial fibrillation type: unspecified chronic Qualified Code(s): I48.20 - Chronic atrial fibrillation, unspecified (7) Diabetes mellitus, type II: Qualifiers: Diabetes mellitus sales representative adding machines insulin use: without sales representative adding machines use Diabetes mellitus complication status: with neurologic complications Diabetes mellitus complication detail: with polyneuropathy Qualified Code(s): E11.42 - Type 2 diabetes mellitus with diabetic polyneuropathy Plan Chronic hyponatremia: Sodium around baseline Clinically dehydrated Discontinue IV fluids No COVID PCR positive No active fever or requirement of oxygen I would only give her Decadron for now No need of remdesivir add vitamin C and zinc A-fib without RVR Continue anticoagulating agent Type 2 diabetes With Decadron monitor her sugar Full code Consistent carb diet Plan to discharge her on Wednesday if feeling better Patient lives alone at home Continue physical therapy for now for her fatigue and lethargy, PT recommended home exercise program Patient not experiencing any UTI symptoms, UA is also not very convincing, I will discontinue ceftriaxone, UTI ruled out Her weakness and lethargy is related to COVID-19 Attestations Medical Necessity Statement*: Continue medical management Diagnoses Chronic hyponatremia E87.1 Weakness R53.1 Mixed incontinence N39.46 Chronic atrial fibrillation I48.20 COVID U07.1 Atrial fibrillation I48.20 Atrial fibrillation type: unspecified chronic Diabetes mellitus, type II E11.42 Diabetes mellitus sales representative adding machines insulin use: without intermediate use Diabetes mellitus complication status: with neurologic complications Diabetes mellitus complication detail: with polyneuropathy
[2022-08-30 06:42] LABS: Glucose Point of Care 147 mg/dL (70-110)
[2022-08-30 07:16] LABS: Blood Urea Nitrogen 14 mg/dL (8-23); Calcium 9.4 mg/dL (8.5-10.5); Carbon Dioxide 19 mmol/L (22-29); Chloride 106 mmol/L (98-107); Glucose 133 mg/dL (65-115); Osmolality Calculated 278 mOsm/kg (285-295); Sodium 133 mmol/L (136-145)
[2022-08-30 07:21] LABS: Anion Gap 13.2 (5-19); Potassium 5.2 mmol/L (3.5-5.1)
[2022-08-30 08:00] VITALS: BP 171/62; PULSE 60; RESP 18; TEMP 36.6; O2SAT 95
[2022-08-30 08:02] VITALS: PULSE 68; RESP 16; O2SAT 96
[2022-08-30] MEDS: lisinopril 10 mg Tablet PO (08:26)
[2022-08-30] MEDS: apixaban 5 mg Tablet PO (08:26)
[2022-08-30] MEDS: ascorbic acid 500 mg Tablet PO (08:26)
[2022-08-30] MEDS: zinc gluconate 50 mg Tablet PO (08:26)
[2022-08-30] MEDS: pantoprazole DR 40 mg Tablet PO (08:26)
[2022-08-30] MEDS: insulin lispro 100 unit/1 mL SUBCUT ×2 (08:26→12:59)
[2022-08-30] MEDS: oxybutynin 5 mg Tablet PO (08:26)
[2022-08-30] MEDS: carvedilol 12.5 mg Tablet PO (08:26)
[2022-08-30] MEDS: ezetimibe 10 mg Tablet PO (08:26)
[2022-08-30] MEDS: ranolazine (12HR) 500 mg Tablet 1000 MG PO (08:26)
[2022-08-30] MEDS: dexamethasone 4 mg Tablet 6 MG PO (08:26)
[2022-08-30] MEDS: gabapentin 400 mg Capsule PO (08:26)
[2022-08-30 11:22] LABS: Glucose Point of Care 201 mg/dL (70-110)
[2022-08-30 12:00] VITALS: BP 194/72; PULSE 66; RESP 17; TEMP 36.4; O2SAT 93
[2022-08-30 16:35] VITALS: BP 194/72; PULSE 66; RESP 17; TEMP 36.4; O2SAT 93
--- NOTE | 2022-08-30 21:04 | PM.DCS ---
Discharge Providers Date of Admission: 08/28/22 00:36 Date of Discharge: August 30, 2022 Attending Provider at Admission: Sandra Armstrong MD Attending Provider at Discharge: Jeane Schumacher MD Primary Care Provider: Riley Bassett CCP Diagnoses at Discharge Discharge Diagnosis (1) Acute cystitis: Status: Acute (2) Weakness: Status: Acute (3) Chronic atrial fibrillation: Status: Acute Reason for Visit Reason for Visit: WEAKNESS Hospital Course Hospital Course 81-year-old female who presented with hypoactive delirium related to dehydration. There was concern for UTI however patient denied signs of UTI no significant pyuria noted other than nitrites in her urine, she was given IV fluids and antibiotics, physical therapy was requested. Patient would benefit from home health services/home exercise program. Patient tested positive for COVID, she did not require oxygen, she was afebrile, there was plan to discharge her home on 08/31 however she ended up leaving on 08/30 because she was worried about HER ride on Wednesday Physical Exam Narrative: Awake and alert GCS 15 Nonfocal neuro exam GCS 15 Currently on room air Pleasant and cooperative Fatigued and lethargic Discharge Data Studies Completed and Pending Completed Studies During Hospitalization Category Date Time Status CT head wo con* [id number] Stat Cat Scan 08/27/22 23:08 Completed XR chest 1V portable [id number] Stat Exams 08/27/22 23:04 Completed XR hip RT 1V wo/w pel [id number] Routine Exams 08/28/22 05:51 Completed Radiology Impressions Chest X-Ray 08/27/22 23:04 IMPRESSION: 1. Left lower lobe atelectasis versus minimal infiltrate. 2. Emphysematous changes. 3. Biapical pleuroparenchymal fibrosis suspected. Head CT 08/27/22 23:08 IMPRESSION: Negative for intracranial hemorrhage or mass effect. Hip X-Ray 08/28/22 05:51 Impression: 1. Minimal osteoarthritis of the right hip. 2. Negative left hip and pelvis. [place] classification: grade 1: sclerosis of femoral head and acetabulum or slight joint space narrowing or slight lipping at joint margins of the right hip. Laboratory Results WBC 3.0 10^3/uL (4.0-10.0) L 08/29/22 04:29 RBC 3.04 10^6/uL (4.1-5.3) L 08/29/22 04:29 Hgb 9.4 g/dL (11.5-15.3) L 08/29/22 04:29 Hct 28.5 % (37.0-47.0) L 08/29/22 04:29 MCV 93.8 fl (81-99) 08/29/22 04:29 MCH 30.9 pg (28.0-34.0) 08/29/22 04:29 MCHC 33.0 g/dL (30.0-36.0) 08/29/22 04:29 RDW 12.2 % (12.1-15.1) 08/29/22 04:29 Plt Count 241 10^3/cmm (130-400) 08/29/22 04:29 MPV 9.3 fL (7.4-10.4) 08/29/22 04:29 Neut % (Auto) 46.9 % 08/29/22 04:29 Lymph % (Auto) 33.8 % 08/29/22 04:29 [place] % (Auto) 15.2 % 08/29/22 04:29 Eos % (Auto) 1.4 % 08/29/22 04:29 Baso % (Auto) 0.3 % 08/29/22 04:29 Neut # (Auto) 1.39 10^3/uL (1.8-7.7) L 08/29/22 04:29 Lymph # (Auto) 1.0 10^3/uL (0.8-4.8) 08/29/22 04:29 [place] # (Auto) 0.5 10^3/uL (0.2-0.9) 08/29/22 04:29 Eos # (Auto) 0.0 10^3/uL (0.0-0.8) 08/29/22 04:29 Baso # (Auto) 0.0 10^3/uL (0.0-0.1) 08/29/22 04:29 Nucleated RBC % (auto) 0 % 08/29/22 04:29 Nucleated RBCs # 0.0 /100WBC 08/29/22 04:29 PT 18.10 SECONDS (12.1-14.9) H 08/27/22 23:40 INR 1.45 (0.8-1.2) H 08/27/22 23:40 Sodium 133 mmol/L (136-145) L 08/30/22 06:03 Potassium 5.2 mmol/L (3.5-5.1) H 08/30/22 06:03 Chloride 106 mmol/L (98-107) 08/30/22 06:03 Carbon Dioxide 19 mmol/L (22-29) L 08/30/22 06:03 Anion Gap 13.2 (5-19) 08/30/22 06:03 BUN 14 mg/dL (8-23) 08/30/22 06:03 Creatinine 0.6 mg/dL (0.5-0.9) 08/30/22 06:03 GFR Calculation Not Reportable 08/30/22 06:03 Glucose 133 mg/dL (65-115) H 08/30/22 06:03 POC Glucose 201 mg/dL (70-110) H 08/30/22 11:13 Calculated Osmolality 278 mOsm/kg (285-295) L 08/30/22 06:03 Calcium 9.4 mg/dL (8.5-10.5) 08/30/22 06:03 Total Bilirubin 0.4 mg/dL (0.15-1.2) 08/29/22 04:29 AST 36 U/L (0-32) H 08/29/22 04:29 ALT 34 U/L (0-33) H 08/29/22 04:29 Alkaline Phosphatase 49 U/L (35-105) 08/29/22 04:29 Troponin T Baseline 35 ng/L (0-10) H 08/27/22 22:56 Troponin T 120 Minute 27.96 ng/L (0-10) H 08/28/22 00:44 Delta Troponin T -7.04 ABS# (0-10) L 08/28/22 00:44 Troponin T Hi Sens 6Hr 37.08 ng/L (0-10) H 08/28/22 04:51 Troponin T Hi Sens 6Hr Delta 2.08 ng/L (0-12) 08/28/22 04:51 Total Protein 5.5 g/dL (6.6-8.7) L 08/29/22 04:29 Albumin 2.9 g/dL (3.5-5.2) L 08/29/22 04:29 Globulin 2.6 g/dL (1.3-4.6) 08/29/22 04:29 TSH 1.63 uIU/mL (0.27-4.20) 08/27/22 22:56 Urine Color Light yellow (Yellow) 08/27/22 23:57 Urine Appearance Hazy (CLEAR) A 08/27/22 23:57 Urine pH 6 (5-7) 08/27/22 23:57 Ur Specific [place] 1.015 (1.005-1.030) 08/27/22 23:57 Urine Protein 1+ (Negative) H 08/27/22 23:57 Urine Glucose (UA) Norm (Normal) 08/27/22 23:57 Urine Ketones Negative (Negative) 08/27/22 23:57 Urine Blood 3+ (Negative) H 08/27/22 23:57 Urine Nitrate Positive (Negative) H 08/27/22 23:57 Urine Bilirubin Neg (Negative) 08/27/22 23:57 Urine Urobilinogen Norm mg/dL (Negative) 08/27/22 23:57 Ur Leukocyte Esterase Negative (Negative) 08/27/22 23:57 Urine RBC 0-4 /hpf (0-2) H 08/27/22 23:57 Urine WBC None /hpf (0-5) 08/27/22 23:57 Ur Squamous Epith Cells None /hpf (0-5) 08/27/22 23:57 Amorphous Sediment Not Reportable 08/27/22 23:57 Urine Bacteria 3+ /hpf (NONE) H 08/27/22 23:57 Ur Random Sodium 21 mmol/L 08/27/22 23:57 Ur Random Potassium 30 mmol/L 08/27/22 23:57 Ur Random Chloride 24 mmol/L 08/27/22 23:57 Coronavirus 229E (PCR) Not detected (NOT DETECT) 08/29/22 10:00 SARS-CoV-2 (PCR) Detected (NOT DETECT) A 08/29/22 10:00 Vitals Last Vital Signs Temp 97.6 F 08/30/22 16:35 Pulse 66 08/30/22 16:35 Resp 17 08/30/22 16:35 BP 194/72 08/30/22 16:35 Pulse Ox 93 08/30/22 16:35 O2 Del Method Room Air 08/30/22 08:02 Discharge Plan Discharge Patient Disposition: Home Health Service Condition: Stable Prescriptions: No Action docusate sodium [Dulcolax Stool Softener (dss)] 100 mg capsule 100 mg PO DAILY PRN (Reason: Constipation) Complete Multivitamin Tablet 1 tab PO DAILY ergocalciferol (vitamin D2) 1,250 mcg (50,000 unit) capsule See Rx Instructions .ROUTE .COMPLEX Qty: 13 2RF Dose Instruction: TAKE 1 CAPSULE WEEKLY Rx Instructions: TAKE 1 CAPSULE WEEKLY ON FRIDAYS hydrocodone-acetaminophen 10-325 mg tablet 1 tab PO BID PRN (Reason: pain) 30 Days Qty: 60 0RF (DME) Diabetic shoes with 3 pairs of inserts See Rx Instructions .Route .MEDSUPPLY Qty: 1 0RF Rx Instructions: As directed J P [employer] O Trulicity 1.5 mg/0.5 mL pen injector 1.5 mg SUBCUT .q7days Qty: 7.5 3RF Rx Instructions: On Fridays ranolazine [Ranexa] 1,000 mg tablet extended release 12 hr 1,000 mg PO BID Qty: 180 3RF (DME) True Metrix Glucose Test Strip Strip See Rx Instructions .Route Qty: 100 2RF Rx Instructions: USE ONE STRIP TO CHECK BLOOD SUGAR ONCE DAILY (DME) lancets [BD Ultra Fine Lancets] 33 gauge misc See Rx Instructions .Route Qty: 100 2RF Rx Instructions: USE ONE LANCET TO CHECK BLOOD SUGAR ONCE DAILY apixaban 5 mg tablet 5 mg PO BID Qty: 180 3RF oxybutynin chloride 5 mg tablet 5 mg PO BID 90 Days Qty: 180 3RF Rx Instructions: TAKE 1 TABLET TWICE A DAY gabapentin 400 mg capsule 400 mg PO DAILY Qty: 90 2RF glipizide 5 mg tablet 7.5 mg PO BID 90 Days Qty: 270 1RF lisinopril 10 mg tablet 10 mg PO DAILY Qty: 60 0RF ezetimibe [Zetia] 10 mg tablet 10 mg PO DAILY Qty: 30 0RF Rx Instructions: MUST have follow-up for further refills carvedilol 12.5 mg tablet 12.5 mg PO BID Qty: 60 0RF Rx Instructions: MUST have follow-up for further refills esomeprazole magnesium 40 mg capsule,delayed release(DR/EC) See Rx Instructions .ROUTE .COMPLEX Qty: 90 1RF Dose Instruction: TAKE 1 CAPSULE DAILY Rx Instructions: TAKE 1 CAPSULE DAILY Referrals: Riley Bassett [Primary Care Provider] - Patient Instructions: Opioid Safety Discharge Attestations Time Spent in Discharge Care*: greater than 30 min Quality Metrics Clinical Quality Measures [ No reported AMI, CVA or VTE this stay] Coding Level of Care Code Acute Code for Chg Fwd Diagnoses Acute cystitis N30.00 Weakness R53.1 Chronic atrial fibrillation I48.20
== END 2022-08-30 16:36 | disposition home health service (06) | DRG 640 ==
LOC: ER 08-28 00:37 → ER IP 08-28 00:58 → MEDSURG 08-28 09:08
PROVIDERS: Admitting Provider Student in an Organized Health Care Education/Training Program; Emergency Provider Emergency Medicine; Visit Provider Internal Medicine
DX: E86.0 Dehydration (principal); U07.1 COVID-19; I48.20 Chronic atrial fibrillation, unspecified; F05 Delirium due to known physiological condition; E87.1 Hypo-osmolality and hyponatremia; N39.46 Mixed incontinence; E11.42 Type 2 diabetes mellitus with diabetic polyneuropathy; Z85.3 Personal history of malignant neoplasm of breast; I25.10 Atherosclerotic heart disease of native coronary artery without angina pectoris; K59.04 Chronic idiopathic constipation; Z86.73 Personal history of transient ischemic attack (TIA), and cerebral infarction without residual deficits; M51.36 Other intervertebral disc degeneration, lumbar region; I10 Essential (primary) hypertension; Z87.891 Personal history of nicotine dependence
CPT/HCPCS: 36415; 36416; 70450; 71045; 73501; 80048; 80053; 81001; 82436; 82962; 84133; 84295; 84300; 84443; 84484; 85025; 85610; 87040; 87077; 87086; 87186; 87635; 93005; 96361; 96372; 96374; 96375; 97161; 97530; 99285; J0360; J0696; J1815; J3490; J7030; J8540

== ENCOUNTER 2022-09-08 09:49 | Outpatient (CLI) | payer MEDICARE, OTHER, SELFPAY ==
--- NOTE | 2022-09-08 09:58 | MM_ITS ---
WS: [id number] DIAGNOSTIC BILATERAL DIGITAL BREAST TOMOSYNTHESIS MAMMOGRAPHY WITH CAD HISTORY: ANNUAL - [facility] COMPARISON: 01/08/2021, 12/26/2019 TECHNIQUE: Bilateral craniocaudad, mediolateral oblique, and mediolateral views are submitted with to mosynthesis and SM. Computer aided detection utilized. Breast composition: There are scattered areas of fibroglandular density. Postsurgical changes LEFT br east. Mild volume loss. Mild increased soft tissue along the surgical site. Linear dimension may be d ue to difficulty obtaining good compression from instability of the patient. This is not masslike but more scarlike. Biopsy marker upper outer quadrant of the RIGHT breast. Benign bilateral coarse calci fications. MM/[place] [id number] IMPRESSION: BI-RADS: 2-Benign FOLLOW UP: 1 Year Follow-up
== END 2022-09-08 09:50 | disposition home or self-care (01) ==
PROVIDERS: Visit Provider Family Medicine
DX: Z85.3 Personal history of malignant neoplasm of breast (principal); Z98.890 Other specified postprocedural states
CPT/HCPCS: 77062; G0279

== ENCOUNTER 2022-09-28 14:06 | Emergency (ER) | payer MEDICARE, OTHER, SELFPAY ==
[2022-09-28] VITALS (8 sets, daily range): BP systolic 101–233; BP diastolic 66–99; PULSE 72–88; RESP 15–20; TEMP 37.3; O2SAT 90–98
--- NOTE | 2022-09-28 14:48 | CTR_ITS ---
PROCEDURE INFORMATION: Exam: CT Cervical Spine Without Contrast Exam date and time: 09/28/2022 2:59 PM Age: 82 years old Clinical indication: Injury or trauma; Fall; Blunt trauma; Additional info: Neck pain TECHNIQUE: Imaging protocol: Computed tomography of the cervical spine without contrast. Radiation optimization: All CT scans at this facility use at least one of these dose optimization techniques: automated exposure control; mA and/or kV adjustment per patient size (includes targeted exams where dose is matched to clinical indication); or iterative reconstruction. REPORTING DATA: Count of CT and Cardiac NM exams in prior 12 months: This patient has received 8 known CTs and 0 known cardiac nuclear medicine studies in the 12 months prior to the current study. COMPARISON: CT cervical spin wo con* [id number] 10/11/2021 4:50 PM RADIATION DOSE METRICS: Total DLP (mGy-cm): 158.47 FINDINGS: Bones/joints: Cervical vertebral body heights appear maintained. Diffuse spondylotic change noted involving cervical vertebra and facets, along with disc space narrowing or degenerative disc disease C4-5 and C5-6 levels particularly. Sagittal images demonstrate straightening to slight reversal of the normal cervical curvature. Alignment is otherwise unremarkable. Mild encroachment of the anterior spinal canal noted C4-5 C5-6 C6-7 levels secondary to spondylotic change, along with multilevel neural foraminal encroachment. No fracture or subluxation. Lungs: Visualized lung apices demonstrate emphysematous change. Soft tissues: Paravertebral soft tissues show no acute abnormality. Carotid vascular calcification noted. CT/CT cervical spin wo con* [id number] IMPRESSION: 1. Spondylotic change with component of degenerative disc disease as noted above. 2. No fracture or subluxation. 3. Loss of the normal cervical curvature on the sagittal images which can be associated with muscle spasm or tension.
--- NOTE | 2022-09-28 14:48 | CTR_ITS ---
PROCEDURE INFORMATION: Exam: CT Head Without Contrast Exam date and time: 09/28/2022 2:56 PM Age: 82 years old Clinical indication: Injury or trauma; Fall; Blunt trauma (contusions or hematomas); Additional info: Trauma, closed head injury TECHNIQUE: Imaging protocol: Computed tomography of the head without contrast. Radiation optimization: All CT scans at this facility use at least one of these dose optimization techniques: automated exposure control; mA and/or kV adjustment per patient size (includes targeted exams where dose is matched to clinical indication); or iterative reconstruction. REPORTING DATA: Count of CT and Cardiac NM exams in prior 12 months: This patient has received 8 known CTs and 0 known cardiac nuclear medicine studies in the 12 months prior to the current study. COMPARISON: CT head wo con* [id number] 08/27/2022 11:22 PM RADIATION DOSE METRICS: Total DLP (mGy-cm): 1077.28 FINDINGS: Brain: Atrophic or involutional change for age is seen. Chronic small-vessel disease change in the periventricular deep white matter, along with tiny old lacunar infarct left basal ganglia. No intracranial hemorrhage or hematoma is seen. No mass effect or shift of midline structures. No findings of territorial or large vessel ischemic infarct. No significant change with prior exam. Cerebral ventricles: Mild ventricular prominence with atrophic change, without significant ventriculomegaly. Paranasal sinuses: Visualized sinuses are unremarkable. No fluid levels. Mastoid air cells: Visualized mastoid air cells are well aerated. Bones/joints: Unremarkable. No acute fracture. Soft tissues: Mild soft tissue swelling left posterior parietal scalp. CT/CT head wo con* [id number] IMPRESSION: No acute intracranial abnormality. Chronic senescent changes with prior exam.
--- NOTE | 2022-09-28 14:48 | CTR_ITS ---
PROCEDURE INFORMATION: Exam: CT Lumbar Spine Without Contrast Exam date and time: 09/28/2022 3:01 PM Age: 82 years old Clinical indication: Injury or trauma; Fall; Blunt trauma (contusions or hematomas); Additional info: Fall pain TECHNIQUE: Imaging protocol: Computed tomography of the lumbar spine without contrast. Radiation optimization: All CT scans at this facility use at least one of these dose optimization techniques: automated exposure control; mA and/or kV adjustment per patient size (includes targeted exams where dose is matched to clinical indication); or iterative reconstruction. REPORTING DATA: Count of CT and Cardiac NM exams in prior 12 months: This patient has received 8 known CTs and 0 known cardiac nuclear medicine studies in the 12 months prior to the current study. COMPARISON: MR lumbar spine wo con* [id number] 12/26/2019 3:03 PM RADIATION DOSE METRICS: Total DLP (mGy-cm): 527.59 FINDINGS: Bones/joints: Lumbar vertebral body heights appear maintained without compression deformity. No fracture or acute osseous abnormality. Spondylotic change identified, with mild degenerative disc disease L4-5 and moderate degenerative disc disease L5-S1. Ligamentous hypertrophy noted posteriorly, particularly mid to lower lumbar spine. Diffuse disc bulge suggested L4-5. Mild disc bulge L5-S1. Alignment appears unremarkable without significant subluxation. Encroachment of the spinal canal secondary to spondylotic change and disc bulge L4-5 no severe spinal stenosis. Vasculature: Atherosclerotic vascular calcification of the abdominal aorta and iliac arteries, including renal artery and SMA calcification. No significant aneurysmal dilatation. Soft tissues: Paravertebral soft tissues show no focal abnormality. CT/CT lumbar spine wo con* [id number] IMPRESSION: 1. Spondylotic changes along with degenerative disc disease L4-5 and L5-S1 levels. 2. No fracture or subluxation.
--- NOTE | 2022-09-28 14:53 | ED_ITS ---
HPI - Fall General: Chief Complaint: Fall Stated Complaint: blood thinners back pain Time Seen by Provider: 09/28/22 14:12 Source: patient Mode of arrival: ambulatory History of Present Illness: 82-year-old female presents to the emergency room she had gotten up to go to the restroom she went to the restroom in her home she began to feel lightheaded and dizzy when she stood up after going to the restroom she became more dizzy and fell. She did not strike her head or lose consciousness she is complaining of back pain. She is on anticoagulants. MD complaint: fall Onset (ago): minute(s) Fall from: standing Place fall occurred: home Loss of consciousness: None Prolonged down time: no Symptoms prior to fall: lightheadedness Location of injury: head, neck and back Associated symptoms-after fall: Denies abdominal pain, chest pain, confusion, difficulty walking, headache(s), hematuria, lightheadedness, neck pain, numbness, short of breath, vertigo or weakness Review of Systems Const: Denies: fever(s), chills, body aches, change in appetite, fatigue or malaise ENMT: Denies: throat pain, ear or mastoid pain, nasal discharge or nasal congestion Card: Denies: chest pain or lightheadedness Resp: Denies: dyspnea, productive cough or non-productive cough GI: Denies: abdominal pain, nausea or vomiting : Denies: dysuria, urinary frequency, urinary urgency or hematuria Musc: Denies: neck pain Skin/Breast: Denies: rash or pruritus Neuro: Denies: headache(s), difficulty walking, vertigo or confusion [facility] ED PFSH: Medical History Anemia Atrial fibrillation Back pain with radiation Bacterial UTI Breast cancer Encapsulated in milk duct, excised by Dr. Montilla CAD (coronary artery disease) Chronic idiopathic constipation Chronic idiopathic constipation CVA (cerebral vascular accident) 2018 DDD (degenerative disc disease), lumbar DDD (degenerative disc disease), lumbar Diabetes mellitus, type II Diabetic peripheral neuropathy associated with type 2 diabetes mellitus Essential hypertension Fracture of lateral malleolus of fibula Gross hematuria Mixed hyperlipidemia Mixed incontinence Peripheral Vascular Disease Recurrent UTI Sinusitis Status post left heart catheterization Test anxiety Urinary tract infection Urinary, incontinence, stress female Vitamin D deficiency Surgical History H/O bladder repair surgery S/P dilatation and curettage S/P hysterectomy S/P lumpectomy of breast S/P right heart catheterization S/P wrist surgery Stented coronary artery Family History Other Cancer Diabetes Social History Smoking and tobacco status: former smoker Alcohol intake: unknown Substance/Drug Use: never Adopted: No Caregiver/support person: No Lives independently: Yes Marital status: / Current occupational status: retired Physical Exam Const: GENERAL APPEARANCE: cooperative and comfortable ORIENTATION/CONSCIOUSNESS: Yes awake, Yes oriented to person, Yes oriented to place and Yes oriented to time HENMT: COMMON NORMALS: normocephalic, atraumatic and hearing grossly normal bilaterally HEAD & SCALP: normocephalic and atraumatic Neck/C-Spine: OTHER: C-collar in place Resp: COMMON NORMALS: normal respiratory effort, No retractions, No use of accessory muscles and clear to auscultation bilaterally AUSCULTATION: clear to auscultation bilaterally Cardio: COMMON NORMALS: regular rate, regular rhythm and No murmurs present (Cardio) RATE: regular rate RHYTHM: regular rhythm GI: COMMON NORMALS: Soft to palpation and No hepatosplenomegaly present AUSCULTATION: Yes normoactive bowel sounds PALPATION: Yes Soft to palpation, No Tenderness to palpation present (GI), No Guarding due to palpation present (GI) and Yes No hepatosplenomegaly present Extremity: COMMON NORMALS: normal to inspection, capillary refill normal, no clubbing, cyanosis or edema, no calf tenderness and no pedal edema Neuro: SENSORIUM/ORIENTATION: Yes oriented to person, Yes oriented to place and Yes oriented to time Skin: COMMON NORMALS: no rashes or lesions noted GENERAL SKIN EXAM: no rashes or lesions noted Course Vital Signs: Vital signs: Vital Signs Temperature 99.2 F 09/28/22 14:23 Pulse Rate 72 09/28/22 18:56 Respiratory Rate 15 09/28/22 16:10 Blood Pressure 168/73 09/28/22 18:56 Pulse Oximetry 98 09/28/22 18:56 MDM - Fall Medical Decision Making Imaging reviewed. No acute fractures. Patient is feeling somewhat better but is given fluids and ambulated without difficulty will discharge home return to the emergency room condition worsening or change problems. Medical Records I reviewed the patient's medical records. Lab Data I reviewed the patient's lab results. 09/28/22 15:20 09/28/22 15:20 Radiology Impressions Cervical Spine CT 09/28/22 14:48 IMPRESSION: 1. Spondylotic change with component of degenerative disc disease as noted above. 2. No fracture or subluxation. 3. Loss of the normal cervical curvature on the sagittal images which can be associated with muscle spasm or tension. Head CT 09/28/22 14:48 IMPRESSION: No acute intracranial abnormality. Chronic senescent changes with prior exam. Lumbar Spine CT 09/28/22 14:48 IMPRESSION: 1. Spondylotic changes along with degenerative disc disease L4-5 and L5-S1 levels. 2. No fracture or subluxation. Laboratory Results WBC 7.5 10^3/uL (4.0-10.0) 09/28/22 15:20 RBC 3.84 10^6/uL (4.1-5.3) L 09/28/22 15:20 Hgb 12.0 g/dL (11.5-15.3) 09/28/22 15:20 Hct 35.4 % (37.0-47.0) L 09/28/22 15:20 MCV 92.2 fl (81-99) 09/28/22 15:20 MCH 31.3 pg (28.0-34.0) 09/28/22 15:20 MCHC 33.9 g/dL (30.0-36.0) 09/28/22 15:20 RDW 12.7 % (12.1-15.1) 09/28/22 15:20 Plt Count 264 10^3/cmm (130-400) 09/28/22 15:20 MPV 9.0 fL (7.4-10.4) 09/28/22 15:20 Neut % (Auto) 82.2 % 09/28/22 15:20 Lymph % (Auto) 10.7 % 09/28/22 15:20 [place] % (Auto) 6.1 % 09/28/22 15:20 Eos % (Auto) 0.4 % 09/28/22 15:20 Baso % (Auto) 0.1 % 09/28/22 15:20 Neut # (Auto) 6.16 10^3/uL (1.8-7.7) 09/28/22 15:20 Lymph # (Auto) 0.8 10^3/uL (0.8-4.8) 09/28/22 15:20 [place] # (Auto) 0.5 10^3/uL (0.2-0.9) 09/28/22 15:20 Eos # (Auto) 0.0 10^3/uL (0.0-0.8) 09/28/22 15:20 Baso # (Auto) 0.0 10^3/uL (0.0-0.1) 09/28/22 15:20 Nucleated RBC % (auto) 0 % 09/28/22 15:20 Nucleated RBCs # 0.0 /100WBC 09/28/22 15:20 Sodium 130 mmol/L (136-145) L 09/28/22 15:20 Potassium 4.1 mmol/L (3.5-5.1) 09/28/22 15:20 Chloride 96 mmol/L (98-107) L 09/28/22 15:20 Carbon Dioxide 24 mmol/L (22-29) 09/28/22 15:20 Anion Gap 14.1 (5-19) 09/28/22 15:20 BUN 10 mg/dL (8-23) 09/28/22 15:20 Creatinine 0.5 mg/dL (0.5-0.9) 09/28/22 15:20 GFR Calculation Not Reportable 09/28/22 15:20 Glucose 189 mg/dL (65-115) H 09/28/22 15:20 Calculated Osmolality 274 mOsm/kg (285-295) L 09/28/22 15:20 Calcium 10.1 mg/dL (8.5-10.5) 09/28/22 15:20 Total Bilirubin 0.7 mg/dL (0.15-1.2) 09/28/22 15:20 AST 19 U/L (0-32) 09/28/22 15:20 ALT 16 U/L (0-33) 09/28/22 15:20 Alkaline Phosphatase 75 U/L (35-105) 09/28/22 15:20 Total Protein 6.4 g/dL (6.6-8.7) L 09/28/22 15:20 Albumin 3.7 g/dL (3.5-5.2) 09/28/22 15:20 Globulin 2.7 g/dL (1.3-4.6) 09/28/22 15:20 Discharge Plan Discharge Patient Disposition: Home Clinical Impression: Syncope Condition: Stable Prescriptions: No Action docusate sodium [Dulcolax Stool Softener (dss)] 100 mg capsule 100 mg PO DAILY PRN (Reason: Constipation) Complete Multivitamin Tablet 1 tab PO DAILY ergocalciferol (vitamin D2) 1,250 mcg (50,000 unit) capsule See Rx Instructions .ROUTE .COMPLEX Qty: 13 2RF Dose Instruction: TAKE 1 CAPSULE WEEKLY Rx Instructions: TAKE 1 CAPSULE WEEKLY ON FRIDAYS hydrocodone-acetaminophen 10-325 mg tablet 1 tab PO BID PRN (Reason: pain) 30 Days Qty: 60 0RF (DME) Diabetic shoes with 3 pairs of inserts See Rx Instructions .Route .MEDSUPPLY Qty: 1 0RF Rx Instructions: As directed J P & O Trulicity 1.5 mg/0.5 mL pen injector 1.5 mg SUBCUT .q7days Qty: 7.5 3RF Rx Instructions: On Fridays ranolazine [Ranexa] 1,000 mg tablet extended release 12 hr 1,000 mg PO BID Qty: 180 3RF (DME) True Metrix Glucose Test Strip Strip See Rx Instructions .Route Qty: 100 2RF Rx Instructions: USE ONE STRIP TO CHECK BLOOD SUGAR ONCE DAILY (DME) lancets [BD Ultra Fine Lancets] 33 gauge misc See Rx Instructions .Route Qty: 100 2RF Rx Instructions: USE ONE LANCET TO CHECK BLOOD SUGAR ONCE DAILY apixaban 5 mg tablet 5 mg PO BID Qty: 180 3RF oxybutynin chloride 5 mg tablet 5 mg PO BID 90 Days Qty: 180 3RF Rx Instructions: TAKE 1 TABLET TWICE A DAY gabapentin 400 mg capsule 400 mg PO DAILY Qty: 90 2RF glipizide 5 mg tablet 7.5 mg PO BID 90 Days Qty: 270 1RF lisinopril 10 mg tablet 10 mg PO DAILY Qty: 60 0RF ezetimibe [Zetia] 10 mg tablet 10 mg PO DAILY Qty: 30 0RF Rx Instructions: MUST have follow-up for further refills carvedilol 12.5 mg tablet 12.5 mg PO BID Qty: 60 0RF Rx Instructions: MUST have follow-up for further refills esomeprazole magnesium 40 mg capsule,delayed release(DR/EC) See Rx Instructions .ROUTE .COMPLEX Qty: 90 1RF Dose Instruction: TAKE 1 CAPSULE DAILY Rx Instructions: TAKE 1 CAPSULE DAILY Discharge Orders: Discharge ED (Routine); Ordered 09/28/22 Ordered By: Bobby Velez Referrals: Riley Bassett [Primary Care Provider] - Discharge Diet: Usual diet Discharge Activity: Increase activity as tolerated Patient Instructions: Syncope (ED), Opioid Safety, Pain Management Activity Restrictions/Additional Instructions: Follow-up with your primary care doctor within a week. Coding Level of Care Code ED Manager Administrative 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
[2022-09-28 15:31] LABS: Basophils % 0.1 %; Eosinophils % 0.4 %; Hematocrit 35.4 % (37.0-47.0); Lymphocytes # 0.8 10^3/uL (0.8-4.8); Lymphocytes % 10.7 %; Mean Corpuscular HGB Conc 33.9 g/dL (30.0-36.0); Mean Corpuscular Hemoglobin 31.3 pg (28.0-34.0); Mean Corpuscular Volume 92.2 fl (81-99); Monocytes # 0.5 10^3/uL (0.2-0.9); Monocytes % 6.1 %; Neutrophils # 6.16 10^3/uL (1.8-7.7); Neutrophils % 82.2 %; Nucleated Red Blood Cells % 0 %; Platelet Count 264 10^3/cmm (130-400); Red Blood Count 3.84 10^6/uL (4.1-5.3); Red Cell Distribution Width 12.7 % (12.1-15.1); White Blood Count 7.5 10^3/uL (4.0-10.0)
[2022-09-28 15:50] LABS: Alanine Aminotransferase 16 U/L (0-33); Albumin Level 3.7 g/dL (3.5-5.2); Alkaline Phosphatase 75 U/L (35-105); Anion Gap 14.1 (5-19); Aspartate Amino Transferase 19 U/L (0-32); Blood Urea Nitrogen 10 mg/dL (8-23); Calcium 10.1 mg/dL (8.5-10.5); Carbon Dioxide 24 mmol/L (22-29); Chloride 96 mmol/L (98-107); Globulin 2.7 g/dL (1.3-4.6); Glucose 189 mg/dL (65-115); Osmolality Calculated 274 mOsm/kg (285-295); Potassium 4.1 mmol/L (3.5-5.1); Sodium 130 mmol/L (136-145); Total Bilirubin 0.7 mg/dL (0.15-1.2); Total Protein 6.4 g/dL (6.6-8.7)
[2022-09-28] MEDS: enalaprilat 1.25 mg/mL Inj IVP (15:55)
[2022-09-28] MEDS: hyDRALAzine 20 mg/mL INJ 1 mL IVP (15:55)
[2022-09-28] MEDS: sodium chloride 0.9% 1,000 ML 999 ML IV (17:36)
== END 2022-09-28 18:56 | disposition home or self-care (01) ==
PROVIDERS: Emergency Provider Family Medicine
DX: R55 Syncope and collapse (principal); Z79.85 Long-term (current) use of injectable non-insulin antidiabetic drugs; Z79.84 Long term (current) use of oral hypoglycemic drugs; Z87.891 Personal history of nicotine dependence; Z85.3 Personal history of malignant neoplasm of breast; I25.10 Atherosclerotic heart disease of native coronary artery without angina pectoris; Z86.73 Personal history of transient ischemic attack (TIA), and cerebral infarction without residual deficits; E11.9 Type 2 diabetes mellitus without complications; I10 Essential (primary) hypertension; E78.2 Mixed hyperlipidemia
CPT/HCPCS: 36415; 70450; 72125; 72131; 80053; 85025; 96361; 96374; 96375; 99285; J0360; J3490; J7030

== ENCOUNTER 2022-10-12 11:32 | Emergency (ER) | payer MEDICARE, OTHER, SELFPAY ==
--- NOTE | 2022-10-12 12:11 | XRR_ITS ---
PROCEDURE INFORMATION: Exam: XR Chest Exam date and time: 10/12/2022 12:17 PM Age: 82 years old Clinical indication: Other: Weakness TECHNIQUE: Imaging protocol: Radiologic exam of the chest. Views: 1 view. COMPARISON: CR (CHEST, ) 08/27/2022 11:08 PM FINDINGS: Lungs: Unremarkable. No consolidation. Pleural spaces: Unremarkable. No pleural effusion. No pneumothorax. Heart/Mediastinum: Unremarkable. No cardiomegaly. Bones/joints: Unremarkable. XR/XR chest 1V portable [id number] IMPRESSION: No acute findings.
--- NOTE | 2022-10-12 12:11 | W.ED.GENADLT ---
HPI - General Adult General: Chief complaint: General Medical Stated complaint: hypertension, weakness Time Seen by Provider: 10/12/22 11:55 Source: patient and family Mode of arrival: ambulatory Limitations: no limitations History of Present Illness: Patient is an 82-year-old female who presents to the ED today along with family for concerns of weakness and elevated blood pressure. Family states they went to get patient out of bed this morning and she was too weak to get up by herself therefore they checked her blood pressure and noted it was significantly elevated at 200/100s. Patient had not taken her blood pressure medications of carvedilol and lisinopril at that point (she still had not taken them upon arrival to the ED). Patient states on the way to the ED she had some blurry vision but this has subsided. She is not having any pain upon my initial examination. She does not complain of a headache, chest pain, shortness of breath, difficulty breathing. She has no neurologic deficits. Onset (ago): hour(s) Relieving factors: none Exacerbating factors: none Associated symptoms: Reports no associated symptoms; Deny chest pain, dyspnea, headache(s), malaise, nausea, rash, palpitations, syncope or vomiting Treatments prior to arrival: none Review of Systems Const: Denies: fever(s), chills, body aches, fatigue or malaise Eyes: Reports: blurry vision (improved upon arrival); Denies: photophobia, floaters or seeing flashes Card: Denies: chest pain, palpitations, irregular heart rhythm, lightheadedness, syncope or dyspnea on exertion Resp: Denies: dyspnea, productive cough or pain on inspiration GI: Denies: abdominal pain, nausea, vomiting, heartburn or diarrhea : Denies: flank pain or dysuria Musc: Reports: back pain and other (reports back pain from recent fall-had CT of this on 09/28); Denies: neck pain, extremity pain, extremity swelling or joint pain Skin/Breast: Denies: rash Neuro: Reports: other (generalized weakness); Denies: headache(s), numbness in extremities, weakness in extremities or sensory changes PFS ED PFSH: Medical History Acute cystitis Anemia Atrial fibrillation Back pain with radiation Bacterial UTI Breast cancer Encapsulated in milk duct, excised by Dr. Montilla CAD (coronary artery disease) Chronic atrial fibrillation Chronic hyponatremia Chronic idiopathic constipation Chronic idiopathic constipation COVID CVA (cerebral vascular accident) 2018 DDD (degenerative disc disease), lumbar DDD (degenerative disc disease), lumbar Diabetes mellitus, type II Diabetic peripheral neuropathy associated with type 2 diabetes mellitus Diastolic dysfunction Essential hypertension Fracture of lateral malleolus of fibula Gross hematuria Mixed hyperlipidemia Mixed incontinence Peripheral Vascular Disease Recurrent UTI Sinusitis Status post left heart catheterization Test anxiety Urinary tract infection Urinary, incontinence, stress female Vitamin D deficiency Weakness Surgical History H/O bladder repair surgery S/P dilatation and curettage S/P hysterectomy S/P lumpectomy of breast S/P right heart catheterization S/P wrist surgery Stented coronary artery Family History Other Cancer Diabetes Social History Smoking and tobacco status: former smoker Alcohol intake: unknown Substance/Drug Use: never Adopted: No Caregiver/support person: No Lives independently: Yes Marital status: / Current occupational status: retired Physical Exam Const: COMMON NORMALS: no acute distress, average body habitus, patient oriented x3, no limitations, healthy appearing, alert and well nourished ORIENTATION/CONSCIOUSNESS: Yes awake, Yes oriented to person, Yes oriented to place and Yes oriented to time HENMT: COMMON NORMALS: normocephalic and atraumatic HEAD & SCALP: normal to inspection, normocephalic and atraumatic FACE & SINUS: normal facial exam Eye: COMMON NORMALS: Equal, round and reactive pupils present and EOMs intact bilaterally GENERAL EYE: appearance normal, both eyes and all related structures and normal light reflex PUPIL: Yes Equal, round and reactive pupils present DIRECT OPHTHALMOSCOPY: Yes normal light reflex Neck/C-Spine: COMMON NORMALS: full ROM, no lymphadenopathy, supple and no meningeal signs Chest: COMMONS NORMALS: normal inspection of the chest and normal palpation of entire chest wall Resp: COMMON NORMALS: normal respiratory effort and clear to auscultation bilaterally AUSCULTATION: clear to auscultation bilaterally Cardio: COMMON NORMALS: regular rate and regular rhythm RATE: regular rate RHYTHM: regular rhythm GI: COMMON NORMALS: Normal to inspection, nondistended, normoactive bowel sounds present, Soft to palpation, non-tender, No hepatosplenomegaly present and no masses PALPATION: Yes Soft to palpation and Yes No hepatosplenomegaly present : COMMON NORMALS: Yes no CVA tenderness BLADDER/KIDNEY EXAM: Yes no CVA tenderness Back/Pelvis: COMMON NORMALS: no CVA tenderness and thoracic and lumbar spine normal to inspection THORACIC SPINE/UPPER BACK: Yes normal to inspection, No thoracic spinal tenderness, No paraspinal muscle tenderness and No paraspinal muscle spasm LUMBAR SPINE/LOWER BACK: Yes lumbar spinal tenderness, No paraspinal muscle spasm and Yes straight leg raise negative bilaterally PELVIS: Yes buttocks normal and No sciatic notch tenderness SACROILIAC JOINTS: Yes SI joints normal SACRUM: no tenderness COCCYX: no tenderness Extremity: COMMON NORMALS: normal to inspection, full ROM, capillary refill normal, no joint enlargement, no clubbing, cyanosis or edema, no calf tenderness and no pedal edema GENERAL: Yes normal exam except as noted Neuro: SHE COMA SCALE: document GCS findings [place] coma scale eye opening: Spontaneous [place] coma scale verbal response: Orientated [place] coma scale motor response: Obey commands She coma scale total score: 15 COMMON NORMALS: patient oriented x3, CN's II-XII intact bilaterally, moves all extremities, no focal motor deficits and no sensory deficits noted SENSORIUM/ORIENTATION: Yes alert, Yes oriented to person, Yes oriented to place and Yes oriented to time MENINGEAL SIGNS: Yes no meningeal signs Skin: COMMON NORMALS: no rashes or lesions noted GENERAL SKIN EXAM: no rashes or lesions noted Course Vital Signs: Vital signs: Vital Signs Pulse Rate 67 10/12/22 14:00 Respiratory Rate 16 10/12/22 14:00 Blood Pressure 229/87 10/12/22 14:00 Pulse Oximetry 96 10/12/22 14:00 Oxygen Delivery Me thod Room Air 10/12/22 14:00 [facility] - General Adult Medical Decision Making Patient here for weakness and hypertension. She was hypertensive upon arrival. This initially did improve on its own however then increased. It looks like on previous visits her baseline blood pressures since 08/2022 have been running 150s-170s systolic. She is not complaining of a headache. She has no neurologic deficits. She initially had some blurry vision earlier today but this has completely subsided. Blood work overall is unremarkable. UA is suspicious for UTI with 3+ blood, trace leuks, 5-10 WBCs and 2+ bacteria. She had a questionable UTI during her hospital stay back in August but this was not treated. She eventually grew E. coli. Susceptibility chart reviewed. Patient will be placed on antibiotics for UTI today. Did discuss hospitalization given her weakness however patient would like to go home. Discussed blood pressure log and follow-up with PCP Dr. Ramirez. Lab Data 10/12/22 12:55 10/12/22 12:55 Radiology Impressions Chest X-Ray 10/12/22 12:11 IMPRESSION: No acute findings. Laboratory Results WBC 6.7 10^3/uL (4.0-10.0) 10/12/22 12:55 RBC 3.45 10^6/uL (4.1-5.3) L 10/12/22 12:55 Hgb 10.8 g/dL (11.5-15.3) L 10/12/22 12:55 Hct 31.7 % (37.0-47.0) L 10/12/22 12:55 MCV 91.9 fl (81-99) 10/12/22 12:55 MCH 31.3 pg (28.0-34.0) 10/12/22 12:55 MCHC 34.1 g/dL (30.0-36.0) 10/12/22 12:55 RDW 12.6 % (12.1-15.1) 10/12/22 12:55 Plt Count 393 10^3/cmm (130-400) 10/12/22 12:55 MPV 8.5 fL (7.4-10.4) 10/12/22 12:55 Neut % (Auto) 76.6 % 10/12/22 12:55 Lymph % (Auto) 15.8 % 10/12/22 12:55 [place] % (Auto) 5.7 % 10/12/22 12:55 Eos % (Auto) 1.1 % 10/12/22 12:55 Baso % (Auto) 0.3 % 10/12/22 12:55 Neut # (Auto) 5.11 10^3/uL (1.8-7.7) 10/12/22 12:55 Lymph # (Auto) 1.1 10^3/uL (0.8-4.8) 10/12/22 12:55 [place] # (Auto) 0.4 10^3/uL (0.2-0.9) 10/12/22 12:55 Eos # (Auto) 0.1 10^3/uL (0.0-0.8) 10/12/22 12:55 Baso # (Auto) 0.0 10^3/uL (0.0-0.1) 10/12/22 12:55 Nucleated RBC % (auto) 0 % 10/12/22 12:55 Nucleated RBCs # 0.0 /100WBC 10/12/22 12:55 Sodium 133 mmol/L (136-145) L 10/12/22 12:55 Potassium 4.3 mmol/L (3.5-5.1) 10/12/22 12:55 Chloride 99 mmol/L (98-107) 10/12/22 12:55 Carbon Dioxide 23 mmol/L (22-29) 10/12/22 12:55 Anion Gap 15.3 (5-19) 10/12/22 12:55 BUN 13 mg/dL (8-23) 10/12/22 12:55 Creatinine 0.6 mg/dL (0.5-0.9) 10/12/22 12:55 GFR Calculation Not Reportable 10/12/22 12:55 Glucose 169 mg/dL (65-115) H 10/12/22 12:55 Calculated Osmolality 280 mOsm/kg (285-295) L 10/12/22 12:55 Calcium 9.8 mg/dL (8.5-10.5) 10/12/22 12:55 Total Bilirubin 0.5 mg/dL (0.15-1.2) 10/12/22 12:55 AST 14 U/L (0-32) 10/12/22 12:55 ALT 14 U/L (0-33) 10/12/22 12:55 Alkaline Phosphatase 116 U/L (35-105) H 10/12/22 12:55 Total Protein 6.3 g/dL (6.6-8.7) L 10/12/22 12:55 Albumin 3.3 g/dL (3.5-5.2) L 10/12/22 12:55 Globulin 3.0 g/dL (1.3-4.6) 10/12/22 12:55 Urine Color Yellow (Yellow) 10/12/22 13:25 Urine Appearance Clear (CLEAR) 10/12/22 13:25 Urine pH 7 (5-7) 10/12/22 13:25 Ur Specific [place] 1.010 (1.005-1.030) 10/12/22 13:25 Urine Protein 1+ (Negative) H 10/12/22 13:25 Urine Glucose (UA) Norm (Normal) 10/12/22 13:25 Urine Ketones Negative (Negative) 10/12/22 13:25 Urine Blood 3+ (Negative) H 10/12/22 13:25 Urine Nitrate Negative (Negative) 10/12/22 13:25 Urine Bilirubin Neg (Negative) 10/12/22 13:25 Urine Urobilinogen Norm mg/dL (Negative) 10/12/22 13:25 Ur Leukocyte Esterase Trace (Negative) H 10/12/22 13:25 Urine RBC 15-25 /hpf (0-2) H 10/12/22 13:25 Urine WBC 5-10 /hpf (0-5) H 10/12/22 13:25 Ur Squamous Epith Cells 5-10 /hpf (0-5) H 10/12/22 13:25 Amorphous Sediment Not Reportable 10/12/22 13:25 Urine Bacteria 2+ /hpf (NONE) H 10/12/22 13:25 Discharge Plan Discharge Patient Disposition: Home Clinical Impression: Weakness, Acute cystitis with hematuria Hypertension Qualifiers: Hypertension type: unspecified Qualified Code(s): I10 - Essential (primary) hypertension Condition: Stable Prescriptions: New nitrofurantoin monohyd/m-cryst [Macrobid] 100 mg capsule 100 mg PO BID 7 Days Qty: 14 0RF Rx Instructions: must administer with a meal/food No Action docusate sodium [Dulcolax Stool Softener (dss)] 100 mg capsule 100 mg PO DAILY PRN (Reason: Constipation) Complete Multivitamin Tablet 1 tab PO DAILY ergocalciferol (vitamin D2) 1,250 mcg (50,000 unit) capsule See Rx Instructions .ROUTE .COMPLEX Qty: 13 2RF Dose Instruction: TAKE 1 CAPSULE WEEKLY Rx Instructions: TAKE 1 CAPSULE WEEKLY ON FRIDAYS Trulicity 1.5 mg/0.5 mL pen injector 1.5 mg SUBCUT .q7days Qty: 7.5 3RF Rx Instructions: On Fridays cyclobenzaprine 10 mg tablet 10 mg PO BID PRN (Reason: muscle spasm) Qty: 20 0RF Rx Instructions: begin w 1/2 tablet first two times. hydrocodone-acetaminophen 10-325 mg tablet 1 tab PO BID PRN (Reason: pain) 30 Days Qty: 60 0RF (DME) Diabetic shoes with 3 pairs of inserts See Rx Instructions .Route .MEDSUPPLY Qty: 1 0RF Rx Instructions: As directed J P & O ranolazine [Ranexa] 1,000 mg tablet extended release 12 hr 1,000 mg PO BID Qty: 180 3RF (DME) True Metrix Glucose Test Strip Strip See Rx Instructions .Route Qty: 100 2RF Rx Instructions: USE ONE STRIP TO CHECK BLOOD SUGAR ONCE DAILY (DME) lancets [BD Ultra Fine Lancets] 33 gauge misc See Rx Instructions .Route Qty: 100 2RF Rx Instructions: USE ONE LANCET TO CHECK BLOOD SUGAR ONCE DAILY apixaban 5 mg tablet 5 mg PO BID Qty: 180 3RF oxybutynin chloride 5 mg tablet 5 mg PO BID 90 Days Qty: 180 3RF Rx Instructions: TAKE 1 TABLET TWICE A DAY gabapentin 400 mg capsule 400 mg PO DAILY Qty: 90 2RF glipizide 5 mg tablet 7.5 mg PO BID 90 Days Qty: 270 1RF lisinopril 10 mg tablet 10 mg PO DAILY Qty: 60 0RF ezetimibe [Zetia] 10 mg tablet 10 mg PO DAILY Qty: 30 0RF Rx Instructions: MUST have follow-up for further refills carvedilol 12.5 mg tablet 12.5 mg PO BID Qty: 60 0RF Rx Instructions: MUST have follow-up for further refills esomeprazole magnesium 40 mg capsule,delayed release(DR/EC) See Rx Instructions .ROUTE .COMPLEX Qty: 90 1RF Dose Instruction: TAKE 1 CAPSULE DAILY Rx Instructions: TAKE 1 CAPSULE DAILY Discharge Orders: Discharge ED (Routine); Ordered 10/12/22 Ordered By: Martha Walton Referrals: Riley Bassett [Primary Care Provider] - Patient Instructions: Opioid Safety, Pain Management Coding Level of Care Code ED Low Vision Therapist 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
[2022-10-12 12:54] VITALS: BP 162/74; PULSE 70; RESP 18; O2SAT 95
[2022-10-12] MEDS: lisinopril 10 mg Tablet PO (12:59)
[2022-10-12] MEDS: carvedilol 12.5 mg Tablet PO (12:59)
[2022-10-12 13:00] LABS: Basophils % 0.3 %; Eosinophils # 0.1 10^3/uL (0.0-0.8); Eosinophils % 1.1 %; Hematocrit 31.7 % (37.0-47.0); Hemoglobin 10.8 g/dL (11.5-15.3); Lymphocytes # 1.1 10^3/uL (0.8-4.8); Lymphocytes % 15.8 %; Mean Corpuscular HGB Conc 34.1 g/dL (30.0-36.0); Mean Corpuscular Hemoglobin 31.3 pg (28.0-34.0); Mean Corpuscular Volume 91.9 fl (81-99); Mean Platelet Volume 8.5 fL (7.4-10.4); Monocytes # 0.4 10^3/uL (0.2-0.9); Monocytes % 5.7 %; Neutrophils # 5.11 10^3/uL (1.8-7.7); Neutrophils % 76.6 %; Nucleated Red Blood Cells % 0 %; Platelet Count 393 10^3/cmm (130-400); Red Blood Count 3.45 10^6/uL (4.1-5.3); Red Cell Distribution Width 12.6 % (12.1-15.1); White Blood Count 6.7 10^3/uL (4.0-10.0)
[2022-10-12 13:20] LABS: Alanine Aminotransferase 14 U/L (0-33); Albumin Level 3.3 g/dL (3.5-5.2); Alkaline Phosphatase 116 U/L (35-105); Anion Gap 15.3 (5-19); Aspartate Amino Transferase 14 U/L (0-32); Blood Urea Nitrogen 13 mg/dL (8-23); Calcium 9.8 mg/dL (8.5-10.5); Carbon Dioxide 23 mmol/L (22-29); Chloride 99 mmol/L (98-107); Glucose 169 mg/dL (65-115); Osmolality Calculated 280 mOsm/kg (285-295); Potassium 4.3 mmol/L (3.5-5.1); Sodium 133 mmol/L (136-145); Total Bilirubin 0.5 mg/dL (0.15-1.2); Total Protein 6.3 g/dL (6.6-8.7)
[2022-10-12 13:33] VITALS: BP 202/107; PULSE 72; RESP 18; O2SAT 96
--- NOTE | 2022-10-12 13:49 | ECG_ITS ---
[facility] Test Date: 2022-10-12 Pat Name: Danitza Rosado Department: Room: Gender: Female Counter Hand: : 1940 Requested By: Martha Walton Order Number: [id number] Kenisha MD: Nick Vogel M.D. Measurements Intervals [place] Rate: 66 P: 70 WV: 180 QRS: 70 QRSD: 105 T: 66 QT: 432 QTc: 455 Interpretive Statements SINUS RHYTHM Compared to ECG 08/28/2022 05:03:23 Atrial fibrillation no longer present ST (T wave) deviation no longer present Electronically Signed On 10-12-2022 18:52:41 CDT by Nick Vogel M.D. [email or web address]
[2022-10-12 13:59] LABS: Add Urine Microscopic? YES; Bilirubin Urine Neg (Negative); Blood Urine 3+ (Negative); Glucose Urine UA Norm (Normal); Ketones Urine Negative (Negative); Leukocyte Esterase Urine Trace (Negative); Nitrate Urine Negative (Negative); Protein Urine 1+ (Negative); Urine Appearance Clear (CLEAR); Urine Color Yellow (Yellow); Urobilinogen Urine Norm (Negative); pH Urine 7 (5-7)
[2022-10-12 14:00] VITALS: BP 229/87; PULSE 67; RESP 16; O2SAT 96
[2022-10-12 14:00] LABS: Add Urine Culture? Yes; Bacteria Urine 2+ /hpf; RBC Urine 15-25 /hpf (0-2)
[2022-10-12] MEDS: hyDRALAzine 20 mg/mL INJ 1 mL 5 MG IVP (14:01)
[2022-10-12] MEDS: cefTRIAXone 1,000 MG in water for injection-sterile 2.1 ML 5 MG IM (14:43)
[2022-10-12] MEDS: enalaprilat 1.25 mg/mL Inj 0.625 MG IVP (14:44)
[2022-10-12 15:01] VITALS: BP 143/88; PULSE 70; RESP 16; O2SAT 96
== END 2022-10-12 15:18 | disposition home or self-care (01) ==
PROVIDERS: Emergency Provider Physician Assistant
DX: N30.01 Acute cystitis with hematuria (principal); R53.1 Weakness; I10 Essential (primary) hypertension; Z87.891 Personal history of nicotine dependence; Z79.899 Other long term (current) drug therapy
CPT/HCPCS: 36415; 71045; 80053; 81001; 85025; 87077; 87086; 87186; 93005; 96372; 96374; 96375; 99285; J0360; J0696; J3490

== ENCOUNTER 2022-10-19 13:57 | Outpatient (CLI) | payer MEDICARE, OTHER, SELFPAY ==
--- NOTE | 2022-10-19 | USCV_ITS ---
Danitza Rosado Age: 82 Gender: F : 1940 Exam Date: 10/19/2022 14:20 Ordering Phys: Martinez Retana MD (Andy) Technologist: CT Exam Location: [facility] [place] Indication: Stenosis Risk Factors: Previous Vascular Surgery: Right Brachial BP: / Left Brachial BP: / Right Left Velocity (cm/s) Spectral Plaque Velocity (cm/s) Spectral Plaque Syst/Diast Broadening Syst/Diast Broadening 55.20/ 13.20 Prox CCA 111.00/ 14.90 53.50/ 11.20 Mid CCA 71.80 / 16.20 61.50/ 13.90 Distal CCA 89.70 / 17.90 124.40/30.70 Prox ICA 68.00 / 19.10 148.80/38.80 Mid ICA 72.10 / 21.70 108.90/24.60 Distal ICA 79.20 / 27.50 65.10 ECA 77.80 2.42 ICA/CCA 0.71 Vertebral 71.50/ 0.00 cm/s 70.60/ 21.70 cm/s Subclavian 178.0 95.00 0 CONCLUSIONS Right ICA stenosis 50-69% at the lower end of the range. Moderate calcified atheromatous plaque right carotid bulb/ICA. Left ICA stenosis <50%. Moderate calcified atheromatous plaque left carotid bulb/ICA. Normal antegrade Doppler flow noted in the right vertebral artery. Normal antegrade Doppler flow noted in the left vertebral artery. Erickson Muir MD (Electronically Signed) Final Date: 20 October 2022 17:42 S
== END 2022-10-19 13:58 | disposition home or self-care (01) ==
LOC: RAD 13:59
PROVIDERS: Visit Provider Thoracic Surgery (Cardiothoracic Vascular Surgery)
DX: I65.23 Occlusion and stenosis of bilateral carotid arteries (principal)
CPT/HCPCS: 93880

== ENCOUNTER → 2022-11-05 14:14 | Outpatient (BNVA) | payer MEDICARE, OTHER, SELFPAY | PROVIDERS: PCP Family Medicine; Visit Provider Family Medicine | DX: A49.9 Bacterial infection, unspecified (principal); N39.0 Urinary tract infection, site not specified | CPT/HCPCS: 81000 ==

== ENCOUNTER → 2022-11-12 08:51 | Outpatient (BNVA) | payer MEDICARE, OTHER, SELFPAY | PROVIDERS: PCP Family Medicine; Visit Provider Thoracic Surgery (Cardiothoracic Vascular Surgery) | DX: I77.9 Disorder of arteries and arterioles, unspecified (principal) | CPT/HCPCS: 99213 ==

== ENCOUNTER → 2022-11-27 16:32 | Outpatient (BNVA) | payer MEDICARE, OTHER, SELFPAY | PROVIDERS: PCP Family Medicine; Visit Provider Family Medicine | DX: N39.0 Urinary tract infection, site not specified (principal); A49.9 Bacterial infection, unspecified | CPT/HCPCS: 81000 ==

== ENCOUNTER → 2023-02-04 11:14 | Outpatient (BNVA) | payer MEDICARE, OTHER, SELFPAY | PROVIDERS: PCP Family Medicine; Visit Provider Family Medicine | DX: E11.42 Type 2 diabetes mellitus with diabetic polyneuropathy (principal); I10 Essential (primary) hypertension | CPT/HCPCS: 80053; 83036; 85025 ==

== ENCOUNTER 2023-04-13 22:09 | Emergency (ER) | payer MEDICARE, OTHER, SELFPAY ==
[2023-04-13 22:09] VITALS: BP 238/82; PULSE 64; RESP 18; TEMP 36.3; O2SAT 97; BMI 22.5
--- NOTE | 2023-04-13 22:20 | XRR_ITS ---
PROCEDURE INFORMATION: Exam: XR Chest Exam date and time: 04/13/2023 10:58 PM Age: 82 years old Clinical indication: Other: Dizzy TECHNIQUE: Imaging protocol: Radiologic exam of the chest. Views: 1 view. COMPARISON: CR XR chest 1V portable [id number] 10/12/2022 12:17 PM FINDINGS: Lungs: Unremarkable. No consolidation. Calcified granuloma in the left lower lung field. Pleural spaces: Unremarkable. No pleural effusion. No pneumothorax. Heart/Mediastinum: Unremarkable. No cardiomegaly. Bones/joints: Unremarkable. XR/XR chest 1V portable [id number] IMPRESSION: No acute findings.
--- NOTE | 2023-04-13 22:20 | CTR_ITS ---
PROCEDURE INFORMATION: Exam: CT Head Without Contrast Exam date and time: 04/13/2023 11:05 PM Age: 82 years old Clinical indication: Dizziness; Additional info: Dizzy TECHNIQUE: Imaging protocol: Computed tomography of the head without contrast. Radiation optimization: All CT scans at this facility use at least one of these dose optimization techniques: automated exposure control; mA and/or kV adjustment per patient size (includes targeted exams where dose is matched to clinical indication); or iterative reconstruction. COMPARISON: CT head wo con* [id number] 09/28/2022 2:56 PM RADIATION DOSE METRICS: Total DLP (mGy-cm): 1058.48 FINDINGS: Brain: Normal. No hemorrhage. Unremarkable white matter. No mass effect. Cerebral ventricles: No ventriculomegaly. Paranasal sinuses: Visualized sinuses are unremarkable. No fluid levels. Mastoid air cells: Visualized mastoid air cells are well aerated. Bones/joints: Unremarkable. No acute fracture. Soft tissues: Unremarkable. CT/CT head wo con* [id number] IMPRESSION: No acute intracranial abnormality.
--- NOTE | 2023-04-13 22:22 | ED_ITS ---
HPI - Nausea/Vomiting/Diarrhea 2 General: Chief complaint: Nausea/Vomiting/Diarrhea Stated complaint: nausea, dizziness Time Seen by Provider: 04/13/23 22:10 Source: patient Mode of arrival: ambulatory Limitations: no limitations History of Present Illness: 82-year-old female states she was sittin g watching TV and had an episode of nausea and felt lightheaded tonight at 7 PM. States her symptoms since resolved she states she no longer feels nauseous she does not feel dizzy I did stand her and ambulate her in the room and she states she feels back to her baseline has had a history of TIA denies any headache denies any chest pain. Associated nausea: Yes Associated symtoms: Reports dizziness and nausea; Denies chest pain, dysuria or headache(s) Review of Systems 2 Const: Denies: fever(s), chills, body aches or change in appetite Eyes: Denies: blurry vision ENMT: Denies: throat pain or dental pain Card: Denies: chest pain Resp: Denies: dyspnea GI: Reports: nausea; Denies: abdominal pain, vomiting or diarrhea : Denies: dysuria Musc: Denies: neck pain or back pain Skin/Breast: Denies: rash Neuro: Reports: dizziness; Denies: headache(s) Aftab/Lymph: Denies: easy bruising PFSH ED 2 PFSH: Medical History Acute cystitis Anemia Atrial fibrillation Back pain with radiation Bacterial UTI Breast cancer Encapsulated in milk duct, excised by Dr. Montilla CAD (coronary artery disease) Chronic atrial fibrillation Chronic hyponatremia Chronic idiopathic constipation Chronic idiopathic constipation COVID CVA (cerebral vascular accident) 2018 DDD (degenerative disc disease), lumbar DDD (degenerative disc disease), lumbar Diabetes mellitus, type II Diabetic peripheral neuropathy associated with type 2 diabetes mellitus Diastolic dysfunction Essential hypertension Fracture of lateral malleolus of fibula Gross hematuria Mixed hyperlipidemia Mixed incontinence Peripheral Vascular Disease Recurrent UTI Sinusitis Status post left heart catheterization Test anxiety Urinary tract infection Urinary, incontinence, stress female Vitamin D deficiency Weakness Surgical History H/O bladder repair surgery S/P dilatation and curettage S/P hysterectomy S/P lumpectomy of breast S/P right heart catheterization S/P wrist surgery Stented coronary artery Family History Other Cancer Diabetes Social History Smoking and tobacco/nicotine status: former use of tobacco/nicotine Alcohol intake: unknown Substance/Drug Use: never Adopted: No Caregiver/support person: No Lives independently: Yes Marital status: / Current occupational status: retired Physical Exam 2 Const: COMMON NORMALS: no acute distress, patient oriented x3 and healthy appearing HENMT: COMMON NORMALS: normocephalic and atraumatic HEAD & SCALP: n ormocephalic and atraumatic Eye: COMMON NORMALS: Equal, round and reactive pupils present and EOMs intact bilaterally PUPIL: Yes Equal, round and reactive pupils present Neck/C-Spine: COMMON NORMALS: full ROM and supple Chest: COMMONS NORMALS: normal inspection of the chest and normal palpation of entire chest wall Resp: COMMON NORMALS: normal respiratory effort, No retractions, No use of accessory muscles and clear to auscultation bilaterally AUSCULTATION: clear to auscultation bilaterally Cardio: COMMON NORMALS: regular rate, regular rhythm and No murmurs present (Cardio) RATE: regular rate RHYTHM: regular rhythm GI: COMMON NORMALS: Normal to inspection, nondistended, normoactive bowel sounds present, Soft to palpation, non-tender and no masses PALPATION: Yes Soft to palpation Extremity: COMMON NORMALS: normal to inspection and full ROM Neuro: COMMON NORMALS: patient oriented x3, moves all extremities and no focal motor deficits CRANIAL NERVES: Yes CN normal except as noted C OORDINATION/BALANCE: [id number] test normal SPEECH: speech normal G AIT: Yes Normal gait present MOTOR EXAM: 5/5 motor strength present throughout COORDINATION: [id number] test normal Psych: COMMON NORMALS: mental status grossly normal, Normal thought process present and cooperative THOUGHT PROCESS: Normal thought process present Skin: COMMON NORMALS: no rashes or lesions noted and no wounds GENERAL SKIN EXAM: no rashes or lesions noted Course 2 Vital Signs: Vital signs: Vital Signs Temperature 97.3 F L 04/13/23 22:09 Pulse Rate 78 04/14/23 01:08 Respiratory Rate 17 04/14/23 01:08 Blood Pressure 193/64 04/14/23 00:41 Pulse Oximetry 97 01/03/24 01:08 Oxygen Delivery Me thod Room Air 04/14/23 00:41 MDM - Nausea/Vomiting/Diarrhea Medical Decision Making Patient presents here with dizziness is since resolved likely vertigo no signs of a stroke blood work head CT is normal patient is able to ambulate has no dizziness here she is stable for discharge return if worsening. Medical Records I reviewed the patient's medical records. Lab Data I reviewed the patient's lab results. 04/13/23 22:58 04/13/23 22:58 Radiology Impressions Chest X-Ray 04/13/23 22:20 IMPRESSION: No acute findings. Head CT 04/13/23 22:20 IMPRESSION: No acute intracranial abnormality. Laboratory Results WBC 8.08 10^3/uL (3.29-11.43) 04/13/23 22:58 RBC 4.32 10^6/uL (3.85-5.65) 04/13/23 22:58 Hgb 13.70 g/dL (11.27-16.99) 04/13/23 22:58 Hct 39.6 % (36-47) 04/13/23 22:58 MCV 91.7 fl (85-98) 04/13/23 22:58 MCH 31.7 pg (27-33) 04/13/23 22:58 MCHC 34.6 g/dL (30-55) 04/13/23 22:58 RDW 12.1 % (12.1-15.1) 04/13/23 22:58 Plt Count 250 10^3/cmm (157-399) 04/13/23 22:58 MPV 8.8 fL (7.4-10.4) 04/13/23 22:58 Neut % (Auto) 78.6 % 04/13/23 22:58 Lymph % (Auto) 14.5 % 04/13/23 22:58 Hartley % (Auto) 5.6 % 04/13/23 22:58 Eos % (Auto) 0.9 % 04/13/23 22:58 Baso % (Auto) 0.2 % 04/13/23 22:58 Neut # (Auto) 6.35 10^3/uL (1.8-7.7) 04/13/23 22:58 Lymph # (Auto) 1.2 10^3/uL (0.8-4.8) 04/13/23 22:58 Hartley # (Auto) 0.5 10^3/uL (0.2-0.9) 04/13/23 22:58 Eos # (Auto) 0.1 10^3/uL (0.0-0.8) 04/13/23 22:58 Baso # (Auto) 0.0 10^3/uL (0.0-0.1) 04/13/23 22:58 Nucleated RBC % (auto) 0 % 04/13/23 22:58 Nucleated RBCs # 0.0 /100WBC 04/13/23 22:58 PT 14.90 SECONDS (12.1-14.9) 04/13/23 22:58 INR 1.13 (0.8-1.2) 04/13/23 22:58 Sodium 130 mmol/L (136-145) L 04/13/23 22:58 Potassium 4.2 mmol/L (3.5-5.1) 04/13/23 22:58 Chloride 95 mmol/L (98-107) L 04/13/23 22:58 Carbon Dioxide 26 mmol/L (22-29) 04/13/23 22:58 Anion Gap 13.2 (5-19) 04/13/23 22:58 BUN 13 mg/dL (8-23) 04/13/23 22:58 Creatinine 0.6 mg/dL (0.5-0.9) 04/13/23 22:58 GFR Calculation Not Reportable 04/13/23 22:58 Glucose 219 mg/dL (65-115) H 04/13/23 22:58 Calculated Osmolality 277 mOsm/kg (285-295) L 04/13/23 22:58 Calcium 10.9 mg/dL (8.5-10.5) H 04/13/23 22:58 Total Bilirubin 0.7 mg/dL (0.15-1.2) 04/13/23 22:58 AST 17 U/L (0-32) 04/13/23 22:58 ALT 14 U/L (0-33) 04/13/23 22:58 Alkaline Phosphatase 78 U/L (35-105) 04/13/23 22:58 Total Protein 7.4 g/dL (6.6-8.7) 04/13/23 22:58 Albumin 4.1 g/dL (3.5-5.2) 04/13/23 22:58 Globulin 3.3 g/dL (1.3-4.6) 04/13/23 22:58 All radiology interpretation(s) finalized by discharge EKG Data EKG 1: I personally reviewed and interpreted this EKG as follows: EKG interpretation date: 04/13/23 EKG interpretation time: 22:48 Interpretation: nsr hr [address] or t wave abnormalites qrs 93 qtc 444 Discharge Plan Discharge Patient Disposition: Home Clinical Impression: Dizziness, Nausea Condition: Stable Prescriptions: New ondansetron 4 mg tablet,disintegrating 4 mg PO Q6H PRN (Reason: nausea and vomiting) Qty: 14 0RF dicyclomine 20 mg tablet 20 mg PO TID PRN (Reason: abdominal pain) Qty: 20 0RF dicyclomine 20 mg tablet 20 mg PO TID Qty: 30 0RF ondansetron 4 mg tablet,disintegrating 4 mg PO Q6H PRN (Reason: nausea and vomiting) Qty: 14 0RF No Action docusate sodium [Dulcolax Stool Softener (dss)] 100 mg capsule 100 mg PO DAILY PRN (Reason: Constipation) Complete Multivitamin Tablet 1 tab PO DAILY Trulicity 1.5 mg/0.5 mL pen injector 1.5 mg SUBCUT .q7days Qty: 7.5 3RF Rx Instructions: On Fridays cyclobenzaprine 10 mg tablet 10 mg PO BID PRN (Reason: muscle spasm) Qty: 20 0RF Rx Instructions: begin w 1/2 tablet first two times. ciprofloxacin HCl [Cipro] 250 mg tablet 250 mg PO BID 5 Days Qty: 10 0RF Monistat 3 200 mg- 2 % (9 gram) kit See Rx Instructions vaginal .COMPLEX Qty: 1 0RF Rx Instructions: put 1 supp in vagina at bedtime x 3nites;use cream on area outside vagina 2X/day for up to 7days vaginal (DME) Diabetic shoes with 3 pairs of inserts See Rx Instructions .Route .MEDSUPPLY Qty: 1 0RF Rx Instructions: As directed J P & O erythromycin 5 mg/gram (0.5 %) ointment 0.5 inch ophthalmic (eye) QID Qty: 3.5 1RF Fluzone HighDose Quad 23-24 PF 240 mcg/0.7 mL syringe 0.7 ml IM ONCE Qty: 0.7 0RF (DME) True Metrix Glucose Test Strip Strip See Rx Instructions .Route Qty: 100 2RF Rx Instructions: USE ONE STRIP TO CHECK BLOOD SUGAR ONCE DAILY (DME) lancets [BD Ultra Fine Lancets] 33 gauge misc See Rx Instructions .Route Qty: 100 2RF Rx Instructions: USE ONE LANCET TO CHECK BLOOD SUGAR ONCE DAILY apixaban 5 mg tablet 5 mg PO BID Qty: 180 3RF ezetimibe [Zetia] 10 mg tablet 10 mg PO DAILY Qty: 30 0RF Rx Instructions: MUST have follow-up for further refills hydrocodone-acetaminophen 10-325 mg tablet 1 tab PO BID PRN (Reason: pain) 30 Days Qty: 60 0RF ergocalciferol (vitamin D2) 1,250 mcg (50,000 unit) capsule See Rx Instructions .ROUTE .COMPLEX Qty: 12 2RF Dose Instruction: TAKE 1 CAPSULE WEEKLY Rx Instructions: TAKE 1 CAPSULE WEEKLY carvedilol 12.5 mg tablet 12.5 mg PO BID Qty: 180 1RF Rx Instructions: MUST have follow-up for further refills gabapentin 400 mg capsule See Rx Instructions .ROUTE .COMPLEX Qty: 90 2RF Dose Instruction: TAKE 1 CAPSULE DAILY Rx Instructions: TAKE 1 CAPSULE DAILY glipizide 5 mg tablet See Rx Instructions .ROUTE .COMPLEX Qty: 270 1RF Dose Instruction: TAKE 1 AND 1/2 TABLETS TWO TIMES A DAY Rx Instructions: TAKE 1 AND 1/2 TABLETS TWO TIMES A DAY lisinopril 10 mg tablet 10 mg PO DAILY Qty: 90 1RF oxybutynin chloride 5 mg tablet 5 mg PO BID 90 Days Qty: 180 3RF Rx Instructions: TAKE 1 TABLET TWICE A DAY ranolazine 1,000 mg tablet extended release 12 hr 1,000 mg PO BID Qty: 180 3RF esomeprazole magnesium 40 mg capsule,delayed release(DR/EC) See Rx Instructions .ROUTE .COMPLEX Qty: 90 1RF Dose Instruction: TAKE 1 CAPSULE DAILY Rx Instructions: TAKE 1 CAPSULE DAILY Discharge Orders: Discharge ED (Routine); Ordered 04/14/23 Ordered By: Roxie Barajas Referrals: Jude Ramirez MD [Primary Care Provider] - 1-3 days Discharge Diet: Advance as tolerated Discharge Activity: Resume usual activity Patient Instructions: Acute Nausea and Vomiting (ED), Dizziness (ED) Coding Level of Care Code ED Medical Program Specialist 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 NIH stroke score NIHSS Level Of Consciousness - 1a: 0 Level Of Consciousness Questions - 1b: Both Correct Level Of Consciousness Commands - 1c: Both Correct Best Gaze - 2: Normal Visual Garcia - 3: No Visual Loss Facial Palsy - 4: Normal Motor Arm Right - 5: No Drift Motor Arm Left - 5: No Drift Motor Leg Right - 6: No Drift Motor Leg Left - 6: No Drift Limb Ataxia - 7: Absent Sensory - 8: Normal Best Language - 9: No Aphasia Dysarthia - 10: Normal Extinction And Inattention - 11: 0 Score Total Score: 0
--- NOTE | 2023-04-13 22:22 | ECG_ITS ---
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 Measurements Intervals [place] Rate: 62 P: 56 LA: 185 QRS: 70 QRSD: 93 T: 81 QT: 439 QTc: 447 Interpretive Statements SINUS RHYTHM WITH SINUS ARRHYTHMIA MODERATE ST DEPRESSION [0.05+ mV ST DEPRESSION] Compared to ECG 10/12/2022 13:49:52 ST (T wave) deviation now present Electronically Signed On 04-14-2023 7:53:29 FAMILY SERVICE WORKER by Jona Negro M.D. [email or web address]
[2023-04-13] MEDS: ondansetron 2 mg/ML SDV 2 mL 4 MG IVP (22:43)
[2023-04-13] MEDS: hyDRALAzine 20 mg/mL INJ 1 mL 10 MG IVP ×2 (22:43→23:48)
[2023-04-13 23:03] LABS: Basophils % 0.2 %; Eosinophils # 0.1 10^3/uL (0.0-0.8); Eosinophils % 0.9 %; Hematocrit 39.6 % (36-47); Lymphocytes # 1.2 10^3/uL (0.8-4.8); Lymphocytes % 14.5 %; Mean Corpuscular HGB Conc 34.6 g/dL (30-55); Mean Corpuscular Hemoglobin 31.7 pg (27-33); Mean Corpuscular Volume 91.7 fl (85-98); Mean Platelet Volume 8.8 fL (7.4-10.4); Monocytes # 0.5 10^3/uL (0.2-0.9); Monocytes % 5.6 %; Neutrophils # 6.35 10^3/uL (1.8-7.7); Neutrophils % 78.6 %; Nucleated Red Blood Cells % 0 %; Platelet Count 250 10^3/cmm (157-399); Red Blood Count 4.32 10^6/uL (3.85-5.65); Red Cell Distribution Width 12.1 % (12.1-15.1); White Blood Count 8.08 10^3/uL (3.29-11.43)
[2023-04-13 23:15] LABS: INR 1.13 (0.8-1.2)
[2023-04-13 23:20] LABS: Alanine Aminotransferase 14 U/L (0-33); Albumin Level 4.1 g/dL (3.5-5.2); Alkaline Phosphatase 78 U/L (35-105); Anion Gap 13.2 (5-19); Aspartate Amino Transferase 17 U/L (0-32); Blood Urea Nitrogen 13 mg/dL (8-23); Calcium 10.9 mg/dL (8.5-10.5); Carbon Dioxide 26 mmol/L (22-29); Chloride 95 mmol/L (98-107); Globulin 3.3 g/dL (1.3-4.6); Glucose 219 mg/dL (65-115); Osmolality Calculated 277 mOsm/kg (285-295); Potassium 4.2 mmol/L (3.5-5.1); Sodium 130 mmol/L (136-145); Total Bilirubin 0.7 mg/dL (0.15-1.2); Total Protein 7.4 g/dL (6.6-8.7)
[2023-04-13 23:32] VITALS: BP 206/62; PULSE 69; O2SAT 99
[2023-04-13] MEDS: sodium chloride 0.9% 500 ML 999 ML IV (23:33)
[2023-04-13 23:50] VITALS: BP 176/69; PULSE 69; O2SAT 98
[2023-04-14 00:22] VITALS: BP 193/61; PULSE 74; O2SAT 96
[2023-04-14 00:41] VITALS: BP 193/64; PULSE 77; O2SAT 98
[2023-04-14 01:08] VITALS: PULSE 78; RESP 17; O2SAT 97
== END 2023-04-14 01:09 | disposition home or self-care (01) ==
PROVIDERS: Emergency Provider Emergency Medicine; PCP Family Medicine
DX: R42 Dizziness and giddiness (principal); R11.0 Nausea; Z79.84 Long term (current) use of oral hypoglycemic drugs; Z79.85 Long-term (current) use of injectable non-insulin antidiabetic drugs; Z87.891 Personal history of nicotine dependence; Z85.3 Personal history of malignant neoplasm of breast; I25.10 Atherosclerotic heart disease of native coronary artery without angina pectoris; Z86.73 Personal history of transient ischemic attack (TIA), and cerebral infarction without residual deficits; E11.42 Type 2 diabetes mellitus with diabetic polyneuropathy; I10 Essential (primary) hypertension; E78.2 Mixed hyperlipidemia
CPT/HCPCS: 36415; 70450; 71045; 80053; 85025; 85610; 93005; 96374; 96375; 96376; 99285; J0360; J2405; J7040

== ENCOUNTER 2023-04-15 09:49 | Outpatient (CLI) | payer MEDICARE, OTHER, SELFPAY ==
--- NOTE | 2023-04-15 10:30 | USCV_ITS ---
Danitza Rosado Age: 82 Gender: F : 1940 Exam Date: 04/15/2023 09:58 Ordering Phys: Martinez Retana MD (Andy) ([email or web address] [place]) Technologist: CT Exam [place] [facility] [place] Indication: stenosis Risk Factors: Previous Vascular Surgery: Right Brachial BP: / Left Brachial BP: / Right Left Velocity (cm/s) Spectral Plaque Velocity (cm/s) Spectral Plaque Syst/Diast Broadening Syst/Diast Broadening 86.10/ 17.40 Prox CCA 95.90 / 20.10 86.30/ 13.50 Mid CCA 75.60 / 15.10 88.40/ 22.90 Distal CCA 84.00 / 23.50 173.00/42.50 Prox ICA 83.20 / 21.00 142.00/45.20 Mid ICA 90.50 / 25.90 97.10/ 27.20 Distal ICA 92.60 / 27.60 113.40 ECA 91.60 1.96 ICA/CCA 0.97 Antegrade Vertebral Antegrade 60.40/ 1.20 cm/s 71.70/ 26.50 cm/s Bi Subclavian Bi 271.3 153.2 0 0 FINDINGS stenosis rt prx ica and subclavian artery, rt vert is poor but patent comparison 11/01 CONCLUSIONS Right ICA stenosis 50-69% progressed compared to previous.. Moderate atheromatous plaque right carotid bulb/ICA. Left ICA stenosis <50%. Moderate atheromatous plaque left carotid bulb/ICA. Intimal thickening in the common carotid arteries and internal carotid arteries bilaterally. Poor antegrade flow Right vertebral artery which is patent. Moderate stenosis RIGHT subclavian with increased velocity. Normal antegrade Doppler flow noted in the left vertebral artery. Erickson Muir MD (Electronically Signed) Final Date: 15 April 2023 11:08 S
== END 2023-04-15 09:50 | disposition home or self-care (01) ==
LOC: RAD 09:50
PROVIDERS: PCP Family Medicine; Visit Provider Thoracic Surgery (Cardiothoracic Vascular Surgery)
DX: I65.23 Occlusion and stenosis of bilateral carotid arteries (principal)
CPT/HCPCS: 93880

== ENCOUNTER → 2023-04-19 11:50 | Outpatient (BNVA) | payer MEDICARE, OTHER, SELFPAY | PROVIDERS: PCP Family Medicine; Visit Provider Nurse Practitioner Family | DX: N39.0 Urinary tract infection, site not specified (principal); N39.3 Stress incontinence (female) (male); Z98.890 Other specified postprocedural states | CPT/HCPCS: 81003; 87077; 87086; 87184 ==

== ENCOUNTER → 2023-05-27 12:29 | Outpatient (BNVA) | payer MEDICARE, OTHER, SELFPAY | PROVIDERS: PCP Family Medicine; Visit Provider Family Medicine | DX: E11.42 Type 2 diabetes mellitus with diabetic polyneuropathy (principal) | CPT/HCPCS: 80053; 83036; 85025 ==

== ENCOUNTER → 2023-06-07 13:04 | Outpatient (BNVA) | payer MEDICARE, OTHER, SELFPAY | PROVIDERS: PCP Family Medicine; Visit Provider Thoracic Surgery (Cardiothoracic Vascular Surgery) | DX: I65.21 Occlusion and stenosis of right carotid artery (principal); I10 Essential (primary) hypertension; Z87.891 Personal history of nicotine dependence | CPT/HCPCS: 99213 ==

== ENCOUNTER → 2023-06-17 09:39 | Outpatient (BNVA) | payer MEDICARE, OTHER, SELFPAY | PROVIDERS: PCP Family Medicine; Visit Provider Nurse Practitioner Family | DX: N39.0 Urinary tract infection, site not specified (principal); A49.9 Bacterial infection, unspecified | CPT/HCPCS: 81003; 87077; 87086; 87184 ==

== ENCOUNTER → 2023-07-05 11:29 | Outpatient (BNVA) | payer MEDICARE, OTHER, SELFPAY | PROVIDERS: PCP Family Medicine; Visit Provider Family Medicine | DX: N30.00 Acute cystitis without hematuria (principal) | CPT/HCPCS: 81003 ==